=== PATIENT | female | born 1950 | race Caucasian/White ===

== ENCOUNTER 2022-06-12 17:36 | Emergency (ER) | payer MEDICARE, BC, SELFPAY ==
[2022-06-12 17:56] VITALS: BP 134/83; PULSE 84; RESP 16; TEMP 36.3; O2SAT 98; BMI 21.3
--- NOTE | 2022-06-12 20:09 | CRLHL7_ITS ---
For Patients: As a result of the Century Cures Act, medical imaging exams and procedure reports are released immediately into your electronic medical record. You may view this report before your referring provider. If you have questions, please contact your health care provider. Indication: Fall Technique: Noncontrast CT of the head Please note that all CT scans at this facility use dose modulation, iterative reconstruction, and/or weight-based dosing when appropriate to reduce radiation dose to as low as reasonably achievable. Comparison: None Findings: Soft tissue swelling over the left orbit. Partially visualized opacification of the left maxillary sinus. Fractures better evaluated on same-day facial bone CT. The basal cisterns, sylvian fissures, ventricles and extra-axial spaces are within normal limits for age. No evidence of mass, mass effect, midline shift, acute hemorrhage or infarct. Impression: No acute intracranial abnormality. Please note that all CT scans at this facility use dose modulation, iterative reconstruction, and/or weight-based dosing when appropriate to reduce radiation dose to as low as reasonably achievable. Dictated by Dg Ayala MD @ 06/12/2022 8:46:26 PM (Electronically Signed)
--- NOTE | 2022-06-12 20:09 | CRLHL7_ITS ---
For Patients: As a result of the Century Cures Act, medical imaging exams and procedure reports are released immediately into your electronic medical record. You may view this report before your referring provider. If you have questions, please contact your health care provider. Indication: Fall Technique: Noncontrast CT of the facial bones Please note that all CT scans at this facility use dose modulation, iterative reconstruction, and/or weight-based dosing when appropriate to reduce radiation dose to as low as reasonably achievable. Comparison: None Findings: Motion somewhat limits evaluation. Apparent discontinuity of the mandible (series 5, image 65) is favored secondary to motion artifact. The patient is almost entirely edentulous. There is surgical hardware within the mandible. The hard palate and pterygoid plates appear intact. The nasal bones appear intact. There is a fracture involving the inferior left orbital floor (series 5, image 62-49). There is a comminuted fracture involving the left lateral orbital rim (series 5, image 43). There is a fracture involving the lateral left maxillary sinus wall (series 5, image 49) which extends posteriorly (series 3, image 100). Probable non displaced left zygomatic arch fracture (series 3, image 96-108). Severe soft tissue swelling overlying the left cheek and orbit (series 4, image 84) with the subcutaneous emphysema. The left orbit appears intact. There is no retro-orbital hematoma. Impression: Multiple fractures involving the left orbital floor, left lateral orbital wall, left maxillary sinus and left zygomatic arch Please note that all CT scans at this facility use dose modulation, iterative reconstruction, and/or weight-based dosing when appropriate to reduce radiation dose to as low as reasonably achievable. Dictated by Dg Ayala MD @ 06/12/2022 8:57:26 PM (Electronically Signed)
--- NOTE | 2022-06-12 20:10 | CRLHL7_ITS ---
For Patients: As a result of the Century Cures Act, medical imaging exams and procedure reports are released immediately into your electronic medical record. You may view this report before your referring provider. If you have questions, please contact your health care provider. Indication: Fall Technique: Noncontrast CT of the cervical spine Please note that all CT scans at this facility use dose modulation, iterative reconstruction, and/or weight-based dosing when appropriate to reduce radiation dose to as low as reasonably achievable. Comparison: None Findings: Mild anterolisthesis of C4 on C5 and C5 on C6. This is most likely degenerative in etiology given same level facet arthropathy. Vertebral body heights are preserved. No fracture. There is severe degenerative change at C6-C7. No acute soft tissue abnormality. Impression: No acute fracture or malalignment. Please note that all CT scans at this facility use dose modulation, iterative reconstruction, and/or weight-based dosing when appropriate to reduce radiation dose to as low as reasonably achievable. Dictated by Dg Ayala MD @ 06/12/2022 8:42:15 PM (Electronically Signed)
--- NOTE | 2022-06-12 20:23 | ED.GENADULT ---
HPI - General Adult General Chief complaint: Fall/Minor Trauma Stated complaint: Fall, injured L side face on concrete Time Seen by Provider: 06/12/22 20:12 Source: patient Mode of arrival: ambulatory Limitations: no limitations History of Present Illness HPI narrative: 71-year-old female coming in today after falling at. She leaned over to get her dog tied, lost her balance and fell onto her left side hitting her face on the concrete step in the front of her house. This occurred approximately 3 hours before she was seen. She states that she has a headache on the left side of her head. I swollen shut. She states that her head and neck feels sore. She also does hit her arm and scraped her skin-this hurts her but the arm itself is feels fine. The she has good range of motion in both arms. She has no back pain that is new. She states that she has been having issues with her balance as of late and has been working on that. She does live with her at home. She is not on any blood thinners. Related Data Home Medications Medication Instructions Recorded Confirmed alendronate 70 mg tablet 70 mg PO DAILY 06/12/22 06/12/22 bupropion HCl 200 mg tablet,12 hr 200 mg PO Q12H 06/12/22 06/12/22 sustained-release chlorhexidine gluconate 0.12 % 15 ml PO .every other day 06/12/22 06/12/22 mouthwash escitalopram oxalate 20 mg tablet 20 mg PO DAILY 06/12/22 06/12/22 gabapentin 300 mg capsule 300 mg PO Q12H 06/12/22 06/12/22 hydrocodone 10 mg-acetaminophen 1 tab PO Q8H 06/12/22 06/12/22 325 mg tablet lamotrigine 25 mg tablet 25 mg PO DAILY 06/12/22 06/12/22 levothyroxine 88 mcg tablet 88 mcg PO DAILY 06/12/22 06/12/22 omeprazole 40 mg capsule,delayed 40 mg PO DAILY 06/12/22 06/12/22 release pravastatin 40 mg tablet 40 mg PO HS 06/12/22 06/12/22 quetiapine 100 mg tablet 100 mg PO DAILY 06/12/22 06/12/22 quetiapine 50 mg tablet 50 mg PO DAILY 06/12/22 06/12/22 trazodone 100 mg tablet 100 mg PO DAILY 06/12/22 06/12/22 Allergies Allergy/AdvReac Type Severity Reaction Status Date / Time ampicillin Allergy Mild Rash Verified 06/12/22 18:03 Review of Systems Status of ROS: Reports: 10 or more systems reviewed and unremarkable except as noted in History and below Exam Narrative: Exam Narrative: Well-nourished elderly patient in no acute distress. Alert and oriented x3. Answers questions appropriately. Mood and affect are appropriate. Thoughts are goal oriented and rational. No tangential or magical thinking noted. Patient speaks in full sentences without needing to catch her breath. Speech is not slurred or pressured. GCS is 15. She is breathing and speaking without difficulty. HEENT: Normocephalic. Patient has a large left-sided hematoma around the eye and the eye is swollen shut. I am able to open her eye and she does have some conjunctival swelling but her pupils are equally round reactive to light and her extraocular muscles are intact. She does have a laceration above the left eyebrow that is less than 1 cm in length. Moist mucous membranes, I do not see trauma to the inside of the mouth. Posterior pharynx is normal. Neck is soft without any lymphadenopathy or thyromegaly. He has some discomfort to palpation of the bilateral neck muscles, no acute tenderness over the cervical spine. She has good range of motion with flexion, extension, side way bending and rotation at the neck however does cause her bilateral discomfort. Cardiovascular: Heart is regular rate and rhythm S1 and S2 are present. Lungs: Clear to auscultation bilaterally. Patient takes deep breaths without any discomfort. Skin: Well perfused without any obvious rashes. She does have scattered bruising over the upper extremities. On the left posterior forearm she has an area where the top layer of skin has been avulsed. This area is about 2 cm in length. She has no tenderness to palpation of the shoulders, elbows, or wrists bilaterally. Hand state appellate clerk is normal and symmetric. She has a tremor present which is not new according her. Const: Vital Signs, click to edit/add: Vital Signs - 24 hr 06/12/22 17:56 Temperature 97.4 F L Pulse Rate [Right Pulse Oximeter] 84 Respiratory Rate 16 Blood Pressure [Ri ght Upper Arm] 134/83 Pulse Oximetry 98 Oxygen Delivery Me thod Room Air Course Course Hospital Course: Patient proceeded to head, facial and cervical spine CTs. Head and cervical spine CT unremarkable. Facial CT showing multiple fractures. Did consult Dr. Dasilva, ER [facility], who recommended patient be evaluated by their facial trauma team. Prior to transfer patient's arm wound was cleansed and dressed per nursing. Laceration on the forehead was cleaned in the usual sterile manner anesthetized with lidocaine and 2 sutures were placed with 5 0 Ethilon. Patient will transfer via private vehicle, her daughter is taking her. Vital Signs Vital signs: Initial Vital Signs Temperature 97.4 F L 06/12/22 17:56 Temperature Source Temporal Artery Scan 06/12/22 17:56 Pulse Rate 84 06/12/22 17:56 Respiratory Rate 16 06/12/22 17:56 Blood Pressure 134/83 06/12/22 17:56 Blood Pressure Mean 100 06/12/22 17:56 Blood Pressure Position Sitting 06/12/22 17:56 Pulse Oximetry 98 06/12/22 17:56 Oxygen Delivery Method 06/12/22 17:56 Vital Signs Temperature 97.4 F L 06/12/22 17:56 Pulse Rate 84 06/12/22 17:56 Respiratory Rate 16 06/12/22 17:56 Blood Pressure 134/83 06/12/22 17:56 Pulse Oximetry 98 06/12/22 17:56 Oxygen Delivery Method 06/12/22 17:56 Temperature 97.4 F L 06/12/22 17:56 Pulse Rate 84 06/12/22 17:56 Respiratory Rate 16 06/12/22 17:56 Blood Pressure 134/83 06/12/22 17:56 Pulse Oximetry 98 06/12/22 17:56 Oxygen Delivery Method 06/12/22 17:56 Medical Decision Making [facility] Narrative Medical decision making narrative: 71-year-old female status post fall with multiple facial fractures. Laceration sutured in the ED today. Patient will be transferred via private vehicle to [facility] for further evaluation. Imaging Data Cervical spine CT: Attestation: I have reviewed the pertinent imaging results. Radiologist's impression: Noncontrast CT of the cervical spine Please note that all CT scans at this facility use dose modulation, iterative reconstruction, and/or weight-based dosing when appropriate to reduce radiation dose to as low as reasonably achievable. Comparison: None Findings: Mild anterolisthesis of C4 on C5 and C5 on C6. This is most likely degenerative in etiology given same level facet arthropathy. Vertebral body heights are preserved. No fracture. There is severe degenerative change at C6-C7. No acute soft tissue abnormality. Impression: No acute fracture or malalignment. CT scan - head: Attestation: I have reviewed the pertinent imaging results. Radiologist's impression: Noncontrast CT of the head Please note that all CT scans at this facility use dose modulation, iterative reconstruction, and/or weight-based dosing when appropriate to reduce radiation dose to as low as reasonably achievable. Comparison: None Findings: Soft tissue swelling over the left orbit. Partially visualized opacification of the left maxillary sinus. Fractures better evaluated on same-day facial bone CT. The basal cisterns, sylvian fissures, ventricles and extra-axial spaces are within normal limits for age. No evidence of mass, mass effect, midline shift, acute hemorrhage or infarct. Impression: No acute intracranial abnormality. Discharge Plan Discharge Clinical Impression: Facial fracture due to fall Patient Disposition: Xfer Other Discharge Location: [facility] Condition: Stable Additional Instructions: Proceeded to ER at [facility]. Prescriptions: No Action bupropion HCl 200 mg tablet sustained-release 12 hr 200 mg PO Q12H alendronate 70 mg tablet 70 mg PO DAILY Label Comments: has not been taking getting teeth implants for a while chlorhexidine gluconate 0.12 % mouthwash 15 ml PO .every other day Label Comments: RINSE AND SPIT 15-30 ML (ONE TO TWO TABLESPOONS) TWICE PER DAY STARTING 72 HOURS AFTER SURGERY. escitalopram oxalate 20 mg tablet 20 mg PO DAILY gabapentin 300 mg capsule 300 mg PO Q12H hydrocodone-acetaminophen 10-325 mg tablet 1 tab PO Q8H levothyroxine 88 mcg tablet 88 mcg PO DAILY omeprazole 40 mg capsule,delayed release(DR/EC) 40 mg PO DAILY pravastatin 40 mg tablet 40 mg PO HS quetiapine 100 mg tablet 100 mg PO DAILY lamotrigine 25 mg tablet 25 mg PO DAILY quetiapine 50 mg tablet 50 mg PO DAILY trazodone 100 mg tablet 100 mg PO DAILY Stand Alone Forms: [employer] Info Instructions
--- OUTSIDE RECORDS SUMMARY | 2022-06-12 20:26 | XMS_ITS | Clinical Summary ---
:1950 Author Organization [employer] [facility] [place] [address] Care Team Providers Name Role Phone Karla Rivera MD Primary Care Provider [phone] Allergies Active Allergy Reactions Severity Noted Date Comments Ampicillin Rash 07/29/2011 Medications Medication Sig Dispensed Refills Start End Status Date Date multivitamin (MVI) Take 1 tablet by 0 Active tablet mouth once 012 daily. cholecalciferol Take 1 capsule 90 capsule 3 Active (VITAMIN D) 2,000 unit by mouth once 014 capsuleIndications: daily. Vitamin D deficiency calcium Take 1 tablet by 0 2 Act geronimo carbonate-vitamin D3, mouth 2 times 019 500 mg-400 units, daily before (OSCAL 500 + D) tablet meals. sennosides (SENNA) 8.6 Take 1 tablet by 0 Active mg tablet mouth 2 times 019 daily if needed for Constipation. nicotine 14 mg/24 hr Apply 1 Patch on 14 Patch 3 Active (NICODERM; HABITROL) 14 dry, clean, 021 mg/24 hr hairless skin patchIndications: once daily. Tobacco abuse nicotine 7 mg/24 hr Apply 1 Patch on 14 Patch 3 Active (NICODERM; HABITROL) 7 dry, clean, 021 mg/24 hr hairless skin patchIndications: once daily. Tobacco abuse alendronate (FOSAMAX) Take 1 Tablet 4 Tablet 0 Active 70 mg (70 mg) by mouth 022 tabletIndications: once a week in Senile osteoporosis the morning. Take on empty stomach with full glass of water. Do not lie down for 1 hr. levothyroxine TAKE ONE TABLET 90 Tablet 1 Active (SYNTHROID) 88 mcg BY MOUTH ONCE 022 tabletIndications: DAILY (BEST IF Graves' disease TAKEN ON AN EMPTY STOMACH) omeprazole (PRILOSEC) TAKE ONE CAPSULE 90 Capsule 2 Active 40 mg Delayed-Release BY MOUTH ONCE 022 capsuleIndications: DAILY Nausea pravastatin (PRAVACHOL) Take 1 Tablet 100 Tablet 1 Active 40 mg (40 mg) by mouth 022 tabletIndications: Pure at bedtime. TAKE hypercholesterolemia AT BEDTIME. buPROPion (WELLBUTRIN Take 1 Tablet 180 Tablet 0 Active SR) 200 mg (200 mg) by 022 Sustained-Release mouth two times tabletIndications: daily. Bipolar 2 disorder (HC), Tobacco abuse escitalopram oxalate Take 1 Tablet 90 Tablet 0 Active (LEXAPRO) 20 mg (20 mg) by mouth 022 tabletIndications: once daily. Bipolar 2 disorder (HC), Anxiety gabapentin (NEURONTIN) Take 1 Capsule 90 Capsule 1 Active 300 mg (300 mg) by 022 capsuleIndications: mouth 3 times Anxiety daily if needed (anxiety). traZODone (DESYREL) 100 1-2 tablets at 60 Tablet 2 Active mg tabletIndications: bedtime as Bipolar 2 disorder (HC) needed for insomnia QUEtiapine (SEROQUEL) Take 1 Tablet 30 Tablet 1 Active 100 mg (100 mg) by 022 tabletIndications: mouth at Bipolar 2 disorder (HC) bedtime. HYDROcodone-acetaminoph TAKE ONE TABLET 90 Tablet 0 Active en, 10-325 mg, (NORCO BY MOUTH THREE 022 10-325) 10-325 mg per TIMES A DAY tabletIndications: Pain NEEDED FOR PAIN medication agreement, - MAXIMUM Arthritis ACETAMINOPHEN DOSE 4000MG/24 HOURS. CAUTION: OPIOID - RISK OF OVERDOSE AND ADDICTION traZODone (DESYREL) 100 1-2 tablets at 60 Tablet 2 2 1 / Discontinued mg tabletIndications: bedtime as 2021 (Reorder Bipolar 2 disorder (HC) needed for (E-cancel not insomnia sent)) escitalopram oxalate Take 1 Tablet 90 Tablet 0 2 05/26 / Discontinued (LEXAPRO) 20 mg (20 mg) by mouth 2021 (Reorder tabletIndications: once daily. (E-cancel not Bipolar 2 disorder s ent)) (HC), Anxiety buPROPion (WELLBUTRIN Take 1 Tablet 180 Tablet 0 2 / Discontinued SR) 200 mg (200 mg) by 2021 (Reorde r Sustained-Release mouth in the (E-cancel not tabletIndications: morning and 1 sent)) Bipolar 2 disorder Tablet (200 mg) (HC), Tobacco abuse in the evening. QUEtiapine (SEROQUEL) Take 1 Tablet 30 Tablet 1 2 05/16 0/ Discontinued 50 mg (50 mg) by mouth 2021 tabletIndications: at bedtime. Bipolar 2 disorder (HC) gabapentin (NEURONTIN) Take 1 Capsule 90 Capsule 1 2 1 / Discontinued 300 mg (300 mg) by 2021 (Reorder capsuleIndications: mouth 3 times (E-cancel not Anxiety daily if needed sent )) (anxiety). HYDROcodone-acetaminoph TAKE ONE TABLET 90 Tablet 0 2 06/08/ Discontinued en, 10-325 mg, (NORCO BY MOUTH THREE 10-325) 10-325 mg per TIMES A DAY tabletIndications: Pain NEEDED FOR PAIN medication agreement, - - MAXIMUM Arthritis ACETAMINOPHEN DOSE 4000MG/24 HOURS. QUEtiapine (SEROQUEL) TAKE ONE TABLET 30 Tablet 1 2 / Discontinued 50 mg BY MOUTH AT 2021 (*Medica tion tabletIndications: BEDTIME a djustment) Bipolar 2 disorder (HC) Active Problems Problem Noted Date Encounter for screening for lung cancer 04/11/2020 Overview: Formatting of this note is dif ferent from the original. Mar 2020: Low-dose chest CT screening fo r lung cancer. IMPRESSION: 1. Negative for lung cancer screening purposes. ?? 2. Stable changes of probable UIP since 12/29/2017. ?? LungRADS CATEGORY: 1: Negativ e.?? RADIOLOGIST RECOMMENDATION: Continu e annual screening with low-dose CT chest in 12 months . Tremor 10/10/2019 Overview: Improved on propranolol, but this caused a lot of side effects, so she stopped it. Not treating tremor currently. Offered Neurology referral and patient declined. Moderate episode of recurrent major depressive disorde r 11/08/2018 Tachycardia 01/18/2013 Overview: Treated with propranolol, but this cause d a lot of side effects. Currently off medication. Hyperplastic colon polyp 01/11/2013 Overview: Colonoscopy 12/2012 polyp repeat in 10 ye ars Pure hypercholesterolemia 10/02/2011 Pain medication agreement 09/04/2011 Overview: Date Signed: 01/24/2014 Physician: Karla Rivera MD Medication: [place] 10/325 Quantity per month: #60 Pharmacy: [facility] Last Toxasure: 03/2015 Senile osteoporosis 07/29/2011 Overview: Started Fosamax 10/2021. Unspecified hypothyroidism 08/16/1998 Grave's disease Arthritis Resolved Problems Problem Noted Date Resolved Date Nausea 11/02/2017 10/10/2019 Overview: EGD 10/2017 Reactive gastropathy, recomme nd gastric emptying study, which showed slow gastric emptying. A special diet was recommended. Symptoms have improved with diet and after stopping propranolol Pre-diabetes 01/18/2013 10/10/2019 Pre-diabetes 09/04/2011 07/18/2013 BIPOLAR AFFECT DISORD, DEPRESSED, SEVERE 09/22/2001 11/11/2018 Heartburn 09/22/2001 07/29/2011 LACRIMAL INSUFFICIENCY-PER HISTORY 08/31/200007/29 PAIN IN JOINT, SHOULDER 08/04/2000 07/29/2011 Encounters Date Type Specialty Care Team Description 06/08/2022 Refill Karla Rivera Refill Requ ericka Dacosta MD (Hydrocodone-ac etaminophen (10-325 Mg)) 06/02/2022 Hospital Encounter Karla Rivera MD Krogman, Brandon, PT 06/02/2022 Travel 05/27/2022 Office Visit Rosa Elena Villanueva Follow Up (); Boris Dacosta MD Management 05/27/2022 Travel 05/26/2022 Hospital Encounter MiguelKarla de la rosa MD Henry, Lori J, COMPOSING ROOM MACHINIST 05/26/2022 Travel 05/23/2022 Refill Rosa Elena Villanueva Refill Rejasmin Dacosta MD (Quetiapine) 05/22/2022 Hospital Encounter Karla Rivera MD Krogman, Brandon, PT 05/22/2022 Travel 05/19/2022 Hospital Encounter Karla Rivera MD Henry, Lori J, COMPOSING ROOM MACHINIST 05/19/2022 Travel 05/15/2022 Hospital Encounter Karla Rivera MD Krogman, Brandon, PT 05/15/2022 Travel 05/12/2022 Hospital Encounter Karla Rivera MD Henry, Lori J, COMPOSING ROOM MACHINIST 05/12/2022 Travel 05/09/2022 Refill Karla Rivera MD (Hydrocodone-ac etaminophen (10-325 Mg)) 05/08/2022 Hospital Encounter Karla Rivera MD Krogman, Brandon, PT 05/08/2022 Travel 05/05/2022 Hospital Encounter Karla Rviera MD Vinar, Kaylin J, COMPOSING ROOM MACHINIST 05/05/2022 Travel 04/28/2022 Hospital Encounter Karla Rivera MD Krogman, Brandon, PT 04/28/2022 Travel 04/24/2022 Hospital Encounter Karla Rivera MD Krogman, Brandon, PT 04/24/2022 Travel 04/21/2022 Hospital Encounter Karla Rivera MD Henry, Lori J, COMPOSING ROOM MACHINIST 04/21/2022 Travel 04/17/2022 Hospital Encounter Karla Rivera MD Krogman, Brandon, PT 04/17/2022 Travel 04/14/2022 Hospital Encounter Karla Rivera MD Henry, Lori J, COMPOSING ROOM MACHINIST 04/14/2022 Travel 04/08/2022 Office Visit Karla Rivera MD 04/07/2022 Hospital Encounter Karla Rivera MD Henry, Lori J, COMPOSING ROOM MACHINIST 04/07/2022 Travel 04/05/2022 Refill Karla Rivera Refill Requ est MD Olesya (Pravastatin) 04/05/2022 Travel 04/03/2022 Hospital Encounter Karla Rivera MD Krogman, Brandon, PT 04/03/2022 Travel 03/31/2022 Hospital Encounter Karla Rivera MD Krogman, Brandon, PT 03/31/2022 Travel 03/30/2022 Telephone Rosa Elena Villanueva Medication Management MD Olesya (Gabapentin) 03/27/2022 Telephone Rosa Elena Villanueva Prior Auth tyrell Dacosta MD (QUEtiapine (SE ROQUEL) 50 mg tablet (APPR LILIANA 12/27/2021-03/16)) 03/27/2022 Telephone Rosa Elena Villanueva Prior Auth tyrell Dacosta MD (Seroquel) 03/26/2022 Telephone Karla Rivera Medication Ney Dacosta MD 03/25/2022 Hospital Encounter Karla Rivera Physi juan r deconditioning MD Simeon Dacosta Brandon, PT 03/25/2022 Office Visit Rosa Elena Villanueva Follow Up MD Olesya 03/25/2022 Travel 03/23/2022 Travel 03/19/2022 Transcribe Orders Ernestine Santiago PA 03/19/2022 Transcribe Orders Ernestine Santiago PA from Last 3 Months Immunizations Name Administration Dates Next Due COVID-19 vaccine (Moderna 100mcg/0.5mL) 09/16/2021, 08/19/19 22 PF, MDV Influenza, Inactivated AIIV4 (Age 65+ 06/16/2021, 06/20/2020 Years) Preserv Free Influenza, Inactivated IIV3 (Age 65+ 06/19/2019, 06/07/2018, 06/16/2017 Years) Preserv Free Pneumococcal Poly,23-Valent (Pneumovax) 08/04/2018 Pneumococcal conj 13-Valent (Prevnar 13) 12/10/2016 Td (Age >=7 Years) 01/04/1996 Tdap 08/07/2018, 07/26/2008 Zoster (Shingrix-RZV, recombinant) 10/30/2019, 07/20/2019 Zoster (Zostavax-ZVL, live) 01/26/2012 Family History Medical History Relation Name Comments Psychiatric illness Daughter 1 Other Daughter 2 Back pain Arthritis Father Other Father Hepatitis C from blood transfusion Hypertension Mother Other Mother Osteoporosis Thyroid Disease Mother Cancer-breast Paternal Aunt Relation Name Status Comments Daughter 1 Daughter 2 Father Mother (Age 92) Paternal Aunt Social History Tobacco Use Types Packs/Day Years Used Date Current Every Day Smoker Cigarettes 0.5 35 Sta rted: 08/16/1976 Smokeless Tobacco: Never Used Tobacco Cessation: Ready to Quit: Yes; C ounseling Given: Yes Comments: Currently smokes 1 cig daily Alcohol Use Standard Drinks/Week Comments No 0 (1 standard drink = 0.6 oz pure alcoho l) Sober since 2002 Alcohol Habits Answer Date Recorded How often do you have a drink containing alcohol? Not asked How many drinks containing alcohol do you have on a Not aske d typical day when you are drinking? How often do you have six or more drinks on one Not asked occasion? Comment: Sober since 200201/24/2014 Sex Assigned at Date Recorded Not on file COVID-19 Exposure Response Date Recorded In the last 10 days, have you been in contact No / Unsure 06/02/2022 10:14 AM CDT with someone who was confirmed or suspected to have Coronavirus/COVID-19? Obstetrics History Para Term AB IAB SAB Ectopic Multiple Living Live Births 4 3 1 3 Date Outcome GA Total Labor/2nd/3rd Weight Sex Delivery Anes PTL Karey A 1 A5 Name Clin Labor 1974 AB 10/04 Para F Doretha 02/13 Para M Leanne horvath 01/10 Para F Birgit na Last Filed Vital Signs Vital Sign Reading Time Taken Comments Blood Pressure 119/73 05/27/2022 10:28 AM CDT Pulse 91 05/27/2022 10:28 AM CDT Temperature 36.7 ??C (98 ??F) 12/27/2021 11:55 AM CDT Respiratory Rate 20 12/27/2021 11:55 AM CDT Oxygen Saturation 98% 01/14/2022 11:06 AM CDT Inhaled Oxygen Concentration - - Weight 61.6 kg (135 lb 14.4 oz) 05/27/2022 10:28 AM CDT Height 169 cm (5' 6.54) 04/08/2022 11:04 AM CDT Body Mass Index 21.58 04/08/2022 11:04 AM CDT Plan of Treatment Upcoming Encounters Date Type Specialty Care Team Description 06/16/2022 [place] [address] [place], [place] [address] (Wo rk) 07/29/2022 Office Visit Matthew Villanueva MD [address] [place] [address] (Wo rk) Health Maintenance Due Date Last Done Comments COVID-19 vaccine series (3 - 11/11/2021 09/16/2021, 022 Booster for Moderna series) Influenza for age 65+ 04/16/2022 06/16/2021, 06/20/2020, 06/19/2019, Additional history exists Low Dose CT (for lung CA) age 0905/13/2022 05/13/2021, 2019, 50-80 09/23/2017 Medicare Wellness for age 65+ 10/13/2022 10/13/2021, 2020, 10/10/2019, Additional history exists Colonoscopy through age 75 01/06/2023 01/06/2013 Mammogram for age 45-75 01/09/2023 01/09/2022, 10/15/2020, 06/27/2019, Additional history exists BMI (ht and wt on same day) for 04/08/2023 04/08/2022, 06/0 08/2021, age 18+ 10/21/2021, Additional history exists Depression screening for age 12+ 05/27/2023 05/27/2022, 07/2022, 03/27/2022, Additional history exists Lipids for age 45-75 10/13/2026 10/13/2021, 10/10/2020, 10/10/2019, Additional history exists Tetanus booster 08/07/2028 08/07/2018, 07/26/2008, 07/26/2008, Additional history exists Hepatitis C screening for age Completed 01/24/2014 18-79 Pneumococcal series for age 65+ Completed 08/04/2018, 11/15 Tdap Completed 08/07/2018, 07/26/2008 DEXA/DXA scan for age 65+ Completed 10/20/2019, 12/24/2016 , 01/08/2015, Additional history exists Zoster (shingles) series for age Completed 10/30/2019, 12/2018, 50+ 01/26/2012 Results Not on filefrom Last 3 Months Insurance Payer Benefit Plan / Subscriber ID Effective Dates Phone Addre ss Type Group MEDICARE PART B MEDICARE PART B [id number] 2016-[employer] ATTN: CLAIMS - HB USE ONLY HB ONLY t [address] [facility] [place] [address] [place] [place] [id number] 2021-[employer]en [address] [address] [place] [address] [place], [place] [id number] [employer] BL[employer] [place] [id number] 2016-[place] [address] [address] [address] [place], [place] [id number] Care Teams Card Maker Relationship Specialty Start Date End Date Karla Rivera MD PCP - General Family Practice 07/22/11 [address] [place] [address]
[2022-06-12] MEDS: HYDROCODONE-ACETAMIN 5-325 MG 1 TAB PO (20:45)
--- NOTE | 2022-06-12 21:02 | ED.NURSE ---
Wound on pt L forearm cleaned with normal saline-moistened gauze and wound cleanser spray. Small amounts of loose foreign debris removed from wound with q-tips. Bacitracin applied to wound. Wound dressed with telfa and gauze roll.
[2022-06-12 21:15] VITALS: BP 118/74; PULSE 74; RESP 18; TEMP 37; O2SAT 98
[2022-06-12 21:46] VITALS: BP 124/78; PULSE 79; RESP 18; TEMP 36.7; O2SAT 98
[2022-06-12 21:47] VITALS: BP 124/78; PULSE 79; RESP 18; TEMP 36.7
== END 2022-06-12 21:47 | disposition other institution (70) ==
PROVIDERS: Emergency Provider Family Medicine; PCP Family Medicine
DX: S01.81XA Laceration without foreign body of other part of head, initial encounter (principal); S02.92XA Unspecified fracture of facial bones, initial encounter for closed fracture; W01.0XXA Fall on same level from slipping, tripping and stumbling without subsequent striking against object, initial encounter
CPT/HCPCS: 12001; 70450; 70486; 72125; 99284; A9270

== ENCOUNTER 2022-06-17 14:37 | Emergency (ER) | payer MEDICARE, BC, SELFPAY ==
[2022-06-17 15:07] VITALS: BP 98/63; PULSE 86; RESP 18; TEMP 36.8; O2SAT 95; BMI 21.6
--- NOTE | 2022-06-17 15:46 | CRLHL7_ITS ---
For Patients: As a result of the Century Cures Act, medical imaging exams and procedure reports are released immediately into your electronic medical record. You may view this report before your referring provider. If you have questions, please contact your health care provider. INDICATION: Multiple falls. TECHNIQUE: CT cervical spine without contrast. COMPARISON: CT cervical spine dated 06/12/2022. FINDINGS: Vertebrae: Loss of normal cervical lordosis, unchanged. No acute displaced fracture or traumatic malalignment. Mild anterolisthesis of C4 on C5, and C5 on C6, unchanged. Bones are osteopenic. Discs and facet joints: Multilevel degenerative changes, worst at the level of C6-C7, unchanged. Bilateral facet arthropathy. Extraspinal findings: Prevertebral soft tissues are within normal limits. Visualized airway is patent. Right lung apex is grossly clear. IMPRESSION: No evidence of acute displaced fracture or traumatic malalignment. Extensive degenerative changes. Please note that all CT scans at this facility use dose modulation, iterative reconstruction, and/or weight-based dosing when appropriate to reduce radiation dose to as low as reasonably achievable. Dictated by Deandra Taylor MD @ 06/17/2022 5:28:32 PM (Electronically Signed)
--- NOTE | 2022-06-17 15:46 | CRLHL7_ITS ---
For Patients: As a result of the Cures Act, medical imaging exams and procedure reports are released immediately into your electronic medical record. You may view this report before your referring provider. If you have questions, please contact your health care provider. INDICATION: Multiple falls. TECHNIQUE: CT head without contrast. COMPARISON: CT head and CT facial bones dated 06/12/2022. FINDINGS: Cerebral parenchyma: No evidence of acute territorial infarct. No acute intraparenchymal hemorrhage. No significant mass effect/midline shift. Normal esposito-white matter differentiation. Extra-axial spaces: No extra-axial collection or hemorrhage. Ventricles: Unremarkable. Calvarium: No acute skull fracture. Multiple left facial bone fractures, partially visualized. Visualized paranasal sinuses/mastoid air cells: Hemorrhagic material within the left maxillary sinus. Posterior fossa: No cerebellar tonsillar herniation. Visualized orbits: No acute abnormality. IMPRESSION: 1. No acute intracranial hemorrhage. 2. Multiple left facial bone fractures, partially visualized, better assessed on prior CT facial bones. Please note that all CT scans at this facility use dose modulation, iterative reconstruction, and/or weight-based dosing when appropriate to reduce radiation dose to as low as reasonably achievable. Dictated by Deandra Taylor MD @ 06/17/2022 5:35:54 PM (Electronically Signed)
--- NOTE | 2022-06-17 17:20 | ED.FALL ---
HPI - Fall General Chief Complaint: Fall/Minor Trauma Stated Complaint: fall Time Seen by Provider: 06/17/22 14:41 History of Present Illness HPI Narrative: 71-year-old woman presenting to the emergency department accompanied by her son with complaint of falling out again. This I believe is now the 3rd fall in in this last week. 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 No loss of consciousness. She is a little sore at the base of her left neck as well sounds like this is a little bit more than since last fall. Not having any difficulty breathing. No abdominal pain. No extremity pain. No double vision. No new back pain. Reportedly does look a little bit better since the last fall and that her left eye in particular is more open. It was bleeding again in her left brow apparently a major point of impact again today. This is where she has received sutures prior. Does have [place] that she takes for her back and would like something for pain now possible. Facial CT impression from 4 days ago. Impression: Multiple fractures involving the left orbital floor, left lateral orbital wall, left maxillary sinus and left zygomatic arch Related Data Home Medications Medication Instructions Recorded Confirmed alendronate 70 mg tablet 70 mg PO DAILY 06/12/22 06/12/22 bupropion HCl 200 mg tablet,12 hr 200 mg PO Q12H 06/12/22 06/12/22 sustained-release chlorhexidine gluconate 0.12 % 15 ml PO .every other day 06/12/22 06/12/22 mouthwash escitalopram oxalate 20 mg tablet 20 mg PO DAILY 06/12/22 06/12/22 gabapentin 300 mg capsule 300 mg PO Q12H 06/12/22 06/12/22 hydrocodone 10 mg-acetaminophen 1 tab PO Q8H 06/12/22 06/12/22 325 mg tablet lamotrigine 25 mg tablet 25 mg PO DAILY 06/12/22 06/12/22 levothyroxine 88 mcg tablet 88 mcg PO DAILY 06/12/22 06/12/22 omeprazole 40 mg capsule,delayed 40 mg PO DAILY 06/12/22 06/12/22 release pravastatin 40 mg tablet 40 mg PO HS 06/12/22 06/12/22 quetiapine 100 mg tablet 100 mg PO DAILY 06/12/22 06/12/22 quetiapine 50 mg tablet 50 mg PO DAILY 06/12/22 06/12/22 trazodone 100 mg tablet 100 mg PO DAILY 06/12/22 06/12/22 Allergies Allergy/AdvReac Type Severity Reaction Status Date / Time ampicillin Allergy Mild Rash Verified 06/12/22 18:03 Review of Systems Status of ROS: Reports: 10 or more systems reviewed and unremarkable except as noted in History and below [facility] Medical History Arthritis Graves disease Hyperplastic colon polyp Moderate episode of recurrent major depressive disorder Pure hypercholesterolemia Senile osteoporosis Tachycardia Tremor Surgical History H/O breast augmentation History of appendectomy History of hysterectomy History of repair of hip fracture Hx of breast biopsy Social History Smoking Status: Never smoker Do you use any of these nicotine containing products: None Second hand tobacco smoke exposure: No How often do you have a drink containing alcohol: never How often do you have six or more drinks on one occasion: Never AUDIT-C Alcohol total score: 0 Non-prescribed substance use: denies use Exam Narrative: Exam Narrative: Pleasant. easily conversant. Edentulous. Breathing easily. Moving all extremities without difficulty. Head is sustained remarkable level of trauma. There is marked diffuse left-sided facial swelling and erythema bruising without calor or significant induration of the skin itself to suggest cellulitis. Extraocular movements are intact. There is total scleral coverage by subconjunctival hemorrhage which apparently is not new on the left. Cranial nerves 2-12 intact with brisk pupils. New canals are free of fluid. No Werner sign. There is bruising down into the anterior left neck as well. Fresh scab at the left outer brow where she is little tender. Neck is supple. A little sore at the left low pericervical musculature. No actual midline tenderness. Lungs are clear in back is nontender. Cardiovascular with regular rate and rhythm Abdomen is soft. Nontender. Little protuberant. Extremities are without edema. She has a light abrasion on the left patella. Const: Vital Signs, click to edit/add: Vital Signs - 24 hr 06/17/22 15:07 06/17/22 17:21 06/17/22 18:28 Temperature 98.3 F 98.3 F Pulse Rate [Pulse Oximeter] 86 77 77 Respiratory Rate 18 14 14 Blood Pressure [Ri ght Upper Arm] 98/63 101/72 101/72 Pulse Oximetry 95 97 Oxygen Delivery Me thod Room Air Room Air 06/17/22 18:29 Temperature 98.3 F Pulse Rate [Pulse Oximeter] 77 Respiratory Rate 14 Blood Pressure [Ri ght Upper Arm] 101/72 Pulse Oximetry Oxygen Delivery Me thod Documenting provider has reviewed patient's vital signs: yes Course Vital Signs Vital signs: Initial Vital Signs Temperature 98.3 F 06/17/22 15:07 Temperature Source Temporal Artery Scan 06/17/22 15:07 Pulse Rate 86 06/17/22 15:07 Pulse Rhythm 06/17/22 15:07 Respiratory Rate 18 06/17/22 15:07 Blood Pressure 98/63 06/17/22 15:07 Blood Pressure Mean 74 06/17/22 15:07 Blood Pressure Position Sitting 06/17/22 15:07 Pulse Oximetry 95 06/17/22 15:07 Oxygen Delivery Method 06/17/22 15:07 Vital Signs Temperature 98.3 F 06/17/22 15:07 Pulse Rate 86 06/17/22 15:07 Respiratory Rate 18 06/17/22 15:07 Blood Pressure 98/63 06/17/22 15:07 Pulse Oximetry 95 06/17/22 15:07 Oxygen Delivery Method 06/17/22 15:07 Temperature 98.3 F 06/17/22 18:29 Pulse Rate 77 06/17/22 18:29 Respiratory Rate 14 06/17/22 18:29 Blood Pressure 101/72 06/17/22 18:29 Pulse Oximetry 97 06/17/22 17:21 Oxygen Delivery Method 06/17/22 17:21 MDM - Fall MDM Narrative Medical decision making narrative: CT imaging of head and neck is without acute abnormalities when compared to have prior studies. No evidence of ocular entrapment on physical exam. Appears to have been a trip and fall type event. Improved with 2 tabs of [place] as dispensed. Medical Records Attestation: I reviewed the patient's medical records. Discharge Plan Discharge Clinical Impression: Closed head injury, Fall Patient Disposition: Home w/ Parent or Adult Condition: Stable Additional Instructions: It does sound like it would be a good idea to avoid any movement that would make you more likely to tip over. Thankfully there is no new bleeding in your head and no new injury in your neck. Rest. Hydrate. Ice packs. Prescriptions: No Action bupropion HCl 200 mg tablet sustained-release 12 hr 200 mg PO Q12H alendronate 70 mg tablet 70 mg PO DAILY Label Comments: has not been taking getting teeth implants for a while chlorhexidine gluconate 0.12 % mouthwash 15 ml PO .every other day Label Comments: RINSE AND SPIT 15-30 ML (ONE TO TWO TABLESPOONS) TWICE PER DAY STARTING 72 HOURS AFTER SURGERY. escitalopram oxalate 20 mg tablet 20 mg PO DAILY gabapentin 300 mg capsule 300 mg PO Q12H hydrocodone-acetaminophen 10-325 mg tablet 1 tab PO Q8H levothyroxine 88 mcg tablet 88 mcg PO DAILY omeprazole 40 mg capsule,delayed release(DR/EC) 40 mg PO DAILY pravastatin 40 mg tablet 40 mg PO HS quetiapine 100 mg tablet 100 mg PO DAILY lamotrigine 25 mg tablet 25 mg PO DAILY quetiapine 50 mg tablet 50 mg PO DAILY trazodone 100 mg tablet 100 mg PO DAILY Follow Up/Referrals: Karla Rivera MD [Primary Care Provider] - Stand Alone Forms: [employer] Info Instructions
[2022-06-17 17:21] VITALS: BP 101/72; PULSE 77; RESP 14; O2SAT 97
[2022-06-17] MEDS: HYDROCODONE-ACETAMIN 5-325 MG 1 TAB 2 TAB PO (17:26)
--- OUTSIDE RECORDS SUMMARY | 2022-06-17 18:27 | XMS_ITS | Clinical Summary ---
:1950 Author Organization [facility] Address [address] [place] [id number] Phone Care Team Providers Name Role Phone Unavailable Primary Care Provider Unavailable Source Comments [facility] is fully rolled out on [employer]. Last update 01/18/09.[facility] Allergies Active Allergy Reactions Severity Noted Date Comments Ampicillin Rash 07/29/2011 Medications Be aware that medications may not be up to date as of this document. Always verify current medications with patient. Medication Sig Dispensed Refills Start Date End Date Status erythromycin 0.5% Place a 1/2 3.5 g 0 06/13/2022 Active (ROMYCIN) 5 mg/gm inch ribbon ophthalmic of ointment ointment into BOTH eyes twice daily. acetaminophen 325 Take 1-2 30 tablet 0 06/13/2022 A ctive mg oral tablet tablets (325-650 mg) by mouth every 4 hours as needed for Mild Pain (Headache). ibuprofen Take 1 tablet 30 tablet 0 06/13/2022 Activ e (MOTRIN;ADVIL) 600 (600 mg) by mg oral tablet mouth 4 times daily as needed for Pain. cefUROXime Take 1 tablet 20 tablet 0 06/13/2022 Acti ve (CEFTIN) 500 mg (500 mg) by 2 oral mouth twice TABSIndications: daily for 10 Facial fracture days. ppx oxyCODONE Take 1 tablet 8 tablet 0 06/13/2022 Disco ntinued (ROXICODONE) 5 mg (5 mg) by 2 (D uplicate Order) oral mouth every 4 tabletIndications: hours as Acute Pain needed for Pain. Active Problems No known active problems Encounters Date Type Specialty Care Team Description 06/13/2022 Emergency EMERGENCY MEDICINE Moe Murillo initial E, MD encounter Quan Carter MD 06/13/2022 Documentation Only Unknown, Provider 06/13/2022 Ophth Exam OPHTHALMOLOGY Nancy Prado MD 06/12/2022 Documentation Only Unknown, Provider 06/12/2022 Travel from Last 3 Months Social History Tobacco Use Types Packs/Day Years Used Date Smoking Tobacco: Never Assessed Sex Assigned at Date Recorded Not on file COVID-19 Exposure Response Date Recorded In the last 10 days, have you been in contact No / Unsure 06/12/2022 11:54 PM CDT with someone who was confirmed or suspected to have Coronavirus/COVID-19? Last Filed Vital Signs Vital Sign Reading Time Taken Comments Blood Pressure 100/60 06/13/2022 12:35 PM CDT Pulse 88 06/13/2022 12:35 PM CDT Temperature 36.9 ??C (98.4 ??F) 06/12/2022 11:31 PM CDT Respiratory Rate 18 06/13/2022 12:35 PM CDT Oxygen Saturation 97% 06/13/2022 12:35 PM CDT Inhaled Oxygen Concentration - - Weight - - Height - - Body Mass Index - - Plan of Treatment Upcoming Encounters Date Type Specialty Care Team Description 06/22/2022 Office Visit DENTISTRY Op, [facility] Scheduled [address] [place] [address] 06/22/2022 Office Visit OPHTHALMOLOGY Tripp De La Cruz MD Scheduled [address] [place] [phone] (Wo rk) Health Maintenance Due Date Last Done Comments Breast Cancer Screening 1950 CT Colonography 1950 Colonoscopy 1950 Colorectal Cancer Screening 1950 Dental Oral Exam 1950 Dental Prophylaxis 1950 Dental X-Ray: [facility]ings 1950 FIT/Cologuard 1950 Hepatitis C Screening 1950 Sigmoidoscopy 1950 iFOB/FIT 1950 Lipid Screening 1952 Periodontal Maintenance 1965 PREVENTATIVE VISIT 1969 HEALTH MAINTENANCE PROTOCOL 1970 Osteoporosis Screening (Dexa 2016 Scan) COVID-19 Vaccine (3 - Booster 11/11/2021 09/16/2021, for Moderna series) 08/19/2021 INFLUENZA VACCINE 04/16/2022 Medicare Annual Wellness 10/13/2022 10/13/2021, 10/10/2020 TD/TDAP ADULTS 08/07/2028 08/07/2018, 07/26/2008, 01/04/1996 PNEUMOCOCCAL IMMUNIZATION > 65 Completed 08/04/2018 YRS HIB Aged Out No longer eligib le based on patient's age to complete this to pic Procedures Procedure Name Priority Date/Time Associated Diagnosis Comme nts EXTERNAL MED 06/14/2022 12:30 PM Results for this REC-IMAGING CDT procedure are i n the results section. EXTERNAL MED 06/14/2022 12:30 PM Results for this REC-IMAGING CDT procedure are i n the results section. CT OUTSIDE READ Routine 06/13/2022 12:34 AM Resul ts for this SPINE CERVICAL/NECK CDT procedur e are in the results section. CT OUTSIDE READ Routine 06/13/2022 12:33 AM Resul ts for this HEAD/FACIAL BONES CDT procedure are in the results section. from Last 3 Months Results EXTERNAL MED REC-IMAGING (06/14/2022 12:30 PM CDT)Only the most recent of2 resultswithin the time period is included. Anatomical Region Laterality Modality Other Narrative 06/14/2022 12:30 PM CDT This result has an attachment that is no t available. Ordered by an unspecified provider. Provider Unknown CT BODY CT OUTSIDE READ SPINE CERVICAL/NECK (06/13/2022 12:34 AM CDT) Anatomical Region Laterality Modality Cervical Spine Computed Tomography Specimen (Source) Anatomical Collection Method Collection Time Re ceived Time Location / / Volume Laterality 06/13/2022 1:41 AM CDT Impressions 06/13/2022 8:52 AM CDT Impression: ??No acute traumatic abnormality of cervical spine. Multilevel degenerative changes, such as anterolisthesis from C2 to C6, severe disc space narrowing and endplate sclerosis with kyphotic angulation at C6-7. I have personally reviewed the image(s) and initial interpretation, and I agree with the findings as documented by the resident/fellow. Reading Radiologist: Rob Stanford Resident: Patrice Cohen Narrative 06/13/2022 8:52 AM CDT Indication: ??Patient transferred from [facility] due to Trauma. ??No initial report accompanied the patient and/or Dr. ??MOE MURILLO requested an interpretation by me. Technique: ??CT scan of the cervical spi ne done on 06/12/2022 without IV contrast. ??3 mm axial, sagittal and coronal reconstructions reviewed in soft tissue and bone windows, per the local institution' s scanning protocols, which may differ f rom the [facility] trauma protocols. Findings: ??Stepwise mild anterolisthesi s of C2 over C3, C3 over C4, C4 over C5, and C5 over C6. Severe disc space narrowing with endplate sclerosis and endplate spurring at C6-C7. Multilevel facet arth ropathy. Multilevel uncinate hypertrophy , most significant at C6-C7. At C4-5 there is mild right neural foraminal stenosis. At C6-7 there is moderate right and mild left neural foraminal stenosis. There is no significant spinal canal stenosis at any level. The craniocervical junction is intact. Good position of the lateral masses of C1 over C2. Procedure Note Rob Stanford MD - 06/13/2022Formattin g of this note might be different from the original. Indication: Patient transferred from [facility] due to Trauma. No initial report accompanied the patient and/or Dr. MOE MURILLO requested an interpretation by me. Technique: CT scan of the cervical spine done on 06/12/2022 without IV contrast. 3 mm axial, sagittal and coronal reconstructions reviewed in soft tissue and bone windows, per the local institution's scanning protocols, which may differ from the [facility] trauma protocols. Findings: Stepwise mild anterolisthesis of C2 over C3, C3 over C4, C4 over C5, and C5 over C6. Severe disc space narrowing with endplate sclerosis and endplate spurring at C6-C7. Multilevel facet arthropathy. Multilevel uncinate hypertrophy, most si gnificant at C6-C7. At C4-5 there is mild right neural foraminal stenosis. At C6-7 there is moderate right and mild left neural foraminal stenosis. There is no significant spinal canal stenosis at any level. The cranioc ervical junction is intact. Good position of the lateral masses of C1 over C2. IMPRESSION Impression: No acute traumatic abnormali ty of cervical spine. Multilevel degenerative changes, such as anterolisthesis from C2 to C6, severe disc space narrowing and endplate sclerosis with kyphotic angulation at C6-7. I have personally reviewed the image(s) and initial interpretation, and I agree with the findings as documented by the resident/fellow. Reading Radiologist: Rob Stanford Resident: Patrice Cohen Moe Murillo MD CT NEURO CT OUTSIDE READ HEAD/FACIAL BONES (06/13/2022 12:33 AM CDT) Anatomical Region Laterality Modality Skull Computed Tomography Specimen (Source) Anatomical Collection Method Collection Time Re ceived Time Location / / Volume Laterality 06/13/2022 1:41 AM CDT Impressions 06/13/2022 8:55 AM CDT Impression: ?? 1. Left zygomatic-maxillary complex frac ture. Small left retrobulbar hematoma. No extraocular muscle entrapment. 2. Head CT shows age-related atrophy and white matter changes. No acute intracranial hemorrhage. I have personally reviewed the image(s) and initial interpretation, and I agree with the findings as documented by the resident/fellow. Reading Radiologist: Rob Stanford Resident: Patrice Cohen Narrative 06/13/2022 8:55 AM CDT Indication: ??Patient transferred from [facility] due to Trauma. ??No initial report accompanied the patient and/or Dr. ??MOE MURILLO requested an interpretation by me. Technique: ??CT scan of the head and fac ial bones done on 06/12/2022 without IV contrast. ??3 mm axial and coronal reconstructions reviewed in soft tissue and bone windows, per the local institution's s inderjit protocols, which may differ from the [facility] trauma protocols. Findings: ??Multiple left-sided facial f ractures. These include lateral and inferior left orbit, left zygoma, and posterior left maxilla. Fractures are mildly displaced. Small left lateral retrobulbar hematoma. No extraocular muscle entrapment. Left maxillary sinus fluid layering, pre sumably hemorrhage. Hyperostosis frontalis interna. Debris in the left external auditory canal, presumably cerumen. Scattered air foci along the left orbit, left cheek, and in the left maxillary sinus. Hematoma overlying the left orbit. No acute intracranial abnormality. No midline shift. No abnormality of the globe or orbital musculature. Head CT shows no acute intracranial hemo rrhage. No hydrocephalus, mass effect or midline shift. Mild cerebral atrophy consistent patient's age. Nonspecific decreased attenuation throughout cerebral white matter. No evidence of acute infarction. Procedure Note Rob Stanford MD - 06/13/2022Formattin g of this note might be different from the original. Indication: Patient transferred from [facility] due to Trauma. No initial report accompanied the patient and/or Dr. MOE MURILLO requested an interpretation by me. Technique: CT scan of the head and facia l bones done on 06/12/2022 without IV contrast. 3 mm axial and coronal reconstructions reviewed in soft tissue and bone windows, per the local institution's scanning protocols, which may differ from the [facility] trauma protocols. Findings: Multiple left-sided facial fra ctures. These include lateral and inferior left orbit, left zygoma, and posterior left maxilla. Fractures are mildly displaced. Small left lateral retrobulbar hematoma. No extraocular muscle entrapment. Left maxillary sinus fluid layering, pre sumably hemorrhage. Hyperostosis frontalis interna. Debris in the left external auditory canal, presumably cerumen. Scattered air foci along the left orbit, left cheek, and in the left maxillary sinus. Hematoma overlying the left orbit. No acute intracranial abnormality. No midline shift. No abnormality of the globe or orbital musculature. Head CT shows no acute intracranial hemo rrhage. No hydrocephalus, mass effect or midline shift. Mild cerebral atrophy consistent patient's age. Nonspecific decreased attenuation throughout cerebral white matter. No evidence of acute infarction. IMPRESSION Impression: 1. Left zygomatic-maxillary complex frac ture. Small left retrobulbar hematoma. No extraocular muscle entrapment. 2. Head CT shows age-related atrophy and white matter changes. No acute intracranial hemorrhage. I have personally reviewed the image(s) and initial interpretation, and I agree with the findings as documented by the resident/fellow. Reading Radiologist: Rob Stanford Resident: Patrice Cohen Moe Murillo MD CT NEURO from Last 3 Months Insurance Payer Benefit Plan Subscriber ID Effective Phone Address Typ e / Group Dates [employer]UE [employer] [place] [id number] 2021-Pres PO [address] Medicare BLUE SHIELD BLUE (COST 1 ent [id number] Managed Care PLAN) [place] [address] MEDICARE MEDICARE COST [id number] 2016-Pres [phone] CLAIMS Medicare Fee PLAN ent [id number] Leif mck[id number] [place] [id number]
--- OUTSIDE RECORDS SUMMARY | 2022-06-17 18:27 | XMS_ITS | Encounter Summary ---
:1950 Author Organization [facility] Address [address] [place] [address] Phone Care Team Providers Name Role Phone Unavailable Primary Care Provider Unavailable Reason for Visit Reason Comments Facial Injury Encounter Details Date Type Department Care Team Description 06/13/2022 Emergency [facility] Emergency PreMoe waller MD [address] [facility] [address] [place], [place] [id number] Fall, initial encounter Department Quan Carter MD [address] [facility] [address] [place] [address] [address] [facility] [address] [place], [place] [address] Social History Tobacco Use Types Packs/Day Years Used Date Smoking Tobacco: Never Assessed Sex Assigned at Date Recorded Not on file COVID-19 Exposure Response Date Recorded In the last 10 days, have you been in contact No / Unsure 06/12/2022 11:54 PM CDT with someone who was confirmed or suspected to have Coronavirus/COVID-19? documented as of this encounter Last Filed Vital Signs Vital Sign Reading Time Taken Comments Blood Pressure 100/60 06/13/2022 12:35 PM CDT Pulse 88 06/13/2022 12:35 PM CDT Temperature 36.9 ??C (98.4 ??F) 06/12/2022 11:31 PM CDT Respiratory Rate 18 06/13/2022 12:35 PM CDT Oxygen Saturation 97% 06/13/2022 12:35 PM CDT Inhaled Oxygen Concentration - - Weight - - Height - - Body Mass Index - - documented in this encounter Discharge Instructions Discharge InstructionsCathy Tucker MD - 06/13/2022 1:29 PM CDT As we discussed: Your evaluation suggests that you broke some of the bones in your face You are being discharged with prescription for erythromycin ophthalmic ointment. Please take as prescribed. Use ice packs for 20 min every 1-2 hours for the next 24 hours to help with swelling. I am also prescribing tylenol and motrin that you can alternate taking every 3 hours for pain. I am also giving a few tablets of oxycodone (opioid pain medication) that you should only use for severe pain, such as if you can't sleep due to pain. It is very important that you follow the sinus precautions instructions. Please see attached brochure for details, but basically includes not blowing your nose, using straws or suction, bending over, straining or sneezing. You will follow up with the Facial Surgeons (OMFS) on 06/22/22. A referral to our Eye Clinic has beenordered for you. They should be calling you to schedule an appointment. Please call your primary care physician (PCP) to make an appointment for follow- up visit in 2-3 days. If you do not have a regular doctor or cannot get in to see your doctor, you can make an appointment with the Internal Medicine Acute Care Clinic ([phone]). Return to the emergency department with any new, worsening or concerning symptoms You have been prescribed medication(s) that might make you sleepy or tired. While taking the medication(s) you should not drive, drink alcohol, go swimming, operate heavy machinery, or participate in any other activities where your sleepiness might cause harm to you or anyone else. It was a pleasure caring for you today! AttachmentsThe following attachments cannot be sent through Care Everywhere. Sinus Precautions - HH (Ecuadorean)documented in this encounter Medications at Time of Discharge Medication Sig Dispensed Refills Start Date End Date erythromycin 0.5% Place a 1/2 inch 3.5 g 0 06/13/2022 (ROMYCIN) 5 mg/gm ribbon of ointment ophthalmic ointment into BOTH eyes twice daily. acetaminophen 325 mg oral Take 1-2 tablets 30 tablet 0 05/17 tablet (325-650 mg) by mouth every 4 hours as needed for Mild Pain (Headache). ibuprofen (MOTRIN;ADVIL) Take 1 tablet (600 30 tablet 0 600 mg oral tablet mg) by mouth 4 times daily as needed for Pain. cefUROXime (CEFTIN) 500 Take 1 tablet (500 20 tablet 0 05/1706/23/2022 mg oral TABSIndications: mg) by mouth twice Facial fracture ppx daily for 10 days. documented as of this encounter Consult Notes Nancy Prado MD - 06/13/2022 12:52 PM CDT Ophthalmology CONSULT - PGY 4 Chrissy Box : 1950 Sex: female PATIENT SUMMARY: 71 y.o. female with a history of arthritis who presents after a mechanical fall, without loss of consciousness, onto concrete steps. I was asked to see this patient by the ED team regarding orbital fracture. ASSESSMENT AND RECOMMENDATIONS: # Left zygomatic-maxillary complex fracture -Visual acuity 20/20-20/25 in both eyes, pupils and IOP normal, EOM full -Globe intact (hemorrhagic chemosis not 360 - sparing superior quadrant, cornea clear, anterior chamber formed, pupil round, dilated exam normal, globe appears round on CT scan) -Erythromycin ophthalmic ointment QID x 5 days, left eye -No nose blowing -Ice packs 20 min q1-2 hours x 24 hours -Follow up in eye clinic in 7-10 days, to call sooner if problems. We will call to arrange this appointment. -Follow up with OMFS on 06/22/22, as recommended # Left lateral brow laceration -S/p repair at OSH, c/d/I -Recommend antibiotic ointment QID for 5 days # History of LASIK OU -Flap attached -Monitored CHIEF COMPLAINT: Orbital fracture HISTORY OF PRESENT ILLNESS: 71 y.o. female with a history of arthritis who presents after a mechanical fall, without loss of consciousness, onto concrete steps. Since the injury, the patient denies significant vision changes, noting that her vision is symmetric and near baseline in both eyes. She notes mild left periorbital acheand swelling. She denies eye pain, double vision, flashes, and floaters. ROS: ROS discussed, negative unless stated above PAST MEDICAL HISTORY: 1. Arthritis 2. Osteoporosis -No DM2 or HTN PAST OCULAR HISTORY: Hx LASIK OU FAMILY HISTORY: AMD: Yes (mother) Glaucoma: No SOCIAL HISTORY: Tobacco: Yes EXAM Mental Status: Alert and Oriented x 3, mood: Normal, affect: Normal Basic Eye Exam: Right Eye Left Eye Additional Comments Visual Acuity (via near card) 20/20 -1 20/25 +3 Pupil Exam Normal, no APD Normal, no APD Intraocular Pressure (via Tonopen) 15 17 Motility, alignment Full, ortho in primary gaze Full, ortho in primary gaze Confrontational Taylor Full Full Base Eye Exam Visual Acuity (Near Card) Right Left Dist cc 20/20 -1 20/25 +3 Correction: Glasses Tonometry (12:58 PM) Right Left Pressure 15 17 Pupils Pupils Right PERRL, No APD Left PERRL, No APD Visual Taylor Left Right Full Full Extraocular Movement Right Left Full, Ortho Full, Ortho Dilation Both eyes: 2.5% Phenylephrine, 1.0% Mydriacyl @ 12:58 PM Slit Lamp and Fundus Exam External Exam Right Left External Normal Left periorbital edema and ecchymosis, left lateral brow laceration s/p repair Slit Lamp Exam Right Left Lids/Lashes Normal Left periorbital edema and ecchymosis Conjunctiva/Sclera White and quiet Hemorrhagic chemosis sparing 11:00-1:00 Cornea Clear, s/p LASIK Clear, s/p LASIK Anterior Chamber Deep and quiet Deep and quiet Iris Round and reactive Round and reactive Lens 2+ NS 2+ NS Anterior Vitreous Normal Normal Fundus Exam Right Left Disc Normal, PPA Normal, PPA Macula Normal Normal Vessels Normal Normal Periphery Normal Normal REVIEW OF LABORATORY, PATHOLOGY, AND RADIOLOGY DATA: Lab results: N/A Personal Review of Imaging results: CT head/facial bones (06/13/22) 1. Left zygomatic-maxillary complex fracture. Small left retrobulbar hematoma. No extraocular muscle entrapment. 2. Head CT shows age-related atrophy and white matter changes. No acute intracranial hemorrhage. Seen and discussed with Dr. De La Cruz. Nancy Prado MD Resident Physician, PGY-4 Department of Ophthalmology Associated attestation - Dean De La Cruz MD - 06/13/2022 2:17 PM CDT FACULTY NOTE I saw and evaluated the patient with the resident. I discussed with the resident and agree with the resident???s findings and plan documented in the resident???s note from above. Any revisions by me are documented. Dean De La Cruz MD, 06/13/2022 2:16 PM Waqar De La Cruz MD Department of Ophthalmology Staff Physician, [facility] Dave Workman DDS - 06/13/2022 6:20 AM CDT ORAL & MAXILLOFACIAL SURGERY CONSULTATION Chrissy Box : 1950 Sex: female OMFS consulted by Emergency Department regarding facial fractures. ASSESSMENT: 71 y.o. female TFOH s/p fall on concrete steps sustaining fractures to the left orbital wall and left maxillary wall. She denies LOC following the incident. PMH is significant for arthritis, falls, depression, smoking, and osteoporosis. Small laceration above the left eye was sutured at previous hospital. RECOMMENDATIONS: No acute surgical intervention indicated Strict sinus precautions Antibiotics Per Primary team Pain Meds Per Primary team Follow-up with OMFS in 1 week (Wednesday,06/22/22) The patient's case has been discussed with G4, Dr. Nelson CHIEF COMPLAINT: I am having pain with the left side of my face HISTORY OF PRESENT ILLNESS: 71 y.o. female who presents with left orbital wall fracture, left maxillary wall fracture, subconjunctival hemorrhage of left eye, and bruising of the left side of the face. She reports trip & fallwhile she was trying to picking crew supervisor her dog on the concrete steps outside her home. Patient denies LOC of consciousness following the incident. Patient reports that this is not the first time that she has had a fall while trying to picking crew supervisor her dog under similar circumstances. Patient is edentulous and reports that she is currently in the process of having implant supported mandibular overdenture fabricated. PAST MEDICAL HISTORY: No past medical history on file. PAST SURGICAL HISTORY: No past surgical history on file. HEAD OF DESIGN MEDICATIONS: (Not in a hospital admission) ALLERGIES: Allergies Allergen Reactions Ampicillin Rash SOCIAL HISTORY: Occupational History Not on file Tobacco Use Smoking status: Not on file Smokeless tobacco: Not on file Substance and Sexual Activity Alcohol use: Not on file Drug use: Not on file Sexual activity: Not on file Social History Narrative Not on file REVIEW OF SYSTEMS: General: no weight change or fever Skin: bruising on left face, small laceration above the left eye Head: No headaches or dizziness and Head injury Eyes: no vision loss or pain and subconjunctival hemorrhage of left eye Ears: no hearing loss or ringing Nose and sinuses: no discharge or pain Mouth and throat: patient is edentulous Neck: Thyroid disease Respiratory: no shortness of breath or cough Cardiac: no chest pain or palpitations Gastrointestinal: no abdominal pain or change in bowel habits Musculoskeletal: joint stiffness, joint pains , arthritis, and weakness Peripheral vascular: no leg cramps or varicose veins Neurological: generalized weakness and gait disturbance Psychiatric: depression Endocrine: thyroid disease Hematologic: no anemia or enlarge lymph nodes OBJECTIVE/PHYSICAL EXAMINATION: Vitals: Blood pressure 108/70, pulse 83, temperature 36.9 ??C (98.4 ??F), temperature source Oral, resp. rate 16, SpO2 96 %., , Pain Rating: Number: 8, Constitutional: alert, cooperative, and in no distress, smiling, and thin HEENT: There are signs of external trauma. Abrasions to the left side of the face, generalized bruising of left face, and small laceration above the left eye which was sutured prior to patient [facility]. Ears: External ears are normal, tympanic membrane not examined. Eyes: Extraocular muscles intact. Extraocular eye movements are within normal limits. Small laceration above left eye has been sutured. No lacerations on eyelids. No entropion/ectropion. Pupils equal,round, reactive to light accomodation. No hyphema. Right conjunctiva not hemorrhagic, left subconjunc tival hemorrhage. Nose: External alae are normal, no epistaxis, septum is midline, no septal hematoma. Mouth: Fair oral hygiene. Edentulous maxillary and mandibular arches. Four recently placed dental implants are present in the mandibular arch. No intraoral lacerations. No signs of acute infections. Maxilla nonmobile on exam. Bilateral compression and flexion of Mandible does not elicit painful response or movement. Dental prostheses are not currently seated. No blood in saliva. FOM is soft, non-tender, non-distended. Tongue is freely movable. Uvula is midline, TMJ demonstrates range of motion thatis WNL. Neck: Neck is not in a c-collar without midline tenderness, trachea is midline. Neurologic: A&Ox3. CN II-XII grossly intact. Labs Reviewed: No labs drawn at [facility] Imaging Reviewed: Type of Imaging: CT Facial Bones w/o Contrast Impression per the radiologist: 1. Left zygomatic-maxillary complex fracture. Small left retrobulbar hematoma. No extraocular muscle entrapment. 2. Head CT shows age-related atrophy and white matter changes. No acute intracranial hemorrhage. Dave Workman DDS Oral & Maxillofacial Surgery Dave Workman DDS, 06/13/2022 6:47 AM documented in this encounter ED Notes Chelle Lazar RN - 06/13/2022 1:49 PM CDT Pt d/c home/self-care via private vehicle ride home with son and daughter. Dressed appropriately forweather. Ambulatory without assistance. Discharge instructions including prescription(s), self-care & f/u reviewed with patient. Questions answered, pt verbalizes understanding. Quan Carter MD - 06/13/2022 1:46 PM CDT Brief ED staff signout note: Chrissy Box is a 71 y.o. patient taken in signout from Dr. Rodriguez. In brief: Pleasant woman with a mechanical fall to the left side of her face when her dog tugged on her leash. Struck the concrete without loss of consciousness. Not on thinners. Found to have a left zygomatic fracture as well as a likely orbital fracture with a retrobulbar hematoma. Awaiting facial trauma input for plan going forward. Workup pending: Facial trauma consult I was alerted to no changes in this patient's clinical status during their time in the Emergency Department. She remained stable with vision was 20/30 and 20/50 without any diplopia full through activerange of motion on my assessment. On review of her CT identified the retrobulbar hematoma which was called formally by staff because of that plan to observe her further. Out of an abundance of caution,I requested that ophthalmology evaluate her for further input as we anticipate her disposition is likely home. They were in agreement that she is safe to do so. I do not see any contraindications and she has stood the test of time with us over the better part of 16 hours in emergency cares. Close return precautions. Quan Carter MD, 06/13/2022 1:46 PM Chelle Lazar RN - 06/13/2022 12:27 PM CDT Pt's family would like an update from the doctor. Doctor notified. Cathy Tucker MD - 06/13/2022 7:32 AM CDT Transfer of Care Note Patient: Chrissy Box : 1950 Age: 71 y.o. female Sign out received from Rosamaria Dickerson MD. Please see original ED provider note for further details. PERTINENT HPI, PMH, & TRANSFER OF CARE PLAN In brief, 71 y.o. female presents with mechanical fall onto cement stair, hit left face Not on anticoagulation Transfer from [place] No prodrome, purely mechanical ED Course: CT head and cervical spine with L orbital wall fracture and L maxillary wall fracture, small retrobulbar hematoma EOMI, PERRL, VA 20/30 in right and 20/50 in left No corneal abrasions, +subconj hemorrhage Facial trauma consulted, will follow-up in clinic on Fri, sinus precautions and abx Oxycodone for pain, pain well-controlled Transfer of Care Plan/Work-Up Pending: Ocular pressures Likely to admit for obs Abx per OMFS recs Results of Workup: Abnormal Labs Reviewed - No data to display CT OUTSIDE READ SPINE CERVICAL/NECK See Chart Review for Final Result Impression: No acute traumatic abnormality of cervical spine. Multilevel degenerative changes, such as anterolisthesis from C2 to C6, severe disc space narrowing and endplate sclerosis with kyphotic angulation at C6-7. I have personally reviewed the image(s) and initial interpretation, and I agree with the findings asdocumented by the resident/fellow. Reading Radiologist: Rob Stanfrod Resident: Patrice Cohen CT OUTSIDE READ HEAD/FACIAL BONES See Chart Review for Final Result Impression: 1. Left zygomatic-maxillary complex fracture. Small left retrobulbar hematoma. No extraocular muscleentrapment. 2. Head CT shows age-related atrophy and white matter changes. No acute intracranial hemorrhage. I have personally reviewed the image(s) and initial interpretation, and I agree with the findings asdocumented by the resident/fellow. Reading Radiologist: Rob Stanford Resident: Patrice Cohen FINAL ED COURSE, DISPOSITION, AND PLAN Upon assuming care, patient was assessed at bedside and found to be hemodynamically stable, resting comfortably in no acute distress, complaining of continued left-sided facial pain. Left eye chemosis and subconjunctival hemorrhage noted on exam. Patient given tylenol, motrin, and oxycodone for symptoms. ED Course as of 06/15/22 1217 Sat Jun 13, 2022 0915 Obtained IOP of both eyes, OD 16 and OS 17. [address] to see [address] CT OUTSIDE READ HEAD 1. Left zygomatic-maxillary complex fracture (lateral and inferior left orbit, left zygoma, and posterior left maxilla, mildly displaced). Small left retrobulbar hematoma. No extraocular muscle entrapment. Patient started on antibiotic treatment with ceftriaxone given patient allergies. Consulted ophthalmology, who recommended erythromycin ophthalmic ointment QID x 5 days and sinus precautions. Will helparrange follow-up in clinic in 7-10 days. Patient remained hemodynamically stable throughout their stay in the ED. Patient discharged with cefuroxime PO as well as erythromycin ointment, and tylenol/motrin for pain control. Strict sinus precautions discussed at length. Discussed the plan with the patient and her 2 adult children, including com plications and follow up. The patient expressed understanding and agreement to the plan. The patientwas discharged home in stable condition after all questions were answered. Final Clinical Impression 1. Fall, initial encounter 2. Closed fracture of orbital wall, initial encounter () Disposition and Plan Discharge to home with adult children Rx for cefuroxime, erythromycin, ibuprofen and tylenol Strict sinus precautions discussed with patient Follow up with PCP Follow up with OMFS and Ophthomology on 06/22 Strict return to ED precautions discussed with patient, who verbalized understanding Cathy Tucker MD, 06/15/2022 12:17 PM Emergency Medicine Resident PGY-2 Dictation Disclaimer: Some notes are completed with voice-recognition dictation software. As a result, there may be errors in the script that have gone undetected. Errors are generally corrected in real time. Please contact me via [employer] staff message if you note any errors requiring clarification. Rosamaria Dickerson MD - 06/13/2022 12:16 AM CDT ED Provider Note Patient: Chrissy Box : 1950 Age: 71 y.o. female CHIEF COMPLAINT Facial Injury SUBJECTIVE HISTORY OF PRESENT ILLNESS Chrissy Box is a 71 y.o. female with history of MDD, tremor, Grave's disease, and osteoporosis who presents after a fall. She was letting her 2 dogs out this evening when she lost her footingon her cement stairs and fell, hitting the left side of her face on the cement. She did not lose consciousness. She did not have any lightheadedness or prodrome prior to her fall. She does not take blood thinners. She recently finished physical therapy for core strengthening and has been working on her balance. She has been otherwise feeling well. She reports headache and facial pain and mild blurriness in her left eye without diplopia. She has pain in her left jaw. She does not report fever/chills,nausea, vomiting, chest pain, shortness of breath, cough, or abdominal pain. She initially presented to [facility] where they repaired a laceration above her left eyebrow. Past Medical History Past medical history reviewed with patient and noncontributory except as noted in HPI Past Surgical History Past surgical history reviewed with patient and noncontributory except as noted in HPI Family/Social Hx: Patient's FH/SH was reviewed with patient and noncontributory except as noted in HPI Medications No current facility-administered medications for this encounter. No current outpatient medications on file. Allergies Allergies Allergen Reactions Ampicillin Rash ROS 10 point ROS performed and negative except as noted in HPI OBJECTIVE Physical Exam: BP 107/69 (Cuff Location: Right Arm, Patient Position: Lying Down) Pulse 80 Temp 36.9 ??C (98.4 ??F) (Oral) Resp 16 SpO2 96% General: NAD. HENT: Normocephalic, atraumatic. Hearing grossly normal. Moist oral mucosa. Eyes: C left subconjunctival hemorrhage. EOMI. PERRLA. Fluorescein staining negative for corneal abrasion and left eye. Neck: Supple. Trachea midline. Full ROM. Cardio: RRR. Appears well-perfused. Pulm: No increased WOB or accessory muscle use noted. Speaking in complete sentences. CTAB. GI: No tenderness, soft, non-distended. No rebound or guarding. MSK: Freely moving all extremities. No contractures, deformities or cyanosis. Neuro: Mental Status: A/Ox4. Affect appropriate, no dysarthria or dysphasia CN Exam: vision/hearing/smell grossly intact, PERRLA, EOM intact. No nystagmus. Sensation intact to LT x3, (+) eyebrow raise, smile, and eye squeeze. Tongue and uvula midline. (+) rise to soft palate. (+) shoulder shrug. Coordination: Intact to FTN/HTS Motor: Strength 5+ bilat to LE and UE. Normal tone and bulk Sensory: Intact to LT x4 extremities Skin: Warm. No diaphoresis. Ecchymoses surrounding left eye. Sutured laceration above left eyebrow Psych: Normal behavior. Good insight. Mood and affect are congruent. Consultations OMFS ASSESSMENT AND PLAN MEDICAL DECISION MAKING Chrissy Box is a 71 y.o. female who presents after a fall hitting the left side of her face on the cement. Fall was purely mechanical with no prodrome with concern for syncope. She exhibits significant ecchymoses surrounding her left eye however extraocular motions are intact.Pain is treated with oxycodone. Imaging studies including CT head, facial bones, and C-spine are pushed from [facility]. CT head shows no intracranial pathology. C-spine demonstrates chronic abnormalities with no acute injuries. CT facial bones demonstrates multiple left-sided facial fractures including lateral and inferior left orbit, left zygoma, and posterior left maxilla. Fractures are mildly displaced. Small left lateral retrobulbar hematoma. No extraocular muscle entrapment as extraocular motions are intact. Visual acuity demonstrates 20/30 vision in the right eye and 20/50 vision inthe left. She is not experiencing diplopia. Facial trauma is consulted and recommends follow-up in the clinic on Wednesday, sinus precautions, and antibiotics.. The patient remained in the emergency department through the end of my shift. Their care was signed out [id number] with the oncoming provider, Dr. Jeane Tucker. ED Course as of 06/13/22 0846 Sat Jun 13, 2022 0536 L orbital wall fx. L maxillary wall fx with hemorrhage in maxillary sinus Final Clinical Impression Fall Facial trauma Left retrobulbar hematoma Disposition and Plan Final disposition and plan to be determined by oncoming provider after completion of additional workup and/or treatment. Please see their note for further details. Rosamaria Dickerson MD, 06/13/2022 8:46 AM Emergency Medicine / Internal Medicine PGY2 Cecilio Merino RN - 06/13/2022 12:09 AM CDT Bed: B11 Expected date: Expected time: Means of arrival: Comments: [facility] from triage Saba Turner RN - 06/13/2022 12:00 AM CDT Patient presents with daughter and reports falling onto concrete stair and striking left side of face 8 hours ago. Denies LOC. Noted contusion/swelling to area. Initially evaluated at [facility]. documented in this encounter Miscellaneous Notes ED Faculty Note - Moe Rodriguez MD - 06/13/2022 2:02 AM CDT ED Note and Faculty Attestation Date and time of arrival: 06/12/2022 11:30 PM NOTE Chrissy Box is a 71 y.o. female with the following vital signs: BP 130/79 (Cuff Location: Right Arm, Patient Position: Lying Down) Pulse 83 Temp 36.9 ??C (98.4 ??F) (Oral) Resp 16 SpO2 96% . Chief complaint was left sided facial trauma after mechanical fall and hitting her head on concrete. Trnasferred from [facility]. Swollen left eye. Not on blood thinners. Pending reads on CT facial bones d/t concern for fracture. Patient was signed out to oncoming faculty. Will requireeither admission to the hospital or discharge pending results of imaging/lab work/etc. FACULTY ATTESTATION I Moe Rodriguez MD, performed a history and physical examination of the patient and discussed management with the resident. I reviewed the resident's note and agree with the documented findings and plan of care as documented in the resident's note. CRITICAL CARE No. RN and ANCILLARY NOTES I have reviewed nursing and ancillary notes, and agree with protocol as initiated. PROCEDURES Not applicable MEDICAL DECISION MAKING The previous images reviewed and interpreted, medical record discussed, and medical record reviewed and interpreted Scribed for Moe Rodriguez MD, by Kalyn Silva Scribe, 06/13/2022 2:02 AM IMichael Matthew E., MD have reviewed the initial documentation provided by the chuyita and affirmthat it is an accurate restatement of my dictated record of services. Signed: Moe Rodriguez MD, 06/13/2022 02:02 documented in this encounter Plan of Treatment Upcoming Encounters Date Type Specialty Care Team Description 06/22/2022 Office Visit DENTISTRY Op, [facility] Scheduled [address] [place] [id number] 06/22/2022 Office Visit OPHTHALMOLOGY Tripp De La Cruz MD Scheduled [address] [place] [address] (Wo rk) documented as of this encounter Procedures Procedure Name Priority Date/Time Associated Diagnosis Comme nts CT OUTSIDE READ Routine 06/13/2022 12:34 AM Resul ts for this SPINE CERVICAL/NECK CDT procedur e are in the results section. CT OUTSIDE READ Routine 06/13/2022 12:33 AM Resul ts for this HEAD/FACIAL BONES CDT procedure are in the results section. documented in this encounter Results CT OUTSIDE READ SPINE CERVICAL/NECK (06/13/2022 12:34 [...] 8:52 AM CDT Indication: ??Patient transferred from [facility] due to Trauma. ??No initial report accompanied the patient and/or Dr. ??MOE RODRIGUEZ requested an interpretation by me. Technique: ??CT scan of the cervical spi ne done on 06/12/2022 without IV contrast. ??3 mm axial, sagittal and coronal reconstructions reviewed in soft tissue and bone windows, per the local institution' s scanning protocols, which may differ f rom the [facility] trauma protocols. Findings: ??Stepwise mild anterolisthesi s [...] from the original. Indication: Patient transferred from [facility] due to Trauma. No initial report accompanied the patient and/or Dr. MOE RODRIGUEZ requested an interpretation by me. Technique: CT scan of the cervical spine done on 06/12/2022 without IV contrast. 3 mm axial, sagittal and coronal reconstructions reviewed in soft tissue and bone windows, per the local institution's scanning protocols, which may differ from the [facility] trauma protocols. Findings: Stepwise mild anterolisthesis of [...] Radiologist: Rob Stanford Resident: Patrice Cohen Moe Rodriguez MD CT NEURO CT OUTSIDE READ HEAD/FACIAL [...] Reading Radiologist: Rob Stanford Resident: Patrice Cohen 06/13/2022 8:55 AM CDT Indication: ??Patient transferred from [facility] due to Trauma. ??No initial report accompanied the patient and/or Dr. ??MOE RODRIGUEZ requested an interpretation by me. Technique: ??CT scan of the head and fac ial bones done on 06/12/2022 without IV contrast. ??3 mm axial and coronal reconstructions reviewed in soft tissue and bone windows, per the local institution's s inderjit protocols, which may differ from the [facility] trauma protocols. Findings: ??Multiple left-sided facial f [...] from the original. Indication: Patient transferred from [facility] due to Trauma. No initial report accompanied the patient and/or . MOE RODRIGUEZ requested an interpretation by me. Technique: CT scan of the head and facia l bones done on 06/12/2022 without IV contrast. 3 mm axial and coronal reconstructions reviewed in soft tissue and bone windows, per the local institution's scanning protocols, which may differ from the [facility] trauma protocols. Findings: Multiple left-sided facial fra [...] Radiologist: Rob Stanford Resident: Patrice Cohen Moe Rodriguez MD CT NEURO documented in this encounter Visit Diagnoses Diagnosis Fall, initial encounter - Primary Closed fracture of orbital wall, initial encounter () documented in this encounter Administered Medications Inactive Administered Medications - up to 3 most recent administrations Medication Order MAR Action Action Date Dose Rate Site acetaminophen tablet 650 mg Given 06/13/2022 1:33 PM CDT 650 mg 650 mg, Oral, ONE TIME, 1 dose, On 06/13/22 at 1240 cefTRIAXone (ROCEPHIN) 2 g in NaCl New Bag 06/13/2022 10:26 AM CDT 2 g 200 mL/hr 0.9% 100 mL IVPB 2 g, Indication (Select One): Prophylaxis - Surgical, Intravenous, ONE TIME, 1 dose, On 06/13/22 at 0955 ibuprofen (MOTRIN;ADVIL) tablet 600 mg Given 06/13/2022 1:33 PM CDT 600 mg 600 mg, Oral, ONE TIME, 1 dose, On 06/13/22 at 1240 oxyCODONE (ROXICODONE) tablet 10 mg Given 06/13/2022 12:42 AM CDT 10 mg 10 mg, Oral, ONE TIME, 1 dose, On 06/13/22 at 0035 oxyCODONE (ROXICODONE) tablet 10 mg Given 06/13/2022 2:01 AM CDT 10 mg 10 mg, Oral, ONE TIME, 1 dose, On 06/13/22 at 0200 oxyCODONE (ROXICODONE) tablet 10 mg Given 06/13/2022 6:22 AM CDT 10 mg 10 mg, Oral, ONE TIME, 1 dose, On 06/13/22 at 0620 oxyCODONE (ROXICODONE) tablet 5 mg Given 06/13/2022 10:43 AM CDT 5 mg 5 mg, Oral, ONE TIME, 1 dose, On 06/13/22 at 1040 documented in this encounter Active and Recently Administered Medications Times are shown in CDT. Scheduled Medication Order 06/11/2022 06/12/2022 06/13/2022 acetaminophen tablet 650 mg (COMPLETED) 1333 (Given - Provider: Chelle Lazar RN) 650 mg, Oral, ONE TIME, 1 dose, On 06/13/22 at 1240 cefTRIAXone (ROCEPHIN) 2 g in NaCl 0.9% 100 mL IVPB (COMPLETED) 1026 (New Bag - Provider: Chelle Lazar RN)1033 (Infusion completed - Provider: Chelle Lazar RN)1333 (Infusion completed - Provider: Chelle Mead RN) 2 g, Indication (Select One): Prophylaxi s - Surgical, Intravenous, ONE TIME, 1 dose, On 06/13/22 at 0955 ibuprofen (MOTRIN;ADVIL) tablet 600 mg (COMPLETED) 1333 (Given - Provider: Chelle Lazar RN) 600 mg, Oral, ONE TIME, 1 dose, On 06/13/22 at 1240 oxyCODONE (ROXICODONE) tablet 10 mg (COMPLETED) 0042 (Given - Provider: Irwin Bishop RN) 10 mg, Oral, ONE TIME, 1 dose, On 06/13/22 at 0035 oxyCODONE (ROXICODONE) tablet 10 mg (COMPLETED) 0201 (Given - Provider: Irwin Bishop RN) 10 mg, Oral, ONE TIME, 1 dose, On 06/13/22 at 0200 oxyCODONE (ROXICODONE) tablet 10 mg (COMPLETED) 0622 (Given - Provider: Irwin Bishop RN) 10 mg, Oral, ONE TIME, 1 dose, On 06/13/22 at 0620 oxyCODONE (ROXICODONE) tablet 5 mg (COMPLETED) 1043 (Given - Provider: Chelle Lazar RN) 5 mg, Oral, ONE TIME, 1 dose, On 06/13/22 at 1040 documented in this encounter
--- OUTSIDE RECORDS SUMMARY | 2022-06-17 18:27 | XMS_ITS | Clinical Summary ---
:1950 Author Organization [facility] [place] [address] Care Team Providers Name Role Phone Karla Rivera MD Primary Care Provider [phone] Allergies Active Allergy Reactions Severity Noted [...] Tablet 2 Active mg tabletIndications: bedtime as 022 Bipolar 2 disorder (HC) needed for insomnia QUEtiapine (SEROQUEL) Take 1 Tablet 30 Tablet 1 Active 100 mg (100 mg) by 022 tabletIndications: mouth at Bipolar 2 disorder (HC) bedtime. cefuroxime axetil 0 Ac tive (CEFTIN) 500 mg tablet 022 erythromycin ophthalmic 0 Active ointment 0.5% 022 HYDROcodone-acetaminoph Take 1 Tablet by 120 Tablet 0 Active en, 10-325 mg, (NORCO mouth every 6 022 10-325) 10-325 mg per hours if needed tabletIndications: Pain for Pain. Dose medication agreement, is based on Arthritis hydroxycodone amount, 1 tablet = 10mg. Max acetaminophen 4000mg in 24 hours. traZODone (DESYREL) 100 1-2 tablets at 60 Tablet 2 2 1 / Discontinued mg tabletIndications: bedtime as 022 2021 (Reorder Bipolar 2 disorder (HC) needed for (E-cancel not insomnia sent)) escitalopram oxalate Take 1 Tablet 90 Tablet 0 05/26 Discontinued (LEXAPRO) 20 mg (20 mg) by mouth 2021 (Reorder tabletIndications: once daily. (E-cancel not Bipolar 2 disorder s ent)) (HC), Anxiety buPROPion (WELLBUTRIN Take 1 Tablet 180 Tablet 0 Discontinued SR) 200 mg (200 mg) by 2021 (Reorde r Sustained-Release mouth in the (E-cancel not tabletIndications: morning and 1 sent)) Bipolar 2 disorder Tablet (200 mg) (HC), Tobacco abuse in the evening. QUEtiapine (SEROQUEL) Take 1 Tablet 30 Tablet 1 05/16 Discontinued 50 mg (50 mg) by mouth 2021 tabletIndications: at bedtime. Bipolar 2 disorder (HC) gabapentin (NEURONTIN) Take 1 Capsule 90 Capsule 1 1 Discontinued 300 mg (300 mg) by 2021 (Reorder capsuleIndications: mouth 3 times (E-cancel not Anxiety daily if needed sent )) (anxiety). HYDROcodone-acetaminoph TAKE ONE TABLET 90 Tablet 0 Discontinued en, 10-325 mg, (NORCO BY MOUTH THREE 10-325) 10-325 mg per TIMES A DAY tabletIndications: Pain NEEDED FOR PAIN medication agreement, - - MAXIMUM Arthritis ACETAMINOPHEN DOSE 4000MG/24 HOURS. QUEtiapine (SEROQUEL) TAKE ONE TABLET 30 Tablet 1 Discontinued 50 mg BY MOUTH AT 2021 (*Medica tion tabletIndications: BEDTIME a djustment) Bipolar 2 disorder (HC) HYDROcodone-acetaminoph TAKE ONE TABLET 90 Tablet 0 2 Discontinued en, 10-325 mg, (NORCO BY MOUTH THREE (Reorder 10-325) 10-325 mg per TIMES A DAY (E-cancel not tabletIndications: Pain NEEDED FOR PAIN sent)) medication agreement, - MAXIMUM Arthritis ACETAMINOPHEN DOSE 4000MG/24 HOURS. CAUTION: OPIOID - RISK OF OVERDOSE AND ADDICTION Active Problems Problem Noted Date Encounter for [...] Signed: 01/24/2014 Physician: Karla Rivera MD Medication: Morrill 10/325 Quantity per month: #60 Pharmacy: [facility] Last Toxasure: 03/2015 Senile osteoporosis [...] Team Description 06/16/2022 Office Visit Karla Rivera Medication Management MD Olesya 06/16/2022 Travel 06/15/2022 Orders Only Haben, Ernestine <No scans emilia ched> ANNA Henry 06/12/2022 Orders Only Scanner <No scans attac hed> 06/08/2022 Refill Karla Rivera Requ ericka Dacosta MD (Hydrocodone-ac etaminophen (10-325 Mg)) 06/02/2022 Hospital Encounter Karla Rivera MD Krogman, Brandon, PT 06/02/2022 Travel 05/27/2022 Office Visit Rosa Elena Villanueva Follow Up (); Boris Dacosta MD Management 05/27/2022 Travel 05/26/2022 Hospital Encounter Karla Rivera MD Henry, Lori J, [employer] 05/26/2022 Travel 05/23/2022 Refill Rosa Elena Villanueva Refill Req lorena Dacosta MD (Quetiapine) 05/22/2022 Hospital Encounter Karla Rivera MD Krogman, Brandon, PT 05/22/2022 Travel 05/19/2022 Hospital Encounter Karla Rivera MD Henry, Lori J, [employer] 05/19/2022 Travel 05/15/2022 Hospital Encounter Karla Rivera MD Krogman, Brandon, PT 05/15/2022 Travel 05/12/2022 Hospital Encounter Karla Rivera MD Henry, Lori J, [employer] 05/12/2022 Travel 05/09/2022 Refill Karla Rivera Requ ericka Dacosta MD (Hydrocodone-ac etaminophen (10-325 Mg)) 05/08/2022 Hospital Encounter Karla Rivera MD Krogman, Brandon, PT 05/08/2022 Travel 05/05/2022 Hospital Encounter Karla Rivera MD Vinar, Kaylin J, [employer] 05/05/2022 Travel 04/28/2022 Hospital Encounter Karla Rivera MD Krogman, Brandon, PT 04/28/2022 Travel 04/24/2022 Hospital Encounter Karla Rivera MD Krogman, Brandon, PT 04/24/2022 Travel 04/21/2022 Hospital Encounter Karla Rivera MD Henry, Lori J, [employer] 04/21/2022 Travel 04/17/2022 Hospital Encounter Karla Rivera MD Krogman, Brandon, PT 04/17/2022 Travel 04/14/2022 Hospital Encounter Karla Rivera MD Henry, Lori J, [employer] 04/14/2022 Travel 04/08/2022 Office Visit Karla Rivera MD 04/07/2022 Hospital Encounter Karla Rivera MD Henry, Lori J, [employer] 04/07/2022 Travel 04/05/2022 Refill Karla Rivera Refill Requ ericka Dacosta MD (Pravastatin) 04/05/2022 Travel 04/03/2022 Hospital Encounter Karla Rivera MD Krogman, Brandon, PT 04/03/2022 Travel 03/31/2022 Hospital Encounter Karla Rivera MD Krogman, Brandon, PT 03/31/2022 Travel 03/30/2022 Telephone Rosa Elena Villanueva Medication Ney Dacosta MD (Gabapentin) 03/27/2022 Telephone Rosa Elena Villanueva Prior [...] Tobacco Cessation: Ready to Quit: Yes; C marie Given: Yes Comments: Currently smokes 1 cig [...] 10 days, have you been in contact with No / Unsu re 06/16/2022 11:09 AM CDT someone who was confirmed or suspected to have Coronavirus/COVID-19? Obstetrics History Para Term AB IAB SAB Ectopic Multiple Living Live Births 4 3 1 3 Date Outcome GA Total Labor/2nd/3rd Weight Sex Delivery Anes PTL Karey A 1 A5 Name Clin Labor 1975 AB 10/04 Para F Doretha 02/13 Para M Leanne horvath 01/10 Para F [place] n na Last Filed Vital Signs Vital Sign Reading Time Taken Comments Blood Pressure 90/50 06/16/2022 11:17 AM CDT Pulse 83 06/16/2022 11:17 AM CDT Temperature 36.7 ??C (98 ??F) 12/27/2021 11:55 AM CDT Respiratory Rate 20 12/27/2021 11:55 AM CDT Oxygen Saturation 98% 06/16/2022 11:17 AM CDT Inhaled Oxygen Concentration - - Weight 63.7 kg (140 lb 8 oz) 06/16/2022 11:17 AM CDT Height 169 cm (5' 6.54) 06/16/2022 11:17 AM CDT Body Mass Index 22.31 06/16/2022 11:17 AM CDT Plan of Treatment Upcoming Encounters Date Type Specialty Care Team Description 07/29/2022 Office Visit Matthew Villanueva MD [address] [place], [place] [address] (Wo rk) 09/23/2022 [place] [address] [place], [place] [address] (Wo rk) Health Maintenance Due Date Last [...] 01/09/2023 01/09/2022, 10/15/2020, 06/27/2019, Additional history exists Depression screening for age 12+ 05/27/2023 05/27/2022, 07/2022, 03/27/2022, Additional history exists BMI (ht and wt on same day) for 06/16/2023 06/16/2022, 03/17, age 18+ 01/14/2022, Additional history exists Lipids for age 45-75 [...] for age Completed 10/30/2019, 12/2018, 50+ 01/26/2012 Procedures Procedure Name Priority Date/Time Associated Diagnosis Comme nts SCAN-CT INTERPRETATION 06/12/2022 12:00 AM CDT from Last 3 Months Results SCAN-CT INTERPRETATION (06/12/2022 12:00 AM CDT) Narrative This result has an attachment that is no t available. Scanner OTHER from Last 3 Months Insurance Payer Benefit Plan / Subscriber ID Effective Dates Phone Addre ss Type Group MEDICARE PART B MEDICARE PART B [id number] 2016-Presen ATTN: CLAIMS - HB USE ONLY HB ONLY t [address] [facility] [address] [place] BL[place]OSS [id number] 2021-Presen [address] [address] [place] [place], [place] [id number] BLUE [place]OSS BLUE CROSS [id number] 2016-Luis [address] [address] [employer], [place] [id number] Care Teams Assistant Director Of Financial Aid Relationship Specialty Start Date End Date Karla Rivera MD PCP - General Family Practice 07/22/11 [address] [place], [place] [id number]
--- OUTSIDE RECORDS SUMMARY | 2022-06-17 18:27 | XMS_ITS | Encounter Summary ---
:1950 Author Organization [facility] Address [address] [place] [address] Phone Care Team Providers Name Role Phone Unavailable Primary Care Provider Unavailable Encounter Details Date Type Department Care Team Description 06/13/2022 Documentation Only Unspecified Departme nt Unknown, Provider [place] Social History Tobacco Use Types Packs/Day Years Used Date Smoking Tobacco: Never Assessed Sex Assigned at Date Recorded Not on file COVID-19 Exposure Response Date Recorded In the last 10 days, have you been in contact No / Unsure 06/12/2022 11:54 PM CDT with someone who was confirmed or suspected to have Coronavirus/COVID-19? documented as of this encounter Plan of Treatment Upcoming Encounters Date Type Specialty Care Team Description 06/22/2022 Office Visit DENTISTRY Op, [facility] Scheduled [address] [place] [address] 06/22/2022 Office Visit OPHTHALMOLOGY Tripp De La Cruz MD Scheduled [address] [place] [address] (Wo rk) documented as of this encounter Procedures Procedure Name Priority Date/Time Associated Diagnosis Comme nts EXTERNAL MED 06/14/2022 12:30 PM Results for this REC-IMAGING CDT procedure are i n the results section. documented in this encounter Results EXTERNAL MED REC-IMAGING (06/14/2022 12:30 PM CDT) Anatomical Region Laterality Modality Other Narrative 06/14/2022 12:30 PM CDT This result has an attachment that is no t available. Ordered by an unspecified provider. Provider Unknown CT BODY documented in this encounter Visit Diagnoses Not on filedocumented in this encounter
--- OUTSIDE RECORDS SUMMARY | 2022-06-17 18:27 | XMS_ITS | Encounter Summary ---
:1950 Author Organization [facility] Address [address] [place] [address] Phone Care Team Providers Name Role Phone Unavailable Primary Care Provider Unavailable Encounter Details Date Type Department Care Team Description 06/12/2022 Travel Social History Tobacco Use Types Packs/Day Years [...] Visit DENTISTRY Op, [facility] Scheduled [address] [place] [address] 06/22/2022 Office Visit OPHTHALMOLOGY Tripp De La Cruz MD Scheduled [address] [place] [address] (Wo rk) documented as of this encounter Visit Diagnoses Not on filedocumented in this encounter
--- OUTSIDE RECORDS SUMMARY | 2022-06-17 18:27 | XMS_ITS | Encounter Summary ---
:1950 Author Organization [facility] Address [address] [place] [address] Phone Care Team Providers Name Role Phone Unavailable Primary Care Provider Unavailable Encounter Details Date Type Department Care Team Description 06/12/2022 Documentation Only Unspecified Departme nt Unknown, Provider [...] Visit DENTISTRY Op, [facility] Scheduled [address] [place] [address] 06/22/2022 Office Visit OPHTHALMOLOGY Tripp De La Cruz MD Scheduled [address] [place] [address] (Wo rk) documented as of this [...]
--- OUTSIDE RECORDS SUMMARY | 2022-06-17 18:27 | XMS_ITS | Encounter Summary ---
:1950 Author Organization [facility] Address [address] [place] [address] Phone Care Team Providers Name Role Phone Unavailable Primary Care Provider Unavailable Encounter Details Date Type Department Care Team Description 06/13/2022 [facility] Nancy gould MD Clinic [address] [place] [id number] [address] [place], [place] [address] [phone] Social History Tobacco Use Types Packs/Day Years [...] Visit DENTISTRY Op, [facility] Scheduled [address] [place] [address] 06/22/2022 Office Visit OPHTHALMOLOGY Tripp De La Cruz MD Scheduled [address] [place] [address] (Wo rk) documented as of this encounter Visit Diagnoses Not on filedocumented in this encounter
[2022-06-17 18:28] VITALS: BP 101/72; PULSE 77; RESP 14; TEMP 36.8
[2022-06-17 18:29] VITALS: BP 101/72; PULSE 77; RESP 14; TEMP 36.8
== END 2022-06-17 18:31 | disposition home or self-care (01) ==
LOC: ED 18:25
PROVIDERS: Emergency Provider Family Medicine; PCP Family Medicine
DX: S02.32XA Fracture of orbital floor, left side, initial encounter for closed fracture (principal); R29.6 Repeated falls; E78.00 Pure hypercholesterolemia, unspecified; Z88.0 Allergy status to penicillin; Z79.899 Other long term (current) drug therapy; W10.8XXA Fall (on) (from) other stairs and steps, initial encounter; S02.842A Fracture of lateral orbital wall, left side, initial encounter for closed fracture; S02.40DA Maxillary fracture, left side, initial encounter for closed fracture; S02.40FA Zygomatic fracture, left side, initial encounter for closed fracture
CPT/HCPCS: 70450; 72125; 99284; A9270

== ENCOUNTER 2022-06-23 18:21 | Inpatient (IN) | payer MEDICARE, BC, SELFPAY ==
[2022-06-23] VITALS (24 sets, daily range): BP systolic 81–107; BP diastolic 51–82; PULSE 73–88; RESP 18; TEMP 36.4; O2SAT 89–98; BMI 22.0
--- NOTE | 2022-06-23 19:24 | ED.GENADULT ---
HPI - General Adult General Chief complaint: Extremity Pain/Injury, Upper Stated complaint: Falls Time Seen by Provider: 06/23/22 19:14 History of Present Illness HPI narrative: Pt is a 71 year old woman who has been seen in the ED multiple times following falls presents again today with a fall. Pt is not certain how she fell but fortunately this time but has no injuries except tenderness of the left should which she can freely move. Pt did not hit her head and did not lose consciousness. Pt had no palpitations. Pt has had multiple CTs of the head and neck in the past 10 days as well as full laboratory evaluation. Pt now feels fine. Pt realizes that she is needing a fci or assisted living for safety. She currently lives with her . No Chest Pain, SOB, Headache or signifiant discomfort. Pt may have layed on the floor for up to an hour. Related Data Home Medications Medication Instructions Recorded Confirmed alendronate 70 mg tablet 70 mg PO DAILY 06/12/22 06/12/22 bupropion HCl 200 mg tablet,12 hr 200 mg PO Q12H 06/12/22 06/12/22 sustained-release chlorhexidine gluconate 0.12 % 15 ml PO .every other day 06/12/22 06/12/22 mouthwash escitalopram oxalate 20 mg tablet 20 mg PO DAILY 06/12/22 06/12/22 gabapentin 300 mg capsule 300 mg PO Q12H 06/12/22 06/12/22 hydrocodone 10 mg-acetaminophen 1 tab PO Q8H 06/12/22 06/12/22 325 mg tablet lamotrigine 25 mg tablet 25 mg PO DAILY 06/12/22 06/12/22 levothyroxine 88 mcg tablet 88 mcg PO DAILY 06/12/22 06/12/22 omeprazole 40 mg capsule,delayed 40 mg PO DAILY 06/12/22 06/12/22 release pravastatin 40 mg tablet 40 mg PO HS 06/12/22 06/12/22 quetiapine 100 mg tablet 100 mg PO DAILY 06/12/22 06/12/22 quetiapine 50 mg tablet 50 mg PO DAILY 06/12/22 06/12/22 trazodone 100 mg tablet 100 mg PO DAILY 06/12/22 06/12/22 Allergies Allergy/AdvReac Type Severity Reaction Status Date / Time ampicillin Allergy Mild Rash Verified 06/12/22 18:03 Review of Systems Status of ROS: Reports: 10 or more systems reviewed and unremarkable except as noted in History and below [facility] Medical History Arthritis Graves disease Hyperplastic colon polyp Moderate episode of recurrent major depressive disorder Pure hypercholesterolemia Senile osteoporosis Tachycardia Tremor Surgical History H/O breast augmentation History of appendectomy History of hysterectomy History of repair of hip fracture Hx of breast biopsy Social History Smoking Status: Current every day smoker What tobacco products do you use: cigarettes Smoking packs per day: 0.5 Smoking cigarettes per day: 10.0 Do you use any of these nicotine containing products: None Second hand tobacco smoke exposure: No How often do you have a drink containing alcohol: never How often do you have six or more drinks on one occasion: Never AUDIT-C Alcohol total score: 0 Non-prescribed substance use: denies use Exam Narrative: Exam Narrative: EXAM GENERAL: Patient appears comfortable and well. Patient is frail with various scrapes and bruises of various ages. EYES: No scleral icterus. LYMPH: No supraclavicular or cervical lymphadenopathy. SKIN: Visible skin seen during exam normal or with benign process only. EXT: No dependent lower extremity pedal edema. HEART: Regular rate and rhythm with no murmurs, rubs, or gallops. LUNGS: Clear to auscultation bilaterally with no crackles or wheezes. ABD: Soft, non tender, non distended. PSYCH: Good eye contact, speech is not pressured. Const: Vital Signs, click to edit/add: Vital Signs - 24 hr 06/23/22 18:43 06/23/22 21:03 Temperature 97.5 F L Pulse Rate [Right Pulse Oximeter] 82 Pulse Rate [orthos tatic lying Right Pulse Oximeter] 76 Pulse Rate [orthos tatic sitting Righ t Pulse Oximeter] 83 Pulse Rate [orthos tatic standing Rig ht Pulse Oximeter] 79 Respiratory Rate 18 Blood Pressure [Ri ght Upper Arm] 81/52 L Blood Pressure [or thostatic lying Le ft Arm] 102/69 Blood Pressure [or thostatic sitting Left Arm] 104/59 L Blood Pressure [or thostatic standing Left Arm] 100/57 L Pulse Oximetry 95 Oxygen Delivery Me thod Room Air Course Course Hospital Course: Pt given 1 liter fluid bolus. CBC, BMP, Troponin EKG ordered Reevaluation(s) Reevaluation #1: EKG shows no acute changes upon my review. Pt's labs upon my review show a Hgb of 8.6, Na of 129, Cr of 1.6 and a Troponin of 0.46. Case reviewed with Cardiology. Time: 21:53 Reevaluation #2: Duplex of the bilateral lower extremity due to pain and swelling of the legs as well as recurrent trauma negative for DVT. Time: 22:21 Vital Signs Vital signs: Initial Vital Signs Temperature 97.5 F L 06/23/22 18:43 Temperature Source Temporal Artery Scan 06/23/22 18:43 Pulse Rate 82 06/23/22 18:43 Respiratory Rate 18 06/23/22 18:43 Blood Pressure 81/52 L 06/23/22 18:43 Blood Pressure Mean 61 06/23/22 18:43 Blood Pressure Position Sitting 06/23/22 18:43 Pulse Oximetry 95 06/23/22 18:43 Oxygen Delivery Method 06/23/22 18:43 Vital Signs Temperature 97.5 F L 06/23/22 18:43 Pulse Rate 82 06/23/22 18:43 Respiratory Rate 18 06/23/22 18:43 Blood Pressure 81/52 L 06/23/22 18:43 Pulse Oximetry 95 06/23/22 18:43 Oxygen Delivery Method 06/23/22 18:43 Temperature 97.5 F L 06/23/22 18:43 Pulse Rate 76 06/23/22 21:03 Respiratory Rate 18 06/23/22 18:43 Blood Pressure 102/69 06/23/22 21:03 Pulse Oximetry 95 06/23/22 18:43 Oxygen Delivery Method 06/23/22 18:43 Medical Decision Making MDM Narrative Medical decision making narrative: Pt is a complex 71 year old woman who has now fallen 3 times in the last 2 weeks. Tonight she is not sure why she fell but did not hit her head. Her only initial complaint was left should pain which she can move without pain. No fracture on chest x ray. Pt was found to have anemia, hyponatremia and elevated Cr of 1.6 and Elevated troponin of 0.46. EKG normal sinus rhythm. Pt discussed with Cardiology who reviewed previous CT scan showing extensive coronary calcifications. Pt given ASA 324. Cardio recommends admit, trending Troponin and other labs and echocardiogram. No heparin or other medication at this time. Pt hypotensive upon arrival. 1 liter ns given. Orthostatics now normal. Admit. Differential Diagnosis Differential Diagnosis: Syncope, LA, Seizure, Viral Illness, General Debilitation, CVA Lab Data Labs: Lab Results 06/23/22 06/23/22 06/23/22 Range/Units 19:35 19:35 19:44 WBC (4.50-11.00) K/uL RBC (4.00-5.20) m/uL Hgb (12.0-16.0) gm/dL Hct (33.0-51.0) % MCV (80-100) fL MCH (26-34) pg MCHC (32-36) gm/dL RDW Coeff of Mindy (11.5-15.5) % Plt Count (140-440) K/uL Neut % (Auto) (42.0-72.0) % Lymph % (Auto) (20-44) % [place] % (Auto) (0.0-11.0) % Eos % (Auto) (0.0-7.0) % Baso % (Auto) (0.0-3.0) % Neut # (Auto) (1.7-7.0) K/uL Lymph # (Auto) (0.90-2.90) K/uL [place] # (Auto) (0.00-0.90) K/UL Eos # (Auto) (0.00-0.50) K/uL Baso # (Auto) (0.00-0.30) K/uL Abs Immat Gran (auto) (0.00-0.30) K/uL Imm/Tot Granulo (auto) % D-Dimer Quant (PE/DVT) 1.36 H (0.00-0.50) ug/ml Sodium (135-149) mmol/L Potassium (3.6-5.1) mmol/L Chloride (96-114) mmol/L Carbon Dioxide (20-32) mmol/L BUN (7-30) mg/dL Creatinine (0.5-1.5) mg/dL Estimated Creat Clear Estimated GFR ml/min Glucose (60-115) mg/dL Calcium (8.4-10.6) mg/dL Total Creatine Kinase 7537 H (41-117) U/L Troponin I Cancelled SARS-CoV-2 (PCR) (Negative) 06/23/22 06/23/22 06/23/22 Range/Units 19:44 19:44 20:19 WBC 16.16 H (4.50-11.00) K/uL RBC 2.90 L (4.00-5.20) m/uL Hgb 8.6 L (12.0-16.0) gm/dL Hct 26.5 L (33.0-51.0) % MCV 91 (80-100) fL MCH 30 (26-34) pg MCHC 33 (32-36) gm/dL RDW Coeff of Mindy 13.0 (11.5-15.5) % Plt Count 370 (140-440) K/uL Neut % (Auto) 87.2 H (42.0-72.0) % Lymph % (Auto) 8.2 L (20-44) % [place] % (Auto) 4.2 (0.0-11.0) % Eos % (Auto) 0.1 (0.0-7.0) % Baso % (Auto) 0.1 (0.0-3.0) % Neut # (Auto) 14.10 H (1.7-7.0) K/uL Lymph # (Auto) 1.30 (0.90-2.90) K/uL Midland # (Auto) 0.70 (0.00-0.90) K/UL Eos # (Auto) 0.00 (0.00-0.50) K/uL Baso # (Auto) 0.00 (0.00-0.30) K/uL Abs Immat Gran (auto) 0.00 (0.00-0.30) K/uL Imm/Tot Granulo (auto) 0.2 % D-Dimer Quant (PE/DVT) (0.00-0.50) ug/ml Sodium 129 L (135-149) mmol/L Potassium 4.0 (3.6-5.1) mmol/L Chloride 97 (96-114) mmol/L Carbon Dioxide 24 (20-32) mmol/L BUN 24 (7-30) mg/dL Creatinine 1.6 H (0.5-1.5) mg/dL Estimated Creat Clear 30.63 Estimated GFR 34 ml/min Glucose 118 H (60-115) mg/dL Calcium 8.3 L (8.4-10.6) mg/dL Total Creatine Kinase (41-117) U/L Troponin I 0.46 H* SARS-CoV-2 (PCR) Negative SARS-CoV-2 (Negative) Discharge Plan Discharge Clinical Impression: Non-ST elevated myocardial infarction (non-STEMI), Falls, Anemia, Chronic hyponatremia Patient Disposition: Admitted As Inpatient Condition: Stable Activity Level: Other Discharge Diet: Other Prescriptions: No Action bupropion HCl 200 mg tablet sustained-release 12 hr 200 mg PO Q12H alendronate 70 mg tablet 70 mg PO DAILY Label Comments: has not been taking getting teeth implants for a while chlorhexidine gluconate 0.12 % mouthwash 15 ml PO .every other day Label Comments: RINSE AND SPIT 15-30 ML (ONE TO TWO TABLESPOONS) TWICE PER DAY STARTING 72 HOURS AFTER SURGERY. escitalopram oxalate 20 mg tablet 20 mg PO DAILY gabapentin 300 mg capsule 300 mg PO Q12H hydrocodone-acetaminophen 10-325 mg tablet 1 tab PO Q8H levothyroxine 88 mcg tablet 88 mcg PO DAILY omeprazole 40 mg capsule,delayed release(DR/EC) 40 mg PO DAILY pravastatin 40 mg tablet 40 mg PO HS quetiapine 100 mg tablet 100 mg PO DAILY lamotrigine 25 mg tablet 25 mg PO DAILY quetiapine 50 mg tablet 50 mg PO DAILY trazodone 100 mg tablet 100 mg PO DAILY Follow Up/Referrals: Karla Rivera MD [Primary Care Provider] -
[2022-06-23] MEDS: 0.9 % SODIUM CHLORIDE 1000 ml 1,000 ML IV (19:43)
[2022-06-23 20:21] LABS: Chloride* 97 mmol/L (96-114); Sodium* 129 mmol/L (135-149)
[2022-06-23 20:24] LABS: Basophils Percent Auto 0.1 % (0.0-3.0); Creatinine* 1.6 mg/dL (0.5-1.5); Eosinophils Percent Auto 0.1 % (0.0-7.0); Est. Creatinine Clearance* 30.63; Estimated Glomerular Filt Rate 34 ml/min; Hematocrit 26.5 % (33.0-51.0); Hemoglobin* 8.6 gm/dL (12.0-16.0); Immature Granulocytes Pct Auto 0.2 %; Lymphocytes Percent Auto 8.2 % (20-44); Mean Corpuscular HGB Conc 33 gm/dL (32-36); Mean Corpuscular Hemoglobin 30 pg (26-34); Mean Corpuscular Volume 91 fL (80-100); Monocytes Percent Auto 4.2 % (0.0-11.0); Neutrophils Percent Auto 87.2 % (42.0-72.0); Platelet Count* 370 K/uL (140-440); White Blood Count* 16.16 K/uL (4.50-11.00)
[2022-06-23 20:25] LABS: Blood Urea Nitrogen* 24 mg/dL (7-30); Calcium* 8.3 mg/dL (8.4-10.6); Carbon Dioxide* 24 mmol/L (20-32); Glucose* 118 mg/dL (60-115)
[2022-06-23 20:26] LABS: Slide Review Reflex No
--- NOTE | 2022-06-23 20:48 | ED.NURSE ---
Pt stating she needs to use bathroom. Business Support Specialist offering to walk pt to bathroom. Pt then refuses, stating she cannot use this bathroom and will use bathroom at home. Pt states she would like to leave. MD at bedside. D/c instructions printed and given to pt and pt's as they are walking out door. Pt and pt's refuse [employer] school computer science teacher to go over d/c planning and verbalize understanding of all instructions. Pt leaves ER with all belongings.
[2022-06-23 20:57] LABS: Troponin I* 0.46 ng/mL (0.01-0.04)
--- NOTE | 2022-06-23 21:00 | ED.NURSE ---
MD Almonte updated on trop i 0.46
[2022-06-23 21:09] LABS: SARS PCR* Negative SARS-CoV-2 (Negative)
--- NOTE | 2022-06-23 21:15 | CRLHL7_ITS ---
For Patients: As a result of the Century Cures Act, medical imaging exams and procedure reports are released immediately into your electronic medical record. You may view this report before your referring provider. If you have questions, please contact your health care provider. INDICATION: Leg pain and swelling. TECHNIQUE: Ultrasound venous duplex bilateral lower extremity. Compression venous exam was performed using esposito-scale, color Doppler, and spectral Doppler analysis. COMPARISON: None. FINDINGS: Deep veins: Sonographic imaging demonstrates the bilateral common femoral, deep femoral, superficial femoral, popliteal, and posterior tibial veins to be fully compressible with normal color Doppler blood flow. Superficial veins: Greater saphenous veins are fully compressible. No popliteal cyst. IMPRESSION: No DVT in the bilateral lower extremities Dictated by Efrain Christiansen MD @ 06/23/2022 10:39:40 PM (Electronically Signed)
--- NOTE | 2022-06-23 21:17 | CRLHL7_ITS ---
For Patients: As a result of the Century Cures Act, medical imaging exams and procedure reports are released immediately into your electronic medical record. You may view this report before your referring provider. If you have questions, please contact your health care provider. INDICATION: Chest pain. TECHNIQUE: Chest 1 view. COMPARISON: 11/28/2018. FINDINGS: Cardiovascular and mediastinum: Heart size and vasculature are normal in caliber and appearance. Atherosclerotic calcifications of the aortic knob. Lungs and pleural spaces: Right basilar opacities. No sign of pleural effusion. No pneumothorax. Bones and soft tissues: Remote right rib fracture deformities. Calcified breast implants. IMPRESSION: Right basilar opacities, atelectasis versus pneumonia. Dictated by Og Hook MD @ 06/23/2022 10:02:30 PM (Electronically Signed)
--- OUTSIDE RECORDS SUMMARY | 2022-06-23 21:17 | XMS_ITS | Encounter Summary ---
:1950 Author Organization [facility] Address [address] [place] [id number] Phone Care Team Providers Name Role Phone Unavailable Primary Care Provider Unavailable Reason for Visit Reason Comments Follow-up Encounter Details Date Type Department Care Team Description 06/22/2022 Office Visit [facility] Alf Murray DDS [facility] [address] [place] [id number] Oral Surgery Clinic Op, [facility] [address] [place], [place] [id number] [place] [address] Social History Tobacco Use Types Packs/Day Years Used Date Smoking Tobacco: Every Day Cigarettes Smokeless Tobacco: Never Tobacco Cessation: Ready to Quit: Not As ked; Counseling Given: Not Answered Alcohol Use Standard Drinks/Week Comments Not Currently 0 (1 standard drink = 0.6 oz pure alcoho l) Sex Assigned at Date Recorded Not on file COVID-19 Exposure Response Date Recorded In the last 10 days, have you been in contact with No / Unsu re 06/22/2022 2:35 PM BRAID CUTTER someone who was confirmed or suspected to have Coronavirus/COVID-19? documented as of this encounter Last Filed Vital Signs Vital Sign Reading Time Taken Comments Blood Pressure 125/71 06/22/2022 10:40 AM BRAID CUTTER Pulse 84 06/22/2022 10:40 AM BRAID CUTTER Temperature - - Respiratory Rate - - Oxygen Saturation - - Inhaled Oxygen Concentration - - Weight 61.7 kg (136 lb) 06/22/2022 10:40 AM BRAID CUTTER Height 167.6 cm (5' 6) 06/22/2022 10:40 AM BRAID CUTTER Body Mass Index 21.95 06/22/2022 10:40 AM BRAID CUTTER documented in this encounter Plan of Treatment Not on filedocumented as of this encounter Visit Diagnoses Not on filedocumented in this encounter
--- OUTSIDE RECORDS SUMMARY | 2022-06-23 21:17 | XMS_ITS | Encounter Summary ---
:1950 Author Organization [facility] Address [address] [place] [id number] Phone Care Team Providers Name Role Phone [...] as of this encounter Plan of Treatment Not on filedocumented as of this encounter Procedures Procedure Name [...]
--- OUTSIDE RECORDS SUMMARY | 2022-06-23 21:17 | XMS_ITS | Encounter Summary ---
:1950 Author Organization [facility] Address [address] [place] [phone] Phone Care Team Providers Name Role Phone Unavailable Primary Care Provider Unavailable Encounter Details Date Type Department Care Team Description 06/18/2022 Telephone [facility] Dean Canales MD [facility] [address] [place] [address] [place], [place] [facility] [phone] Social History Tobacco Use Types Packs/Day Years Used Date Smoking Tobacco: Never Assessed Sex Assigned at Date Recorded Not on file COVID-19 Exposure Response Date Recorded In the last 10 days, have you been in contact No / Unsure 06/12/2022 11:54 PM CDT with someone who was confirmed or suspected to have Coronavirus/COVID-19? documented as of this encounter Miscellaneous Notes Telephone Encounter - Ericka Iraheta RN - 06/18/2022 10:04 AM CDT Calling pt to confirm appt. Pt was already aware of appt and she is agreeable to the appt. Notes trang will bring her and knows where the office is. Ericka Iraheta RN, 06/18/2022 10:07 AM documented in this encounter Plan of Treatment Not on filedocumented as of this encounter Visit Diagnoses Not on filedocumented in this encounter
--- OUTSIDE RECORDS SUMMARY | 2022-06-23 21:17 | XMS_ITS | Clinical Summary ---
:1950 Author Organization [facility] Address [address] [place] [phone] Phone Care Team Providers Name Role Phone Unavailable Primary Care Provider Unavailable Source Comments [employer] is fully rolled out on [employer]. Last update 01/18/09.[facility] Allergies Active Allergy Reactions Severity Noted Date Comments Ampicillin Rash 07/29/2011 Medications Be aware that medications may not be up to date as of this document. Always verify current medications with patient. Medication Sig Dispensed Refills Start Date End Date Status erythromycin 0.5% Place a 1/2 inch 3.5 g 0 06/13/2022 Active (ROMYCIN) 5 mg/gm ribbon of ointment ophthalmic ointment into BOTH eyes twice daily. Additional Information Patient not taking. Reported on 06/22/2022 acetaminophen 325 mg Take 1-2 tablets 30 tablet 0 06/13/2022 Active oral tablet (325-650 mg) by mouth every 4 hours as needed for Mild Pain (Headache). ibuprofen (MOTRIN;ADVIL) Take 1 tablet (600 30 tablet 0 2021 Active 600 mg oral tablet mg) by mouth 4 times daily as needed for Pain. cefUROXime (CEFTIN) 500 Take 1 tablet (500 20 tablet 0 022 06/23/2022 Active mg oral TABSIndications: mg) by mouth twice Facial fracture ppx daily for 10 days. Additional Information Patient not taking. Reported on 06/22/2022 buPROPion (WELLBUTRIN Take by mouth 0 Active SR) 200 mg oral tablet twice daily. 12 HR pravastatin Take 10 mg by 0 Acti ve (PRAVACHOL) 40 mg oral mouth daily. TABS GABApentin (NEURONTIN) Take 1 capsule 0 Active 300 mg oral capsule (300 mg) by mouth 3 times daily. omeprazole (PRILOSEC) Take by mouth 0 Active [address] daily. levothyroxine Take 1 tablet 0 Ac tive (SYNTHROID) 88 mcg (88 mcg) by oral TABS mouth daily. traZODone (DESYREL) Take 1 tablet 0 Active 100 mg oral tablet (100 mg) by mouth at bedtime. escitalopram (LEXAPRO) Take 1 tablet 0 Active 20 mg oral tablet (20 mg) by mouth daily. QUEtiapine (SEROQUEL) Take 1 tablet 0 Active 100 mg oral TABS (100 mg) by mouth at bedtime. calcium Take by mouth. 0 Activ e carb-cholecalciferol 600-200 mg-unit oral tablet oxyCODONE (ROXICODONE) Take 1 tablet (5 8 tablet 0 06/13/20 06/13/20 Discontinued 5 mg oral mg) by mouth (Duplic ate Order) tabletIndications: every 4 hours as Acute Pain needed for Pain. Active Problems Problem Noted Date Closed fracture of orbit with routine healing 06/22/20 Last Assessment & Plan: Formatting of th is note might be different from the original. Occurred on 06/12/22. On exam today, imp roved ecchymoses, edema, and chemosis. Advised patient to start ATs to help with dryness from injury and LASIK history. Patient is fine to return in 1 year Hx of LASIK 06/22/2022 Last Assessment & Plan: Formatting of th is note might be different from the original. History of laser with clear/well healed LASIK scar flaps Dry eye syndrome of both eyes 06/22/2022 Encounters Date Type Specialty Care Team Description 06/22/2022 Office Visit OPHTHALMOLOGY Dean De La Cruz Closed fr acture of orbit with routine healing, subsequent encounter (Primary Dx); MD Juancho Hx of LASIK; Dry eye syndrom e of both eyes 06/22/2022 Office Visit DENTISTRY Alf Murray DDS Op, [facility] 06/22/2022 Travel 06/18/2022 Telephone OPHTHALMOLOGY Dean De La Cruz MD 06/13/2022 Emergency EMERGENCY MEDICINE Moe Murillo, initial MD Juancho encounter Quan Carter MD 06/13/2022 Documentation Only [...] No / Unsu re 06/22/2022 2:35 PM RENTAL REPRESENTATIVE someone who was confirmed or suspected to have Coronavirus/COVID-19? Last Filed Vital Signs Vital Sign Reading Time Taken Comments Blood Pressure 125/71 06/22/2022 10:40 AM RENTAL REPRESENTATIVE Pulse 84 06/22/2022 10:40 AM RENTAL REPRESENTATIVE Temperature 36.9 ??C (98.4 ??F) 06/12/2022 11:31 PM CDT Respiratory Rate 18 06/13/2022 12:35 PM CDT Oxygen Saturation 97% 06/13/2022 12:35 PM CDT Inhaled Oxygen Concentration - - Weight 61.7 kg (136 lb) 06/22/2022 10:40 AM RENTAL REPRESENTATIVE Height 167.6 cm (5' 6) 06/22/2022 10:40 AM RENTAL REPRESENTATIVE Body Mass Index 21.95 06/22/2022 10:40 AM RENTAL REPRESENTATIVE Plan of Treatment Health Maintenance Due Date Last Done Comments [...] 8:52 AM CDT Indication: ??Patient transferred from [facility] due to Trauma. ??No initial report accompanied the patient and/or Dr. ??MOE MURILLO requested an interpretation by me. Technique: ??CT scan of the cervical spi ne done on 06/12/2022 without IV contrast. ??3 mm axial, sagittal and coronal reconstructions reviewed in soft tissue and bone windows, per the local institution' s scanning protocols, which may differ f rom the [facility] trauma protocols. Findings: ??Stepwise mild anterolisthesi s [...] from the original. Indication: Patient transferred from [facility] due to Trauma. No initial report accompanied the patient and/or Dr. MOE MURILLO requested an interpretation by me. Technique: CT scan of the cervical spine done on 06/12/2022 without IV contrast. 3 mm axial, sagittal and coronal reconstructions reviewed in soft tissue and bone windows, per the local institution's scanning protocols, which may differ from the [facility] trauma protocols. Findings: Stepwise mild [...] 8:55 AM CDT Indication: ??Patient transferred from [facility] due to Trauma. ??No initial report accompanied the patient and/or Dr. ??MOE MURILLO requested an interpretation by me. Technique: ??CT scan of the head and fac ial bones done on 06/12/2022 without IV contrast. ??3 mm axial and coronal reconstructions reviewed in soft tissue and bone windows, per the local institution's s inderjit protocols, which may differ from the [facility] trauma protocols. Findings: ??Multiple left-sided facial f [...] from the original. Indication: Patient transferred from [facility] due to Trauma. No initial report accompanied the patient and/or Dr. MOE MURILLO requested an interpretation by me. Technique: CT scan of the head and facia l bones done on 06/12/2022 without IV contrast. 3 mm axial and coronal reconstructions reviewed in soft tissue and bone windows, per the local institution's scanning protocols, which may differ from the [facility] trauma protocols. Findings: Multiple left-sided [...] e / Group Dates BLUE CROSS BCBS AUGUSTINE 2021-Pres PO BOX Medicare BLUE [facility] BLUE (COST 1 ent [id number] Managed Care PLAN) [place] [address] MEDICARE MEDICARE COST [id number] 2016-Pres [phone] CLAIMS Medicare Fee PLAN ent [address] Le[address] [place] [phone]
--- OUTSIDE RECORDS SUMMARY | 2022-06-23 21:17 | XMS_ITS | Encounter Summary ---
:1950 Author Organization [facility] Address [address] [place] [address] Phone Care Team Providers Name Role Phone Unavailable Primary Care Provider Unavailable Reason for Visit Reason Comments Follow-up Orbital fracture f/u Encounter Details Date Type Department Care Team Description 06/22/2022 Office Visit Clinic & Specialty Dean De La Cruz ed fracture of orbit with routine healing, subsequent encounter (Primary Dx); [facility] MD Juancho Hx of LASIK; [address] Dry eye syndrome of both eyes [place], [place] [address] [place], [place] [phone] Social History Tobacco Use Types Packs/Day Years Used Date Smoking Tobacco: Every Day Cigarettes Smokeless Tobacco: Never Alcohol Use Standard Drinks/Week Comments Not Currently 0 (1 standard drink = 0.6 oz pure alcoho l) Sex Assigned at Date Recorded Not on file COVID-19 Exposure Response Date Recorded In the last 10 days, have you been in contact with No / Unsu re 06/22/2022 2:35 PM 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 documented as of this encounter Progress Notes Melissa Mason COMT - 06/22/2022 3:15 PM CST Progress Note Chrissy Box : 1950 Sex: female HPI Patient presents for 10 day f/u orbital fracture today. Pt has no concerns, states her vision is great and denies any diplopia or pain with EOM movements. She stopped using juni 3 days ago because it was blurring her vision too much. Review of Systems Constitutional: Negative for fever. HENT: Negative for congestion. Eyes: Positive for redness. Negative for blurred vision, discharge, double vision, pain and photophobia. Respiratory: Negative for cough. All other systems reviewed and are negative. Physical Exam Neurological: Mental Status: She is alert. ORK OPERATIONS PROJECT MANAGER Dean De La Cruz MD - 06/22/2022 3:15 PM CST [facility] Chrissy Box : 1950 Sex: female Medical Decision Making: Closed left fracture of orbit with routine healing Occurred on 06/12/22. On exam today, improved ecchymoses, edema, and chemosis. EOM full. No diplopia. No enophthalmos. Advised patient to start ATs to help with dryness from injury and LASIK history. Patient is fine to return in 1 year Hx of LASIK OU History of laser with clear/well healed LASIK scar flaps Return in about 1 year (around 06/22/2023). History of Present Illness: Chrissy Box is here today for follow up of left orbital fracture on 06/12/22. She saw a surgeon today who reports she does not need surgery. Previously was taking ointment but she stopped using it because it was annoying. Scribe Disclaimer: Mamie Painter acted as scribe for Dean De La Cruz MD in documenting theservice or procedure. Signed: Mamie Hassan. Provider disclaimer (if working with scribe): Dean Painter MD have reviewed the initial documentation provided by the scribe and affirm that it is an accurate restatement of my dictated record of services. Signed: Dean De La Cruz MD, 06/23/2022 1:48 PM Waqar De La Cruz MD Department of Ophthalmology Staff Physician, [facility] ORK OPERATIONS PROJECT MANAGER documented in this encounter Miscellaneous Notes Assessment & Plan Note - Mamie Hassan Scribe - 06/22/2022 4:10 PM NETWORK OPERATIONS PROJECT MANAGER Associated Problem(s): Hx of LASIK History of laser with clear/well healed LASIK scar flaps ORK OPERATIONS PROJECT MANAGER Assessment & Plan Note - Mamie Hassan Scribe - 06/22/2022 3:41 PM NETWORK OPERATIONS PROJECT MANAGER Associated Problem(s): Closed fracture of orbit with routine healing Occurred on 06/12/22. On exam today, improved ecchymoses, edema, and chemosis. Advised patient to start ATs to help with dryness from injury and LASIK history. 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
--- OUTSIDE RECORDS SUMMARY | 2022-06-23 21:17 | XMS_ITS | Encounter Summary ---
:[address] [facility] Address [address] [facility] [place] [address] Phone Care Team Providers Name Role Phone Unavailable Primary Care Provider Unavailable Reason for Visit Reason Comments Facial Injury Encounter Details Date Type Department Care Team Description 06/13/2022 Emergency [facility] Emergency PreMoe waller MD [address] [address] [place], [place] [id number] Fall, initial encounter Department Quan Carter MD [address] [facility] [address] [place] [address] [address] [facility] [address] [place], [place] [address] Social History Tobacco Use Types [...] with the Internal Medicine Acute Care Clinic ([phone]). Return to the emergency department with any [...] through Care Everywhere. Sinus Precautions - HH ([place])documented in this encounter Medications at Time of [...] Cruz MD Department of Ophthalmology Staff Physician, [facility] Dave Workman DDS - 06/13/2022 6:20 AM [...] trip & fallwhile she was trying to dupligraph operator her dog on the concrete steps outside her home. Patient denies LOC of consciousness following the incident. Patient reports that this is not the first time that she has had a fall while trying to dupligraph operator her dog under similar circumstances. Patient is edentulous and reports that she is currently in the process of having implant supported mandibular overdenture fabricated. PAST MEDICAL HISTORY: No past medical history on file. PAST SURGICAL HISTORY: No past surgical history on file. 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 Ears: External ears are normal, tympanic membrane [...] intact. Labs Reviewed: No labs drawn at [facility] Imaging Reviewed: Type of Imaging: CT Facial [...] left face Not on anticoagulation Transfer from [place] No prodrome, purely mechanical ED Course: CT [...] Reading Radiologist: Rob Stanford Resident: Patrice Cohen CT OUTSIDE READ HEAD/FACIAL [...] in real time. Please contact me via Classting staff message if you note any errors [...] or abdominal pain. She initially presented to [facility] where they repaired a laceration above her [...] facial bones, and C-spine are pushed from [facility]. CT head shows no intracranial pathology. C-spine [...] my shift. Their care was signed out [id number] with the oncoming provider, Dr. Jeane Tucker. [...] date: Expected time: Means of arrival: Comments: [employer] from triage Saba Turner RN - 06/13/2022 12:00 AM CDT Patient presents with daughter and reports falling onto concrete stair and striking left side of face 8 hours ago. Denies LOC. Noted contusion/swelling to area. Initially evaluated at [facility]. documented in this encounter Miscellaneous Notes ED Faculty Note - oMe Rodriguez MD - 06/13/2022 2:02 AM CDT [...] hitting her head on concrete. Trnasferred from [facility]. Swollen left eye. Not on blood thinners. [...] initial documentation provided by the scribe and affirmthat it is an accurate restatement [...] 8:52 AM CDT Indication: ??Patient transferred from [facility] due to Trauma. ??No initial report accompanied [...] from the original. Indication: Patient transferred from [facility] due to Trauma. No initial report accompanied the patient and/or Dr. MOE RODRIGUEZ requested an interpretation by me. Technique: CT scan of the cervical spine done on 06/12/2022 without IV contrast. 3 mm axial, sagittal and coronal reconstructions reviewed in soft tissue and bone windows, per the local institution's scanning protocols, which may differ from the [facility] trauma protocols. Findings: Stepwise mild anterolisthesis [...] 8:55 AM CDT Indication: ??Patient transferred from [facility] due to Trauma. ??No initial report accompanied [...] from the original. Indication: Patient transferred from [facility] due to Trauma. No initial report accompanied the patient and/or Dr. MOE RODRIGUEZ requested an interpretation by me. Technique: CT scan of the head and facia l bones done on 06/12/2022 without IV contrast. 3 mm axial and coronal reconstructions reviewed in soft tissue and bone windows, per the local institution's scanning protocols, which may differ from the [facility] trauma protocols. Findings: Multiple left-sided facial [...]
--- OUTSIDE RECORDS SUMMARY | 2022-06-23 21:17 | XMS_ITS | Encounter Summary ---
:1950 Author Organization [facility] Address [address] [place] [address] Phone Care Team Providers Name Role Phone Unavailable Primary Care Provider Unavailable Encounter Details Date Type Department Care Team Description 06/13/2022 Ophth Exam [facility] Eye Ka Nancy gould MD Clinic [id number] [place] [address] [phone] Social History Tobacco Use Types Packs/Day Years [...]
--- OUTSIDE RECORDS SUMMARY | 2022-06-23 21:17 | XMS_ITS | Clinical Summary ---
:1950 Author Organization [facility] [place] [address] Care Team Providers Name Role Phone Karla Rivera MD Primary Care Provider [phone] Allergies Active Allergy Reactions Severity Noted [...] Signed: 01/24/2014 Physician: Karla Rivera MD Medication: [place] 10/325 Quantity per month: #60 Pharmacy: [facility] Last Toxasure: 03/2015 Senile osteoporosis 07/29/2011 Overview: [...] Encounters Date Type Specialty Care Team Description 06/17/2022 Orders Only Scanner <No scans attac hed> 06/16/2022 Office Visit Karla Rivera Medication Ney Dacosta MD 06/16/2022 Travel 06/15/2022 Orders Only Habkatalina Ernestine <No scans emilia ched> ANNA Henry 06/12/2022 Orders Only Scanner <No scans attac hed> 06/08/2022 Refill Karla Rivera MD (Hydrocodone-ac etaminophen (10-325 Mg)) 06/02/2022 Hospital Encounter Karla Rivera MD Krogman, Brandon, PT 06/02/2022 Travel 05/27/2022 Office Visit Rosa Elena Villanueva Follow Up (); Boris Dacosta MD Management 05/27/2022 Travel 05/26/2022 Hospital Encounter Karla Rivera MD Henry, Lori J, CRAB BACKER 05/26/2022 Travel 05/23/2022 Refill Rosa Elena Villanueva Refill Req lorena Dacosta MD (Quetiapine) 05/22/2022 Hospital Encounter Karla Rivera MD Krogman, Brandon, PT 05/22/2022 Travel 05/19/2022 Hospital Encounter Karla Rivera MD Henry, Lori J, CRAB BACKER 05/19/2022 Travel 05/15/2022 Hospital Encounter Karla Rivera MD Krogman, Brandon, PT 05/15/2022 Travel 05/12/2022 Hospital Encounter Karla Rivera MD Henry, Lori J, CRAB BACKER 05/12/2022 Travel 05/09/2022 Refill Karla Rivera MD (Hydrocodone-ac etaminophen (10-325 Mg)) 05/08/2022 Hospital Encounter Karla Rivera MD Krogman, Brandon, PT 05/08/2022 Travel 05/05/2022 Hospital Encounter Karla Rivera MD Vinar, Kaylin J, CRAB BACKER 05/05/2022 Travel 04/28/2022 Hospital Encounter Karla Rivera MD Krogman, Brandon, PT 04/28/2022 Travel 04/24/2022 Hospital Encounter Karla Rivera MD Krogman, Brandon, PT 04/24/2022 Travel 04/21/2022 Hospital Encounter Karla Rivera MD Henry, Lori J, CRAB BACKER 04/21/2022 Travel 04/17/2022 Hospital Encounter Karla Rivera MD Krogman, Brandon, PT 04/17/2022 Travel 04/14/2022 Hospital Encounter Karla Rivera MD Henry, Lori J, CRAB BACKER 04/14/2022 Travel 04/08/2022 Office Visit Karla Rivera MD 04/07/2022 Hospital Encounter Karla Rivera MD Henry, Lori J, CRAB BACKER 04/07/2022 Travel 04/05/2022 Refill Karla Rivera Refill [...] (SE ROQUEL) 50 mg tablet (APPR LILIANA 12/27/2021-/09/2022)) 03/27/2022 Telephone RosaE lena Villanueva Prior Auth tyrell Dacosta MD (Seroquel) 03/26/2022 Telephone Karla Rivera Medication Ney Dacosta MD 03/25/2022 Hospital Encounter Karla Rivera juan r deconditioning MD Simeon Dacosta Brandon, PT 03/25/2022 Office Visit Rosa Elena Villanueva Follow Up MD Olesya 03/25/2022 Travel 03/23/2022 Travel from Last 3 Months Immunizations Name Administration Dates Next Due COVID-19 vaccine (Moderna 100mcg/0.5mL) 09/16/2021, 08/19/19 22 MD RIMAV Influenza, Inactivated AIIV4 (Age 65+ 06/16/2021, 06/20/2020 [...] M Leanne horvath 01/10 Para F Birgit n na Last Filed Vital Signs Vital [...] 07/29/2022 Office Visit Matthew Villanueva MD [address] [place], [place] [address] (Wo rk) 09/23/2022 [place] [address] [place], [place] [address] (Wo rk) Health Maintenance [...] 01/26/2012 Procedures Procedure Name Priority Date/Time Associated Comments Diagnosis SCAN-CT INTERPRETATION 06/17/2022 12:00 AM CDT COMPLIANCE DRUG Routine 06/16/2022 11:38 Pain medication Resul ts for this ANALYSIS AM CDT agreement procedure are in [facility] the results section. SCAN-CT INTERPRETATION 06/12/2022 12:00 AM CDT from Last 3 Months Results SCAN-CT INTERPRETATION (06/17/2022 12:00 AM CDT)Only the most recent of2 results within the time period is included. Narrative This result has an attachment that is no t available. Scanner OTHER (ABNORMAL) COMPLIANCE DRUG ANALYSIS (06/16/2022 11:38 AM CDT) [facility] Method Time Signature 6-MONOACETYL NEG NEG ng/mL 06/22/2022 [place] MORPHINE 12:04 [facility] AMPHETAMINE URINE NEG <=500 06/22/2022 [place] ng/mL 12:04 PM [facility] BARBITURATE URINE NEG <=200 06/22/2022 [place] ng/mL 12:04 PM [facility] BENZODIAZEPINE URINE NEG <=100 06/22/2022 [place] ng/mL 12:04 PM [facility] BUPRENORPHRINE URINE NEG <=5 ng/mL 06/22/2022 [place] 12:04 PM [facility] COCAINE METAB URINE NEG <=300 06/22/2022 [place] ng/mL 12:04 PM [facility] ETHYLGLUCURONIDE NEG <=250 06/22/2022 [place] URINE ng/mL 12:04 PM [facility] FENTANYL URINE NEG <=4 ng/mL 06/22/2022 [place] 12:04 [facility] METHADONE URINE NEG <=300 06/22/2022 [place] ng/mL 12:04 PM [facility] OPIATES URINE POS (A) <=300 06/22/2022 [place] ng/mL 12:04 PM [facility] OXYCODONE URINE POS (A) <=100 06/22/2022 [place] ng/mL 12:04 PM [facility] PROPOXYPHENE URINE NEG <=300 06/22/2022 [place] ng/mL 12:04 PM [facility] THC 50 URINE NEG <=50 06/22/2022 [place] ng/mL 12:04 PM [facility] TRAMADOL NEG <=200 06/22/2022 [place] ng/mL 12:04 PM [facility] PH URINE 5.7 5.0 - 7.0 06/22/2022 [place] 12:04 PM [facility] CREAT UR 120 >=20 06/22/2022 [place] mg/dL 12:04 PM [facility] MASS SPECTROMETRY See Below 06/22/2022 [place] URINE 12:04 PM [facility] Comment: Acetaminophen, Citalopram, Sita lopram metabolite, Gabapentin, Hydrocodone, Norhydrocodone, Noroxycodone, and Trazod one present. 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 Take on empty stomach with full glass of water. Do not lie down for 1 hr. buPROPion (WELLBUTRIN SR) 200 mg Sustain ed-Release tablet, Take 1 Tablet (200 mg) by mouth two times daily. calcium carbonate-vitamin D3, 500 mg-400 units, (OSCAL 500 + D) tablet, Take 1 tablet by mouth 2 times daily before meals. cefuroxime axetil (CEFTIN) 500 mg tablet , cholecalciferol (VITAMIN D) 2,000 unit c apsule, Take 1 capsule by mouth once daily. erythromycin ophthalmic ointment 0.5%, escitalopram oxalate (LEXAPRO) 20 mg tab let, Take 1 Tablet (20 mg) by mouth once daily. gabapentin (NEURONTIN) 300 mg capsule, T sendy 1 Capsule (300 mg) by mouth 3 times daily if needed (anxiety). HYDROcodone-acetaminophen, 10-325 mg, (N ORCO 10-325) 10-325 mg per tablet, TAKE ONE TABLET BY MOUTH THREE TIMES A DAY NEEDED FOR PAIN - MAXIMUM ACETAMINOPHEN DOSE 4000MG/24 HOURS. CAUTION: OPIOID - RISK OF OVERDOSE AND ADDICTION levothyroxine (SYNTHROID) 88 mcg tablet, TAKE ONE TABLET BY MOUTH ONCE DAILY (BEST IF TAKEN ON AN EMPTY STOMACH) multivitamin (MVI) tablet, Take 1 tablet by mouth once daily. nicotine 14 mg/24 hr (NICODERM; HABITROL ) 14 mg/24 hr patch, Apply 1 Patch on dry, clean, hairless skin once daily. nicotine 7 mg/24 hr (NICODERM; HABITROL) 7 mg/24 hr patch, Apply 1 Patch on dry, clean, hairless skin once daily. omeprazole (PRILOSEC) 40 mg Delayed-Rele ase capsule, TAKE ONE CAPSULE BY MOUTH ONCE DAILY pravastatin (PRAVACHOL) 40 mg tablet, Ta ke 1 Tablet (40 mg) by mouth at bedtime. TAKE AT BEDTIME. QUEtiapine (SEROQUEL) 100 mg tablet, Fernando e 1 Tablet (100 mg) by mouth at bedtime. sennosides (SENNA) 8.6 mg tablet, Take 1 tablet by mouth 2 times daily if needed for Constipation. traZODone (DESYREL) 100 mg tablet, 1-2 t ablets at bedtime as needed for insomnia No current facility-administered medicat ions for this visit. As of 06/16/2022 Release to patient->Immediate Karla Rivera MD URINE Performing Organization Address City/State/ZIP Code Phon e Number [facility] [address] [place] [address] [place] MA[place] CODE 812 from Last 3 Months Insurance Payer Benefit Plan / Subscriber ID Effective Dates Phone Addre ss Type Group MEDICARE PART B MEDICARE PART B [id number] 2016-[employer] ATTN: CLAIMS - HB USE ONLY HB ONLY t [address] [facility] [id number] [place] [id number] 2021-[employer] [address] [address] [place] [address] [place], [place] [id number] [place] [id number] 2016-[employer] [address] [address] [address] [place], [place] [id number] Care Teams Turn Operator Relationship Specialty Start Date End Date Karla Rivera MD PCP - General Family Practice 07/22/11 [id number] [place], [place] [id number]
--- OUTSIDE RECORDS SUMMARY | 2022-06-23 21:17 | XMS_ITS | Encounter Summary ---
:1950 Author Organization [facility] Address [address] [place] [address] Phone Care Team Providers Name Role Phone [...]
--- OUTSIDE RECORDS SUMMARY | 2022-06-23 21:17 | XMS_ITS | Encounter Summary ---
:1950 Author Organization [facility] Address [address] [place] [address] Phone Care Team Providers Name Role Phone [...]
--- OUTSIDE RECORDS SUMMARY | 2022-06-23 21:17 | XMS_ITS | Encounter Summary ---
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 documented as of this encounter Plan of Treatment Not on filedocumented as of this encounter Visit Diagnoses Not on filedocumented in this encounter
[2022-06-23] MEDS: ASPIRIN 81 MG TAB.CHEW 324 MG PO (21:30)
[2022-06-23 21:36] LABS: D Dimer Quantitative* 1.36 ug/ml (0.00-0.50)
[2022-06-23 22:09] LABS: Creatine Kinase* 7537 U/L (41-117)
[2022-06-24] VITALS (11 sets, daily range): BP systolic 100–130; BP diastolic 57–77; PULSE 73–85; RESP 14–18; TEMP 36.7–37.4; O2SAT 93–96
--- NOTE | 2022-06-24 01:20 | ED.NURSE ---
report to medical lab director, pt transferred via wheelchair.
--- NOTE | 2022-06-24 01:42 | PM.IMCN1 ---
Date of Consult Consult date: 06/24/22 Primary Care Provider: Karla Rivera MD Consult Narrative Narrative: Chrissy Box is a 71 year old female [facility] Medical History Arthritis Graves disease Hyperplastic colon polyp Moderate episode of recurrent major depressive disorder Pure hypercholesterolemia Senile osteoporosis Tachycardia Tremor Surgical History H/O breast augmentation History of appendectomy History of hysterectomy History of repair of hip fracture Hx of breast biopsy Social History Smoking Status: Current every day smoker What tobacco products do you use: cigarettes Smoking packs per day: 0.5 Smoking cigarettes per day: 10.0 Do you use any of these nicotine containing products: None Second hand tobacco smoke exposure: No How often do you have a drink containing alcohol: never How often do you have six or more drinks on one occasion: Never AUDIT-C Alcohol total score: 0 Non-prescribed substance use: denies use Meds Home Medications and Allergies Home Medications Medication Instructions Recorded Confirmed Type alendronate 70 mg tablet 70 mg PO DAILY 06/12/22 06/12/22 History bupropion HCl 200 mg tablet,12 hr 200 mg PO Q12H 06/12/22 06/12/22 History sustained-release chlorhexidine gluconate 0.12 % 15 ml PO .every other day 06/12/22 06/12/22 History mouthwash escitalopram oxalate 20 mg tablet 20 mg PO DAILY 06/12/22 06/12/22 History gabapentin 300 mg capsule 300 mg PO Q12H 06/12/22 06/12/22 History hydrocodone 10 mg-acetaminophen 1 tab PO Q8H 06/12/22 06/12/22 History 325 mg tablet lamotrigine 25 mg tablet 25 mg PO DAILY 06/12/22 06/12/22 History levothyroxine 88 mcg tablet 88 mcg PO DAILY 06/12/22 06/12/22 History omeprazole 40 mg capsule,delayed 40 mg PO DAILY 06/12/22 06/12/22 History release pravastatin 40 mg tablet 40 mg PO HS 06/12/22 06/12/22 History quetiapine 100 mg tablet 100 mg PO DAILY 06/12/22 06/12/22 History quetiapine 50 mg tablet 50 mg PO DAILY 06/12/22 06/12/22 History trazodone 100 mg tablet 100 mg PO DAILY 06/12/22 06/12/22 History Allergies Allergy/AdvReac Type Severity Reaction Status Date / Time ampicillin Allergy Mild Rash Verified 06/12/22 18:03 Exam Const: Vital Signs, click to edit/add: Vital Signs - 24 hr 06/23/22 18:43 06/23/22 21:03 06/23/22 20:25 Temperature 97.5 F L Pulse Rate 75 Pulse Rate [Right Pulse Oximeter] 82 Pulse Rate [orthos tatic lying Right Pulse Oximeter] 76 Pulse Rate [orthos tatic sitting Righ t Pulse Oximeter] 83 Pulse Rate [orthos tatic standing Rig ht Pulse Oximeter] 79 Respiratory Rate 18 Blood Pressure Blood Pressure [Ri ght Upper Arm] 81/52 L Blood Pressure [or thostatic lying Le ft Arm] 102/69 Blood Pressure [or thostatic sitting Left Arm] 104/59 L Blood Pressure [or thostatic standing Left Arm] 100/57 L Pulse Oximetry 95 93 Oxygen Delivery Me thod Room Air 06/23/22 20:27 06/23/22 20:30 06/23/22 20:32 Temperature Pulse Rate 75 75 75 Pulse Rate [Right Pulse Oximeter] Pulse Rate [orthos tatic lying Right Pulse Oximeter] Pulse Rate [orthos tatic sitting Righ t Pulse Oximeter] Pulse Rate [orthos tatic standing Rig ht Pulse Oximeter] Respiratory Rate Blood Pressure 92/53 L 99/62 Blood Pressure [Ri ght Upper Arm] Blood Pressure [or thostatic lying Le ft Arm] Blood Pressure [or thostatic sitting Left Arm] Blood Pressure [or thostatic standing Left Arm] Pulse Oximetry 94 92 92 Oxygen Delivery Me thod 06/23/22 21:00 06/23/22 21:01 06/23/22 21:05 Temperature Pulse Rate 75 76 77 Pulse Rate [Right Pulse Oximeter] Pulse Rate [orthos tatic lying Right Pulse Oximeter] Pulse Rate [orthos tatic sitting Righ t Pulse Oximeter] Pulse Rate [orthos tatic standing Rig ht Pulse Oximeter] Respiratory Rate Blood Pressure 106/63 102/69 Blood Pressure [Ri ght Upper Arm] Blood Pressure [or thostatic lying Le ft Arm] Blood Pressure [or thostatic sitting Left Arm] Blood Pressure [or thostatic standing Left Arm] Pulse Oximetry 94 94 89 Oxygen Delivery Me thod 06/23/22 21:06 06/23/22 21:08 06/23/22 21:29 Temperature Pulse Rate 83 79 88 Pulse Rate [Right Pulse Oximeter] Pulse Rate [orthos tatic lying Right Pulse Oximeter] Pulse Rate [orthos tatic sitting Righ t Pulse Oximeter] Pulse Rate [orthos tatic standing Rig ht Pulse Oximeter] Respiratory Rate Blood Pressure 104/59 L 100/57 L 103/51 L Blood Pressure [Ri ght Upper Arm] Blood Pressure [or thostatic lying Le ft Arm] Blood Pressure [or thostatic sitting Left Arm] Blood Pressure [or thostatic standing Left Arm] Pulse Oximetry 93 93 93 Oxygen Delivery Me thod 06/23/22 21:30 06/23/22 21:32 06/23/22 22:00 Temperature Pulse Rate 80 78 79 Pulse Rate [Right Pulse Oximeter] Pulse Rate [orthos tatic lying Right Pulse Oximeter] Pulse Rate [orthos tatic sitting Righ t Pulse Oximeter] Pulse Rate [orthos tatic standing Rig ht Pulse Oximeter] Respiratory Rate Blood Pressure 107/60 Blood Pressure [Ri ght Upper Arm] Blood Pressure [or thostatic lying Le ft Arm] Blood Pressure [or thostatic sitting Left Arm] Blood Pressure [or thostatic standing Left Arm] Pulse Oximetry 96 96 95 Oxygen Delivery Me thod 06/23/22 22:02 06/23/22 22:30 06/23/22 22:32 Temperature Pulse Rate 77 75 76 Pulse Rate [Right Pulse Oximeter] Pulse Rate [orthos tatic lying Right Pulse Oximeter] Pulse Rate [orthos tatic sitting Righ t Pulse Oximeter] Pulse Rate [orthos tatic standing Rig ht Pulse Oximeter] Respiratory Rate Blood Pressure 97/67 97/59 L Blood Pressure [Ri ght Upper Arm] Blood Pressure [or thostatic lying Le ft Arm] Blood Pressure [or thostatic sitting Left Arm] Blood Pressure [or thostatic standing Left Arm] Pulse Oximetry 97 97 94 Oxygen Delivery Me thod 06/23/22 22:33 06/23/22 22:45 06/23/22 23:00 Temperature Pulse Rate 73 77 78 Pulse Rate [Right Pulse Oximeter] Pulse Rate [orthos tatic lying Right Pulse Oximeter] Pulse Rate [orthos tatic sitting Righ t Pulse Oximeter] Pulse Rate [orthos tatic standing Rig ht Pulse Oximeter] Respiratory Rate Blood Pressure Blood Pressure [Ri ght Upper Arm] Blood Pressure [or thostatic lying Le ft Arm] Blood Pressure [or thostatic sitting Left Arm] Blood Pressure [or thostatic standing Left Arm] Pulse Oximetry 96 94 94 Oxygen Delivery Me thod 06/23/22 23:01 06/23/22 23:15 06/23/22 21:00 Temperature Pulse Rate 76 74 Pulse Rate [Right Pulse Oximeter] Pulse Rate [orthos tatic lying Right Pulse Oximeter] Pulse Rate [orthos tatic sitting Righ t Pulse Oximeter] Pulse Rate [orthos tatic standing Rig ht Pulse Oximeter] Respiratory Rate Blood Pressure 103/62 Blood Pressure [Ri ght Upper Arm] Blood Pressure [or thostatic lying Le ft Arm] Blood Pressure [or thostatic sitting Left Arm] Blood Pressure [or thostatic standing Left Arm] Pulse Oximetry 94 95 98 Oxygen Delivery Me thod 06/23/22 23:32 06/24/22 00:01 06/24/22 00:32 Temperature Pulse Rate 78 73 Pulse Rate [Right Pulse Oximeter] Pulse Rate [orthos tatic lying Right Pulse Oximeter] Pulse Rate [orthos tatic sitting Righ t Pulse Oximeter] Pulse Rate [orthos tatic standing Rig ht Pulse Oximeter] Respiratory Rate Blood Pressure 97/82 107/61 104/64 Blood Pressure [Ri ght Upper Arm] Blood Pressure [or thostatic lying Le ft Arm] Blood Pressure [or thostatic sitting Left Arm] Blood Pressure [or thostatic standing Left Arm] Pulse Oximetry 98 93 Oxygen Delivery Me thod 06/24/22 01:02 Temperature Pulse Rate Pulse Rate [Right Pulse Oximeter] Pulse Rate [orthos tatic lying Right Pulse Oximeter] Pulse Rate [orthos tatic sitting Righ t Pulse Oximeter] Pulse Rate [orthos tatic standing Rig ht Pulse Oximeter] Respiratory Rate Blood Pressure 109/59 L Blood Pressure [Ri ght Upper Arm] Blood Pressure [or thostatic lying Le ft Arm] Blood Pressure [or thostatic sitting Left Arm] Blood Pressure [or thostatic standing Left Arm] Pulse Oximetry Oxygen Delivery Ak thod Labs Labs: Short CBC 06/23/22 Range/Units 19:44 WBC 16.16 H (4.50-11.00) K/uL Hgb 8.6 L (12.0-16.0) gm/dL Hct 26.5 L (33.0-51.0) % Plt Count 370 (140-440) K/uL BMP 06/23/22 19:44 Sodium 129 L Potassium 4.0 Chloride 97 Carbon Dioxide 24 BUN 24 Creatinine 1.6 H Glucose 118 H Calcium 8.3 L Cardiac Enzymes 06/23/22 06/23/22 06/23/22 Range/Units 19:35 19:44 19:44 Total Creatine Kinase 7537 H (41-117) U/L Troponin I Cancelled 0.46 H* Assessment and Plan Assessment and plan (1) Rhabdomyolysis: Status: Acute Plan [facility] CONSULTATION NOTE: Reason for consult: Rhabdomyolysis HPI: Patient is a pleasant 71-year-old female admitted for weakness and recurrent falls. She had another fall this morning when she fell out of bed. She think she could have laid on the ground for at least an hour but is not exactly sure. She came into the ER with weakness and fatigue. She was noted to be somewhat hypotensive on arrival. She also had an elevated troponin 0.46, but of note her CK was in the 7500s. ED provider did speak with cardiology who recommended serial troponins, telemetry, and echocardiogram in the morning. Patient denies any associated symptoms besides weakness and fatigue. She denies any headache and has not really been lightheaded. She denies any chest pain. She has not felt particularly short of breath. She denies any cough. She has not had recent nausea, vomiting, abdominal pain, or diarrhea. She has not had any change in consistency of stool. She has not had any melena or blood in her stool. She denies any dysuria. She has not had any recent fevers or chills. Patient just has continued to feel weak and fatigued. Patient is 1/2 pack a day smoker. She does not drink alcohol or use recreational drugs. We did discuss CODE STATUS and she wishes to be full code. Exam (performed via interactive video with assistance of bedside nurse): General: Alert, cooperative, no acute distress HEENT: Pupils reported ERRL, oral mucosa pink and moist without erythema Lungs: Clear to auscultation bilaterally without crackle or wheeze CV: Regular rate and rhythm without loud murmur rub or gallop Abd: Bowel sounds present, denies tenderness and does not exhibit signs of pain with palpation done by bedside nurse Ext: No pitting edema noted Skin: No rashes, bruises or lesions appreciated on gross visualization of exposed skin Neuro: Alert, oriented x 3. CN III -VII, XI, XII grossly intact, moves all extremities without any significant focal deficit appreciated by nurse Assessment and Plan: 1. Rhabdomyolysis 2. Anemia 3. Weakness and deconditioning 4. Elevated troponin Patient is a pleasant 71-year-old female admitted for rhabdomyolysis. She does have an elevated troponin, but my of suspicion is this is secondary to muscle breakdown as opposed to cardiac injury. Given that her CK is 7500 and a troponin of 0.46 is not that surprising. Regardless we will get serial troponins overnight. Cardiology did recommend an echocardiogram, but I will defer this decision to the rounding provider as again I do not think this is cardiac in nature. Daily aspirin will be continued until we can rule out ischemic injury with troponins overnight. Given that she does have rhabdomyolysis as well as some hyponatremia we will continue hydrating her overnight with normal saline. She will PRNs available for pain and nausea. PT and OT should assess her in the morning. Her chronic outpatient medications will need to be continued when verified in the a.m. Enoxaparin has been placed for DVT prophylaxis. Patient is full code. Thank you for including [facility] Hospitalist in the patients care. This service is available for further assistance as requested by your care team by calling [phone].
[2022-06-24] MEDS: 0.9 % SODIUM CHLORIDE 1000 ml 1,000 ML 125 ML IV ×3 (02:56→19:43)
--- NOTE | 2022-06-24 06:03 | PC.NURSE ---
130-700 Arrived on unit via transport. Pt seen by teledoc MD. Afterwards, pt report being very tired and wanted to go to sleep. Refused confidentiality form, personal belongings form, and ISAEL stockings until AM. IV fluids infusing. Pt had 1 incontinent episode in the middle of the night and finished over toilet for additional 800cc amount. Prema cares performed. Pt went back to bed and seen sleeping on hourly rounding. Minimal complaints of pain.
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
[2022-06-24] MEDS: TRAMADOL HCL 50 MG TABLET PO (08:16)
[2022-06-24] MEDS: ACETAMINOPHEN 325 MG TABLET PO ×2 (08:16→17:00)
[2022-06-24] MEDS: ASPIRIN 81 MG TABLET EC PO (09:22)
[2022-06-24 10:00] LABS: Basophils Percent Auto 0.2 % (0.0-3.0); Hematocrit 26.6 % (33.0-51.0); Hemoglobin* 8.6 gm/dL (12.0-16.0); Immature Granulocytes Pct Auto 0.4 %; Lymphocytes Percent Auto 11.9 % (20-44); Mean Corpuscular HGB Conc 32 gm/dL (32-36); Mean Corpuscular Hemoglobin 30 pg (26-34); Mean Corpuscular Volume 92 fL (80-100); Monocytes Percent Auto 5.1 % (0.0-11.0); Neutrophils Percent Auto 81.4 % (42.0-72.0); Platelet Count* 380 K/uL (140-440); RDW Coefficient of Variation % 13.2 % (11.5-15.5); White Blood Count* 12.89 K/uL (4.50-11.00)
[2022-06-24 10:09] LABS: Slide Review Reflex No
[2022-06-24 10:19] LABS: Appearance Urine Clear (Clear); Bilirubin Urine Negative (Negative); Blood Urine 1+ (Negative); Color Urine Yellow (Yellow); Glucose Urine Negative (Negative); Ketones Urine Negative (Negative); Leukocyte Esterase Urine Negative (Negative); Nitrite Urine Negative (Negative); Protein Urine Negative (Negative); Specific Gravity Urine 1.015 (1.000-1.030); Urobilinogen Urine 0.2 (0.2-1.0)
[2022-06-24 10:29] LABS: RBC Urine 0-2 (0-2); Squamous Epithelial Cell Urine Few (None-Few); WBC Urine 0-2 (0-5)
[2022-06-24 10:31] LABS: Albumin* 3.3 g/dL (3.3-5.0); Chloride* 107 mmol/L (96-114)
[2022-06-24 10:32] LABS: Potassium* 4.3 mmol/L (3.6-5.1); Sodium* 138 mmol/L (135-149)
[2022-06-24 10:34] LABS: Aspartate Amino Transferase* 114 U/L (12-35); Bilirubin Direct* 0.2 mg/dL (0.0-0.5); Bilirubin Total* 0.4 mg/dL (0.1-1.5); Carbon Dioxide* 25 mmol/L (20-32); Estimated Glomerular Filt Rate 61 ml/min; Total Protein* 6.1 g/dL (6.0-8.3)
[2022-06-24 10:35] LABS: Alanine Aminotransferase* 45 U/L (4-35); Alkaline Phosphatase* 63 U/L (40-150); Blood Urea Nitrogen* 18 mg/dL (7-30); Calcium* 8.3 mg/dL (8.4-10.6); Glucose* 82 mg/dL (60-115); Magnesium* 2.4 mg/dL (1.5-2.6)
[2022-06-24 10:45] LABS: C Reactive Protein* 6.8 mg/dL (0.5-1.0)
[2022-06-24 10:49] LABS: Procalcitonin* 6.55 ng/mL (<0.50)
[2022-06-24 11:12] LABS: Creatine Kinase* 4845 U/L (41-117)
[2022-06-24] MEDS: HYDROCODONE-ACETAMIN 5-325 MG 1 TAB PO (12:04)
[2022-06-24] MEDS: GABAPENTIN 100 MG CAPSULE PO ×2 (13:55→20:44)
--- NOTE | 2022-06-24 14:16 | CRLHL7_ITS ---
For Patients: As a result of the 21st Century Cures Act, medical imaging exams and procedure reports are released immediately into your electronic medical record. You may view this report before your referring provider. If you have questions, please contact your health care provider. INDICATION: Elevated D-dimer. Abnormal chest x-ray. COMPARISON: No prior CTs. Reviewed the chest x-ray June 23, 2022 TECHNIQUE: : CT examination of the chest was performed with the uneventful intravenous administration of 95 cc of Isovue 370 while thin axial sections were obtained from above the apices of the lungs to the lung bases. Please note that all CT scans at this facility use dose modulation, iterative reconstruction, and/or weight-based dosing when appropriate to reduce radiation dose to as low as reasonably achievable. FINDINGS: : HEART and MEDIASTINUM: The heart size is normal. There is no mediastinal or hilar adenopathy or mass. There is no pericardial effusion.Atherosclerotic vascular calcifications PULMONARY ARTERIAL CIRCULATION: There is no visible intraluminal filling defect to suggest pulmonary embolus. LUNGS: Patchy multifocal ground-glass opacity is on the right most confluent at the right base likely pneumonia. Opacities on the left are primarily subpleural and probably atelectatic or fibrotic. PLEURAL SPACES: Small right pleural effusion. VISUALIZED UPPER ABDOMEN: Benign-appearing left renal and hepatic lesions OSSEOUS STRUCTURES: Nonacute appearing wedging of vertebral bodies near the thoracolumbar junction. Bilateral breast implants with densely calcified pericapsular adhesions. Evidence of contained implant rupture bilaterally ( ???the linguine sign?) TUBES and LINES: None. IMPRESSION: 1. There is no finding of acute pulmonary embolus. 2. Moderate diffuse right-sided airspace opacities consistent with pneumonia. Small right effusion. 3. Other incidental nonacute appearing findings as discussed above. Please review the comment. Please note that all CT scans at this facility use dose modulation, iterative reconstruction, and/or weight-based dosing when appropriate to reduce radiation dose to as low as reasonably achievable. Dictated by Derrick Oshea MD @ 06/24/2022 6:49:17 PM (Electronically Signed)
--- NOTE | 2022-06-24 14:52 | PC.NURSE ---
End of Shift: Patient pleasant and cooperative. Patient vitally stable, lung clear, BS WNL, IV running NS at 125. Patient SBA with walker. Patient has rated pain at most 8/10, chronic pain throughout body. Patient was given tylenol once, 50 mg of tramadol, and 2 tabs of norco. Patient tolerating regular diet. Patient ambulating to toilet, has urinated about 4 times this shift, and had 1 BM. Patient has bruising to the face and has scabbed abrasion to left forearm.
--- NOTE | 2022-06-24 19:12 | PM.EN ---
Chart Event Note Time Seen by Provider: 19:00 Date Seen: 06/24/22 Chart Event Note: CT scan of chest with PE protocol obtained. Radiologist read out images as follows: FINDINGS: : HEART and MEDIASTINUM: The heart size is normal. There is no mediastinal or hilar adenopathy or mass. There is no pericardial effusion.Atherosclerotic vascular calcifications PULMONARY ARTERIAL CIRCULATION: There is no visible intraluminal filling defect to suggest pulmonary embolus. LUNGS: Patchy multifocal ground-glass opacity is on the right most confluent at the right base likely pneumonia. Opacities on the left are primarily subpleural and probably atelectatic or fibrotic. PLEURAL SPACES: Small right pleural effusion. VISUALIZED UPPER ABDOMEN: Benign-appearing left renal and hepatic lesions OSSEOUS STRUCTURES: Nonacute appearing wedging of vertebral bodies near the thoracolumbar junction. Bilateral breast implants with densely calcified pericapsular adhesions. Evidence of contained implant rupture bilaterally. TUBES and LINES: None. IMPRESSION: 1. There is no finding of acute pulmonary embolus. 2. Moderate diffuse right-sided airspace opacities consistent with pneumonia. Small right effusion. 3. Other incidental nonacute appearing findings as discussed above. Please review the comment. Impression: 1. Community-acquired pneumonia Plan and recommendations: 1. Blood cultures already obtained. 2. Initiate ceftriaxone 2 g IV daily. Will need at least a 7 day course of this medicine or equivalent medicine. May consider oral 3rd generation cephalosporin. 3. Additionally, I will give her a single dose of azithromycin 500 mg IV tonight. Beginning tomorrow we will start azithromycin 500 mg p.o. once daily for 4 more days. 4. Continue with other supportive measures.
--- NOTE | 2022-06-24 19:23 | PC.NURSE ---
Pt. alert and oriented, pleasant and cooperative. VSS, lungs clear, IV in left forearm w/NS at 125. Pt. SBA w/walker. Patient has rated pain at most 7/10, chronic pain throughout body. Patient was given tylenol once, and Aqua K pad. Pt. tolerating aqua k pad. Pt. has bruising to the face from falls.
[2022-06-24] MEDS: cefTRIAXone 2 GM in 0.9 % SODIUM CHLORIDE Mini-bag 100 ML IVPB (19:43)
[2022-06-24] MEDS: AZITHROMYCIN 500 MG in 0.9 % SODIUM CHLORIDE 250 ml 250 ML 255 MG IVPB (20:43)
[2022-06-24] MEDS: buPROPion HCL 100 MG TAB.SR.12H 200 MG PO (20:43)
[2022-06-24] MEDS: QUETIAPINE 25 MG TABLET PO (20:44)
[2022-06-24] MEDS: TRAZODONE HCL 50 MG TABLET 100 MG PO (20:44)
[2022-06-24] MEDS: ESCITALOPRAM 10 MG TABLET 20 MG PO (20:44)
[2022-06-24] MEDS: PRAVASTATIN SODIUM 20 MG TABLET 40 MG PO (20:44)
[2022-06-24] MEDS: HYDROCODONE-ACETAMIN 5-325 MG 1 TAB 2 TAB PO (20:44)
[2022-06-24] MEDS: ENOXAPARIN 40 MG/0.4 ML INJ SUBCUT (20:45)
[2022-06-25] VITALS (9 sets, daily range): BP systolic 115–135; BP diastolic 67–80; PULSE 71–84; RESP 14–18; TEMP 36.7–36.9; O2SAT 93–98
[2022-06-25] MEDS: ACETAMINOPHEN 325 MG TABLET PO (00:23)
[2022-06-25] MEDS: 0.9 % SODIUM CHLORIDE 1000 ml 1,000 ML 125 ML IV ×3 (06:23→22:39)
[2022-06-25] MEDS: OMEPRAZOLE 20 MG CAPSULE DR 40 MG PO (06:37)
[2022-06-25] MEDS: LEVOTHYROXINE 88 MCG TABLET PO (06:37)
[2022-06-25 06:54] LABS: Hematocrit 27.4 % (33.0-51.0); Hemoglobin* 8.8 gm/dL (12.0-16.0); Mean Corpuscular HGB Conc 32 gm/dL (32-36); Mean Corpuscular Hemoglobin 30 pg (26-34); Mean Corpuscular Volume 93 fL (80-100); Platelet Count* 372 K/uL (140-440); Red Blood Count 2.96 m/uL (4.00-5.20)
[2022-06-25 06:56] LABS: HCO3 VBG 27 mmol/L (21-28); PCO2 VBG 43 mmHG (40-50); PO2 VBG 30.6 mmHG (25-47); pH VBG 7.396 (7.32-7.43)
[2022-06-25 07:03] LABS: Slide Review Reflex No
[2022-06-25 07:22] LABS: Albumin* 3.1 g/dL (3.3-5.0); Chloride* 108 mmol/L (96-114); Sodium* 139 mmol/L (135-149)
[2022-06-25 07:23] LABS: Potassium* 4.9 mmol/L (3.6-5.1)
[2022-06-25 07:25] LABS: Alkaline Phosphatase* 63 U/L (40-150); Aspartate Amino Transferase* 78 U/L (12-35); Bilirubin Total* 0.2 mg/dL (0.1-1.5); Carbon Dioxide* 25 mmol/L (20-32); Creatinine* 0.8 mg/dL (0.5-1.5); Estimated Glomerular Filt Rate 79 ml/min
[2022-06-25 07:26] LABS: Alanine Aminotransferase* 45 U/L (4-35); Blood Urea Nitrogen* 14 mg/dL (7-30); Calcium* 8.3 mg/dL (8.4-10.6); Glucose* 78 mg/dL (60-115)
[2022-06-25 07:28] LABS: C Reactive Protein* 7.3 mg/dL (0.5-1.0)
[2022-06-25 07:33] LABS: NT Pro B Type NatriureticPept* 2070 PG/mL (0-125)
[2022-06-25 07:41] LABS: Procalcitonin* 3.76 ng/mL (<0.50)
[2022-06-25 07:42] LABS: Troponin I* 0.09 ng/mL (0.01-0.04)
[2022-06-25] MEDS: buPROPion HCL 100 MG TAB.SR.12H 200 MG PO ×2 (09:37→20:05)
[2022-06-25] MEDS: ASPIRIN 81 MG TABLET EC PO (09:37)
[2022-06-25] MEDS: MULTIVITAMIN/MINERALS 1 TABLET 1 TAB PO (09:37)
[2022-06-25] MEDS: HYDROCODONE-ACETAMIN 5-325 MG 1 TAB 2 TAB PO ×3 (09:37→20:06)
[2022-06-25] MEDS: GABAPENTIN 100 MG CAPSULE PO ×3 (09:37→20:06)
--- NOTE | 2022-06-25 10:06 | PC.NURSE ---
23-11: SBA with gb and walker. c/o generalized pain; PRN Tylenol given. Pt slept well throughout the night. VSS. Pt ordered late breakfast. Echo completed this AM.
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
[2022-06-25 13:04] LABS: Creatine Kinase* 2338 U/L (41-117)
--- NOTE | 2022-06-25 14:34 | PC.NURSE ---
End of shift note [id number]: Patient up with assist of 1 and walker. Ambulated in halls with PT/OT. Fluids going at 125/hr for rhabdo. Voiding without difficulty. Had a large soft BM today. Tolerating a regular diet. Echo completed today. Has scabs and bruising on face from fall at home. Chronic pain- [facility] Trending trops. Receiving antibiotics for pneumonia. Sating 96% on RA. Other vitals within normal limits. Tele shows NSR. Plans to return back home once medically ready. PIV patent and intact.
[2022-06-25] MEDS: AZITHROMYCIN 250 MG TABLET 500 MG PO (17:36)
--- NOTE | 2022-06-25 18:24 | PC.NURSE ---
End of Shift: Patient pleasant and cooperative. Patient vitally stable, lungs clear, BS WNL, IV running NS at 125. Patient SBA with walker. Patient rates pain 6/10, no pain meds given. Patient tolerating regular diet and urinating. Bruising to face and scabbed abrasion to left forearm.
[2022-06-25] MEDS: cefTRIAXone 2 GM in 0.9 % SODIUM CHLORIDE Mini-bag 100 ML IVPB (19:23)
[2022-06-25] MEDS: PRAVASTATIN SODIUM 20 MG TABLET 40 MG PO (20:05)
[2022-06-25] MEDS: TRAZODONE HCL 50 MG TABLET 100 MG PO (20:06)
[2022-06-25] MEDS: ESCITALOPRAM 10 MG TABLET 20 MG PO (20:06)
[2022-06-25] MEDS: QUETIAPINE 25 MG TABLET PO (20:06)
[2022-06-25] MEDS: ENOXAPARIN 40 MG/0.4 ML INJ SUBCUT (20:07)
[2022-06-26] VITALS (11 sets, daily range): BP systolic 119–141; BP diastolic 66–97; PULSE 79–93; RESP 16–18; TEMP 36.8–37.4; O2SAT 90–96
[2022-06-26] MEDS: LEVOTHYROXINE 88 MCG TABLET PO (06:19)
[2022-06-26] MEDS: OMEPRAZOLE 20 MG CAPSULE DR 40 MG PO (06:19)
[2022-06-26] MEDS: 0.9 % SODIUM CHLORIDE 1000 ml 1,000 ML 125 ML IV (06:20)
--- NOTE | 2022-06-26 06:46 | PC.NURSE ---
SBA with walker. VSS. Tele = NSR.?
[2022-06-26 07:03] LABS: Hematocrit 26.7 % (33.0-51.0); Hemoglobin* 8.7 gm/dL (12.0-16.0); Mean Corpuscular HGB Conc 33 gm/dL (32-36); Mean Corpuscular Hemoglobin 30 pg (26-34); Mean Corpuscular Volume 91 fL (80-100); Platelet Count* 353 K/uL (140-440); Red Blood Count 2.92 m/uL (4.00-5.20); White Blood Count* 8.09 K/uL (4.50-11.00)
[2022-06-26 07:08] LABS: Slide Review Reflex No
[2022-06-26 07:23] LABS: Albumin* 3.3 g/dL (3.3-5.0); Chloride* 108 mmol/L (96-114)
[2022-06-26 07:24] LABS: Potassium* 4.1 mmol/L (3.6-5.1); Sodium* 137 mmol/L (135-149)
[2022-06-26 07:26] LABS: Alanine Aminotransferase* 41 U/L (4-35); Alkaline Phosphatase* 66 U/L (40-150); Aspartate Amino Transferase* 56 U/L (12-35); Bilirubin Total* 0.3 mg/dL (0.1-1.5); Blood Urea Nitrogen* 9 mg/dL (7-30); Carbon Dioxide* 24 mmol/L (20-32); Creatine Kinase* 1138 U/L (41-117); Creatinine* 0.8 mg/dL (0.5-1.5); Estimated Glomerular Filt Rate 79 ml/min; Glucose* 81 mg/dL (60-115); Total Protein* 6.3 g/dL (6.0-8.3)
[2022-06-26 07:27] LABS: Calcium* 8.7 mg/dL (8.4-10.6); Magnesium* 1.7 mg/dL (1.5-2.6)
[2022-06-26 07:29] LABS: C Reactive Protein* 5.9 mg/dL (0.5-1.0)
[2022-06-26 07:35] LABS: NT Pro B Type NatriureticPept* 2420 PG/mL (0-125)
[2022-06-26 07:41] LABS: Troponin I* 0.06 ng/mL (0.01-0.04)
[2022-06-26] MEDS: buPROPion HCL 100 MG TAB.SR.12H 200 MG PO ×2 (08:36→20:57)
[2022-06-26] MEDS: GABAPENTIN 100 MG CAPSULE PO ×3 (08:36→20:57)
[2022-06-26] MEDS: ASPIRIN 81 MG TABLET EC PO (08:37)
[2022-06-26] MEDS: HYDROCODONE-ACETAMIN 5-325 MG 1 TAB 2 TAB PO ×3 (08:37→20:57)
[2022-06-26] MEDS: MULTIVITAMIN/MINERALS 1 TABLET 1 TAB PO (08:37)
[2022-06-26] MEDS: ACETAMINOPHEN 325 MG TABLET PO (08:37)
--- NOTE | 2022-06-26 10:18 | PC.NURSE ---
Critical Value-- Notified by lab of critical troponin of 0.06. Improved from previous. Dr. Dale notified.
[2022-06-26] MEDS: levoFLOXacin 500 MG TABLET PO (12:06)
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
[2022-06-26] MEDS: 0.9 % SODIUM CHLORIDE 1000 ml 1,000 ML 75 ML IV (18:41)
--- NOTE | 2022-06-26 19:28 | PC.NURSE ---
Nursing Care Hours [id number] Pt this shift calm and cooperative with cares. Pleasant and polite. Ambulating in room to bathroom multiple times with walker and SB assist. No c/o pain this shift. Eating and drinking independently, family at bedside during dinner. Wounds on face and forearm open to air, scabbed and continue to heal.
[2022-06-26] MEDS: ENOXAPARIN 40 MG/0.4 ML INJ SUBCUT (20:56)
[2022-06-26] MEDS: PRAVASTATIN SODIUM 20 MG TABLET 40 MG PO (20:57)
[2022-06-26] MEDS: ESCITALOPRAM 10 MG TABLET 20 MG PO (20:57)
[2022-06-26] MEDS: QUETIAPINE 25 MG TABLET PO (20:58)
[2022-06-26] MEDS: TRAZODONE HCL 50 MG TABLET 100 MG PO (20:58)
[2022-06-27] VITALS (7 sets, daily range): BP systolic 104–138; BP diastolic 76–84; PULSE 73–100; RESP 16–20; TEMP 36.8–37.1; O2SAT 93–96
--- NOTE | 2022-06-27 05:55 | PC.NURSE ---
[id number]: Patient pleasant and cooperative. A&O x3. Chronic pain controlled with scheduled medications. A1,walker,GB. Tolerates well. Scattered bruises on arms. Bruised L. side of face w/some scabbing. 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 O2 >90% on RA.
[2022-06-27 05:59] LABS: Hematocrit 27.9 % (33.0-51.0); Hemoglobin* 9.1 gm/dL (12.0-16.0); Mean Corpuscular HGB Conc 33 gm/dL (32-36); Mean Corpuscular Hemoglobin 30 pg (26-34); Mean Corpuscular Volume 91 fL (80-100); Platelet Count* 424 K/uL (140-440); Red Blood Count 3.08 m/uL (4.00-5.20); White Blood Count* 6.68 K/uL (4.50-11.00)
[2022-06-27 06:07] LABS: Slide Review Reflex No
[2022-06-27] MEDS: OMEPRAZOLE 20 MG CAPSULE DR 40 MG PO (06:35)
[2022-06-27] MEDS: LEVOTHYROXINE 88 MCG TABLET PO (06:35)
[2022-06-27 06:44] LABS: Chloride* 110 mmol/L (96-114); Sodium* 140 mmol/L (135-149)
[2022-06-27 06:47] LABS: Creatinine* 0.9 mg/dL (0.5-1.5); Estimated Glomerular Filt Rate 69 ml/min
[2022-06-27 06:48] LABS: Blood Urea Nitrogen* 10 mg/dL (7-30); Calcium* 8.8 mg/dL (8.4-10.6); Carbon Dioxide* 24 mmol/L (20-32); Creatine Kinase* 597 U/L (41-117)
[2022-06-27 07:04] LABS: Procalcitonin* 1.21 ng/mL (<0.50)
[2022-06-27 07:05] LABS: Glucose* 83 mg/dL (60-115)
[2022-06-27] MEDS: 0.9 % SODIUM CHLORIDE 1000 ml 1,000 ML 75 ML IV ×2 (07:59→19:59)
[2022-06-27] MEDS: MULTIVITAMIN/MINERALS 1 TABLET 1 TAB PO (09:25)
[2022-06-27] MEDS: buPROPion HCL 100 MG TAB.SR.12H 200 MG PO ×2 (09:25→19:59)
[2022-06-27] MEDS: GABAPENTIN 100 MG CAPSULE PO ×3 (09:25→20:00)
[2022-06-27] MEDS: HYDROCODONE-ACETAMIN 5-325 MG 1 TAB 2 TAB PO ×3 (09:25→20:01)
[2022-06-27] MEDS: ASPIRIN 81 MG TABLET EC PO (09:26)
[2022-06-27] MEDS: levoFLOXacin 500 MG TABLET PO (11:57)
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
--- NOTE | 2022-06-27 15:43 | PC.NURSE ---
End of shift-- Very pleasant and cooperative, alert and oriented patient. VSS and pt is afebrile. SPO2 maintained >90% on RA. She c/o pain in her head, back and neck which she rated from 4-6 out of 10 today which appears well managed with sceduled [place] and Gabapentin. LS CTA. Telemetry shows NSR. BS+ x4, pt denied nausea and tolerated a regular diet without difficulty. She was up to the BR and chair with SBA and walker and tolerated it well. Pt voided approximately 1800ml of pale, yellow urine today. Report to Sierra Best RN.
[2022-06-27] MEDS: PRAVASTATIN SODIUM 20 MG TABLET 40 MG PO (19:59)
[2022-06-27] MEDS: TRAZODONE HCL 50 MG TABLET 100 MG PO (20:00)
[2022-06-27] MEDS: ESCITALOPRAM 10 MG TABLET 20 MG PO (20:00)
[2022-06-27] MEDS: QUETIAPINE 25 MG TABLET PO (20:01)
[2022-06-27] MEDS: ENOXAPARIN 40 MG/0.4 ML INJ SUBCUT (20:02)
--- NOTE | 2022-06-27 22:29 | PC.NURSE ---
Shift [id number]- Patient rates chronic pain at 6/10. Scattered bruises to face and upper extremities. She is up with walker and SBA and steady. She is pleasant and cooperative, though seems forgetful at times.
[2022-06-28 00:15] VITALS: BP 115/60; PULSE 79; RESP 18; TEMP 37.1; O2SAT 96
[2022-06-28 00:40] VITALS: PULSE 76
[2022-06-28 04:00] VITALS: BP 128/67; PULSE 80; RESP 18; TEMP 36.6; O2SAT 94
--- NOTE | 2022-06-28 05:46 | PC.NURSE ---
Shift note: The pt has been c/o of mild generalized pain to neck, back, spine ; she stated the pain was not bothersome when she was sleeping. The pt has been urinating a lot about 1800 ml over night so far. Denied chest pain, short of breath and other distress throughout the night. 1-assist with a gait belt and walker. The pt has been in RA with Spo2 in the 90s. Appeared without any distress throughout the night.
[2022-06-28] MEDS: LEVOTHYROXINE 88 MCG TABLET PO (06:27)
[2022-06-28] MEDS: OMEPRAZOLE 20 MG CAPSULE DR 40 MG PO (06:27)
[2022-06-28 07:00] VITALS: PULSE 86; RESP 16; O2SAT 96
[2022-06-28 07:19] VITALS: PULSE 94
[2022-06-28 08:00] VITALS: BP 121/67; PULSE 86; RESP 16; TEMP 36.7; O2SAT 96
[2022-06-28] MEDS: buPROPion HCL 100 MG TAB.SR.12H 200 MG PO (08:10)
[2022-06-28] MEDS: MULTIVITAMIN/MINERALS 1 TABLET 1 TAB PO (08:11)
[2022-06-28] MEDS: SENNOSIDES 1 TAB TABLET PO (08:11)
[2022-06-28] MEDS: HYDROCODONE-ACETAMIN 5-325 MG 1 TAB 2 TAB PO (08:11)
[2022-06-28] MEDS: ASPIRIN 81 MG TABLET EC PO (08:11)
[2022-06-28] MEDS: GABAPENTIN 100 MG CAPSULE PO (08:12)
[2022-06-28 08:21] LABS: Chloride* 110 mmol/L (96-114); Sodium* 140 mmol/L (135-149)
[2022-06-28 08:22] LABS: Potassium* 3.9 mmol/L (3.6-5.1)
[2022-06-28 08:24] LABS: Creatinine* 0.9 mg/dL (0.5-1.5); Estimated Glomerular Filt Rate 69 ml/min
[2022-06-28 08:25] LABS: Blood Urea Nitrogen* 10 mg/dL (7-30); Calcium* 8.8 mg/dL (8.4-10.6); Carbon Dioxide* 23 mmol/L (20-32); Creatine Kinase* 323 U/L (41-117); Glucose* 88 mg/dL (60-115)
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
[2022-06-28] MEDS: levoFLOXacin 500 MG TABLET PO (10:49)
--- NOTE | 2022-06-28 12:19 | PC.NURSE ---
Discharge-- Very pleasant and cooperative, alert and oriented patient discharged to home via wheelchair with sister. VSS and pt is afebrile. SPO2 maintained >90% on RA. LS CTA. Pt tolerated a regular diet, BS+ x4 and pt stated a normal BM just prior to discharge. She was up to BR and chair with SBA and walker and tolerated it very well. Discharge education was provided including diagnosis info, symptoms to report, medications and follow up plan. SL was removed with tip intact.
== END 2022-06-28 12:23 | disposition home or self-care (01) | DRG 280 ==
LOC: ED 22:31 → MEDSURG 06-24 01:21
PROVIDERS: Family Medicine; Hospitalist; Admitting Provider Internal Medicine; Emergency Provider Internal Medicine; PCP Family Medicine; Visit Provider Internal Medicine
DX: I21.4 Non-ST elevation (NSTEMI) myocardial infarction (principal); J18.9 Pneumonia, unspecified organism; M62.82 Rhabdomyolysis; E87.1 Hypo-osmolality and hyponatremia; F31.81 Bipolar II disorder; F11.20 Opioid dependence, uncomplicated; N17.9 Acute kidney failure, unspecified; W19.XXXA Unspecified fall, initial encounter; I95.9 Hypotension, unspecified; D64.9 Anemia, unspecified; G31.2 Degeneration of nervous system due to alcohol; F10.20 Alcohol dependence, uncomplicated; F41.9 Anxiety disorder, unspecified; G89.4 Chronic pain syndrome; Z91.81 History of falling; F17.210 Nicotine dependence, cigarettes, uncomplicated; N18.2 Chronic kidney disease, stage 2 (mild); T40.2X5A Adverse effect of other opioids, initial encounter; E03.9 Hypothyroidism, unspecified; M81.0 Age-related osteoporosis without current pathological fracture; E05.00 Thyrotoxicosis with diffuse goiter without thyrotoxic crisis or storm; E78.5 Hyperlipidemia, unspecified; E78.00 Pure hypercholesterolemia, unspecified
CPT/HCPCS: 36415; 71045; 71260; 80048; 80053; 80076; 81001; 82550; 82803; 83735; 83880; 84145; 84484; 85025; 85027; 85379; 86140; 87040; 87086; 87635; 93005; 93306; 93970; 94761; 97112; 97116; 97161; 97165; 97530; 97535; 99284; 99285; G0378; A9153; A9270; J0456; J0696; J1650; J7030; J7050; Q9967

== ENCOUNTER 2023-11-19 13:11 | Inpatient (IN) | payer MEDICARE, BC, SELFPAY ==
[2023-11-19 13:16] VITALS: BP 138/85; PULSE 99; TEMP 36.9; O2SAT 96; BMI 22.0
--- NOTE | 2023-11-19 14:24 | ED_ITS ---
HPI - Weakness General Chief complaint: Weakness Stated complaint: dizzy, trouble walking Time Seen by Provider: 11/19/23 14:22 History of Present Illness HPI Narrative: This 73-year-old female comes in with her and daughter because of progressive weakness over the past couple months or more. They state that she has not been able to get up and ambulate for more than a month. Her has been helping her to the bathroom but has had more difficulty doing this over the past couple weeks. There is no report of any new circumstances, injury event, medication, or other symptoms to explain easy matters. Patient's daughter states that she has been to a neurologist. The patient states that she has some chronic back pain but otherwise does not report any other symptoms besides weakness. Related Data Home Medications Medication Instructions Recorded Confirmed bupropion HCl 200 mg tablet,12 hr 200 mg PO BID 06/12/22 11/19/23 sustained-release hydrocodone 10 mg-acetaminophen 1 tab PO DAILY 06/12/22 11/19/23 325 mg tablet omeprazole 40 mg capsule,delayed 40 mg PO DAILY 06/12/22 11/19/23 release trazodone 100 mg tablet 50 mg PO HS 06/12/22 11/19/23 calcium carbonate 500 mg-vitamin 1 tab PO DAILY 06/24/22 06/24/22 D3 10 mcg (400 unit) tablet (Calcium 500 + D) cholecalciferol (vitamin D3) 50 50 mcg PO DAILY 06/24/22 11/19/23 mcg (2,000 unit) capsule multivitamin (Multiple Vitamins 1 tab PO DAILY 06/24/22 11/19/23 tablet) bupropion HCl 300 mg 24 hr tablet, 300 mg PO DAILY 11/19/23 11/19/23 extended release fluoxetine 40 mg capsule 40 mg PO DAILY 11/19/23 11/19/23 levothyroxine 75 mcg tablet 75 mcg PO DAILY 11/19/23 11/19/23 lurasidone 60 mg tablet 60 mg PO QPM 11/19/23 11/19/23 Previous Rx's Medication Instructions Recorded aspirin 81 mg tablet,delayed 81 mg PO DAILY #30 tabs 06/28/22 release Allergies Allergy/AdvReac Type Severity Reaction Status Date / Time ampicillin Allergy Mild Rash Verified 06/24/22 14:53 Review of Systems Status of ROS: Reports: 10 or more systems reviewed and unremarkable except as noted in History and below Narrative: Constitutional: No fevers, no weight gain or loss. Generalized weakness. Eyes: No discharge. No vision changes. HENT: No congestion, no sore throat, no ear pain. Cardiovascular: No chest pain, no palpitations. Respiratory: No shortness of breath, no wheezes, no cough. Gastrointestinal: No abdominal pain, no vomiting, no diarrhea. Genitourinary: No dysuria, no hematuria. Musculoskeletal: Chronic back pain. Skin: No rashes, no pruritis. Neurological: No dizziness, sensory change, speech change. Unable to ambulate due to weakness. Endo/Heme/Allergies: No bruising or bleeding. No polydipsia. Pysch: no suicidality, no anxiety, no insomnia. All other systems reviewed and are negative. [facility] Medical History (Updated 11/19/23 @ 17:06 by Chema Landon MD) CKD (chronic kidney disease), stage II ?N18.2 - Chronic kidney disease, stage 2 (mild) (ICD-10) RIYA (acute kidney injury) ?N17.9 - Acute kidney failure, unspecified (ICD-10) RLL pneumonia ?J18.9 - Pneumonia, unspecified organism (ICD-10) Normal echocardiogram Tobacco dependence ?F17.200 - Nicotine dependence, unspecified, uncomplicated (ICD-10) Chronic pain ?G89.29 - Other chronic pain (ICD-10) Chronic narcotic dependence ?F11.20 - Opioid dependence, uncomplicated (ICD-10) Osteoporosis ?M81.0 - Age-related osteoporosis without current pathological fracture (ICD- 10) Poor dentition ?K08.9 - Disorder of teeth and supporting structures, unspecified (ICD-10) Frequent falls ?R29.6 - Repeated falls (ICD-10) Bipolar 2 disorder ?F31.81 - Bipolar II disorder (ICD-10) Rhabdomyolysis ?M62.82 - Rhabdomyolysis (ICD-10) Chronic hyponatremia ?E87.1 - Hypo-osmolality and hyponatremia (ICD-10) Anemia ?D64.9 - Anemia, unspecified (ICD-10) Non-ST elevated myocardial infarction (non-STEMI) ?I21.4 - Non-ST elevation (NSTEMI) myocardial infarction (ICD-10) Closed head injury ?S09.90XA - Unspecified injury of head, initial encounter (ICD-10) Senile osteoporosis ?M81.0 - Age-related osteoporosis without current pathological fracture (ICD- 10) Arthritis ?M19.90 - Unspecified osteoarthritis, unspecified site (ICD-10) Graves disease ?E05.00 - Thyrotoxicosis with diffuse goiter without thyrotoxic crisis or st orm (ICD-10) Pure hypercholesterolemia ?E78.00 - Pure hypercholesterolemia, unspecified (ICD-10) Hyperplastic colon polyp ?K63.5 - Polyp of colon (ICD-10) Tachycardia ?R00.0 - Tachycardia, unspecified (ICD-10) Tremor ?R25.1 - Tremor, unspecified (ICD-10) Facial fracture due to fall ?S02.92XA - Unspecified fracture of facial bones, initial encounter for closed fracture (ICD-10) ?W19.XXXA - Unspecified fall, initial encounter (ICD-10) Surgical History History of appendectomy ?Z90.49 - Acquired absence of other specified parts of digestive tract (ICD- 10) Hx of breast biopsy ?Z98.890 - Other specified postprocedural states (ICD-10) History of hysterectomy ?Z90.710 - Acquired absence of both cervix and uterus (ICD-10) H/O breast augmentation ?Z98.82 - Breast implant status (ICD-10) History of repair of hip fracture ?Z98.890 - Other specified postprocedural states (ICD-10) Social History Smoking Status: Current every day smoker What tobacco products do you use: cigarettes Smoking packs per day: 0.5 Smoking cigarettes per day: 10.0 Do you use any of these nicotine containing products: None Second hand tobacco smoke exposure: No How often do you have a drink containing alcohol: never How often do you have six or more drinks on one occasion: Never AUDIT-C Alcohol total score: 0 Non-prescribed substance use: denies use Exam Narrative: Exam Narrative: Constitutional: Well-developed, well-nourished, no acute distress. HEENT: Normocephalic, atraumatic. Neck: Normal range of motion. Nontender. Supple. Heart: Regular. No murmurs. Normal rate. Intact distal pulses. Lungs: Clear to auscultation. No chest discomfort. No wheezes, rhonchi, or rales. Abdomen: Normal bowel sounds. Nontender. No rebound tenderness. Genitalia: Deferred. Back: No midline tenderness. Normal range of motion. Extremities: Normal range of motion. No injury. Skin: Intact. No rash. Warm. No erythema or pallor. Neurologic: No altered sensation. Alert and oriented. No facial asymmetry. Tongue is midline. [id number] is normal. No pronator drift. [employer] Operator strength is equal bilaterally. Able to raise each leg from the bed to my hand but it was very difficult for her to do this due to bilateral weakness. Psychiatric: No suicidality. No anxiety or depression. No insomnia. Nursing notes and vitals signs are reviewed. Const: Vital Signs, click to edit/add: Vital Signs - 24 hr 11/19/23 13:16 Temperature 98.4 F Pulse Rate [Pulse Oximeter] 99 Blood Pressure [Ri ght Upper Arm] 138/85 Pulse Oximetry 96 Oxygen Delivery Me thod Room Air Course Vital Signs Vital signs: Initial Vital Signs Temperature 98.4 F 11/19/23 13:16 Temperature Source Temporal Artery Scan 11/19/23 13:16 Pulse Rate 99 11/19/23 13:16 Blood Pressure 138/85 11/19/23 13:16 Blood Pressure Mean 102 11/19/23 13:16 Blood Pressure Position Sitting 11/19/23 13:16 Pulse Oximetry 96 11/19/23 13:16 Oxygen Delivery Method Room Air 11/19/23 13:16 Vital Signs Temperature 98.4 F 11/19/23 13:16 Pulse Rate 99 11/19/23 13:16 Blood Pressure 138/85 11/19/23 13:16 Pulse Oximetry 96 11/19/23 13:16 Oxygen Delivery Method Room Air 11/19/23 13:16 Temperature 98.4 F 11/19/23 13:16 Pulse Rate 99 11/19/23 13:16 Blood Pressure 138/85 11/19/23 13:16 Pulse Oximetry 96 11/19/23 13:16 Oxygen Delivery Method Room Air 11/19/23 13:16 MDM - Weakness MDM Narrative Medical decision making narrative: This patient comes in with her and daughter who have been caring for her over the past couple months during which time she has become progressively weaker and has failure to thrive. She is not strong enough to get up and ambulate. She has been to a neurologist and so far there is no real definite cause for these turn of events at her age of 73. Her neurologic exam today is normal except for she does have generalized weakness. She is able to raise each leg to my hand but had quite a bit of difficulty doing so and was able to lift each leg only about 6 in from the bed. Lab results are obtained and returned with normal findings except for sodium slightly low at 132 and her TSH a bit elevated at about 8. The patient is taking thyroid medication. conference services coordinator came in discussed matters with the patient and her family regarding transition into some kind of skilled level of care. I spoke with the hospitalist addictions therapist, Dr. Gresham, who agreed to her admission. It will be in observation status however it is likely that no arrangements will be made until Wednesday, 3 days from now. Lab Data Labs: Lab Results 11/19/23 Range/Units 14:31 WBC 6.02 (4.50-11.00) K/uL RBC 3.79 L (4.00-5.20) m/uL Hgb 11.5 L (12.0-16.0) gm/dL Hct 34.1 (33.0-51.0) % MCV 90 (80-100) fL MCH 30 (26-34) pg MCHC 34 (32-36) gm/dL RDW Coeff of Mindy 13.2 (11.5-15.5) % Plt Count 408 (140-440) K/uL Neut % (Auto) 66.4 (42.0-72.0) % Lymph % (Auto) 19.9 L (20-44) % [place] % (Auto) 10.5 (0.0-11.0) % Eos % (Auto) 1.2 (0.0-7.0) % Baso % (Auto) 0.5 (0.0-3.0) % Neut # (Auto) 4.00 (1.7-7.0) K/uL Lymph # (Auto) 1.20 (0.90-2.90) K/uL [place] # (Auto) 0.60 (0.00-0.90) K/UL Eos # (Auto) 0.07 (0.00-0.50) K/uL Baso # (Auto) 0.03 (0.00-0.30) K/uL Abs Immat Gran (auto) 0.09 (0.00-0.30) K/uL Imm/Tot Granulo (auto) 1.5 % Sodium 132 L (135-149) mmol/L Potassium 3.8 (3.6-5.1) mmol/L Chloride 100 (96-114) mmol/L Carbon Dioxide 23 (20-32) mmol/L Anion Gap 9 (7-15) mEq/L BUN 15 (7-30) mg/dL Creatinine 0.9 (0.5-1.5) mg/dL Estimated Creat Clear 47.60 Estimated GFR 68 ml/min Glucose 123 H (60-115) mg/dL Calcium 9.3 (8.4-10.6) mg/dL TSH 8.690 H (0.270-4.20) uIU/mL Discharge Plan Discharge Clinical Impression: Weakness, Adult failure to thrive Patient Disposition: Admitted As Observation Condition: Unchanged Prescriptions: No Action multivitamin [Multiple Vitamins] Tablet 1 tab PO DAILY calcium carbonate-vitamin D3 [Calcium 500 + D] 500 mg-10 mcg (400 unit) tablet 1 tab PO DAILY cholecalciferol (vitamin D3) 50 mcg (2,000 unit) capsule 50 mcg PO DAILY aspirin 81 mg Tablet,Delayed Release (Dr/Ec) 81 mg PO DAILY Qty: 30 0RF fluoxetine 40 mg capsule 40 mg PO DAILY levothyroxine 75 mcg tablet 75 mcg PO DAILY bupropion HCl 300 mg tablet extended release 24 hr 300 mg PO DAILY lurasidone 60 mg tablet 60 mg PO QPM bupropion HCl 200 mg tablet sustained-release 12 hr 200 mg PO BID hydrocodone-acetaminophen 10-325 mg tablet 1 tab PO DAILY Rx Instructions: DAILY PLUS BID PRN omeprazole 40 mg capsule,delayed release(DR/EC) 40 mg PO DAILY trazodone 100 mg tablet 50 mg PO HS Follow Up/Referrals: Karla Rivera MD [Primary Care Provider] -
[2023-11-19 14:49] LABS: Basophils Absolute Auto 0.03 K/uL (0.00-0.30); Basophils Percent Auto 0.5 % (0.0-3.0); Eosinophils Absolute Auto 0.07 K/uL (0.00-0.50); Eosinophils Percent Auto 1.2 % (0.0-7.0); Hematocrit 34.1 % (33.0-51.0); Hemoglobin* 11.5 gm/dL (12.0-16.0); Immature Granulocytes Abs Auto 0.09 K/uL (0.00-0.30); Immature Granulocytes Pct Auto 1.5 %; Lymphocytes Percent Auto 19.9 % (20-44); Mean Corpuscular HGB Conc 34 gm/dL (32-36); Mean Corpuscular Hemoglobin 30 pg (26-34); Mean Corpuscular Volume 90 fL (80-100); Monocytes Percent Auto 10.5 % (0.0-11.0); Neutrophils Percent Auto 66.4 % (42.0-72.0); Platelet Count* 408 K/uL (140-440); RDW Coefficient of Variation % 13.2 % (11.5-15.5); Red Blood Count 3.79 m/uL (4.00-5.20); White Blood Count* 6.02 K/uL (4.50-11.00)
--- OUTSIDE RECORDS SUMMARY | 2023-11-19 14:49 | XMS_ITS | Clinical Summary ---
Author Name Unknown Organization [facility] Address [place], [place] [address] Care Team Providers Care [place] Treasurer Name Role Phone Jake Dunbar MD Primary Care Provider Rosa Elena Villanueva MD Unavailable Allergies Active Allergy Reactions Criticality Noted Date Comments Ampicillin Rash 07/29/2011 Medications Medication Sig Dispensed Refills Start Date End Date Status multivitamin (MVI) tablet Take 1 tablet by mouth once daily. 0 012 Active cholecalciferol (VITAMIN D) 2,000 unit capsuleIndications:Leslie min D deficiency Take 1 capsule by mouth once daily. 90 capsule 3 014 Active calcium carbonate-vitamin D3, 500 mg-400 units, (OSCAL 500 + D) tablet Take 1 tablet by mouth 2 times daily before meals. 0 019 Active sennosides (SENNA) 8.6 mg tablet Take 1 tablet by mouth 2 times daily if needed for Constipation. 0 019 Active levothyroxine (SYNTHROID) 75 mcg tabletIndications:Grave s' disease TAKE ONE TABLET BY MOUTH ONCE DAILY 90 Tablet 2 023 Active buPROPion (Wellbutrin XL) 300 mg Extended-Release tabletIndications:Tobac co use disorder Take 1 Tablet (300 mg) by mouth every morning. 90 Tablet 1 023 Active FLUoxetine (PROZAC) 40 mg capsuleIndications:Bipo lar 2 disorder (HC) Take 1 Capsule (40 mg) by mouth every morning. 90 Capsule 1 023 Active traZODone (DESYREL) 100 mg tabletIndications:Bipol ar 2 disorder (HC) TAKE ONE TO TWO TABLETS BY MOUTH AT BEDTIME NEEDED FOR INSOMNIA 180 Tablet 1 023 Active omeprazole (PRILOSEC) 40 mg Delayed-Release capsuleIndications:Naus ea TAKE ONE CAPSULE BY MOUTH ONCE DAILY 90 Capsule 2 024 Active pravastatin (PRAVACHOL) 40 mg tabletIndications:Pure hypercholesterolemia TAKE ONE TABLET BY MOUTH AT BEDTIME 100 Tablet 2 024 Active OLANzapine (ZYPREXA) 5 mg tabletIndications:Bipol ar 2 disorder (HC) Take half tablet daily for 1 week, then a quarter tablet for 1 week, then stop medication 7 Tablet Active lurasidone 60 mg tabIndications:Bipolar 2 disorder (HC) Take 1 Tablet (60 mg) by mouth with dinner. Start once completed with 20 mg tablets. 30 Tablet 1 Active HYDROcodone-acetaminoph en (10-325 mg/tablet)Indications:A rthritis,Pain medication agreement Take 1 Tablet by mouth every 6 hours if needed for Pain. Maximum acetaminophen dose 4000mg/24 hours. 70 Tablet 024 Active aspirin (ECOTRIN) 81 mg enteric coated tabletIndications:Pure hypercholesterolemia TAKE ONE TABLET BY MOUTH EVERY DAY WITH A MEAL 90 Tablet 3 024 Active aspirin (ECOTRIN) 81 mg enteric coated tabletIndications:Pure hypercholesterolemia Take 1 Tablet (81 mg) by mouth once daily with a meal. 100 Tablet 3 022 2023 Discontinued HYDROcodone-acetaminoph en (10-325 mg/tablet)Indications:A rthritis,Pain medication agreement Take 1 Tablet by mouth every 6 hours if needed for Pain. Maximum acetaminophen dose 4000mg/24 hours. 70 Tablet 024 2023 Discontinued lurasidone (LATUDA) 20 mg tabletIndications:Bipol ar 2 disorder (HC) Take 1 Tablet (20 mg) by mouth with dinner for 7 days, THEN 2 Tablets (40 mg) with dinner for 7 days. Then increase to 60 mg daily with dinner.. 21 Tablet 024 2023 Active Problems Problem Noted Date Diagnosed Date Bipolar 2 disorder 08/31/2023 Severe back pain 08/31/2023 Chronic narcotic dependence 09/21/2022 Encounter for screening for lung cancer 04/11/20 Overview: Mar 2020: Low-dose chest CT screening for lung cancer. IMPRESSION: 1. Negative for lung cancer screening purposes. ?? 2. Stable changes of probable UIP since 12/29/2017. ?? LungRADS CATEGORY: 1: Negative.?? RADIOLOGIST RECOMMENDATION: Continue annual screening with low-dose CT chest in 12 months . Tremor 10/10/2019 Overview: Improved on propranolol, but this caused a lot of side effects, so she stopped it. Not treating tremor currently. Offered Neurology referral and patient declined. Moderate episode of recurrent major depressive d isorder 11/08/2018 Tachycardia 01/18/2013 Overview: Treated with propranolol, but this caused a lot of side effects. Currently off medication. Hyperplastic colon polyp 01/11/2013 Overview: Colonoscopy 12/2012 polyp repeat in 10 years Pure hypercholesterolemia 10/02/2011 Overview: October 15, 2023: holding pravastatin for 2 months to see if any difference in muscle pain. Of note, CK was normal 100 while on pravastatin. Pain medication agreement 09/04/2011 Overview: Date Signed: 01/24/2014 Physician: Karla Rivera MD Medication: [place] 10/325 Quantity per month: #60 Pharmacy: [facility] Last Toxasure: 03/2015 Senile osteoporosis 07/29/2011 Overview: Started Fosamax 10/2021. Unspecified hypothyroidism 08/16/1998 Grave's disease Arthritis Resolved Problems Problem Noted Date Diagnosed Date Resolved Date Closed fracture of orbital w all, initial encounter 09/21/2022 07/27/2023 Nausea 11/02/2017 10/10/2019 Overview: EGD 10/2017 Reactive gastropathy, recommend gastric emptying study, which showed slow gastric emptying. A special diet was recommended. Symptoms have improved with diet and after stopping propranolol Pre-diabetes 01/18/2013 10/10/2019 Pre-diabetes 09/04/2011 07/18/2013 BIPOLAR AFFECT DISORD, DEPRESSED, SEVERE 09/22/2001 11/11/2018 Heartburn 09/22/2001 07/29/2011 LACRIMAL INSUFFICIENCY-PER HISTORY 08/31/2000 07/29/2011 PAIN IN JOINT, SHOULDER 08/04/200007/16 Encounters Date Type Department Care Team Description 11/18/2023 Telephone [facility] [address] [place] [address] Agusto Hernandez MD Questions 11/01/2023 Medical Messaging [facility] [address] [place] [address] Agusto Hernandez MD PT 10/30/2023 Refill [facility] [address] [address] Karla Rivera MD Refill Request (Aspirin) 10/28/2023 11:00 AM CDT Procedure Only [facility] [address] [place] [address] Brissa Arboleda L Ac Acupuncture 10/28/2023 Travel 10/26/2023 Refill [facility] [address] [place] [phone] Jake Dunbar MD Refill Request (Hydrocodone-acetam inophen) 10/18/2023 8:45 AM SERVICE STATION CONSOLE OPERATOR Office Visit [facility] [address] [place] [address] Rosa Elena Villanueva MD Follow Up; Medication Management 10/18/2023 Refill [facility] [address] [place] [address] Rosa Elena Villanueva MD Refill Request (lurasidone (LATUDA) 20 mg tablet and lurasidone (LATUDA) 20 mg tablet) 10/18/2023 Travel 10/15/2023 12:45 PM SERVICE STATION CONSOLE OPERATOR Orders Only [facility] [address] [facility] [place] [address] Lab, [place] [facility] 10/15/2023 10:45 AM SERVICE STATION CONSOLE OPERATOR Office Visit [facility] [address] [facility] [place] [address] Agusto Hernandez MD Medicare ANNUAL (subsequent) Visit (Age 73) 10/15/2023 Travel 10/08/2023 Refill [facility] [address] [place] [id number] Jake Dunbar MD Refill Request (Hydrocodone-acetam inophen) 09/29/2023 10:15 AM SERVICE STATION CONSOLE OPERATOR Office Visit [facility] [address] [place] [address] Rosa Elena Villanueva MD Follow Up; Medication Management 09/29/2023 Travel 09/28/2023 Refill [facility] [address] [place] [phone] Jake Dunbar MD Refill Request (Pravastatin) 09/21/2023 Refill [facility] [address] [address] Jake Dunbar MD Refill Request (Hydrocodone-acetam inophen) 09/20/2023 Telephone [facility] [address] [address] Jake Dunbar MD Medication Management (HYDROcodone-acetam inophen (10-325 mg/tablet)) 09/17/2023 Telephone [facility] [address] [place] [phone] Jake Dunbar MD Medication Management (HYDROcodone-acetam inophen (10-325 mg/tablet)) 09/05/2023 Refill [facility] [address] [place] [address] Rosa Elena Villanueva MD Refill Request (Olanzapine) 09/02/2023 Patient Outreach [facility] Care Management - Care Management Navigation/[facility] [address] [place] [address] Papito Lambert [facility] (Care Guide Community Resource Navigation/) 08/31/2023 10:30 AM SERVICE STATION CONSOLE OPERATOR Office Visit [facility] [address] [place] [phone] Jake Dunbar MD Follow Up 08/31/2023 Travel 08/26/2023 Refill [facility] [address] [place] [phone] Jake Dunbar MD Refill Request 08/24/2023 Refill [facility] [address] [place] [phone] Jake Dunbar MD Refill Request (Omeprazole) from Last 3 Months Immunizations Name Administration Dates Next Due COVID-19 vaccine (Moderna 100mcg/0.5mL) LIZ ABARCA 09/16/2021,08/19/2021 Influenza, Inactivated AIIV4 (Age 65+ Years) Preserv Free 05/19/2023,09/23/2022,06/16/2021,2019 Influenza, Inactivated IIV3 (Age 65+ Years) Preserv Free 06/19/2019,06/07/2018,06/16/2017 Pneumococcal Poly,23-Valent (Pneumovax) 08/04/2018 Pneumococcal conj 13-Valent (Prevnar 13) 12/10/2016 Td (Age >=7 Years) 01/04/1996 Tdap 08/07/2018,07/26/2008 Zoster (Shingrix-RZV, recombinant) 10/30/2019, Zoster (Zostavax-ZVL, live) 01/26/2012 Family History Medical History Relation Name Comments Psychiatric illness Daughter 1 Other Daughter 2 Back pain Arthritis Father Other Father Hepatitis C fro m blood transfusion Hypertension Mother Other Mother Osteoporosis Thyroid Disease Mother Cancer-breast Paternal Aunt Anesthesia Problem No Family History Blood Disease No Family History Clotting disorder No Family History Relation Name Status Comments Daughter 1 Daughter 2 Father Mother (Age 92) Paternal Aunt Social History Tobacco Use Types Packs/Day Years Used Date Smoking Tobacco: Every Day Cigarettes 0.3 47.3 Started: 08/16/1976 Smokeless Tobacco: Never Tobacco Cessation:Ready to Q uit: Not Asked; Counseling Given: Not Answered Comments:Currently smokes 4-5 cig daily Alcohol Use Standard Drinks/Week Comments No 0 (1 standard drink = 0.6 oz pur e alcohol) Sober since 2002 PHQ-2 Answer Date Recorded PHQ-2 TOTAL SCORE 4 10/18/2023 Social Connections Answer Date Recorded Frequency of Communication with Friends and Fami ly 4 08/31/2023 Financial Resource Strain Answer Date R ecorded Difficulty of Paying Living Expenses 3 08/31/2023 Difficulty of Paying Living Expenses Not on file 08/31/2023 Food Insecurity Answer Date Recorded Worried About Running Out of Food in the Last Ye ar 1 08/31/2023 Transportation Needs Answer Date Record ed Lack of Transportation (Medical) 1 08/31/2023 Housing Stability Answer Date Recorded Unable to Pay for Housing in the Last Year 1 08/31/2023 Sex and Gender Information Value Date Recorded Sex Assigned at Not on file Gender Identity Not on file Sexual Orientation Not on file Obstetrics History Para Term AB IAB SAB Ectopic Multiple Livin g Live Births 4 3 1 3 Date Outcome GA Total Labor Labor/2nd/3rd Weight Sex Delivery Anes PTL Karey A1 A5 Name Cl in 1975 AB 10/04 Para F Sera 02/13 Para M Christopherat horvath 01/10 Para F Brean na Last Filed Vital Signs Vital Sign Reading Time Taken Comments Blood Pressure 110/65 10/18/2023 8:58 AM SERVICE STATION CONSOLE OPERATOR Pulse 84 10/18/2023 8:58 AM SERVICE STATION CONSOLE OPERATOR Temperature 36.7 ??C (98 ??F) 12/27/2021 11:55 AM CDT Respiratory Rate 20 08/31/2023 10:44 AM SERVICE STATION CONSOLE OPERATOR Oxygen Saturation 96% 10/15/2023 10:55 AM SERVICE STATION CONSOLE OPERATOR Inhaled Oxygen Concentration - - Weight 62.2 kg (137 lb 3.2 oz) 10/18/2023 8:58 A M SERVICE STATION CONSOLE OPERATOR Height 166.4 cm (5' 5.5) 10/15/2023 10:55 AM CS T Body Mass Index 22.48 10/15/2023 10:55 AM SERVICE STATION CONSOLE OPERATOR Plan of Treatment Upcoming Encounters Date Type Department Care Team (Late st Contact Info) Description 12/08/2023 9:45 AM CDT Office Visit [facility] [address] [place] [address] Rosa Elena Villanueva MD [address] [place] [address] 12/13/2023 11:10 AM CDT Office Visit [facility] [address] [place] [address] Agusto Hernandez MD [address] [place] [address] Health Maintenance Due Date Last Done Comments Low Dose CT (for lung CA) ag e 50-80 05/13/2022 05/13/2021, 04/10/2020, 09/23/2017 COVID-19 vaccine series ( season) 2023 09/16/2021, 08/19/2021 Mammogram for age 45-75 01/13/2024 01/13/20 23, 01/09/2022, 10/15/2020, Additional history exists Influenza for age 65+ 04/16/2024 05/19/2023 , 09/23/2022, 06/16/2021, Additional history exists BMI (ht and wt on same day) for age 18+ 10/14/2024 10/15/2023, 07/14/2023, 01/13/2023, Additional history exists Medicare Wellness for age 65+ 10/15/2024, 09/23/2022, 10/13/2021, Additional history exists Depression screening for age 12+ 10/17/2024 10/18/2023, 10/18/2023, 10/15/2023, Additional history exists Tetanus booster 08/07/2028 08/07/2018, 07/16, 07/26/2008, Additional history exists Lipids for age 45-75 10/14/2028 10/15/2023, 09/23/2022, 10/13/2021, Additional history exists Colonoscopy through age 75 01/18/2033 01/18/2023, Hepatitis C screening for ag e 18-79 Completed 01/24/2014 Pneumococcal series for age 65+ Completed 8, 12/10/2016 Tdap Completed 08/07/2018, 07/26/2008 Zoster (shingles) series for age 50+ Completed 10/30/2019, 07/20/2019, 01/26/2012 DEXA/DXA scan for age 65+ Completed 2022, 10/20/2019, 12/24/2016, Additional history exists Procedures Procedure Name Priority Date/Time Associated Diagnosis Comments IRON PLUS IRON BINDING CAP Routine 10/15/2023 12:34 PM SERVICE STATION CONSOLE OPERATOR Anemia of unknown etiology FERRITIN Routine 10/15/2023 12:34 PM SERVICE STATION CONSOLE OPERATOR Anemia of unknown etiology CK TOTAL Routine 10/15/2023 12:34 PM SERVICE STATION CONSOLE OPERATOR Chronic bilateral low back pain with bilateral sciatica LIPID PANEL W REFLEX MEASURED LDL Routine 10/15/2023 12:34 PM SERVICE STATION CONSOLE OPERATOR Pure hypercholesterolemia COLONOSCOPY SCREENING Routine 01/18/2023 7:59 AM CDT Screen for colon cancer XR DXA BONE DENSITY 2 SITES AXIAL Routine 01/12/2023 11:13 AM CDT Senile osteoporosis XR MAMMO BILAT SCREEN IMPLANT Routine 01/12/2023 10:53 AM CDT Visit for screening mammogram CT CHEST SCREENING LOW DOSE WO CONTRAST Routine 05/13/2021 10:35 AM CDT Personal history of nicotine dependence Encounter for screening for lung cancer ANTI HCV Routine 01/24/2014 9:57 AM CDT Need for hepatitis C screening test from Last 3 Months or Most Recently Relevant to Health Maintenance Results * (ABNORMAL) LIPID PANEL W REFLEX MEASURED LDL (10/15/2023 12:34 PM SERVICE STATION CONSOLE OPERATOR) CHOLESTEROL,TOTAL 212(H) 100 - 199 mg/dL 10/15/2023 10:16 PM [facility] Comment: Cholesterol, Total Reference Ranges Desirable <200 mg/dL Borderline 200-239 mg/dL High >=240 mg/dL TRIGLYCERIDES 136 <150 mg/dL 10/15/2023 10:16 PM [facility] HDL CHOLESTEROL 45 >40 mg/dL 10:16 PM [facility] NON-HDL CHOLESTEROL 167(H) <145 mg/dl 10/15/2023 10:16 PM [facility] CHOL/HDL RATIO 4.71(H) <4.50 10/15/2023 10:16 PM [facility] LDL CHOLESTEROL 140(H) <=130 mg/dL 10/15/2023 10:16 PM [facility] VLDL CHOLESTEROL 27 <=30 mg/dL 10/15/2023 10:16 PM [facility] PROVIDER ORDERED STATUS FASTING 10/15/2023 10:16 PM [facility] Blood BLOOD SPECIMEN / Unknown Venipuncture / Unknown 10/15/2023 12:34 PM SERVICE STATION CONSOLE OPERATOR 10/15/2023 12:34 PM [facility] Agusto Hernandez MD CHEMISTRY [facility] [address] [place] [address], * IRON PLUS IRON BINDING CAP (10/15/2023 12:34 PM SERVICE STATION CONSOLE OPERATOR) IRON 54 37 - 145 ug/dL 10/15/2023 10:27 PM SERVICE STATION CONSOLE OPERATOR [facility] UIBC (UNSATURATED) 273 112 - 347 ug/dL 10/15/2023 10:27 PM SERVICE STATION CONSOLE OPERATOR [facility] IRON BINDING CAPACITY 327 250 - 400 ug/dL 10/15/2023 10:27 PM [facility] IRON,% SATURATION 17 14 - 50 % 10/15/2023 10:27 PM SERVICE STATION CONSOLE OPERATOR [facility] Blood BLOOD SPECIMEN / Unknown Venipuncture / Unknown 10/15/2023 12:34 PM SERVICE STATION CONSOLE OPERATOR 10/15/2023 12:40 PM SERVICE STATION CONSOLE OPERATOR Jake Dunbar MD CHEMISTRY Performing Organization Address [facility] Co de Phone Number [facility] [address] [place] [address], * FERRITIN (10/15/2023 12:34 PM SERVICE STATION CONSOLE OPERATOR) FERRITIN 149.0 15.0 - 150.0 ng/mL 10/15/2023 10:27 PM SERVICE STATION CONSOLE OPERATOR [facility] Blood BLOOD SPECIMEN / Unknown Venipuncture / Unknown 10/15/2023 12:34 PM SERVICE STATION CONSOLE OPERATOR 10/15/2023 12:40 PM SERVICE STATION CONSOLE OPERATOR Jake Dunbar MD CHEMISTRY Performing Organization Address [facility] de Phone Number [facility] [address] [place] [address], * CK TOTAL (10/15/2023 12:34 PM SERVICE STATION CONSOLE OPERATOR) CK,TOTAL 109 26 - 192 IU/L 10/15/2023 10:16 PM SERVICE STATION CONSOLE OPERATOR [facility] Blood BLOOD SPECIMEN / Unknown Venipuncture / Unknown 10/15/2023 12:34 PM SERVICE STATION CONSOLE OPERATOR 10/15/2023 12:34 PM SERVICE STATION CONSOLE OPERATOR gAusto Hernandez MD CHEMISTRY Performing Organization Address [facility] Co de Phone Number [facility] [address] [place] [address], * (ABNORMAL) XR DXA BONE DENSITY 2 SITES AXIAL (01/12/2023 11:13 AM CDT) Anatomical Region Laterality Modality Spine, HIPS, HIPL, HIPR Other Impressions 01/15/2023 4:50 PM CDT Osteoporosis. RECOMMENDATIONS: The National Osteoporosis Foundation recommends pharmacologic treatment for patients with T-scores of -2.5 or less, patients with prior history of fragility fractures, or patients with 10-year probability of greater than 3% at hips or greater than 20% of suffering major osteoporotic fractures. Recommend continued optimization of calcium and vitamin D intake through dietary means and/or supplementation and regular exercise. Continue current Alendronate (Fosamax) medication treatment. ??Consider a drug holiday or alternative medication if on Fosamax for greater than 5 years. Jacinta Bland PA-C [facility] 01/15/2023 Narrative 01/15/2023 4:50 PM CDT For Patients: Results are automatically released to your [facility] ([employer]) account once available, in compliance with federal regulations. This means that you may see your results before your provider has had a chance to review them. Please allow 2-3 business days for your provider to comment on the results. XR DXA Bone Mineral Density (BMD) EXAM LOCATION: [address] [address] PATIENT NAME: Chrissy Box DATE OF : 1950 EXAM DATE: 01/12/2023 REQUESTING PROVIDER: Karla Rivera MD GENDER AT : female HEIGHT: 5' 6.54 (09/23/2022) WEIGHT: ??130 lb 4.8 oz (01/04/2023) MENOPAUSAL STATUS: Postmenopausal RACE/ETHNICITY: White RISK FACTORS: Family History of Hip Fracture (parental), History of Fragility Fracture (at a major site), Smoking (current) and White Race CURRENT MEDICATION FOR BONE LOSS: Alendronate (Fosamax) INDICATION: Follow-up of existing osteoporosis and Post-Menopause COMPARISON DATE(S): 2016 DXA scans are compared to prior studies for a patient only when the two (or more) studies were performed on the same scanner. It is not possible to compare data generated on one scanner to data from another because there are not standards in DXA equipment. This applies even if the two scanners are made by the same fuel cell repairer. PROCEDURE: Dual-energy x-ray absorptiometry performed with routine technique. Reporting is completed in the form of a T-score. The T-score represents the standard deviation from peak bone mass based on young healthy adult. A Z-score is used for diagnosis in premenopausal women, and for men under the age of 50. FINDINGS: RESULT LUMBAR SPINE L1 - L4 BMD: 0.866 g/cm2 T-Score: - 2.7 Z-Score: - 0.8 Change from prior in 2017: ??Increase 0.2%. RESULTS FEMUR Left femoral neck BMD: 0.666 g/cm2 T-Score: - 2.7 Z-Score: - 0.8 Change from prior in 2017: ??Decrease 11.4%. Left hip BMD: 0.688 g/cm2 T-Score: - 2.5 Z-Score: - 0.9 Change from prior in 2017: ??Decrease 9.5%. WHO criteria: Normal: T-score at or above -1 SD Osteopenia: T-score between -1.1 and -2.4 SD Osteoporosis: T-score at or below -2.5 SD Karla Rivera MD DEXA * XR MAMMO BILAT SCREEN IMPLANT (01/12/2023 10:53 AM CDT) Anatomical Region Laterality Modality BREASTS, Breast Left, Breast Right Bilateral Mammography Impressions 01/12/2023 2:10 PM CDT ??There is no radiographic evidence for malignancy. ??Recommend annual mammograms. MAMMOGRAM ASSESSMENT: ??ACR 2 Benign PATIENTS: You will also receive a letter with your examination results in an easy to read format. ??If you have questions about your results, please contact your referring provider. Narrative 01/12/2023 2:10 PM CDT For Patients: As a result of the Cures Act, medical imaging exams and procedure reports are released immediately into your electronic medical record. You may view this report before your referring provider. If you have questions, please contact your health care provider. XR MAMMO BILAT SCREEN IMPLANT [[id number]] CLINICAL HISTORY: ??This is an asymptomatic 72 y.o. patient. INDICATION FOR EXAM: Mammogram Screening. TECHNIQUE: CC & MLO views were obtained. Implant displacement views were obtained. This study was evaluated with the assistance of Computer-Aided Detection. COMPARISON FILMS: Yes 01/09/22 [facility] 10/15/20 [facility] FINDINGS: ??The breasts are heterogeneously dense, which may obscure small masses. ??No suspicious masses or microcalcifications. ??There are breast implant(s) present.. Karla Rivera MD MAMMO * CT CHEST SCREENING LOW DOSE WO CONTRAST (05/13/2021 10:35 AM CDT) Anatomical Region Laterality Modality Other 05/13/2021 10:2 7 AM CDT Narrative 05/13/2021 2:19 PM CDT EXAM DATE: ? 05/13/2021 EXAM: LOW DOSE LUNG CANCER SCREENING CT CHEST LOCATION: [facility] DATE/TIME: 05/13/2021 10:30 AM INDICATION: Lung cancer screening. History of smoking. High risk patient with greater than 30 pack year smoking history. COMPARISON: 04/10/2020. TECHNIQUE: Low-dose lung cancer screening non-contrast CT chest. Dose reduction techniques were used. FINDINGS: NODULES: Stable 3 mm right upper lobe nodule (series 4, image 62). Stable stable 3 mm middle lobe subpleural nodule (image 172). LUNGS AND PLEURA: No significant change in small amount of peripheral scarring / fibrosis, nonspecific in etiology. No honeycombing. Mild bronchiectasis. MEDIASTINUM: No adenopathy. Nonaneurysmal aorta. CORONARY ARTERY CALCIFICATION: Moderate-severe. LIMITED UPPER ABDOMEN: Nothing acute. MUSCULOSKELETAL: Breast prosthetics. Bony demineralization. No significant change of mild compression deformities at L1 and L2. IMPRESSION: 1. ??Negative for lung cancer screening purposes. LungRADS CATEGORY: 2: Benign. (<1% risk of malignancy) -Perifissural nodule(s): <10 mm -Solid nodule(s): <6 mm on baseline screening; or new nodule <4 mm -Subsolid nodule(s): <6 mm on baseline screening -Ground glass nodule(s): <30 mm; or greater than or equal to 30 mm and unchanged or slowly growing -Category 3 or 4 nodules that are unchanged for greater than or equal to 3 months RADIOLOGIST RECOMMENDATION: Continue annual screening with low-dose CT chest in 12 months. ?? Ernestine CASTILLO CT * ANTI HCV (01/24/2014 9:57 AM CDT) HEPATITIS C ANTIBODY Non-Reacti ve Non-Reacti ve 01/24/2014 5:23 PM CDT [facility] Blood specimen (specimen) BLOOD SPECIMEN / Unknown Venipuncture / Unknown 01/24/2014 9:57 AM CDT 01/24/2014 9:57 AM CDT Narrative [facility] - 01/24/2014 5:23 PM CDT Antibodies to HCV not detected; does not exclude the possibility of exposure to HCV. Karla Rivera MD SEND OUTS [facility] [address] [place] [address], from Last 3 Months or Most Recently Relevant to Health Maintenance Advance Directives Documents on File Type Date Recorded Patient Soil Conservation Technician Expl anation POLST 09/23/2022 Care Teams County Treasurer Relationship Specialty Start Date End Date Jake Dunbar MD [address] [place] [address] PCP - General Internal Medicine 07/27/23 Rosa Elena Villanueva MD [address] [place] [id number] Psychiatry Psychiatry 10/14/23
[2023-11-19 14:50] LABS: Slide Review Reflex No
[2023-11-19 14:57] LABS: Chloride* 100 mmol/L (96-114); Potassium* 3.8 mmol/L (3.6-5.1); Sodium* 132 mmol/L (135-149)
[2023-11-19 15:00] LABS: Anion Gap 9 mEq/L (7-15); Blood Urea Nitrogen* 15 mg/dL (7-30); Carbon Dioxide* 23 mmol/L (20-32); Creatinine* 0.9 mg/dL (0.5-1.5); Estimated Glomerular Filt Rate 68 ml/min; Glucose* 123 mg/dL (60-115)
[2023-11-19 15:01] LABS: Calcium* 9.3 mg/dL (8.4-10.6)
--- NOTE | 2023-11-19 16:06 | PC.SOCIAL ---
Talent Engineer Consult: pack worker supervisor met with pt, her and their daughter, Sera, today in the Emergency Department. Pt's said he is no longer able to take care of his at home and would like to see her go to a SNF for short-term rehab in order to get stronger, so that she can eventually return home. pack worker supervisor explained the process of insurance payment for a SNF TCU stay through Medicare(Inpatient vs. Observation status). Pt and her family stated that they do not have money to private pay for a snf if that should be the case. pack worker supervisor explained the option of applying for MA and pt's daughter said that she could look into helping her parents with that. Pt and her said they live social security paycheck to [facility], they don't own a home and do have a vehicle. pack worker supervisor recommended they apply for MA. Pt's daughter stated that they were told to come to the ED by pt's primary doctor for snf placement and that they really needed the pt to be admitted to the hospital inpatient. pack worker supervisor explained that that was the doctor's decision. Pt and her family were thankful for the information and shared they are interested in [facility] for eventual placement and would look at [facility] in [place] as a second option. pack worker supervisor updated the doctor on duty after this worker met with the family. Doctor shared that pt would most likely be admitted to the Med/Surg floor for Observation. Social work to follow-up as needed.
--- NOTE | 2023-11-19 17:57 | PM.IMHP1 ---
Hospitalist- H&P: HPI History of Present Illness Date Seen: 11/19/23 Chief complaint: dizzy, trouble walking Narrative: Chrissy Box is a 73 year old woman who presents to the emergency department today accompanied by her , Lukas, and her daughter, Sera, with concern of progressive weakness and loss of balance. This problem has been present for at least 6 years, since November 2017, if not longer. The weakness and loss of balance have progressed substantially over the course of the past couple of months. They indicate she has not been able to transfer independently or ambulate independently for over a month now. has been trying to help her with this over time but has had increasing difficulties doing so for the past couple of weeks. 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 She tells me she is no longer consuming alcohol and has not consumed alcohol now for a few years. More recently in a neurology consultation with Dr. Schultz, [facility], 10/20/2023, for loss of balance and frequent falls, was found to have borderline vitamin B12 deficiency, and was urged to start vitamin B12 500 mcg orally daily, but to date patient still has not done so. Patient also treated by her neurologist for postural tremor and memory deficit. Historically has tried low-dose propranolol but this was stopped due to hypotension. Scored 28/30 on MMSE on 10/20/2023. On assessment in the emergency department at [facility] today there was no acute problem found to explain her progressive declining condition. Patient, , daughter, and emergency department physician deemed that it is unsafe for patient to be discharged back to her home presently given her current status and significant physical limitations. Decision was made to admit the patient to the hospital for observation, increased dose of her levothyroxine, work with physical and occupational therapy, and make decisions about possible senior living home placement in the next few days. Patient indicates no uncertain terms that she prefers to be admitted to the senior living, she does not think she can continue to live at home as she has been trying with the help from her . Review of Systems Status of ROS: Reports: 10 or more systems reviewed and unremarkable except as noted in History and below Narrative: Chronic difficulties with transferring and ambulating. Multiple falls in the home without injury. does not thinking can continue to help her as he has been trying over the last several years. Patient states she simply does not have the strength to care for herself as she used to in the past, that she needs help. In this vein she also acknowledges concern for her 's well for stating that he cannot continue to help as he has been trying because of his health limitations. Spends most of the day sitting or lying. Needs assist with incontinent cares as well as washing herself. Needing increasing assistance with dressing and undressing as well. No recent major trauma, injury, bleeding, fevers, rigors, diaphoresis, or illnesses. Denies chest heaviness, pressure, tightness, or pain. Denies dyspnea at rest. Acknowledges chronic baseline cough. Continues to smokes 4 cigarettes daily. Acknowledges dyspnea with exertion. Denies paroxysmal nocturnal dyspnea orthopnea. No syncope or near syncope. No nausea or vomiting. No fevers, rigors, diaphoresis. No upper or lower respiratory tract symptoms. Denies dysuria, urgency, frequency, hematuria. Denies diarrhea or constipation. Acknowledges she does not take her medications routinely and sometimes misses her medications. Denies focal motor neurologic deficits. 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 - Alcohol dependence, uncomplicated (ICD-10) ?G31.2 - Degeneration of nervous system due to alcohol (ICD-10) CKD (chronic kidney disease), stage II ?N18.2 - Chronic kidney disease, stage 2 (mild) (ICD-10) RIYA (acute kidney injury) ?N17.9 - Acute kidney failure, unspecified (ICD-10) RLL pneumonia ?J18.9 - Pneumonia, unspecified organism (ICD-10) Normal echocardiogram Tobacco dependence ?F17.200 - Nicotine dependence, unspecified, uncomplicated (ICD-10) Chronic pain ?G89.29 - Other chronic pain (ICD-10) Chronic narcotic dependence ?F11.20 - Opioid dependence, uncomplicated (ICD-10) Osteoporosis ?M81.0 - Age-related osteoporosis without current pathological fracture (ICD-10) Poor dentition ?K08.9 - Disorder of teeth and supporting structures, unspecified (ICD-10) Frequent falls ?R29.6 - Repeated falls (ICD-10) Bipolar 2 disorder ?F31.81 - Bipolar II disorder (ICD-10) Rhabdomyolysis ?M62.82 - Rhabdomyolysis (ICD-10) Chronic hyponatremia ?E87.1 - Hypo-osmolality and hyponatremia (ICD-10) Anemia ?D64.9 - Anemia, unspecified (ICD-10) Non-ST elevated myocardial infarction (non-STEMI) ?I21.4 - Non-ST elevation (NSTEMI) myocardial infarction (ICD-10) Closed head injury ?S09.90XA - Unspecified injury of head, initial encounter (ICD-10) Senile osteoporosis ?M81.0 - Age-related osteoporosis without current pathological fracture (ICD-10) Arthritis ?M19.90 - Unspecified osteoarthritis, unspecified site (ICD-10) Graves disease ?E05.00 - Thyrotoxicosis with diffuse goiter without thyrotoxic crisis or storm (ICD-10) Pure hypercholesterolemia ?E78.00 - Pure hypercholesterolemia, unspecified (ICD-10) Hyperplastic colon polyp ?K63.5 - Polyp of colon (ICD-10) Tachycardia ?R00.0 - Tachycardia, unspecified (ICD-10) Tremor ?R25.1 - Tremor, unspecified (ICD-10) Facial fracture due to fall ?S02.92XA - Unspecified fracture of facial bones, initial encounter for closed fracture (ICD-10) ?W19.XXXA - Unspecified fall, initial encounter (ICD-10) Surgical History History of appendectomy ?Z90.49 - Acquired absence of other specified parts of digestive tract (ICD-10) Hx of breast biopsy ?Z98.890 - Other specified postprocedural states (ICD-10) History of hysterectomy ?Z90.710 - Acquired absence of both cervix and uterus (ICD-10) H/O breast augmentation ?Z98.82 - Breast implant status (ICD-10) History of repair of hip fracture ?Z98.890 - Other specified postprocedural states (ICD-10) Social History Smoking Status: Current every day smoker What tobacco products do you use: cigarettes Smoking packs per day: 0.5 Smoking cigarettes per day: 10.0 Do you use any of these nicotine containing products: None Second hand tobacco smoke exposure: No How often do you have a drink containing alcohol: never How often do you have six or more drinks on one occasion: Never AUDIT-C Alcohol total score: 0 Non-prescribed substance use: denies use Meds Home Medications and Allergies Home Medications Medication Instructions Recorded Confirmed Type hydrocodone 10 mg-acetaminophen 1 tab PO DAILY 06/12/22 11/19/23 History 325 mg tablet omeprazole 40 mg capsule,delayed 40 mg PO DAILY 06/12/22 11/19/23 History release trazodone 100 mg tablet 50 mg PO HS 06/12/22 11/19/23 History calcium carbonate 500 mg-vitamin 1 tab PO DAILY 06/24/22 11/19/23 History D3 10 mcg (400 unit) tablet (Calcium 500 + D) cholecalciferol (vitamin D3) 50 5,000 mcg PO DAILY 06/24/22 11/19/23 History mcg (2,000 unit) capsule multivitamin (Multiple Vitamins 1 tab PO DAILY 06/24/22 11/19/23 History tablet) bupropion HCl 300 mg 24 hr tablet, 300 mg PO DAILY 11/19/23 11/19/23 History extended release fluoxetine 40 mg capsule 40 mg PO DAILY 11/19/23 11/19/23 History levothyroxine 75 mcg tablet 75 mcg PO DAILY 11/19/23 11/19/23 History lurasidone 60 mg tablet 60 mg PO QPM 11/19/23 11/19/23 History Home Medication Comments: Patient acknowledges that she does not always take her medications as prescribed, may miss various doses of various medications. Allergies Allergy/AdvReac Type Severity Reaction Status Date / Time ampicillin Allergy Mild Rash Verified 06/24/22 14:53 Exam Narrative: Exam Narrative: I 1st examined patient in the emergency department and later in her hospital room. Appears comfortable and in no acute distress. Vision and hearing are grossly normal. Alert and oriented to self, place, time, situation. Friendly, articulate, cooperative. Tympanic membranes normal. Midline nasal septum. Multiple missing dentition. Oropharynx otherwise benign. No icterus or conjunctival injection. Extraocular muscles intact. Pupils equally round react to light and accommodation. Conjugate gaze. Neck is supple. Midline trachea. No head and neck lymphadenopathy. Lungs are clear to auscultation without wheezing, rhonchi, or rales. No CVA tenderness. Heart tones with regular rhythm, normal S1-S2. No murmur, gallop, or rub. PMI not laterally displaced. Abdomen is thin with active bowel sounds, soft, nontender. No rebound or guarding. Thin upper and lower extremities with diffuse muscle atrophy. Also has cutaneous atrophy in upper lower extremities as well. Dry skin. Generalize weakness in upper lower extremities. Baseline postural tremor. Transfers from supine to sitting with assist of 1 and transfers from sitting to standing with assist of 1. Able to pivot transfer with assist of 1. Able to move on to the weight scale and then back off with assist of 1. Next plantar responses are upward bilaterally. Next slow, tremulous, but steady [id number] testing. Const: Vital Signs, click to edit/add: Vital Signs - 24 hr 11/19/23 13:16 Temperature 98.4 F Pulse Rate [Pulse Oximeter] 99 Blood Pressure [Ri ght Upper Arm] 138/85 Pulse Oximetry 96 Oxygen Delivery Me thod Room Air Documenting provider has reviewed patient's vital signs: yes Hospitalist - H&P: Result Labs Labs: Short CBC 11/19/23 Range/Units 14:31 WBC 6.02 (4.50-11.00) K/uL Hgb 11.5 L (12.0-16.0) gm/dL Hct 34.1 (33.0-51.0) % Plt Count 408 (140-440) K/uL BMP 11/19/23 14:31 Sodium 132 L Potassium 3.8 Chloride 100 Carbon Dioxide 23 BUN 15 Creatinine 0.9 Glucose 123 H Calcium 9.3 Assessment and Plan Assessment and plan (1) Generalized weakness: Problem comment: - gradual, progressive - suspect multifactorial from long-term disuse muscle atrophy from cerebellar degeneration and vitamin B12 deficiency, non-adherence to recommendation for vitamin B12 replacement, active hypothyroidism from insufficient levothyroxine supplementation due to non-adherence to recommendations. Status: Acute (2) Adult failure to thrive: Status: Acute (3) Alcoholic cerebellar degeneration syndrome: Problem comment: - Diagnosed November 2017 - sober for a few years now Status: Acute (4) Vitamin B12 deficiency: Problem comment: - Diagnosed by her neurologist, Dr. Schultz, [facility], but patient not taking recommended vitamin B12 500 mcg orally once daily as of 11/19/2023. Status: Acute (5) Postural tremor: Status: Acute (6) Cognitive impairment: Problem comment: - 28/30 on MMSE on 10/20/2023 Status: Acute (7) Chronic hyponatremia: Status: Acute (8) Hypothyroidism (acquired): Problem comment: - acknowledges missing doses of her medication routinely - TSH 8.69 on 11/19/2023 - despite patient acknowledging missing her doses periodically, I will increase levothyroxine dose from 75 mcg daily to 88 mcg once daily Status: Acute (9) Patient's noncompliance with other medical treatment and regimen due to unspecified reason: Status: Acute Plan 1. Reviewed impression with patient, , and daughter. 2. Answered their questions to their satisfaction. 3. Patient currently not safe to return home given her condition and resources available to help her the home. Patient prefers long-term senior living care facility admission at this time. 4. Physical therapy and occupational therapy consultation. 5. Clinical Outcomes Manager consultation. 6. Patient requests DNR DNI resuscitation status. and daughter support the patient's decision. They do show me a POLST from a year ago when patient expressed desire for resuscitation in the event of cardiopulmonary demise. Patient indicates she has changed her mind since that time. 7. Patient designates her daughter, Sera, and her , Lukas, as her valladares of deputy commonwealth's attorney for health should that be required. Sera's cell phone number is [phone]. Lukas's cell phone number is [phone]. 8. Consider dietary consultation.
--- NOTE | 2023-11-19 18:08 | P.IMHP_ITS ---
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 - Alcohol dependence, uncomplicated (ICD-10) ?G31.2 - Degeneration of nervous system due to alcohol (ICD-10) CKD (chronic kidney disease), stage II ?N18.2 - Chronic kidney disease, stage 2 (mild) (ICD-10) RIYA (acute kidney injury) ?N17.9 - Acute kidney failure, unspecified (ICD-10) RLL pneumonia ?J18.9 - Pneumonia, unspecified organism (ICD-10) Normal echocardiogram Tobacco dependence ?F17.200 - Nicotine dependence, unspecified, uncomplicated (ICD-10) Chronic pain ?G89.29 - Other chronic pain (ICD-10) Chronic narcotic dependence ?F11.20 - Opioid dependence, uncomplicated (ICD-10) Osteoporosis ?M81.0 - Age-related osteoporosis without current pathological fracture (ICD- 10) Poor dentition ?K08.9 - Disorder of teeth and supporting structures, unspecified (ICD-10) Frequent falls ?R29.6 - Repeated falls (ICD-10) Bipolar 2 disorder ?F31.81 - Bipolar II disorder (ICD-10) Rhabdomyolysis ?M62.82 - Rhabdomyolysis (ICD-10) Chronic hyponatremia ?E87.1 - Hypo-osmolality and hyponatremia (ICD-10) Anemia ?D64.9 - Anemia, unspecified (ICD-10) Non-ST elevated myocardial infarction (non-STEMI) ?I21.4 - Non-ST elevation (NSTEMI) myocardial infarction (ICD-10) Closed head injury ?S09.90XA - Unspecified injury of head, initial encounter (ICD-10) Senile osteoporosis ?M81.0 - Age-related osteoporosis without current pathological fracture (ICD- 10) Arthritis ?M19.90 - Unspecified osteoarthritis, unspecified site (ICD-10) Graves disease ?E05.00 - Thyrotoxicosis with diffuse goiter without thyrotoxic crisis or storm (ICD-10) Pure hypercholesterolemia ?E78.00 - Pure hypercholesterolemia, unspecified (ICD-10) Hyperplastic colon polyp ?K63.5 - Polyp of colon (ICD-10) Tachycardia ?R00.0 - Tachycardia, unspecified (ICD-10) Tremor ?R25.1 - Tremor, unspecified (ICD-10) Facial fracture due to fall ?S02.92XA - Unspecified fracture of facial bones, initial encounter for closed fracture (ICD-10) ?W19.XXXA - Unspecified fall, initial encounter (ICD-10) Surgical History History of appendectomy ?Z90.49 - Acquired absence of other specified parts of digestive tract (ICD- 10) Hx of breast biopsy ?Z98.890 - Other specified postprocedural states (ICD-10) History of hysterectomy ?Z90.710 - Acquired absence of both cervix and uterus (ICD-10) H/O breast augmentation ?Z98.82 - Breast implant status (ICD-10) History of repair of hip fracture ?Z98.890 - Other specified postprocedural states (ICD-10) Social History What is your current living situation?: I presently have a place to live Problems where you live: no known problems Problems where you live details: n/a In the past 12 months, utilities in danger of being shut off: no In past 12 months, lack of transportation kept you from medical appts, meetings, work, or getting things needed for daily living: no In the past 12 mos, have been you worried that your food would run out before you had money to buy more?: never true In the past 12 mos, the food you bought just didn't last and you didn't have money to buy more?: never true Smoking Status: Current every day smoker What tobacco products do you use: cigarettes Smoking packs per day: 0.5 Smoking cigarettes per day: 10.0 Do you use any of these nicotine containing products: None Second hand tobacco smoke exposure: No How often do you have a drink containing alcohol: never How often do you have six or more drinks on one occasion: Never AUDIT-C Alcohol total score: 0 Non-prescribed substance use: denies use Caffeine: Yes (2 cups of coffee/day) How often does anyone, including family, friends and others, physically hurt you : never How often does anyone, including family, friends and others, insult or talk down to you: never How often does anyone, including family, friends and others, threaten you with harm: never How often does anyone, including family, friends and others, scream or curse at you: never Meds Home Medications and Allergies Home Medications ?Medication ?Instructions ?Recorded ?Confirmed ?Type omeprazole 40 mg capsule,delayed 40 mg PO DAILY 06/12/22 11/19/23 History release trazodone 100 mg tablet 50 mg PO HS 06/12/22 11/19/23 History calcium carbonate 500 mg-vitamin 1 tab PO DAILY 06/24/22 11/19/23 History D3 10 mcg (400 unit) tablet (Calcium 500 + D) cholecalciferol (vitamin D3) 50 5,000 mcg PO DAILY 06/24/22 11/19/23 History mcg (2,000 unit) capsule multivitamin (Multiple Vitamins 1 tab PO DAILY 06/24/22 11/19/23 History tablet) bupropion HCl 300 mg 24 hr tablet, 300 mg PO DAILY 11/19/23 11/19/23 History extended release fluoxetine 40 mg capsule 40 mg PO DAILY 11/19/23 11/19/23 History lurasidone 60 mg tablet 60 mg PO QPM 11/19/23 11/19/23 History Allergies Allergy/AdvReac Type Severity Reaction Status Date / Time ampicillin Allergy Mild Rash Verified 06/24/22 14:53 Exam Const: Vital Signs, click to edit/add: Vital Signs - 24 hr 11/19/23 13:16 Temperature 98.4 F Pulse Rate [Pulse Oximeter] 99 Blood Pressure [Ri ght Upper Arm] 138/85 Pulse Oximetry 96 Oxygen Delivery Me thod Room Air Hospitalist - H&P: Result Labs Labs: Short CBC 11/19/23 Range/Units 14:31 WBC 6.02 (4.50-11.00) K/uL Hgb 11.5 L (12.0-16.0) gm/dL Hct 34.1 (33.0-51.0) % Plt Count 408 (140-440) K/uL BMP 11/19/23 14:31 Sodium 132 L Potassium 3.8 Chloride 100 Carbon Dioxide 23 BUN 15 Creatinine 0.9 Glucose 123 H Calcium 9.3
[2023-11-19 19:14] VITALS: BP 123/79; PULSE 85; RESP 16; TEMP 36.3; O2SAT 96
[2023-11-19] MEDS: FLUOXETINE HCL 20 MG CAPSULE 40 MG PO (19:20)
[2023-11-19] MEDS: TRAZODONE HCL 50 MG TABLET PO (19:20)
[2023-11-19] MEDS: SODIUM CHLORIDE 0.9 % (FLUSH) 10 ML SYRINGE 5 ML IVF (19:21)
[2023-11-19] MEDS: LURASIDONE 60 MG PO (19:21)
[2023-11-19 19:33] VITALS: BP 147/101; PULSE 80; RESP 16; TEMP 36.9; O2SAT 96; BMI 21.0
[2023-11-19 23:23] VITALS: BP 131/88; PULSE 93; RESP 16; TEMP 36.6; O2SAT 94
[2023-11-19 23:28] VITALS: PULSE 93; RESP 16
[2023-11-19 23:30] VITALS: RESP 16; O2SAT 94
[2023-11-20] VITALS (7 sets, daily range): BP systolic 111–127; BP diastolic 75–92; PULSE 74–88; RESP 16; TEMP 36.5–36.8; O2SAT 94–97
--- NOTE | 2023-11-20 05:06 | PC.NURSE ---
Pt rested well this night. Afebrile. Pt Pivots to bedside commode only. Incontinent of urine overnight. VS unremarkable.
[2023-11-20] MEDS: LEVOTHYROXINE 88 MCG TABLET PO (06:21)
[2023-11-20 07:00] LABS: Hemoglobin* 12.3 gm/dL (12.0-16.0)
--- NOTE | 2023-11-20 07:03 | PM.IMPN1 ---
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 + vitamin B12 deficiency, non-adherence to recommendation for vitamin B12 replacement, active hypothyroidism from insufficient levothyroxine supplementation due to non-adherence to recommendations - therapies ordered, social work referral placed; will require higher level of care living upon discharge Status: Acute (2) Adult failure to thrive: Status: Acute (3) Patient's noncompliance with other medical treatment and regimen due to unspecified reason: Status: Acute (4) Hypothyroidism (acquired): Problem details: - acknowledges missing doses of her medication routinely - TSH 8.69 on 11/19/2023 - despite patient acknowledging missing her doses periodically, I will increase levothyroxine dose from 75 mcg daily to 88 mcg once daily Status: Acute (5) Vitamin B12 deficiency: Problem details: - Diagnosed by her neurologist, Dr. 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 Villanueva at [facility] in [place] Status: Acute Plan - continue home medications - jose lopez, SCDs, ambulation for ppx - therapies following - await placement possibilities (no safe discharge plan today) Subjective Date Seen: 11/20/23 Interval history: Chrissy was admitted to the hospital last night for weakness, failure to thrive, and need for higher level of care living. ER workup revealed elevated TSH (8.6), Na of 133, no evidence of infectious process. UA and culture pending. This morning, Chrissy has no concerns for hospitalist team. Exam Narrative: Exam Narrative: GEN: Alert and sitting comfortably in bedside chair, eating breakfast HEENT: EOMIs bilaterally, no scleral icterus CV: Heart rate in the 90s during my exam, S1/S2, distant heart sounds R: LCTA bilaterally without concerning wheezing Ab: soft, nontender, nondistended Back: normal contours, no concerning skin lesions Skin: No concerning skin lesions or rashes on exposed skin Neuro: No focal deficits Psych: Mildly flat affect, no agitation Const: Vital Signs, click to edit/add: Vital Signs - 24 hr 11/19/23 13:16 11/19/23 19:14 11/19/23 19:33 Temperature 98.4 F 97.4 F L 98.4 F Pulse Rate [Pulse Oximeter] 99 Pulse Rate [Right Radial] 85 80 Respiratory Rate 16 16 Blood Pressure [Le ft Arm] 123/79 147/101 H Blood Pressure [Ri ght Upper Arm] 138/85 Pulse Oximetry 96 96 96 Oxygen Delivery Me thod Room Air Room Air Room Air 11/19/23 19:33 11/19/23 23:23 11/19/23 23:28 Temperature 97.9 F Pulse Rate [Pulse Oximeter] Pulse Rate [Right Radial] 93 93 Respiratory Rate 16 16 16 Blood Pressure [Le ft Arm] 131/88 Blood Pressure [Ri ght Upper Arm] Pulse Oximetry 96 94 Oxygen Delivery Me thod Room Air Room Air 11/19/23 23:30 11/20/23 02:51 Temperature 98.3 F Pulse Rate [Pulse Oximeter] Pulse Rate [Right Radial] 74 Respiratory Rate 16 16 Blood Pressure [Le ft Arm] 124/86 Blood Pressure [Ri ght Upper Arm] Pulse Oximetry 94 94 Oxygen Delivery Me thod Room Air Room Air Labs Labs: Laboratory Results - last 24 hr 11/19/23 14:31 WBC 6.02 RBC 3.79 L Hgb 11.5 L Hct 34.1 MCV 90 MCH 30 MCHC 34 RDW Coeff of Mindy 13.2 Plt Count 408 Neut % (Auto) 66.4 Lymph % (Auto) 19.9 L [place] % (Auto) 10.5 Eos % (Auto) 1.2 Baso % (Auto) 0.5 Neut # (Auto) 4.00 Lymph # (Auto) 1.20 [place] # (Auto) 0.60 Eos # (Auto) 0.07 Baso # (Auto) 0.03 Abs Immat Gran (auto) 0.09 Imm/Tot Granulo (auto) 1.5 Sodium 132 L Potassium 3.8 Chloride 100 Carbon Dioxide 23 Anion Gap 9 BUN 15 Creatinine 0.9 Estimated Creat Clear 47.60 Estimated GFR 68 Glucose 123 H Calcium 9.3 TSH 8.690 H
[2023-11-20 07:13] LABS: Sodium* 133 mmol/L (135-149)
[2023-11-20] MEDS: ASPIRIN 81 MG TABLET EC PO (07:39)
[2023-11-20] MEDS: MULTIVITAMIN/MINERALS 1 TABLET 1 TAB PO (07:39)
[2023-11-20] MEDS: HYDROCODONE-ACETAMIN 5-325 MG 1 TAB PO ×2 (07:39→18:58)
[2023-11-20 16:00] LABS: Appearance Urine Turbid (Clear); Bilirubin Urine Negative (Negative); Blood Urine 2+ (Negative); Color Urine Yellow (Yellow); Glucose Urine Negative (Negative); Ketones Urine Trace (Negative); Leukocyte Esterase Urine 3+ (Negative); Nitrite Urine Positive (Negative); Protein Urine 1+ (Negative); Specific Gravity Urine 1.025 (1.000-1.030); Urobilinogen Urine 0.2 (0.2-1.0)
[2023-11-20 16:11] LABS: Bacteria Urine Many; WBC Urine >100 (0-5)
[2023-11-20] MEDS: SENNOSIDES/DOCUSATE TABLET 1 TAB PO (18:58)
[2023-11-20] MEDS: TRAZODONE HCL 50 MG TABLET PO (18:59)
[2023-11-20] MEDS: LURASIDONE 60 MG PO (18:59)
[2023-11-20] MEDS: OMEPRAZOLE 20 MG CAPSULE DR 40 MG PO (20:19)
[2023-11-20] MEDS: buPROPion XL 150 MG TABLET 300 MG PO (20:20)
[2023-11-20] MEDS: SODIUM CHLORIDE 0.9 % (FLUSH) 10 ML SYRINGE 5 ML IVF (20:22)
[2023-11-20] MEDS: FLUOXETINE HCL 20 MG CAPSULE 40 MG PO (20:22)
[2023-11-21] VITALS (8 sets, daily range): BP systolic 102–125; BP diastolic 76–81; PULSE 82–93; RESP 16–18; TEMP 36.4–36.6; O2SAT 94–96
--- NOTE | 2023-11-21 04:34 | PC.NURSE ---
Pt rested well this night. Cooperative with cares. A1 to bedside commode and chair. Pt incontinent of urine. VS unremarkable. Chronic pain controlled. Pt able to ambulate with assistance but has difficulty turning her body in different directions. Pleasantly confused.
[2023-11-21] MEDS: LEVOTHYROXINE 88 MCG TABLET PO (06:08)
--- NOTE | 2023-11-21 08:16 | P.IMPN_ITS ---
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 + vitamin B12 deficiency, non-adherence to recommendation for vitamin B12 replacement, active hypothyroidism from insufficient levothyroxine supplementation due to non-adherence to recommendations - therapies ordered, social work referral placed; will require higher level of care living upon discharge Status: Acute (2) Adult failure to thrive: Status: Acute (3) Patient's noncompliance with other medical treatment and regimen due to unspecified reason: Status: Acute (4) Hypothyroidism (acquired): Problem details: - acknowledges missing doses of her medication routinely - TSH 8.69 on 11/19/2023 - despite patient acknowledging missing her doses periodically, I will increase levothyroxine dose from 75 mcg daily to 88 mcg once daily Status: Acute (5) Vitamin B12 deficiency: Problem details: - Diagnosed by her neurologist, Dr. 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 Villanueva at [facility] in [place] Status: Acute Plan - continue home medications - appreciate input from therapies, anticipate discharge to SNF when bed available Subjective Date Seen: 11/21/23 Interval history: Chrissy was admitted to the hospital on 11/18 for weakness, failure to thrive, and need for higher level of care living. Family had been pursuing outpatient placement; however, patient was declining rapidly at home and family did not feel that she was safe. ER workup revealed elevated TSH (8.6), Na of 133, no evidence of infectious process. Medication compliance has been poor over the past month. UA +, culture pending. Keflex initiated 11/20. Working with therapies, plan for SNF admission. This morning, Chrissy has no concerns for hospitalist team. Exam Narrative: Exam Narrative: GEN: Sitting comfortably in bedside chair, nontoxic HEENT: EOMIs bilaterally, no scleral icterus CV: RRR, No concerning murmurs R: LCTA bilaterally without concerning wheezing, no tachypnea Ext: no concerning edema Skin: No concerning skin lesions or rashes on exposed skin Neuro: Intermittent tremor of bilateral upper extremities, no focal deficits, gait not observed Psych: Flat affect, mild cognitive impairment is evident, no agitation Const: Vital Signs, click to edit/add: Vital Signs - 24 hr 11/20/23 11:00 11/20/23 15:00 11/20/23 15:00 Temperature 98.3 F Pulse Rate [Right Radial] 78 78 Respiratory Rate 16 16 16 Blood Pressure [Le ft Arm] 121/80 Pulse Oximetry 95 95 Oxygen Delivery Me thod Room Air Room Air 11/20/23 19:04 11/20/23 21:53 11/20/23 22:34 Temperature 97.7 F 97.7 F Pulse Rate [Right Radial] 88 78 78 Respiratory Rate 16 16 16 Blood Pressure [Le ft Arm] 122/92 H 127/92 H Pulse Oximetry 97 97 Oxygen Delivery Me thod Room Air Room Air 11/20/23 22:34 11/21/23 02:20 Temperature 97.5 F L Pulse Rate [Right Radial] 85 Respiratory Rate 16 16 Blood Pressure [Le ft Arm] 111/77 Pulse Oximetry 97 96 Oxygen Delivery Me thod Room Air Room Air Labs Labs: Laboratory Results - last 24 hr 11/19/23 17:42 Urine Color Yellow Urine Appearance Turbid A Urine pH 6.0 Ur Specific [place] 1.025 Urine Protein 1+ A Urine Glucose (UA) Negative Urine Ketones Trace A Urine Blood 2+ A Urine Nitrite Positive A Urine Bilirubin Negative Urine Urobilinogen 0.2 Ur Leukocyte Esterase 3+ A Urine RBC 10-25 A Urine WBC >100 A Ur Squamous Epith Cells None Urine Bacteria Many A
[2023-11-21] MEDS: HYDROCODONE-ACETAMIN 5-325 MG 1 TAB PO (09:42)
[2023-11-21] MEDS: MULTIVITAMIN/MINERALS 1 TABLET 1 TAB PO (09:42)
[2023-11-21] MEDS: ASPIRIN 81 MG TABLET EC PO (09:42)
[2023-11-21] MEDS: cephALEXin 500 MG CAPSULE PO ×3 (10:44→20:46)
[2023-11-21] MEDS: TRAZODONE HCL 50 MG TABLET PO (18:04)
[2023-11-21] MEDS: LURASIDONE 60 MG PO (18:04)
--- NOTE | 2023-11-21 18:26 | PC.NURSE ---
shift note: 1/walker transfer to surfaces. pt stated this a.m she had lower back pain but was unable to rate pain level. pt received scheduled pain med. mepilex to cocyx intact. No IV. Pt had moderate BM
[2023-11-21] MEDS: OMEPRAZOLE 20 MG CAPSULE DR 40 MG PO (20:46)
[2023-11-21] MEDS: FLUOXETINE HCL 20 MG CAPSULE 40 MG PO (20:46)
[2023-11-21] MEDS: buPROPion XL 150 MG TABLET 300 MG PO (20:48)
[2023-11-22 05:21] VITALS: RESP 16
[2023-11-22] MEDS: LEVOTHYROXINE 88 MCG TABLET PO (06:07)
--- NOTE | 2023-11-22 06:25 | PC.NURSE ---
19-07: pleasant and cooperative. 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 Incont, 3x wet brief. No BM.
[2023-11-22 07:00] VITALS: BP 111/78; PULSE 94; RESP 20; TEMP 37.1; O2SAT 95
[2023-11-22] MEDS: DOCUSATE SODIUM 100 MG CAPSULE PO (08:28)
[2023-11-22] MEDS: ASPIRIN 81 MG TABLET EC PO (08:28)
[2023-11-22] MEDS: MULTIVITAMIN/MINERALS 1 TABLET 1 TAB PO (08:28)
[2023-11-22] MEDS: HYDROCODONE-ACETAMIN 5-325 MG 1 TAB PO ×2 (08:29→17:31)
[2023-11-22] MEDS: CIPROFLOXACIN 250 MG TABLET PO ×2 (10:03→20:48)
--- NOTE | 2023-11-22 14:50 | PC.NURSE ---
End of Shift Note: Patient has been up in the chair most of today. She is transferring from the chair to bed with assist of 1. Is using the BSC as she is not ambulating very far. Did have complaint of pain which she received pain medication per MAR. Will continue to monitor until next shift arrives. She is A & O and has used her call light appropriately.
[2023-11-22 15:00] VITALS: RESP 18; O2SAT 95
--- NOTE | 2023-11-22 15:05 | PC.SOCIAL ---
Discharge planning- Per therapy, recommendation is SNF for rehab stay. Phone call to pt's daughter to discuss discharge plans. Pt was admitted under observation upon admission. Pt was changed to inpatient today (11/22/23). Medicare requires a 3 night stay inpatient to cover the cost of the SNF. Discussed this with pt's daughter. Pt's daughter informs that pt does not have the financial means to pay privately. 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 Pt's daughter has not started the application, but is willing to complete the application. Pt's daughter will come to the [facility] tomorrow and this worker will provide the application. Informed pt's daughter that she will need 3 months of bank statements to provide the county along with the application. Pt's daughter informs that family was trying to complete placement to SNF from home prior to this hospitalization. Family preference is [facility] and second choice is [facility]. Pt reportedly smokes 1/2 pack of cigarettes a day. Informed pt's daughter that [facility] is a smoke free campus and [facility]. Family understands and still would like [facility] to be the first choice. Contacted the following SNF's for placement. 1. [facility]- Secure e-mailed referral to Debbie Mayo in admissions. Debbie requested information on pt's admission status (Observation vs. inpatient). Provided update. [facility] will assess. 2. [facility]- Secure e-mailed referral to Jasmine in admissions for review. Social work will continue to follow up as needed.
--- NOTE | 2023-11-22 15:15 | P.IMPN_ITS ---
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 + vitamin B12 deficiency, non-adherence to recommendation for vitamin B12 replacement, active hypothyroidism from insufficient levothyroxine supplementation due to non-adherence to recommendations - therapies ordered, social work referral placed; will require higher level of care living upon discharge Status: Acute (2) Adult failure to thrive: Status: Acute (3) Patient's noncompliance with other medical treatment and regimen due to unspecified reason: Status: Acute (4) Hypothyroidism (acquired): Problem details: - acknowledges missing doses of her medication routinely - TSH 8.69 on 11/19/2023 - despite patient acknowledging missing her doses periodically, I will increase levothyroxine dose from 75 mcg daily to 88 mcg once daily Status: Acute (5) Vitamin B12 deficiency: Problem details: - Diagnosed by her neurologist, Dr. 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 Villanueva at [facility] in [place] Status: Acute (8) UTI (urinary tract infection): Problem details: - Citrobacter, Keflex initiated 11/20, transitioned to Cipro on 11/21 given sens itivities Status: Acute Plan - per above - await SNF placement Subjective Date Seen: 11/22/23 Interval history: Chrissy was admitted to the hospital on 11/18 for weakness in the setting of multiple medical comorbidities, concern for medication compliance, need for higher level of care. She was not in a safe environment at home given comorbidities and fall risk. Upon arrival to the hospital, TSH noted to be 8.6 and sodium of 133. UA positive, culture growing Citrobacter. She is working with our therapy teams and we are awaiting SNF placement. Chrissy endorses feeling well this morning, she has no concerns for hospitalist team. Exam Narrative: Exam Narrative: GEN: Alert in sitting comfortably in bedside chair, working on a word find HEENT: EOMIs bilaterally, no scleral icterus CV: RRR, No concerning murmurs R: LCTA bilaterally without concerning wheezing, air movement adequate Ext: wwp, no concerning edema Neuro: Mild tremor bilateral upper extremities, chronic and unchanged Psych: No agitation, pleasant Const: Vital Signs, click to edit/add: Vital Signs - 24 hr 11/21/23 21:00 11/21/23 23:00 11/21/23 23:00 Temperature 97.8 F Pulse Rate [Right Radial] 82 Respiratory Rate 16 16 16 Blood Pressure [Le ft Arm] 102/76 Pulse Oximetry 95 95 [facility] 11/21/23 23:30 11/22/23 05:21 11/22/23 07:00 Temperature Pulse Rate [Right Radial] Respiratory Rate 16 16 Blood Pressure [Le ft Arm] Pulse Oximetry 95 Oxygen Delivery [facility] Room Air 11/22/23 07:00 11/22/23 07:00 Temperature 98.7 F Pulse Rate [Right Radial] 94 94 Respiratory Rate 20 20 Blood Pressure [Le ft Arm] 111/78 Pulse Oximetry 95 [facility]
[2023-11-22] MEDS: LURASIDONE 60 MG PO (17:27)
[2023-11-22] MEDS: TRAZODONE HCL 50 MG TABLET PO (17:27)
--- NOTE | 2023-11-22 18:59 | PC.NURSE ---
Addendum entered by Sierra Saleh RN 11/22/23 19:07: Pt has chronic back pain in which she takes PRN [place] multiple times a day at home. Pt requested her HS PRN dose early @ 1730. Original Note: End of shift [id number]: Pt is A&O x4, afebrile and VSS this shift. 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 Pt is Ax2 up to recliner or BSC d/t weakness. TR q2H while in bed and as pt requests. Mepilex on coccyx is C/D/I. No IV access. Bed alarm in place d/t intermittent confusion but pt has been call light appropriate this shift. Currently on Cipro for UTI. SW to assist with discharge planning for SNF placement.
[2023-11-22 20:42] VITALS: BP 106/71; PULSE 82; RESP 16; TEMP 36.7; O2SAT 95
[2023-11-22] MEDS: FLUOXETINE HCL 20 MG CAPSULE 40 MG PO (20:46)
[2023-11-22] MEDS: OMEPRAZOLE 20 MG CAPSULE DR 40 MG PO (20:47)
[2023-11-22] MEDS: buPROPion XL 150 MG TABLET 300 MG PO (20:49)
[2023-11-22 22:46] VITALS: O2SAT 95
[2023-11-22 22:51] VITALS: RESP 18
[2023-11-23] VITALS (8 sets, daily range): BP systolic 101–114; BP diastolic 71–81; PULSE 70–90; RESP 16–18; TEMP 36.2–36.6; O2SAT 93–97
[2023-11-23] MEDS: LEVOTHYROXINE 88 MCG TABLET PO (05:45)
[2023-11-23] MEDS: ASPIRIN 81 MG TABLET EC PO (08:24)
[2023-11-23] MEDS: CIPROFLOXACIN 250 MG TABLET PO ×2 (08:24→21:01)
[2023-11-23] MEDS: MULTIVITAMIN/MINERALS 1 TABLET 1 TAB PO (08:24)
[2023-11-23] MEDS: HYDROCODONE-ACETAMIN 5-325 MG 1 TAB PO ×2 (08:25→21:02)
--- NOTE | 2023-11-23 12:44 | PM.IMPN1 ---
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 + vitamin B12 deficiency, non-adherence to recommendation for vitamin B12 replacement, active hypothyroidism from insufficient levothyroxine supplementation due to non-adherence to recommendations - therapies ordered, social work referral placed; will require higher level of care living upon discharge Status: Acute (2) Adult failure to thrive: Status: Acute (3) Patient's noncompliance with other medical treatment and regimen due to unspecified reason: Status: Acute (4) Hypothyroidism (acquired): Problem details: - acknowledges missing doses of her medication routinely - TSH 8.69 on 11/19/2023 - despite patient acknowledging missing her doses periodically, I will increase levothyroxine dose from 75 mcg daily to 88 mcg once daily Status: Acute (5) Vitamin B12 deficiency: Problem details: - Diagnosed by her neurologist, Dr. 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 Villanueva at [facility] in [place] Status: Acute (8) UTI (urinary tract infection): Problem details: - Citrobacter, Keflex initiated 11/20, transitioned to Cipro on 11/21 given sensitivities Status: Acute Subjective Date Seen: 11/23/23 Interval history: Daily Progress Note - Hospital Medicine Day #: 5 CC: FTT, cerebellar degeneration, electrolyte disturbance, poor compliance with medications OVERNIGHT UPDATES FROM STAFF & MED, LAB, IMAGING UPDATES -stable night. no new concerns. improved since admission. awaiting rehab stay. No new labs since November 19 Urine culture reviewed Objective: confused at a baseline. MOCA 14 at admission. Vitals: see above Lungs: Clear. Cardiac: S1S2. Disposition/Potential discharge - MA application incomplete; awaiting SNF placement Exam Const: Vital Signs, click to edit/add: Vital Signs - 24 hr 11/22/23 15:00 11/22/23 15:00 11/22/23 20:42 Temperature 98.0 F Pulse Rate [Right Radial] 82 Respiratory Rate 18 18 16 Blood Pressure [Le ft Arm] 106/71 Blood Pressure [Ri ght Arm] Pulse Oximetry 95 95 Oxygen Delivery Me thod Room Air Room Air 11/22/23 22:46 11/22/23 22:51 11/23/23 04:22 Temperature Pulse Rate [Right Radial] Respiratory Rate 18 18 Blood Pressure [Le ft Arm] Blood Pressure [Ri ght Arm] Pulse Oximetry 95 Oxygen Delivery Me thod Room Air 11/23/23 07:00 11/23/23 08:15 11/23/23 12:09 Temperature 97.2 F L Pulse Rate [Right Radial] 70 90 Respiratory Rate 16 16 18 Blood Pressure [Le ft Arm] 111/77 Blood Pressure [Ri ght Arm] 114/81 Pulse Oximetry 96 96 97 Oxygen Delivery Me thod Room Air Room Air Room Air
--- NOTE | 2023-11-23 16:07 | PC.NURSE ---
End of Shift: The patient is alert and orientated. Tremor present at rest and with movement. VSS on RA. Reported moderate back pain throughout the shift, [place] given this AM.. I also offered her Tylenol but she refused. Up Ax1 w/ GB and RW.. slow and deliberate/shuffling due to balance issues. Incontinent on bladder this shift 2x. Call light within reach. Laura from [facility] called to screen the patient for possible admission. Pending. Dai SHARMA BSN
--- NOTE | 2023-11-23 16:09 | PC.SOCIAL ---
Discharge planning- Phone call to pt's daughter, Anna, to discuss Medical Assistance application. Pt's daughter will return to the hospital later today. Printed a copy of the application and left in pt's room with pt and pt's . Pt's daughter will work on the application Face to Face Live and get 3 months of bank statements. Received an e-mail from Debbie Mayo in admissions and [facility] can accept pt for admission to a shared room for . Pt is unable to go to [facility] sooner because she does not have funding to private pay and does not have her medical assistance application completed. [facility] is strongly recommending that pt gets a medical assistance application completed. Phone call to pt's daughter to provide update. Reiterated to pt's daughter the importance of having the medical assistance application completed prior to pt admitting to [facility]. Pt's daughter will plan to transport pt on to [facility] at 11:00 am. Met with pt and provided an update on admission to [facility]. Pt would like to accept bed. Provided update to charge nurse. Social work will continue to follow up as needed.
[2023-11-23] MEDS: LURASIDONE 60 MG PO (18:14)
[2023-11-23] MEDS: TRAZODONE HCL 50 MG TABLET PO (18:14)
[2023-11-23] MEDS: FLUOXETINE HCL 20 MG CAPSULE 40 MG PO (21:01)
[2023-11-23] MEDS: SENNOSIDES/DOCUSATE TABLET 1 TAB PO (21:01)
[2023-11-23] MEDS: OMEPRAZOLE 20 MG CAPSULE DR 40 MG PO (21:02)
[2023-11-23] MEDS: buPROPion XL 150 MG TABLET 300 MG PO (21:03)
[2023-11-24] VITALS (9 sets, daily range): BP systolic 93–125; BP diastolic 65–80; PULSE 78–97; RESP 16–18; TEMP 36.4; O2SAT 91–97
[2023-11-24] MEDS: ACETAMINOPHEN 325 MG TABLET 650 MG PO (02:38)
[2023-11-24] MEDS: LEVOTHYROXINE 88 MCG TABLET PO (06:36)
--- NOTE | 2023-11-24 08:44 | PC.NURSE ---
Pt alert and oriented x3. Afebrile. Pt reports 8/10 pain in back, managed with PRN medication. Pt denies SOB, chest pain, and N/V. Pt is up with A1/SBA with 2 wheeled walker.. Pt slept throughout most of night night uneventful.
[2023-11-24] MEDS: CIPROFLOXACIN 250 MG TABLET PO ×2 (08:54→21:18)
[2023-11-24] MEDS: MULTIVITAMIN/MINERALS 1 TABLET 1 TAB PO (08:55)
[2023-11-24] MEDS: ASPIRIN 81 MG TABLET EC PO (08:55)
[2023-11-24] MEDS: HYDROCODONE-ACETAMIN 5-325 MG 1 TAB PO ×2 (08:55→18:09)
--- NOTE | 2023-11-24 10:52 | PC.SOCIAL ---
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 Faxed copy of application and 1 month of bank statements to [facility] at [phone]. Pt's is aware that [facility] will request 3 months of bank statements and will work on getting 2 more months and will provide them to [facility]. Provided pt's with address, phone number, and fax for [facility]. Original Note: Discharge planning- Completed preadmission screening for pt to admit to [facility] tomorrow. Confirmation #[id number]. Provided a copy of PAS to [facility]. Discharge plan is to admit to [facility] tomorrow with family transporting at 11:00 am. Phone call to pt's daughter to follow up on the Medical Assistance application. Daughter reports that she has the application, however, she has been up sick all night. Pt's daughter will work on the application today. Requested an update before the end of the day. Social work will continue to follow up as needed.
--- NOTE | 2023-11-24 16:40 | P.IMPN_ITS ---
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 + vitamin B12 deficiency, non-adherence to recommendation for vitamin B12 replacement, active hypothyroidism from insufficient levothyroxine supplementation due to non-adherence to recommendations - therapies ordered, social work referral placed; will require higher level of care living upon discharge Status: Acute (2) Adult failure to thrive: Status: Acute (3) Patient's noncompliance with other medical treatment and regimen due to unspecified reason: Status: Acute (4) Hypothyroidism (acquired): Problem details: - acknowledges missing doses of her medication routinely - TSH 8.69 on 11/19/2023 - despite patient acknowledging missing her doses periodically, I will increase levothyroxine dose from 75 mcg daily to 88 mcg once daily Status: Acute (5) Vitamin B12 deficiency: Problem details: - Diagnosed by her neurologist, Dr. 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 Villanueva at [facility] in [place] Status: Acute (8) UTI (urinary tract infection): Problem details: - Citrobacter, Keflex initiated 11/20, transitioned to Cipro on 11/21 given sens itivities Status: Acute Subjective Date Seen: 11/24/23 Interval history: Daily Progress Note - Hospital Medicine Day #: 6 CC: FTT, cerebellar degeneration, electrolyte disturbance, poor compliance with medications OVERNIGHT UPDATES FROM STAFF & MED, LAB, IMAGING UPDATES -stable night. no new concerns. improved since admission. awaiting rehab stay. No new labs since November 19 Urine culture reviewed Objective: confused at a baseline. MOCA 14 at admission. Vitals: see above Lungs: Clear. Cardiac: S1S2. Disposition/Potential discharge - MA application incomplete; awaiting SNF placement Exam Const: Vital Signs, click to edit/add: Vital Signs - 24 hr 11/23/23 21:00 11/23/23 23:00 11/23/23 23:00 Temperature 98 F Pulse Rate [Right Radial] 84 Respiratory Rate 18 18 18 Blood Pressure [Le ft Arm] 101/71 Blood Pressure [Ri ght Arm] Pulse Oximetry 94 96 Oxygen Delivery Me thod Room Air Room Air 11/23/23 23:30 11/24/23 02:36 11/24/23 06:00 Temperature Pulse Rate [Right Radial] 82 Respiratory Rate 18 18 16 Blood Pressure [Le ft Arm] Blood Pressure [Ri ght Arm] 93/65 Pulse Oximetry 96 Oxygen Delivery Me thod Room Air 11/24/23 07:00 11/24/23 07:00 11/24/23 08:49 Temperature 97.6 F Pulse Rate [Right Radial] 97 91 Respiratory Rate 18 16 18 Blood Pressure [Le ft Arm] 103/70 Blood Pressure [Ri ght Arm] Pulse Oximetry 91 96 Oxygen Delivery Me thod Room Air Room Air 11/24/23 12:32 11/24/23 15:00 Temperature Pulse Rate [Right Radial] 97 Respiratory Rate 16 18 Blood Pressure [Le ft Arm] Blood Pressure [Ri ght Arm] 125/80 Pulse Oximetry 96 97 Oxygen Delivery Me thod Room Air Room Air
[2023-11-24] MEDS: LURASIDONE 60 MG PO (18:05)
[2023-11-24] MEDS: TRAZODONE HCL 50 MG TABLET PO (18:05)
--- NOTE | 2023-11-24 18:20 | PC.NURSE ---
End of shift-- Very pleasant and cooperative patient. Alert and oriented to person and place only. Baseline tremulous hands. She c/o chronic back pain which she rated from 6-8 out of 10 that appears fairly well managed with [place] BID. Pt was given an ice pack this morning as well and stated improvement. LS CTA. BS+ x4, pt denied nausea and tolerated a regular diet without difficulty. She did decline to order lunch today, but is currently working on a large dinner independently. She was up to the chair and BR with assist of 1 and walker and tolerated it well. She was incontinent of urine x2 today. was at bedside this evening and appears loving and supportive.
[2023-11-24] MEDS: FLUOXETINE HCL 20 MG CAPSULE 40 MG PO (21:18)
[2023-11-24] MEDS: OMEPRAZOLE 20 MG CAPSULE DR 40 MG PO (21:18)
[2023-11-24] MEDS: buPROPion XL 150 MG TABLET 300 MG PO (21:19)
[2023-11-25 06:00] VITALS: RESP 16
[2023-11-25] MEDS: LEVOTHYROXINE 88 MCG TABLET PO (06:44)
--- NOTE | 2023-11-25 06:49 | PC.NURSE ---
Shift note: Pt has in bed throughout the shift. Turn and reposition Q2H. No pain reported. Takes pill whole with water. Restful night night sleep followed.
[2023-11-25 07:00] VITALS: RESP 18; O2SAT 96
[2023-11-25 07:40] VITALS: BP 105/67; PULSE 83; RESP 18; TEMP 37.1; O2SAT 96
[2023-11-25] MEDS: ASPIRIN 81 MG TABLET EC PO (08:46)
[2023-11-25] MEDS: CIPROFLOXACIN 250 MG TABLET PO (08:46)
[2023-11-25] MEDS: MULTIVITAMIN/MINERALS 1 TABLET 1 TAB PO (08:46)
[2023-11-25] MEDS: HYDROCODONE-ACETAMIN 5-325 MG 1 TAB PO (08:47)
[2023-11-25 11:09] VITALS: BP 105/67; PULSE 83; RESP 18; TEMP 37.1
--- NOTE | 2023-11-25 11:17 | PC.NURSE ---
shift note: nurse to nurse given to Stephanie @ [facility] via phone. Reviewed dc instructions and copies for SNF given to pt's s/o. No IV at dc. Belongings reviewed and sent with pt at dc
--- NOTE | 2023-11-25 16:39 | P.DS_ITS ---
DS: Providers Provider Date Seen: 11/25/23 Date of admission: 11/22/23 10:51 Primary care physician: Karla Rivera MD Admitting Clinician: Víctor Gresham MD Consults: 11/19/23 14:22 Consult to Accountant Tax [CONS] Urgent Comment: Reason for Consult:: Social Service Consult 11/19/23 17:29 Consult to Physical Therapy [CONS] Routine Comment: Reason(s) for PT Consult:: Evaluate and Treat Any Restrictions?:: No Restrictions Consult to Accountant Tax [CONS] Routine Comment: Reason for Consult:: Discharge Planning Needs 11/19/23 17:34 Consult to Occupational Therapy [CONS] Routine Comment: Reason(s) for OT Consult:: Evaluate and Treat Any Restrictions?:: No Restrictions Attending Physician on discharge: Víctor Gresham MD Date of Discharge: 11/25/23 DS: Diagnosis Discharge Diagnosis (1) Alcoholic cerebellar degeneration syndrome: Status: Acute Problem details: - Diagnosed November 2017 - sober for a few years now - this neuro degenerative process is continuing to evolve and progress. She is a fall risk and needs 08/03 support. (2) Generalized weakness: Status: Acute Problem details: - gradual, progressive - suspect multifactorial from long-term disuse muscle atrophy from cerebellar degeneration + vitamin B12 deficiency, non-adherence to recommendation for vitamin B12 replacement, active hypothyroidism from insufficient levothyroxine supplementation due to non-adherence to recommendations - therapies ordered, social work referral placed; will require higher level of care living upon discharge (3) Adult failure to thrive: Status: Acute Problem details: As above (4) UTI (urinary tract infection): Status: Acute Problem details: - Citrobacter, Keflex initiated 11/20, transitioned to Cipro on 11/21 given sensitivities (5) CKD (chronic kidney disease), stage II: Status: Acute Problem details: baseline Cr is about 0.9 (6) Bipolar 2 disorder: Status: Acute Problem details: - follows with Dr. Villanueva at [facility] in [place] (7) Patient's noncompliance with other medical treatment and regimen due to unspecified reason: Status: Acute (8) Hypothyroidism (acquired): Status: Acute Problem details: - acknowledges missing doses of her medication routinely - TSH 8.69 on 11/19/2023 - despite patient acknowledging missing her doses periodically, I will increase levothyroxine dose from 75 mcg daily to 88 mcg once daily (9) Chronic hyponatremia: Status: Acute Problem details: 133 on discharge (10) Cognitive impairment: Status: Acute Problem details: - 28/30 on MMSE on 10/20/2023 DS: Summary Hospital Course Hospital Course: FINAL DIAGNOSIS/FOLLOW UP ISSUES: Progressive alcoholic cerebellar degeneration syndrome: We are recommending 24/ care. Poor adherence to outpatient medication regimen, B12 and thyroid mostly affected. Bipolar II meds, etc. UTI - treatment complete with cipro at discharge BRIEF HOSPITAL COURSE: Patient was admitted for 7 days. Synopsis of acute inpatient issues are outlined above. Chronic medical conditions with notable findings outlined above. Essentially we straightened out meds, treated a UTI, started acute rehab and arranged for continued SNF level care at discharge. DISCHARGE MEDICATIONS: See Reconciled list - SIGNIFICANT CHANGES: Synthroid at an increased dose, 88mcg, at least until her TSH normalizes (TSH >8) cipro x 6 doses Specific instructions to the patient and follow-up are outlined below. REVIEW OF SYSTEMS No new chest pain or dyspnea Pain controlled No voiding difficulties Tolerating diet challenge PHYSICAL EXAM: CONSTITUTIONAL: happy, cooperative. VITAL SIGNS: see record. HEENT: Normocephalic, atraumatic. PERRL, EOMI, conjunctivae pink, no scleral icterus. Ears and nose externally normal. Pharynx normal. NECK: No JVD. No carotid bruit, no thyromegaly, no adenopathy. CHEST: Clear to auscultation bilaterally. HEART: S1 and S2 normal. Edema ABDOMEN: Soft, nontender. Normal bowel sounds. MUSCULOSKELETAL: No gross joint deformity or swelling. NEURO: Cranial nerves intact. Grossly intact. No asymmetric findings. SKIN: No rashes, petechiae, concerning changes PSYCHIATRIC: Mood euthymic. DISPOSITION: SNF Time spent on discharge 37 minutes. Status at Discharge Functional status at discharge: uses cane/walker Overall status at discharge: patient is progressing back to baseline Time Spent with Patient Time attestation: Total time spent providing and/or coordinating discharge services: Exam Const: Vital Signs, click to edit/add: Vital Signs - 24 hr 11/24/23 21:00 11/24/23 23:00 11/24/23 23:30 Temperature 97.6 F Pulse Rate Pulse Rate [Right Radial] 78 Respiratory Rate 17 16 16 Blood Pressure Blood Pressure [Le ft Arm] 99/70 Blood Pressure [Ri ght Arm] Pulse Oximetry 93 93 Oxygen Delivery Me thod Room Air Room Air 11/25/23 06:00 11/25/23 07:00 11/25/23 07:40 Temperature 98.8 F Pulse Rate Pulse Rate [Right Radial] 83 Respiratory Rate 16 18 18 Blood Pressure Blood Pressure [Le ft Arm] Blood Pressure [Ri ght Arm] 105/67 Pulse Oximetry 96 96 Oxygen Delivery Me thod Room Air Room Air 11/25/23 11:09 Temperature 98.8 F Pulse Rate 83 Pulse Rate [Right Radial] Respiratory Rate 18 Blood Pressure 105/67 Blood Pressure [Le ft Arm] Blood Pressure [Ri ght Arm] Pulse Oximetry Oxygen Delivery Me thod Discharge Plan Discharge Disposition: er [facility] Date of Admission: 11/22/23 10:51 Attending Provider on Discharge: Renetta Dale Primary Care Provider: Karla Rivera Condition: Unchanged Discharge Medications: New acetaminophen 325 mg Tablet 650 mg PO Q6H PRNQty: 90 0RF hydrocodone-acetaminophen 5-325 mg Tablet 1 tab PO HS PRNQty: 30 0RF ciprofloxacin HCl 250 mg Tablet 250 mg PO BID Qty: 6 0RF levothyroxine [Synthroid] 88 mcg Tablet 88 mcg PO DAILY@0700 Qty: 30 0RF Continued multivitamin [Multiple Vitamins] Tablet 1 tab PO DAILY calcium carbonate-vitamin D3 [Calcium 500 + D] 500 mg-10 mcg (400 unit) tablet 1 tab PO DAILY cholecalciferol (vitamin D3) 50 mcg (2,000 unit) capsule 5,000 mcg PO DAILY aspirin 81 mg Tablet,Delayed Release (Dr/Ec) 81 mg PO DAILY Qty: 30 0RF fluoxetine 40 mg capsule 40 mg PO DAILY bupropion HCl 300 mg tablet extended release 24 hr 300 mg PO DAILY lurasidone 60 mg tablet 60 mg PO QPM omeprazole 40 mg capsule,delayed release(DR/EC) 40 mg PO DAILY trazodone 100 mg tablet 50 mg PO HS Discontinued levothyroxine 75 mcg tablet 75 mcg PO DAILY hydrocodone-acetaminophen 10-325 mg tablet 1 tab PO DAILY Rx Instructions: DAILY PLUS BID PRN Discharge Orders: Discharge Order (Routine); Ordered 11/25/23 Ordered By: Renetta L Dale Additional Instructions: 1. Finish antibiotic for UTI, 3 more days 2. Check TSH in 2-3 weeks and adjust dose of synthroid as needed. Activity Level: No Restrictions Discharge Diet: Regular Follow Up Appointments: Karla Rivera MD [Primary Care Provider] - [facility] Inst[facility] Admit to: SNF Discharge Potential: Poor Length of Stay: 30-90 days Can use facility standing orders?: Yes Code Status: DNR/DNI Rehab Potential: Fair Therapy: Physical Therapy and Occupational Therapy Oxygen: No Urinary Catheter: No Orders are good >30 days: Yes
--- NOTE | 2023-11-25 19:05 | PC.NURSE ---
Patient's home medication Lurasidone was in med bin, patient contacted. Will come curing pickling packer tomorrow 11/25, given to ER desk for patient pickup.
== END 2023-11-25 10:45 | DRG 57 ==
LOC: ED 17:06 → MEDSURG 17:08
PROVIDERS: Admitting Provider Internal Medicine; Emergency Provider Emergency Medicine Emergency Medical Services; PCP Family Medicine; Visit Provider Internal Medicine
DX: G31.2 Degeneration of nervous system due to alcohol (principal); N39.0 Urinary tract infection, site not specified; E87.1 Hypo-osmolality and hyponatremia; F31.81 Bipolar II disorder; Z16.19 Resistance to other specified beta lactam antibiotics; B96.89 Other specified bacterial agents as the cause of diseases classified elsewhere; M62.50 Muscle wasting and atrophy, not elsewhere classified, unspecified site; F10.21 Alcohol dependence, in remission; E53.8 Deficiency of other specified B group vitamins; Z91.148 Patient's other noncompliance with medication regimen for other reason; R53.1 Weakness; E03.9 Hypothyroidism, unspecified; R62.7 Adult failure to thrive; Z68.21 Body mass index [BMI] 21.0-21.9, adult; N18.2 Chronic kidney disease, stage 2 (mild); F17.210 Nicotine dependence, cigarettes, uncomplicated; G25.2 Other specified forms of tremor
CPT/HCPCS: 36415; 80048; 81001; 84295; 84443; 85018; 85025; 87086; 87186; 97110; 97112; 97116; 97161; 97165; 97530; 97535; 99284; 99285; A9153; A9270; G0378

== ENCOUNTER 2024-10-08 09:35 | Outpatient (CLI) | payer MEDICARE, OTHER, BC, SELFPAY | END 2024-10-08 09:36 | disposition home or self-care (01) | LOC: AMB 10-09 15:47 | PROVIDERS: PCP Family Medicine; Visit Provider Student in an Organized Health Care Education/Training Program | DX: R11.2 Nausea with vomiting, unspecified (principal); R41.0 Disorientation, unspecified | CPT/HCPCS: A0425; A0427 ==

== ENCOUNTER 2024-10-08 10:02 | Inpatient (IN) | payer MEDICARE, BC, SELFPAY ==
[2024-10-08] VITALS (24 sets, daily range): BP systolic 100–128; BP diastolic 71–82; PULSE 89–126; RESP 15–27; TEMP 36.3–37.3; O2SAT 89–96; BMI 22.3; BMI 20.5
--- OUTSIDE RECORDS SUMMARY | 2024-10-08 10:04 | XMS_ITS | Clinical Summary ---
Author Organization [employer] [facility] [employer] [facility] Address [address] [place] [id number] Care Team Providers Care Supervising Appraiser Name Role Phone Rosa Elena Villanueva MD Unavailable Agusto Hernandez MD Primary Care Provider [phone] Allergies Active Allergy Reactions Criticality Noted Date Comments Ampicillin Rash 07/29/2011 Medications multivitamin (MVI) tablet Take 1 tablet by [...] if needed for Constipation. 0 019 Active omeprazole (PRILOSEC) 40 mg Delayed-Release capsuleIndications:Naus ea TAKE ONE CAPSULE BY MOUTH ONCE DAILY 90 Capsule 2 024 Active pravastatin (PRAVACHOL) 40 mg tabletIndications:Pure hypercholesterolemia TAKE ONE TABLET BY MOUTH AT BEDTIME 100 Tablet 2 024 Active aspirin (ECOTRIN) 81 mg enteric coated tabletIndications:Pure hypercholesterolemia TAKE ONE TABLET BY MOUTH EVERY DAY WITH A MEAL 90 Tablet 3 024 Active nicotine (Nicorette) 2 mg gum Chew 2 mg every hour while awake as needed for Nicotine Craving. Active levothyroxine (SYNTHROID) 88 mcg tabletIndications:Grave s' disease Take 1 Tablet (88 mcg) by mouth once daily. Active primidone (Mysoline) 50 mg tablet Take 50 mg by mouth two times daily. for tremor Active cyanocobalamin, vitamin B-12, (VITAMIN B12 ORAL) Take 1,000 mcg by mouth once daily. for vitamin B12 deficiancy Active buPROPion (WELLBUTRIN XL) 300 mg Extended-Release tabletIndications:Tobac co use disorder Take 1 Tablet (300 mg) by mouth once daily in the morning. 30 Tablet 5 Active cariprazine (Vraylar) 3 mg capsuleIndications:Bipo lar 2 disorder (HC) Take 1 Capsule (3 mg) by mouth once daily. 30 Capsule Active FLUoxetine (PROZAC) 40 mg capsuleIndications:Bipo lar 2 disorder (HC) Take 1 Capsule (40 mg) by mouth once daily in the morning. 30 Capsule Active acetaminophen (TYLENOL) 500 mg capsule Take 1,000 mg by mouth every 6 hours if needed. ATake 2 tablets by mouth twice daily as needed. Max acetaminophen dose: 4000mg in 24 hrs. Active acetaminophen (TYLENOL) 500 mg capsule Take 1,000 mg by mouth once daily. Max acetaminophen dose: 4000mg in 24 hrs. Active sennosides (Senna) 8.6 mg tablet Take 17.2 mg by mouth two times daily. Active polyethylene glycol pediatric (MIRALAX) 17g pack Mix 17 g in liquid then take by mouth once daily. Active diclofenac topical (VOLTAREN) 1 % gelIndications:Chronic bilateral low back pain with bilateral sciatica 2g topically to low back 2 times a day for pain relief. Stop if skin irritation. 100 g 5 024 Active gabapentin (NEURONTIN) 100 mg capsuleIndications:Anxi ety Take 1 Capsule (100 mg) by mouth three times daily. 270 Capsule 1 Active traZODone (DESYREL) 50 mg tabletIndications:Bipol ar 2 disorder (HC) Take 1 Tablet (50 mg) by mouth at bedtime. 90 Tablet 024 Active Active Problems Problem Noted Date Diagnosed Date Bipolar 2 disorder 08/31/2023 Severe back pain 08/31/2023 Chronic narcotic dependence 09/21/2022 Encounter for screening for lung cancer 04/11/20 Overview (04/11/2020): Mar 2020: Low-dose chest CT screening for lung cancer. IMPRESSION: 1. Negative for lung cancer screening purposes. 2. Stable changes of probable UIP since 12/29/2017. LungRADS CATEGORY: 1: Negative. RADIOLOGIST RECOMMENDATION: Continue annual screening with low-dose CT chest in 12 months . Tremor 10/10/2019 Overview (03/21/2024): Improved on propranolol, but this caused a lot of side effects, so she stopped it. Not treating tremor currently. Offered Neurology referral and patient declined. Summer 2023: tremor improved with neurologist starting Mysoline. Moderate episode of recurrent major depressive d isorder 11/08/2018 Tachycardia 01/18/2013 Overview (10/10/2019): Treated with propranolol, but this caused a lot of side effects. Currently off medication. Hyperplastic colon polyp 01/11/2013 Overview (01/11/2013): Colonoscopy 12/2012 polyp repeat in 10 years Pure hypercholesterolemia 10/02/2011 Overview (10/17/2023): October 15, 2023: holding pravastatin for 2 months to see if any difference in muscle pain. Of note, CK was normal 100 while on pravastatin. Pain medication agreement 09/04/2011 Overview (07/08/2015): Date Signed: 01/24/2014 Physician: Karla Rivera MD Medication: Bostic 10/325 Quantity per month: #60 Pharmacy: [facility] Last Toxasure: 03/2015 Senile osteoporosis 07/29/2011 Overview (10/13/2021): Started Fosamax 10/2021. Unspecified hypothyroidism 08/16/1998 Grave's disease Arthritis Resolved Problems Problem Noted Date Diagnosed Date Resolved Date Closed fracture of orbital w all, initial encounter 09/21/2022 07/27/2023 Nausea 11/02/2017 10/10/2019 Overview (10/10/2019): EGD 10/2017 Reactive gastropathy, recommend gastric emptying study, which showed slow gastric emptying. A special diet was recommended. Symptoms have improved with diet and after stopping propranolol Pre-diabetes 01/18/2013 10/10/2019 Pre-diabetes 09/04/2011 07/18/2013 BIPOLAR AFFECT DISORD, DEPRESSED, SEVERE 09/22/2001 11/11/2018 Heartburn 09/22/2001 07/29/2011 LACRIMAL INSUFFICIENCY-PER HISTORY 08/31/2000 07/29/2011 PAIN IN JOINT, SHOULDER 08/04/200007/16 Encounters Date Type Department Care Team Description 07/17/[address] [facility] [address] [place] [address] Rosa Elena Villanueva MD Refill Request (Trazodone) from Last 3 Months Immunizations Name Administration Dates Next Due COVID-19 vaccine (Moderna 100mcg/0.5mL) PF MDV 09/16/2021,08/19/2021 Influenza, High-dose Inactivated 06/09/2024 Influenza, Inactivated AIIV4 (Age 65+ Years) Preserv Free 05/19/2023,09/23/2022,06/16/2021,06/20 Influenza, Inactivated IIV3 (Age 65+ Years) Preserv Free 06/19/2019,06/07/2018,06/16/2017 Pneumococcal Poly,23-Valent (Pneumovax) 08/04/2018 Pneumococcal conj 13-Valent (Prevnar 13) 12/10/2016 RSV, Bivalent Vaccine Recons tituted (Abrysvo 120MCG/0.5mL) 06/09/2024 Td (Age >=7 Years) 01/04/1996 Tdap 08/07/2018,07/26/2008 [...] Date Smoking Tobacco: Every Day Cigarettes 0.3 48.1 Started: 08/16/1976 Smokeless Tobacco: Never Tobacco Cessation:Ready to Q uit: No; Counseling Given: Yes Comments:Currently smokes 4-5 cig daily Alcohol Use Standard Drinks/Week Comments No 0 (1 standard drink = 0.6 oz pur e alcohol) Sober since 2002 PHQ-2 Answer Date Recorded PHQ-2 TOTAL SCORE 3 05/10/2024 Social Connections Answer Date Recorded Do you often feel lonely or isolated from those around you? 4 08/31/2023 Financial Resource Strain Answer Date R ecorded Difficulty of Paying Living Expenses 3 08/31/2023 Difficulty of Paying Living Expenses Not on file 08/31/2023 Food Insecurity Answer Date Recorded Do you worry your food will run out before you are able to buy more? 1 08/31/2023 Transportation Needs Answer Date Record ed Does lack of transportation keep you from medica l appointments? 1 08/31/2023 Does lack of transportation keep you from work, meetings or getting things that you need? 1 08/31/2023 Housing Stability Answer Date Recorded What is your housing situation today? 1 08/31/2023 Utilities Answer Date Recorded Do you have trouble paying f or utilities (for example, heat, electricity, water, phone)? 1 08/31/2023 Comments No Sex and Gender Information Value Date Recorded Sex Assigned at Not on file Legal Sex Female 5:26 AM [employer] Gender Identity Not on file Sexual Orientation Not on file Occupation Industry Job Start Date Job End Date Retired Not on file Not on file Not on file Obstetrics History Para Term AB IAB SAB Ectopic Multiple Livin g Live Births 4 3 1 3 Date Outcome GA Total Labor Labor//3rd Weight Sex Type Anes PTL Karey A1 A5 Name Clin 1975 AB 10/04 Para F C-Sec tion Sera 02/13 Para M C-Sec tion Rk 01/10 Para F C-Sec tion Naila Last Filed Vital Signs Vital Sign Reading Time Taken Comments Blood Pressure 112/71 06/15/2024 11:17 AM CDT Pulse 86 06/15/2024 11:17 AM CDT Temperature 36.7 C (98 F) 12/27/2021 11:55 AM CDT Respiratory Rate 20 08/31/2023 10:44 AM [employer] Oxygen Saturation 98% 06/15/2024 11:17 AM CDT Inhaled Oxygen Concentration - - Weight 61.2 kg (135 lb) 06/15/2024 11:17 AM CDT Height 166.4 cm (5' 5.5) 10/15/2023 10:55 AM CS T Body Mass Index 22.12 10/15/2023 10:55 AM [employer] Plan of Treatment Upcoming Encounters Date Type Department Care Team (Late st Contact Info) Description 11/01/2024 9:[address] [facility] [address] [place] [address] Rosa Elena Villanueva MD [address] [place] [address] Health Maintenance Due Date Last Done Comments Low Dose CT (for lung CA) ag e 50-80 05/13/2022 05/13/2021, 04/10/2020, 09/23/2017 Mammogram for age 45-75 01/13/2024 01/13/20 23, 01/09/2022, 10/15/2020, Additional history exists BMI (ht and wt on same day) for age 18+ 10/14/2024 10/15/2023, 07/14/2023, 01/13/2023, Additional history exists Medicare Wellness for age 65+ 10/15/2024, 09/23/2022, 10/13/2021, Additional history exists Depression screening for age 12+ 05/10/2025 05/10/2024, 05/10/2024, 01/27/2024, Additional history exists Tetanus booster 08/07/2028 08/07/2018, 07/16, 07/26/2008, Additional history exists Lipids for age 45-75 10/14/2028 10/15/2023, 09/23/2022, 10/13/2021, Additional history exists Colonoscopy through age 75 01/18/2033 01/18/2023, Hepatitis C screening for ag e 18-79 Completed 01/24/2014 Pneumococcal series for age 50+ Completed 8, 12/10/2016 Tdap Completed 08/07/2018, 07/26/2008 Zoster (shingles) series for age 50+ Completed 10/30/2019, 07/20/2019, 01/26/2012 DEXA/DXA scan for age 65+ Completed 2022, 10/20/2019, 12/24/2016, Additional history exists COVID-19 vaccine series Completed 06/09/20 24, 09/16/2021, 08/19/2021 Influenza for age 65+ Completed 06/09/2024 , 05/19/2023, 09/23/2022, Additional history exists RSV vaccine for adults or Completed 06/09/2024 Procedures Procedure Name Priority Date/Time Associated Diagnosis Comments LIPID PANEL W REFLEX MEASURED LDL Routine 10/15/2023 12:34 PM [employer] Pure hypercholesterolemia COLONOSCOPY SCREENING Routine 01/18/2023 7:59 [...] W REFLEX MEASURED LDL (10/15/2023 12:34 PM [employer]) CHOLESTEROL,TOTAL 212(H) 100 - 199 mg/dL 10/15/2023 10:16 PM [facility] Comment: Cholesterol, Total Reference Ranges Desirable <200 mg/dL Borderline 200-239 mg/dL High >=240 mg/dL TRIGLYCERIDES 136 <150 mg/dL 10/15/2023 10:16 PM [facility] HDL CHOLESTEROL 45 >40 mg/dL 10:16 PM [facility] NON-HDL CHOLESTEROL 167(H) <145 mg/dl 10/15/2023 10:16 PM [facility] CHOL/HDL RATIO 4.71(H) <4.50 10/15/2023 10:16 PM [facility] LDL CHOLESTEROL 140(H) <=130 mg/dL 10/15/2023 10:16 PM [facility] VLDL CHOLESTEROL 27 <=30 mg/dL 10/15/2023 10:16 PM [facility] PROVIDER ORDERED STATUS FASTING 10/15/2023 10:16 PM [facility] Blood BLOOD SPECIMEN / Unknown Venipuncture / Unknown 10/15/2023 12:34 PM [employer] 10/15/2023 12:34 PM [facility] us Agusto Hernandez MD CHEMISTRY Final Res ult [facility] [address] [place] [address], * (ABNORMAL) XR DXA BONE DENSITY 2 [...] exercise. Continue current Alendronate (Fosamax) medication treatment. Consider a drug holiday or alternative medication if on Fosamax for greater than 5 years. Jacinta Bland PA-C [facility] 01/15/2023 Narrative 01/15/2023 4:50 PM CDT For Patients: Results are automatically released to your [facility] (el[facility] account once available, in compliance with federal regulations. This means that you may see your results before your provider has had a chance to review them. Please allow 2-3 business days for your provider to comment on the results. XR DXA Bone Mineral Density (BMD) EXAM LOCATION: [facility] [address] [facility] [address] PATIENT NAME: Chrissy Box DATE OF : 1950 EXAM DATE: 01/12/2023 REQUESTING PROVIDER: Karla Rivera MD GENDER AT : female HEIGHT: 5' 6.54 (09/23/2022) WEIGHT: 130 lb 4.8 oz (01/04/2023) MENOPAUSAL STATUS: Postmenopausal [...] two scanners are made by the same lifeguard. PROCEDURE: Dual-energy x-ray absorptiometry performed with routine [...] - 0.8 Change from prior in 2017: Increase 0.2%. RESULTS FEMUR Left femoral neck BMD: 0.666 g/cm2 T-Score: - 2.7 Z-Score: - 0.8 Change from prior in 2017: Decrease 11.4%. Left hip BMD: 0.688 g/cm2 T-Score: - 2.5 Z-Score: - 0.9 Change from prior in 2017: Decrease 9.5%. WHO criteria: Normal: T-score at or above -1 SD Osteopenia: T-score between -1.1 and -2.4 SD Osteoporosis: T-score at or below -2.5 SD Karla Rivera MD DEXA Final R esult * XR MAMMO BILAT SCREEN IMPLANT (01/12/2023 10:53 AM CDT) Anatomical Region Laterality Modality BREASTS, Breast Left, Breast Right Bilateral Mammography Impressions 01/12/2023 2:10 PM CDT There is no radiographic evidence for malignancy. Recommend annual mammograms. MAMMOGRAM ASSESSMENT: ACR 2 Benign PATIENTS: You will also receive a letter with your examination results in an easy to read format. If you have questions about your results, please contact your referring provider. Narrative 01/12/2023 2:10 PM CDT For Patients: As a result of the Century Cures Act, medical imaging exams and procedure reports are released immediately into your electronic medical record. You may view this report before your referring provider. If you have questions, please contact your health care provider. XR MAMMO BILAT SCREEN IMPLANT [[id number]] CLINICAL HISTORY: This is an asymptomatic 72 y.o. patient. INDICATION FOR EXAM: Mammogram Screening. TECHNIQUE: CC & MLO views were obtained. Implant displacement views were obtained. This study was evaluated with the assistance of Computer-Aided Detection. COMPARISON FILMS: Yes 01/09/22 [facility] 10/15/20 [facility] FINDINGS: The breasts are heterogeneously dense, which may obscure small masses. No suspicious masses or microcalcifications. There are breast implant(s) present.. Karla Rivera MD MAMMO Final R esult * CT CHEST SCREENING LOW DOSE WO CONTRAST (05/13/2021 10:35 AM CDT) Anatomical Region Laterality Modality Other 05/13/2021 10:2 7 AM CDT Narrative 05/13/2021 2:19 PM CDT EXAM DATE: 05/13/2021 EXAM: LOW DOSE LUNG CANCER SCREENING CT CHEST LOCATION: [facility] DATE/TIME: 05/13/2021 10:30 AM INDICATION: Lung [...] deformities at L1 and L2. IMPRESSION: 1. Negative for lung cancer screening purposes. LungRADS CATEGORY: [...] with low-dose CT chest in 12 months. us Ernest[address]azia [address]STILLO CT Final Res ult * ANTI HCV (01/24/2014 9:57 AM CDT) HEPATITIS C ANTIBODY Non-Reacti ve Non-Reacti ve 01/24/2014 5:23 PM CDT [facility] Blood specimen (specimen) BLOOD SPECIMEN / Unknown Venipuncture / Unknown 01/24/2014 9:57 AM CDT 01/24/2014 9:57 AM CDT Narrative [facility] - 01/24/2014 5:23 PM CDT Antibodies to HCV not detected; does not exclude the possibility of exposure to HCV. Karla Rivera MD SEND OUTS Final R esult [facility] [address] [place] [address], [place] from Last 3 Months or Most Recently Relevant to Health Maintenance Insurance MEDICARE PART B HB ONLY [employer] BLUE HB ONLY MEDICARE PART B HB ONLY [employer] BLUE MR PB ONLY Advance Directives Documents on File Type Date Recorded Patient [employer] anation POLST 09/23/2022 Care Teams Supervising Appraiser Relationship Specialty Start Date End Date Agusto Hernandez MD [address] [facility] [address] PCP - General Family Practice 01/26/24 Rosa Elena Villanueva MD [address] [facility] [place] [address] Psychiatry Psychiatry 10/14/23
--- NOTE | 2024-10-08 10:25 | CRLHL7_ITS ---
For Patients: As a result of the Century Cures Act, medical imaging exams and procedure reports are released immediately into your electronic medical record. You may view this report before your referring provider. If you have questions, please contact your health care provider. INDICATION: Nausea vomiting TECHNIQUE: CT abdomen and pelvis 95 mL Isovue contrast. COMPARISON: None. FINDINGS: Lower chest: Small effusions bilaterally. There is basilar nodular centrilobular opacities in basilar atelectasis/consolidation. Findings probably infectious/inflammatory. Liver: Small cysts in the liver. Gallbladder and bile ducts: No stones or inflammation. No biliary dilatation. Pancreas: Unremarkable. No mass or inflammation. Spleen: Normal in size. No masses. Adrenal glands: Normal in size. No nodules. Kidneys: Left renal cyst additional too small to characterize low-attenuation lesions in both kidneys. GI tract: The rectum is significantly distended with stool the proximal sigmoid colon is not distended however there may be some wall thickening which may represent mild colitis Vasculature: Abdominal aorta is normal in caliber. Lymph nodes: No lymphadenopathy. Peritoneum/Abdominal Wall: Unremarkable. No sign of mass or infiltration. No free air or significant free fluid. Pelvis: Unremarkable. No pelvic masses. Bones: Right hip arthroplasty causing streak artifact. No suspicious bony lesions. IMPRESSION: 1. Rectum is markedly distended with stool this could be related to fecal impaction. The sigmoid colon is not distended however there may be some wall thickening which may represent very mild colitis. 2. Basilar trace effusions and bibasilar nodular opacities with atelectasis/consolidation. Finding likely reflecting infectious inflammatory process. Please note that all CT scans at this facility use dose modulation, iterative reconstruction, and/or weight-based dosing when appropriate to reduce radiation dose to as low as reasonably achievable. Dictated by Thuy Jin MD @ 10/08/2024 11:40:58 AM (Electronically Signed)
--- NOTE | 2024-10-08 10:26 | CRLHL7_ITS ---
For Patients: As a result of the Cures Act, medical imaging exams and procedure reports are released immediately into your electronic medical record. You may view this report before your referring provider. If you have questions, please contact your health care provider. INDICATION: Hypoxia tachycardia TECHNIQUE: CT chest with 95 mL Isovue 370 contrast. COMPARISON: None. FINDINGS: Lungs and pleura: Bilateral diffuse centrilobular nodular opacities basilar atelectasis findings likely infectious/inflammatory findings could represent bronchopneumonia possible trace effusions. Heart and vasculature: Heart size is normal. Thoracic aorta and pulmonary artery are normal in caliber. No pulmonary emboli. Lymph nodes/mediastinum: No mediastinal, hilar, or axillary adenopathy. Chest wall: No masses. Bilateral breast implants. Bones: Unremarkable for age. IMPRESSION: 1. No pulmonary emboli. 2. Bilateral diffuse centrilobular nodular opacities likely infectious/inflammatory could represent bronchopneumonia. Please note that all CT scans at this facility use dose modulation, iterative reconstruction, and/or weight-based dosing when appropriate to reduce radiation dose to as low as reasonably achievable. Dictated by Thuy Jin MD @ 10/08/2024 11:47:45 AM (Electronically Signed)
[2024-10-08 10:37] LABS: Creatinine, Point-of-Care* 0.8 mg/dl (0.6-1.3)
[2024-10-08 10:37] LABS: Hematocrit 38.6 % (33.0-51.0); Hemoglobin* 12.8 gm/dL (12.0-16.0); Immature Granulocytes Abs Auto 0.02 K/uL (0.00-0.30); Immature Granulocytes Pct Auto 0.3 %; Mean Corpuscular HGB Conc 33 gm/dL (32-36); Mean Corpuscular Hemoglobin 32 pg (26-34); Mean Corpuscular Volume 95 fL (80-100); Monocytes Percent Auto 6.8 % (0.0-11.0); Neutrophils Percent Auto 87.9 % (42.0-72.0); Platelet Count* 379 K/uL (140-440); RDW Coefficient of Variation % 12.3 % (11.5-15.5); Red Blood Count 4.05 m/uL (4.00-5.20); White Blood Count* 6.05 K/uL (4.50-11.00)
--- OUTSIDE RECORDS SUMMARY | 2024-10-08 10:38 | XMS_ITS | Clinical Summary ---
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/29/2011 Overview [...] Type Department Care Team Description 07/17/2024 Refill [facility] [address] [place] [address] Rosa Elena Villanueva MD Refill Request (Trazodone) [...] on file Legal Sex Female 5:26 AM [employer] Gender Identity Not on file Sexual Orientation [...] CDT Respiratory Rate 20 08/31/2023 10:44 AM [employer] 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 Oxygen Saturation 98% 06/15/2024 11:17 AM CDT Inhaled Oxygen Concentration - - Weight 61.2 kg (135 lb) 06/15/2024 11:17 AM CDT Height 166.4 cm (5' 5.5) 10/15/2023 10:55 AM CS T Body Mass Index 22.12 10/15/2023 10:55 AM [employer] PROFESSOR Plan of Treatment Upcoming Encounters Date Type Department Care Team (Late st Contact Info) Description 11/01/2024 9:45 AM CDT Telemedicine [facility] [address] [place] [place] [address] Rosa Elena Villanueva MD [address] [place] [address] Health Maintenance Due Date Last Done Comments [...] REFLEX MEASURED LDL Routine 10/15/2023 12:34 PM [employer] Pure hypercholesterolemia COLONOSCOPY SCREENING Routine 01/18/2023 7:59 [...] W REFLEX MEASURED LDL (10/15/2023 12:34 PM [employer]RB[employer] PROFESSOR) CHOLESTEROL,TOTAL 212(H) 100 - 199 mg/dL 10/15/2023 10:16 PM [facility] Comment: Cholesterol, Total Reference Ranges Desirable <200 mg/dL Borderline 200-239 mg/dL High >=240 mg/dL TRIGLYCERIDES 136 <150 mg/dL 10/15/2023 10:16 PM [facility] HDL CHOLESTEROL 45 >40 mg/dL 10:16 PM [facility] NON-HDL CHOLESTEROL 167(H) <145 mg/dl 10/15/2023 10:16 PM [facility] CHOL/HDL RATIO 4.71(H) <4.50 10/15/2023 10:16 PM [facility] LDL CHOLESTEROL 140(H) <=130 mg/dL 10/15/2023 10:16 PM [facility] VLDL CHOLESTEROL 27 <=30 mg/dL 10/15/2023 10:16 PM [facility] PROVIDER ORDERED STATUS FASTING 10/15/2023 10:16 PM [facility] Blood BLOOD SPECIMEN / Unknown Venipuncture / Unknown 10/15/2023 12:34 PM [employer] 10/15/2023 12:34 PM [facility] Agusto Hernandez MD CHEMISTRY Final Res [facility] [address] [place] [address], * (ABNORMAL) XR DXA BONE DENSITY 2 [...] greater than 5 years. Jacinta Bland PA-C [facility] 01/15/2023 Narrative 01/15/2023 4:50 PM CDT For Patients: Results are automatically released to your [facility] account once available, in compliance with federal regulations. This means that you may see your results before your provider has had a chance to review them. Please allow 2-3 business days for your provider to comment on the results. XR DXA Bone Mineral Density (BMD) EXAM LOCATION: [facility] [address] [facility] [address] PATIENT NAME: Chrissy Box DATE OF : [...] two scanners are made by the same conference producer. PROCEDURE: Dual-energy x-ray absorptiometry performed with routine [...] care provider. XR MAMMO BILAT SCREEN IMPLANT [[id number]] CLINICAL HISTORY: This is an asymptomatic 72 [...] DOSE LUNG CANCER SCREENING CT CHEST LOCATION: [facility] DATE/TIME: 05/13/2021 10:30 AM INDICATION: Lung [...] ve Non-Reacti ve 01/24/2014 5:23 PM CDT [facility] Blood specimen (specimen) BLOOD SPECIMEN / Unknown Venipuncture / Unknown 01/24/2014 9:57 AM CDT 01/24/2014 9:57 AM CDT Narrative [facility] - 01/24/2014 5:23 PM CDT Antibodies to HCV not detected; does not exclude the possibility of exposure to HCV. Karla Rivera MD SEND OUTS Final R esult [facility] 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
--- OUTSIDE RECORDS SUMMARY | 2024-10-08 10:38 | XMS_ITS | Clinical Summary ---
Author Organization [facility] Address [address] , [address] [place] [address] Phone Care Team Providers Care Political Worker Name Role Phone Mayra Love Unavailable Unavailable Conditions or Problems Problem Name Problem Code Onset Date Status Entry Date Provider Comment Standard Description Annotate Orthostatic hypotension [id number] (SNOMED CT) Active Mason Schultz MD Orthostatic hypotension Neuropathic pain 772408889 (SNOMED CT) Active Mason Schultz MD Neuropathic pain Low back pain, chronic 430925885 (SNOMED CT) Active Kylee Murray DNP,[employer] SERVICE REPRESENTATIVE,CN P Chronic low back pain Neuropathy 809520630 (SNOMED CT) Active Mason Schultz MD Neuropathy Gait ataxia 75883442 (SNOMED CT) Active Mason Schultz MD Ataxic gait B12 deficiency-ya rderline 795348170 (SNOMED CT) Active Mason Schultz MD Cobalamin deficiency Myalgia 39915561 (SNOMED CT) Active Mason Schultz MD Muscle pain Abnormal thyroid function study -low TSH normal free T4 833863742 (SNOMED CT) Active Mason Schultz MD Thyroid function tests abnormal Anxiety associated with depression 234061056 (SNOMED CT) Active Mason Schultz MD Mixed anxiety and depressive disorder Hx of alcohol abuse 500413089 (SNOMED CT) Active Mason Schultz MD History of alcohol abuse Frequent falls 043537323 (SNOMED CT) Active Mason Schultz MD Recurrent falls Memory deficit 606703556 (SNOMED CT) Active Mason Schultz MD Memory impairment Loss of balance 563332606 (SNOMED CT) Active Mason Schlutz MD Unable to balance Postural tremor 29370727 (SNOMED CT) Active Mason Schultz MD Static tremor Medications Medication Instructions Start Date Stop Date Generic Name NDC Provider UPSPRING POST OP PANTY to be worn through the day time. compression panty,small-mediu m [id number] Mason Schultz MD GABAPENTIN 100 MG CAPS 100 to 200 mg every 8 hr as needed for nerve pain in feet/leg gabapentin 08047717672 Mason Schultz MD MYSOLINE 50 MG TABS 50 mg 2x per day by mouth. May increase by 50 mg every 2 wks until 150 mg or until tremor is controlled 05/15 primidone 03955403436 Mason Schultz MD HYDROCODONE-ACET AMINOPHEN 10-325 MG TABS Take 1 tablet by mouth every six hours as needed 05/15 hydrocodone-aceta minophen 41673663874 Mason Schultz MD ATIVAN 1 MG TABS 1 tablet by mouth as directed : 1 mg 2 hour before MRI. May repeat as needed with 1 mg up to maximum of 3 mg before MRI. No driving or operate heavy machinery for 24 hour after taking this med 05/15 lorazepam [id number] Mason Schultz MD MYSOLINE 50 MG TABS Increase to 100 mg in am while keeping 50 mg at pm. May increase to 100 mg 2x per day if tremor not better primidone 95314111642 Mason Schultz MD ATIVAN 1 MG TABS 1 tablet by mouth as directed : 1 mg 2 hour before MRI. May repeat as needed with 1 mg up to maximum of 3 mg before MRI. No driving or operate heavy machinery for 24 hour after taking this med 05/15 lorazepam [id number] Kylee Murray DNP,MANUFA[employer]ERS SERVICE REPRESENTATIVE,CHARHOUSE WORKER MYSOLINE 50 MG TABS 50 mg 2x per day by mouth. May increase by 50 mg every 2 wks until 150 mg or until tremor is controlled 05/15 primidone 47161185557 Mason Schultz MD She will restarting olanzapine and fluoxetine today or tomorrow 12/19 She will restarting olanzapine and fluoxetine today or tomorrow Mason Schultz MD ALENDRONATE SODIUM 70 MG TABS Take 1 tablet by mouth once a week 12/19 alendronate 84786738191 Mason Schultz MD DONEPEZIL HCL 10 MG TABS 5 mg/night by mouth for 4 weeks, then 10 mg/night. May decrease to 5 mg/night if have bad nausea or significant side effects until next visit's discussion. 12/19 donepezil 80976802179 Mason Schultz MD ESCITALOPRAM OXALATE 20 MG TABS Take 1 tablet by mouth once a day 12/19 escitalopram oxalate 99874788776 Mason Schultz MD ARIPIPRAZOLE 5 MG TABS Take 1 tablet by mouth once a day 12/19 aripiprazole 75759157225 Mason Schultz MD PRAVASTATIN SODIUM 40 MG TABS Take 1 tablet by mouth every night 12/19 pravastatin 66387237092 aMson Schultz MD GABAPENTIN 100 MG CAPS Take 1 capsule by mouth three times a day as needed 12/19 gabapentin 73734296219 Mason Schultz MD ACETAMINOPHEN 325 MG TABS acetaminophen 76127510994 Mason tran MD bisacodyl 10 mg/30 mL enema bisacodyl Mason Kruger MD FLUOXETINE HCL 40 MG CAPS fluoxetine 41602710340 Mason Schultz MD VRAYLAR 1.5 MG CAPS 1/day cariprazine 43208682935 Mason Schultz MD [id number] 1 MG CHEW mecobalamin (vitamin b12) 70194903760 Mason Schultz MD DONEPEZIL HCL 10 MG TABS 5 mg/night by mouth for 4 weeks, then 10 mg/night. May decrease to 5 mg/night if have bad nausea or significant side effects until next visit's discussion. 12/19 donepezil 26571581758 Mason Schultz MD ESCITALOPRAM OXALATE 20 MG TABS Take 1 tablet by mouth once a day 12/19 escitalopram oxalate 84246925996 Mason Schultz MD aspirin 81 mg tablet,delayed release (DR/EC) Take 1 tablet by mouth once a day aspirin 90621661918 Mason Schultz MD CALCIUM CARB-CHOLECALCIF LUIS MANUEL 500-10 MG-MCG TABS Take 1 tablet by mouth twice a day CALCIUM CARB-CHOLECALCIFE ROL Mason Schultz MD multivitamin Take 1 tablet by mouth once a day MVI Mason Schultz MD TRAZODONE HCL 100 MG TABS 1-2 tablet every night as needed trazodone 52573929526 Mason Schultz MD HYDROCODONE-ACET AMINOPHEN 10-325 MG TABS Take 1 tablet by mouth every six hours as needed 05/15 hydrocodone-aceta minophen 63629330421 Mason Schultz MD NICOTINE 14 MG/24HR PT24 Apply 1 patch to skin once a day nicotine 86323200235 Mason Schultz MD LEVOTHYROXINE SODIUM 75 MCG TABS Take 1 tablet by mouth once a day levothyroxine 63605612283 Mason Schultz MD PRAVASTATIN SODIUM 40 MG TABS Take 1 tablet by mouth every night 12/19 pravastatin 22916654710 Mason Schultz MD ARIPIPRAZOLE 5 MG TABS Take 1 tablet by mouth once a day 12/19 aripiprazole 80239724057 Mason Schultz MD BUPROPION HCL ER (SR) 200 MG [id number] Take 1 tablet by mouth twice a day bupropion hcl 26498468555 Mason Schultz MD SENNOSIDES 8.6 MG TABS Take 1 tablet by mouth twice a day as needed SENNOSIDES Mason Schultz MD GABAPENTIN 100 MG CAPS Take 1 capsule by mouth three times a day as needed 12/19 gabapentin 29127847399 Mason Schultz MD NICOTINE 7 MG/24HR PT24 Apply 1 patch to skin once a day nicotine 36248813244 Mason Schultz MD ALENDRONATE SODIUM 70 MG TABS Take 1 tablet by mouth once a week 12/19 alendronate 65894810990 Mason Schultz MD OMEPRAZOLE 40 MG CPDR Take 1 capsule by mouth once a day omeprazole 82908750838 Mason Schultz MD VITAMIN D3 50 MCG (1999 UT) CAPS Take 1 capsule by mouth once a day cholecalciferol (vitamin d3) 19868529311 Mason Schultz MD She will restarting olanzapine and fluoxetine today or tomorrow 12/19 She will restarting olanzapine and fluoxetine today or tomorrow Mason Schultz MD ATIVAN 1 MG TABS 1 tablet by mouth as directed : 1 mg 2 hour before MRI. May repeat as needed with 1 mg up to maximum of 3 mg before MRI. No driving or operate heavy machinery for 24 hour after taking this med 03/13 lorazepam 60641718595 Mason Schultz MD TRAZODONE HCL 100 MG TABS 1-2 tablets at bedtime as needed for insomnia 01/06 trazodone 62660568512 QIEUSER QIEUSER SENNOSIDES 8.6 MG TABS Take 1 tablet by mouth 2 times daily if needed for Constipation. 01/06 SENNOSIDES QIEUSER QIEUSER PRAVASTATIN SODIUM 40 MG TABS Take 1 Tablet (40 mg) by mouth at bedtime. 01/06 pravastatin 10313382359 QIEUSER QIEUSER OMEPRAZOLE 40 MG CPDR TAKE ONE CAPSULE BY MOUTH ONCE DAILY 01/06 omeprazole 60534487883 QIEUSER QIEUSER NICOTINE 7 MG/24HR PT24 Apply 1 Patch on dry, clean, hairless skin once daily. 01/06 nicotine 57030594807 QIEUSER QIEUSER NICOTINE 14 MG/24HR PT24 Apply 1 Patch on dry, clean, hairless skin once daily. 01/06 nicotine 49944235577 QIEUSER QIEUSER multivitamin Take 1 tablet by mouth once daily. 01/06 MVI QIEUSER QIEUSER LEVOTHYROXINE SODIUM 75 MCG TABS Take 1 Tablet (75 mcg) by mouth once daily. 01/06 levothyroxine 47215103974 QIEUSER QIEUSER HYDROCODONE-ACET AMINOPHEN 10-325 MG TABS Take 1 Tablet by mouth every 6 hours if needed for Pain. Maximum acetaminophen dose 4000mg/24 hours. 01/06 hydrocodone-aceta minophen 47596103477 QIEUSER QIEUSER GABAPENTIN 100 MG CAPS Take 1 Capsule (100 mg) by mouth 3 times daily if needed (anxiety). 01/06 gabapentin 11639896177 QIEUSER QIEUSER ESCITALOPRAM OXALATE 20 MG TABS Take 1 Tablet (20 mg) by mouth once daily. 01/06 escitalopram oxalate 02179035382 QIEUSER QIEUSER VITAMIN D3 50 MCG (2000 UT) CAPS Take 1 capsule by mouth once daily. 01/06 cholecalciferol (vitamin d3) 59259973185 QIEUSER QIEUSER CALCIUM CARB-CHOLECALCIF LUIS MANUEL 500-10 MG-MCG TABS Take 1 tablet by mouth 2 times daily before meals. 01/06 CALCIUM CARB-CHOLECALCIFE ROL QIEUSER QIEUSER BUPROPION HCL ER (SR) 200 MG [id number] Take 1 Tablet (200 mg) by mouth two times daily. 01/06 bupropion hcl 83181801774 QIEUSER QIEUSER aspirin 81 mg tablet,delayed release (DR/EC) Take 1 Tablet (81 mg) by mouth once daily with a meal. 01/06 aspirin 36536791857 QIEUSER QIEUSER ARIPIPRAZOLE 5 MG TABS TAKE ONE TABLET BY MOUTH ONCE DAILY 01/06 aripiprazole 05493174324 QIEUSER QIEUSER ALENDRONATE SODIUM 70 MG TABS Take 1 Tablet (70 mg) by mouth once a week in the morning. Take on empty stomach with full glass of water. Do not lie down for 1 hr. 01/06 alendronate 29018901729 QIEUSER QIEUSER Medications Administered No information available. Allergies, Adverse Reactions, Alerts Allergy Name Reaction Description Start Date Severity Statu s Provider AMPICILLIN Rash Mild Active Chely Duran right Results Date Name Value Unit Range Flag Description Lab Report: 06/22/22-09/25/22 PH, URINE 5.7 PH, URINE TRAMADOL UR NEG Tramadol drug screen, urine FENTANYL NEG ng/mL Despropionyl fentanyl [Mass/volume] in Serum or Plasma OXYCODONE POS Oxycodone u rine screening CA 9.2 mg/dL Calcium [Mass /volume] in Serum or Plasma PROPOX SCRN NEG propoxyph rosenda screen, urine CHOL/HDL 3.9 cholesterol/ HDL ratio, serum GLUCOSE SER 87 mg/dL Glucose [ Mass/volume] in Serum or Plasma PLATELT(EST) Increased platel et count, estimate TRIGLYC TOT 111 mg/dL Triglycer kate [Mass/volume] in Serum or Plasma - mg/dL THC URINE NEG ng/mL Cannabinoid s [Presence] in Urine by Screen method OPIATES UR POS Opiates [P resence] in Urine BUN/CREAT 9 Urea nitrogen/Creatinine [Mass Ratio] in Serum or Plasma CREATININE U 120 mL/min Creatini ne [Mass/volume] in Urine ANION GAP 12 Anion gap 4 in Serum or Plasma SODIUM 135 mmol/L Sodium [Moles /volume] in Serum or Plasma POTASSIUM 4.3 mmol/L Potassium [Moles/volume] in Serum or Plasma LDL 112 mg/dL Cholesterol i n LDL [Mass/volume] in Serum or Plasma - mg/dL HDL 46 mg/dL Cholesterol i n HDL [Mass/volume] in Serum or Plasma - mg/dL CREATININE 1.16 mg/dL Creatinine [Mass/volume] in Serum or Plasma CHOLESTEROL 178 mg/dL Cholester ol [Mass/volume] in Serum or Plasma - mg/dL CHLORIDE 99 mmol/L Chloride [Moles/volume] in Serum or Plasma BUN 10 mg/dL Urea nitrogen [Mass/volume] in Serum or Plasma Replaced Document: (P) HEPAT IC FUNCTION PANEL, CBC (INCLUDES DIFF/PLT), FOLATE, ... VIT B1 PLSM * ug/L Vitamin B 1 (thiamine), plasma AMMONIA P * umol/L Ammonia [Ma ss/volume] in Plasma VITEBETAGAMA * mg/L Vitamin E beta altaf tocopherol VITAMIN E * mg/L alpha tocop herol, serum TSH * u[iU]/ mL Thyrotropin [Units/volume] in Serum or Plasma FRT4 * FREE T4 FOLATE * ng/mL Folate [Mass/ volume] in Serum or Plasma BASOPHIL % 0.6 % N Basophils/ 100 leukocytes in Blood by Manual count EOSINOPHIL % 0.8 % N Eosinoph ils/100 leukocytes in Blood by Manual count MONOCYTE % 9.4 % N Monocytes/ 100 leukocytes in Blood by Automated count LYMPHS % 33.2 % N Lymphocytes/ 100 leukocytes in Blood by Automated count PMN % 56 % N Neutrophils/1 00 leukocytes in Blood by Automated count BASOPH COUNT 38 CELLS/UL 10*3/m m3 0-200 N Basophils [#/volume] in Blood by Manual count EOS COUNT 51 CELLS/UL 10*3/m m3 15-500 N eosinophil count, blood MONOSCT AUTO 602 CELLS/UL 10*3/u L 200-950 N Monocytes [#/volume] in Blood by Automated count LYMPH COUNT 2125 CELLS/UL 10*3/m m3 850-390 0 N lymphocyte count, blood NEUTRO COUNT 3584 CELLS/UL 10*3/m m3 1500-78 00 N neutrophil count, blood MPV 9.2 fL 7.5-12. 5 N Platelet mean volume [Entitic volume] in Blood by Milli PLATELETS 367 THOUSAND/UL 10*3/m m3 140-400 N Platelets [#/volume] in Blood by Automated count RDW 13.2 % 11.0-15 .0 N Erythrocyte distribution width [Ratio] by Automated count MCHC 33.0 G/DL 32.0-36 .0 N MCHC [Mass/volume] by Automated count MCH 30.5 pg 27.0-33 .0 N MCH [Entitic mass] by Automated count MCV 92.4 fL 80.0-10 0.0 N MCV [Entitic volume] by Automated count HCT 33.9 % 35.0-45 .0 L Hematocrit [Volume Fraction] of Blood by Automated count HGB 11.2 g/dL 11.7-15 .5 L Hemoglobin [Mass/volume] in Blood RBC 3.67 MILLION/UL 10*6/m m3 3.80-5. 10 L Erythrocytes [#/volume] in Blood by Automated count WBC 6.4 THOUSAND/UL 10*3/m m3 3.8-10. 8 N Leukocytes [#/volume] in Blood by Automated count SGPT (ALT) * U/L Alanine aminotransferase [Enzymatic activity/volume] in Serum or Plasma SGOT (AST) * U/L Aspartate aminotransferase [Enzymatic activity/volume] in Serum or Plasma ALK PHOS * U/L Alkaline hazel sphatase [Enzymatic activity/volume] in Blood BILI INDIREC * mg/dL bilirubi n, serum, indirect BILI DIRECT * mg/dL Bilirubin .direct [Mass/volume] in Serum or Plasma BILI TOTAL * mg/dL Bilirubin. total [Mass/volume] in Serum or Plasma A/G RATIO * Albumin/Flora bulin [Mass Ratio] in Serum or Plasma GLOBULIN TOT * g/dL Globulin [Mass/volume] in Serum ALBUMIN * g/dL Albumin [Mass /volume] in Serum or Plasma PROTEIN, TOT * g/dL Protein [Mass/volume] in Serum or Plasma Replaced Document: (P) CREAT INE KINASE, TOTAL, ALDOLASE ALDOLASE * U/L Aldolase [En zymatic activity/volume] in Serum or Plasma CPK 74 U/L 29-143 N Creatine berenice se [Enzymatic activity/volume] in Serum or Plasma Office Visit: Office Visit f ax [id number] Assessment of cognition performed and results reviewed. Total score [MMS E] [id number] Normal Total scor e [MoCA] MMSE SCORE 28 Total scor e [MMSE] Internal Other: Authorizatio n - OBS [email or web address] Yes Authoriza tion: Release of Information - Authorize [facility] - Payment and Healthcare Operations ROIAUTHOTHER Yes Authoriz ation: Release of Information - Authorize Others/Insurance - Payment and Healthcare Operations HIECONSENT Yes Consent To Release information to the Health Information Exchange (HIE) [email or web address] Yes Authorizat ion: Authorization for [facility] to leave messages, voicemail, send text messages, send emails AUTHRELHCARE Yes Authoriz ation: Release/Retrieval of Information to/from Healthcare Facilities, Pharmacy Benefit Payers and Providers AUTHPRIVPRAC Yes Authoriz ation: Notice of privacy practices AUTHBENEFIT Yes Authoriza tion: Assignment of Benefits and Payment Agreement Internal Other: Verbal Autho rization/Emergency Contact - OBS VERBAL_EMER Done Verbal au thorization and emergency contact Replaced Document: (P) HIV 1 /2 ANTIGEN/ANTIBODY,FOURTH GENERATION W/RFL, METHYL ... COPPER SER * ug/mL copper, bl ood B-12 1742 pg/mL 200-110 0 H Cobalamin (Vitamin B12) [Mass/volume] in Serum or Plasma CERULOPLASMI * mg/dL cerulopl asmin, serum METHYL MALON * nmol/L methylma lonic acid (MMA), serum HIV AB * HIV 2 gp125 A b [Presence] in Serum by Immunoblot Lab Report: [facility] MISCELLANEOUS ORDER [id number] * GE use only - for LinkLogic import when terms are not otherwise specified TEST NAME ENCEPHALOPATHY AUTOIMMUNE PARANEOPLASTIC EVAL N test, name Office Visit: Office Visit f ax MEDS REVIEW Done Documenta tion of current medications (procedure) Plan of Care Type Date Detail Referral Other Referral Pending order Follow up PROSPER Pending order Follow up PROSPER Pending order Neuropsychology Evaluation Pending order Neuropsychology Evaluation Pending order Follow up Pending order Follow up Pending order MRI-Lumbar W/O Pending order Follow up with N eurologist or PROSPER Pending order MRI-Cervical W/W O MS Protocol Pending order MRI-Thoracic W/W O MS Protocol Pending order Ceruloplasmin Pending order Copper Pending order HIV 1/2 Ab Scree [place]ina Pending order Vitamin B12 Pending order Methylmalonic Ac id Serum (MMA) Pending order Other Lab Pending order Other Lab Pending order HIV 1/2 Ab Scree [place] Pending order Physical Therapy Pending order Physical Therapy Pending order EMG bilateral lo w ext Pending order MRI-Brain W/WO Pending order Instructions for Staff Pending order Follow up with N eurologist or PROSPER Pending order Patient Instruct ions Pending order Physical Therapy Pending order Patient Instruct ions Pending order Follow up Pending order Aldolase Pending order CK (Creatine Kin ase) Total Pending order Neuropsychology Evaluation Pending order EEG (41min) Pending order MRI-Brain W/O Pending order MRI-Brain W/WO Pending order Ammonia Pending order CBC with Diff/Pl atelet Pending order Folate (Folic Ac id) Serum Pending order Hepatic Function Panel (7) Pending order T4 Free Direct Pending order TSH Pending order Vitamin B12 Pending order Vitamin E Pending order Other Lab Procedures Code Procedure Name Date Entry Date [id number] Documentation of current medicatio ns [id number] MRI-Lumbar W/O CPT-84779 MRI Lumbar W/O ORDERS Follow up with Neurologist or PROSPER CPT-64224 MRI Thoracic W/WO [id number] ProHance Gadolinium- based MR Contrast - 10 ml vial CPT-24527 MRI Cervical W/WO [id number] MRI-Thoracic W/WO MS Protocol [id number] MRI-Cervical W/WO MS Protocol ORDERS Methylmalonic Acid Serum (MMA) ORDERS Vitamin B12 ORDERS Copper ORDERS Ceruloplasmin CPT-67808 MRI Brain W/WO [id number] ProHance Gadolinium- based MR Contrast - 10 ml vial [id number] MRI-Brain W/WO ORDERS EMG bilateral low ext 12/19 ORDERS Other Referral CPT-80437 Nerve Conduction 7-8 studies CPT-19743 EMG with NCS (5+ muscles) - 1 limb 12/20 CPT-77318 EMG with NCS (4 or fewer muscles) - 1 dorsey b CPT-09548 Thoracic PS (T3-11) [id number] Documentation of current medicatio ns LOINC 78804-0 MMSE ORDERS Instructions for Staff 10/19 ORDERS Patient Instructions ORDERS Follow up with Neurologist or PROSPER ORDERS Physical Therapy [id number] Documentation of current medicatio ns ORDERS CK (Creatine Kinase) Total 2 ORDERS Patient Instructions ORDERS Follow up LOINC 32677-7 MMSE LOINC 93294-8 MMSE ORDERS Aldolase ORDERS Neuropsychology Evaluation 2 [id number] EEG (41min) CPT-29548 EEG EXTENDED 41-60mins (END) CPT-53131 MRI Brain W/O [id number] MRI-Brain W/O [id number] MRI-Brain W/WO ORDERS Ammonia ORDERS Other Lab ORDERS CBC with Diff/Platelet 01/06 ORDERS Folate (Folic Acid) Serum 20 06/01/24 ORDERS Hepatic Function Panel (7) 2 ORDERS T4 Free Direct ORDERS TSH ORDERS Vitamin B12 ORDERS Vitamin E [facility]-[id number] Documentation of current medicatio ns Vital Signs Date Name Value Unit Description Weight Measured 126 [lb_av] weight E& M Heart Rate 78 /min pulse rate Immunizations No information available. Advance Directives No information available.
[2024-10-08 10:39] LABS: Slide Review Reflex No
--- NOTE | 2024-10-08 10:41 | ED_ITS ---
HPI - Nausea/Vomiting/Diarrhea General Date Seen: 10/08/24 Chief complaint: Nausea/Vomiting Stated complaint: Nausea and Vomiting Time Seen by Provider: 10/08/24 10:03 Source: patient and EMS Mode of arrival: EMS Limitations: no limitations History of Present Illness HPI Narrative: Patient is a 74-year-old female presenting to the emergency department via EMS for nausea and vomiting. She has had further episodes of vomiting since this morning at 03:00. Vomit is now brownish in color. She has not had any associated abdominal pain she states. Not currently feeling nauseated. Her onl y complaint is of her chronic back pain she states. That does not seem any different. For EMS she was satting in the 80s is placed on oxygen. She does not wear oxygen at her care facility. In the emergency department she was satting 89% on room air. She also had a fever of 100.4 for EMS along with being tachycardic. Blood pressure was non concerning. She states she does have some very mild shortness of breath at this time. Last bowel movement was 2 days ago which she states is a normal time frame between bowel movements for her. She states she has not feel confused at all. Is able answer questions appropriately. Denies chest pain, headache, lightheadedness, weakness, numbness, diarrhea, dysuria, chills. Related Data Home Medications ?Medication ?Instructions ?Recorded ?Confirmed omeprazole 40 mg capsule,delayed 40 mg PO DAILY 06/12/22 11/19/23 release trazodone 100 mg tablet 50 mg PO HS 06/12/22 11/19/23 calcium 500 mg (as 1 tab PO DAILY 06/24/22 11/19/23 carbonate)-vitamin D3 10 mcg (400 unit) tablet (Calcium 500 + D) cholecalciferol (vitamin D3) 50 5,000 mcg PO DAILY 06/24/22 11/19/23 mcg (2,000 unit) capsule multivitamin (Multiple Vitamins 1 tab PO DAILY 06/24/22 11/19/23 tablet) bupropion HCl 300 mg 24 hr tablet, 300 mg PO DAILY 11/19/23 11/19/23 extended release fluoxetine 40 mg capsule 40 mg PO DAILY 11/19/23 11/19/23 lurasidone 60 mg tablet 60 mg PO QPM 11/19/23 11/19/23 Previous Rx's ?Medication ?Instructions ?Recorded aspirin 81 mg tablet,delayed 81 mg PO DAILY #30 tabs 06/28/22 release acetaminophen 325 mg tablet 650 mg (2 x 325 mg) PO Q6H PRN #90 11/25/23 tabs ciprofloxacin HCl 250 mg tablet 250 mg PO BID #6 tabs 11/25/23 hydrocodone 5 mg-acetaminophen 325 1 tab PO HS PRN #30 tabs 11/25/23 mg tablet levothyroxine 88 mcg tablet 88 mcg PO DAILY@0700 #30 tabs 11/25/23 (Synthroid) Allergies Allergy/AdvReac Type Severity Reaction Status Date / Time ampicillin Allergy Mild Rash Verified 10/08/24 11:15 Review of Systems Status of ROS: Reports: 10 or more systems reviewed and unremarkable except as noted in History and below [facility] Medical History Hypothyroidism (acquired) ?E03.9 - Hypothyroidism, unspecified (ICD-10) Cognitive impairment ?R41.89 - Other symptoms and signs involving cognitive functions and awareness (ICD-10) Postural tremor ?G25.2 - Other specified forms of tremor (ICD-10) Vitamin B12 deficiency ?E53.8 - Deficiency of other specified B group vitamins (ICD-10) 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 - Alcohol dependence, uncomplicated (ICD-10) ?G31.2 - Degeneration of nervous system due to alcohol (ICD-10) CKD (chronic kidney disease), stage II ?N18.2 - Chronic kidney disease, stage 2 (mild) (ICD-10) RIYA (acute kidney injury) ?N17.9 - Acute kidney failure, unspecified (ICD-10) RLL pneumonia ?J18.9 - Pneumonia, unspecified organism (ICD-10) Normal echocardiogram Tobacco dependence ?F17.200 - Nicotine dependence, unspecified, uncomplicated (ICD-10) Chronic pain ?G89.29 - Other chronic pain (ICD-10) Chronic narcotic dependence ?F11.20 - Opioid dependence, uncomplicated (ICD-10) Osteoporosis ?M81.0 - Age-related osteoporosis without current pathological fracture (ICD- 10) Poor dentition ?K08.9 - Disorder of teeth and supporting structures, unspecified (ICD-10) Frequent falls ?R29.6 - Repeated falls (ICD-10) Bipolar 2 disorder ?F31.81 - Bipolar II disorder (ICD-10) Rhabdomyolysis ?M62.82 - Rhabdomyolysis (ICD-10) Chronic hyponatremia ?E87.1 - Hypo-osmolality and hyponatremia (ICD-10) Anemia ?D64.9 - Anemia, unspecified (ICD-10) Non-ST elevated myocardial infarction (non-STEMI) ?I21.4 - Non-ST elevation (NSTEMI) myocardial infarction (ICD-10) Closed head injury ?S09.90XA - Unspecified injury of head, initial encounter (ICD-10) Senile osteoporosis ?M81.0 - Age-related osteoporosis without current pathological fracture (ICD- 10) Arthritis ?M19.90 - Unspecified osteoarthritis, unspecified site (ICD-10) Graves disease ?E05.00 - Thyrotoxicosis with diffuse goiter without thyrotoxic crisis or storm (ICD-10) Pure hypercholesterolemia ?E78.00 - Pure hypercholesterolemia, unspecified (ICD-10) Hyperplastic colon polyp ?K63.5 - Polyp of colon (ICD-10) Tachycardia ?R00.0 - Tachycardia, unspecified (ICD-10) Tremor ?R25.1 - Tremor, unspecified (ICD-10) Facial fracture due to fall ?S02.92XA - Unspecified fracture of facial bones, initial encounter for closed fracture (ICD-10) ?W19.XXXA - Unspecified fall, initial encounter (ICD-10) Surgical History History of appendectomy ?Z90.49 - Acquired absence of other specified parts of digestive tract (ICD- 10) Hx of breast biopsy ?Z98.890 - Other specified postprocedural states (ICD-10) History of hysterectomy ?Z90.710 - Acquired absence of both cervix and uterus (ICD-10) H/O breast augmentation ?Z98.82 - Breast implant status (ICD-10) History of repair of hip fracture ?Z98.890 - Other specified postprocedural states (ICD-10) Social History What is your current living situation?: I presently have a place to live Problems where you live: no known problems Problems where you live details: n/a In the past 12 months, utilities in danger of being shut off: no In past 12 months, lack of transportation kept you from medical appts, meetings, work, or getting things needed for daily living: no In the past 12 mos, have been you worried that your food would run out before you had money to buy more?: never true In the past 12 mos, the food you bought just didn't last and you didn't have money to buy more?: never true Smoking Status: Current every day smoker What tobacco products do you use: cigarettes Smoking packs per day: 0.5 Smoking cigarettes per day: 10.0 Do you use any of these nicotine containing products: None Second hand tobacco smoke exposure: No How often do you have a drink containing alcohol: never How often do you have six or more drinks on one occasion: Never AUDIT-C Alcohol total score: 0 Non-prescribed substance use: denies use Caffeine: Yes (2 cups of coffee/day) How often does anyone, including family, friends and others, physically hurt you : never How often does anyone, including family, friends and others, insult or talk down to you: never How often does anyone, including family, friends and others, threaten you with harm: never How often does anyone, including family, friends and others, scream or curse at you: never Exam Narrative: Exam Narrative: Const: Well-nourished, Well-developed, in no distress Eyes: PERRL, no conjunctival injection, and symmetrical lids HENT: Atraumatic external nose and ears. Moist mucous membranes. Neck: Symmetric, trachea midline, No thyromegaly. CVS: RRR, No murmurs or gallops. Peripheral pulses 2+ and equal in all extremities RESP: Unlabored respiratory effort. Clear to auscultation bilaterally. GI: Nontender/Nondistended, No rebound or guarding. MSK:Extremities w/o deformity, Normal Active ROM Skin: Warm, Dry. No rashes or lesions. Neuro: Normal Muscle tone, No focal neurological deficits. Psych: Awake, Alert, & Oriented x3. Appropriate mood and affect. Const: Vital Signs, click to edit/add: Vital Signs - 24 hr 10/08/24 10:07 10/08/24 10:08 10/08/24 10:13 Temperature 99.1 F Pulse Rate 122 H 122 H Pulse Rate [Pulse Oximeter] 126 H Respiratory Rate 17 Blood Pressure 128/78 Blood Pressure [Ri ght Upper Arm] 128/78 Pulse Oximetry 90 91 89 Oxygen Delivery Me thod Room Air Oxygen Flow Rate 10/08/24 10:15 10/08/24 10:17 10/08/24 10:30 Temperature Pulse Rate 126 H 124 H Pulse Rate [Pulse Oximeter] Respiratory Rate 16 18 Blood Pressure Blood Pressure [Ri ght Upper Arm] Pulse Oximetry 93 92 94 Oxygen Delivery Me thod Nasal Cannula Oxygen Flow Rate 2 10/08/24 10:45 10/08/24 11:00 10/08/24 11:02 Temperature Pulse Rate 124 H 119 H 115 H Pulse Rate [Pulse Oximeter] Respiratory Rate 20 20 17 Blood Pressure 120/80 Blood Pressure [Ri ght Upper Arm] Pulse Oximetry 92 92 92 Oxygen Delivery Me thod Nasal Cannula Nasal Cannula Nasal Cannula Oxygen Flow Rate 1 1 1 10/08/24 11:30 10/08/24 11:32 10/08/24 11:45 Temperature Pulse Rate 99 98 97 Pulse Rate [Pulse Oximeter] Respiratory Rate 21 16 27 H Blood Pressure 121/81 Blood Pressure [Ri ght Upper Arm] Pulse Oximetry 92 96 95 Oxygen Delivery Me thod Nasal Cannula Nasal Cannula Nasal Cannula Oxygen Flow Rate 1 1 1 10/08/24 12:00 10/08/24 12:01 10/08/24 12:15 Temperature Pulse Rate 98 95 96 Pulse Rate [Pulse Oximeter] Respiratory Rate 17 19 21 Blood Pressure 126/81 Blood Pressure [Ri ght Upper Arm] Pulse Oximetry 95 94 95 Oxygen Delivery Me thod Nasal Cannula Nasal Cannula Nasal Cannula Oxygen Flow Rate 1 1 1 10/08/24 12:30 10/08/24 12:32 Temperature Pulse Rate 93 92 Pulse Rate [Pulse Oximeter] Respiratory Rate 15 17 Blood Pressure 122/77 Blood Pressure [Ri ght Upper Arm] Pulse Oximetry 95 95 Oxygen Delivery Me thod Nasal Cannula Nasal Cannula Oxygen Flow Rate 1 1 Course Vital Signs Vital signs: Initial Vital Signs Pulse Rate 122 H 10/08/24 10:07 Pulse Oximetry 90 10/08/24 10:07 Vital Signs Pulse Rate 122 H 10/08/24 10:07 Pulse Oximetry 90 10/08/24 10:07 Temperature 99.1 F 10/08/24 10:13 Pulse Rate 92 10/08/24 12:32 Respiratory Rate 17 02/23/25 12:32 Blood Pressure 122/77 10/08/24 12:32 Pulse Oximetry 95 10/08/24 12:32 Oxygen Delivery Method Nasal Cannula 10/08/24 12:32 Oxygen Flow Rate 1 10/08/24 12:32 Medications Administered Medications: Discontinued Medications Generic Name Dose Route Start Last Admin Trade Name Rufina PRN Reason Stop Dose Admin Acetaminophen 650 mg 10/08/24 10:47 10/08/24 10:53 Acetaminophen 325 Mg Tablet PO 10/08/24 10:48 650 mg ONCE ONE Administration Azithromycin 500 mg 10/08/24 12:07 10/08/24 12:22 Azithromycin 250 Mg Tablet PO 10/08/24 12:08 500 mg ONCE ONE Administration Sodium Chloride 1,000 mls @ 1,000 mls/hr 10/08/24 11:00 10/08/24 10:55 0.9 % Sodium Chloride 1000 Ml IV 10/08/24 11:59 1,000 mls/hr .Q1H KELSEY Administration Ceftriaxone Sodium 1 gm/ 100 mls @ 200 mls/hr 10/08/24 12:07 10/08/24 12:24 Sodium Chloride IVPB 10/08/24 12:08 200 mls/hr ONCE ONE Administration MDM - Nausea/Vomiting/Diarrhea MDM Narrative Medical decision making narrative: Patient is a 74-year-old female presenting to emergency department for multiple issues. Her main complaint was the nausea but she is also hypoxic and tachycardic. Further nausea or differential includes intra-abdominal infection, gastritis, SBO. Will do a CT scan for better evaluation. The differential diagnosis of shortness of breath is broad and includes common etiologies such as COPD, asthma, pneumonia, viral syndrome, etc. More serious etiologies considered include PE, CHF, coronary artery disease, pneumothorax, aortic dissection, aortic aneurysm. EKG and troponin orders for for signs of ACS. Will do a CTA to look for signs of PE as she is tachycardic and hypoxic. She is wheelchair bound she does have increased risk of blood clots. Is also look for signs pneumonia or pneumothorax. She meets SIRS criteria with the temperature reading for via EMS. Order blood cultures and lactate. Also ordered CBC, CMP, troponin, lipase, COVID/flu/RSV, urinalysis. She is likely dehydrated from her vomiting and a L of fluids was given for this. CBC and CMP shows no concerning abnormalities. Her lactate is 2.0. Viral swabs are negative. Initial EKG was tachycardic but after fluids her heart rate is down to 97 and repeat EKG looks good. She is requiring oxygen at this time. CT of the abdomen pelvis shows possible fecal impaction. She states her last bowel movement was 2 days ago and had fall and habits have been normal since then. CTA was also done and this shows bi basilar opacities that could be atelectasis versus consolidation. She did have the episodes of vomiting and will the patient states he does not believe she aspirated there is also a possibility this is an aspiration pneumonitis. Will start her on antibiotics the including Rocephin and azithromycin. She was straight cathed for urinalysis and nothing came out. At this time she will be admitted to the hospitalist service. Lab Data Labs: Lab Results 10/08/24 10/08/24 10/08/24 Range/Units 10:15 10:25 10:30 WBC 6.05 (4.50-11.00) K/uL RBC 4.05 (4.00-5.20) m/uL Hgb 12.8 (12.0-16.0) gm/dL Hct 38.6 (33.0-51.0) % MCV 95 (80-100) fL MCH 32 (26-34) pg MCHC 33 (32-36) gm/dL RDW Coeff of Mindy 12.3 (11.5-15.5) % Plt Count 379 (140-440) K/uL Neut % (Auto) 87.9 H (42.0-72.0) % Lymph % (Auto) 5.0 L (20-44) % [place] % (Auto) 6.8 (0.0-11.0) % Eos % (Auto) 0.0 (0.0-7.0) % Baso % (Auto) 0.0 (0.0-3.0) % Neut # (Auto) 5.30 (1.7-7.0) K/uL Lymph # (Auto) 0.30 L (0.90-2.90) K/uL [place] # (Auto) 0.40 (0.00-0.90) K/UL Eos # (Auto) 0.00 (0.00-0.50) K/uL Baso # (Auto) 0.00 (0.00-0.30) K/uL Abs Immat Gran (auto) 0.02 (0.00-0.30) K/uL Imm/Tot Granulo (auto) 0.3 % Sodium 139 (135-149) mmol/L Potassium 3.8 (3.6-5.1) mmol/L Chloride 103 (96-114) mmol/L Carbon Dioxide 22 (20-32) mmol/L Anion Gap 14 (7-15) mEq/L BUN 22 (7-30) mg/dL Creatinine 0.7 (0.5-1.5) mg/dL Estimated Creat Clear 46.90 Estimated GFR 91 ml/min Glucose 153 H (60-115) mg/dL Lactate 2.0 H (0.5-1.9) mmol/L Calcium 9.6 (8.4-10.6) mg/dL Total Bilirubin 0.7 (0.1-1.5) mg/dL AST 30 (12-35) U/L ALT 37 H (4-35) U/L Alkaline Phosphatase 50 (40-150) U/L Troponin I < 0.01 L (0.01-0.04) ng/mL Total Protein 7.6 (6.0-8.3) g/dL Albumin 4.6 (3.3-5.0) g/dL Lipase 128 (23-300) U/L SARS-CoV-2 (PCR) Negative SARS-CoV-2 (Negative) Influenza Type A (PCR) Negative PCR FLU A (Negative) Influenza Type B (PCR) Negative PCR FLU B (Negative) RSV (PCR) Negative PCR RSV (Negative) POC Creatinine 0.8 (0.6-1.3) mg/dl Imaging Data CTA chest: Attestation: I have reviewed the pertinent imaging results. Radiologist's impression: 1. No pulmonary emboli. 2. Bilateral diffuse centrilobular nodular opacities likely infectious/inflammatory could represent bronchopneumonia. Please note that all CT scans at this facility use dose modulation, iterative reconstruction, and/or weight-based dosing when appropriate to reduce radiation dose to as low as reasonably achievable. Dictated by Thuy Jin MD @ 10/08/2024 11:47:[address] scan abdomen pelvis: Attestation: I have reviewed the pertinent imaging results. Radiologist's impression: 1. Rectum is markedly distended with stool this could be related to fecal impaction. The sigmoid colon is not distended however there may be some wall thickening which may represent very mild colitis. 2. Basilar trace effusions and bibasilar nodular opacities with atelectasis/consolidation. Finding likely reflecting infectious inflammatory process. Please note that all CT scans at this facility use dose modulation, iterative reconstruction, and/or weight-based dosing when appropriate to reduce radiation dose to as low as reasonably achievable. Dictated by Thuy Jin MD @ 10/08/2024 11:40:58 AM ECG Data Attestation: I personally reviewed and interpreted this ECG as follows: Prior ECG tracings: available for review Interpretation: Initial EKG at 10:13 Robin normal sinus rhythm with rate 123 beats per minute, normal intervals, normal axis, no ST or T-wave abnormalities. There are some abnormal. Spikes in insert to leads but I do not believe it looks like a flutter. Unsure exactly what these are. Repeat EKG after fluids a 11:55. Normal sinus rhythm with rate 97 beats per minute, normal intervals, normal axis, no ST or T-wave abnormalities. Those abnormal spikes are no longer seen on this EKG Discharge Plan Discharge Clinical Impression: Pneumonia Qualifiers: Pneumonia type: due to unspecified organism Laterality: bilateral Lung location: unspecified part of lung Qualified Code(s): J18.9 - Pneumonia, unspecified organism Patient Disposition: Admitted As Observation Condition: Stable Prescriptions: No Action multivitamin [Multiple Vitamins] Tablet 1 tab PO DAILY calcium carbonate-vitamin D3 [Calcium 500 + D] 500 mg-10 mcg (400 unit) tablet 1 tab PO DAILY cholecalciferol (vitamin D3) 50 mcg (2,000 unit) capsule 5,000 mcg PO DAILY aspirin 81 mg Tablet,Delayed Release (Dr/Ec) 81 mg PO DAILY Qty: 30 0RF fluoxetine 40 mg capsule 40 mg PO DAILY bupropion HCl 300 mg tablet extended release 24 hr 300 mg PO DAILY lurasidone 60 mg tablet 60 mg PO QPM acetaminophen 325 mg Tablet 650 mg PO Q6H PRNQty: 90 0RF hydrocodone-acetaminophen 5-325 mg Tablet 1 tab PO HS PRNQty: 30 0RF ciprofloxacin HCl 250 mg Tablet 250 mg PO BID Qty: 6 0RF levothyroxine [Synthroid] 88 mcg Tablet 88 mcg PO DAILY@0700 Qty: 30 0RF omeprazole 40 mg capsule,delayed release(DR/EC) 40 mg PO DAILY trazodone 100 mg tablet 50 mg PO HS Follow Up/Referrals: Karla Rivera MD [Primary Care Provider] -
[2024-10-08 10:53] LABS: Albumin* 4.6 g/dL (3.3-5.0); Chloride* 103 mmol/L (96-114)
[2024-10-08] MEDS: ACETAMINOPHEN 325 MG TABLET 650 MG PO (10:53)
[2024-10-08 10:54] LABS: Potassium* 3.8 mmol/L (3.6-5.1); Sodium* 139 mmol/L (135-149)
[2024-10-08] MEDS: 0.9 % SODIUM CHLORIDE 1000 ml 1,000 ML IV (10:55)
[2024-10-08 10:56] LABS: Alkaline Phosphatase* 50 U/L (40-150); Anion Gap 14 mEq/L (7-15); Aspartate Amino Transferase* 30 U/L (12-35); Bilirubin Total* 0.7 mg/dL (0.1-1.5); Blood Urea Nitrogen* 22 mg/dL (7-30); Carbon Dioxide* 22 mmol/L (20-32); Creatinine* 0.7 mg/dL (0.5-1.5); Estimated Glomerular Filt Rate 91 ml/min; Lipase* 128 U/L (23-300); Total Protein* 7.6 g/dL (6.0-8.3)
[2024-10-08 10:57] LABS: Alanine Aminotransferase* 37 U/L (4-35); Calcium* 9.6 mg/dL (8.4-10.6); Glucose* 153 mg/dL (60-115)
[2024-10-08 11:00] LABS: PCR FLU A Negative PCR FLU A (Negative); PCR FLU B Negative PCR FLU B (Negative); PCR RSV Negative PCR RSV (Negative); SARS PCR* Negative SARS-CoV-2 (Negative)
[2024-10-08 12:08] LABS: Troponin I* < 0.01 ng/mL (0.01-0.04)
[2024-10-08] MEDS: AZITHROMYCIN 250 MG TABLET 500 MG PO (12:22)
[2024-10-08] MEDS: cefTRIAXone 1 GM in 0.9 % SODIUM CHLORIDE Mini-bag 100 ML IVPB (12:24)
[2024-10-08 12:56] LABS: C Reactive Protein* < 0.5 mg/dL (0.5-1.0)
--- NOTE | 2024-10-08 13:03 | ED.NURSE ---
Pt report given to mary SHARMA. Pt to room 255.
[2024-10-08 13:05] LABS: Procalcitonin* 1.73 ng/mL (<0.50)
[2024-10-08] MEDS: ACETAMINOPHEN 500 MG TABLET 1000 MG PO (17:50)
--- NOTE | 2024-10-08 18:17 | P.IMHP_ITS ---
Hospitalist- H&P: HPI History of Present Illness Date Seen: 10/08/24 Chief complaint: Nausea and Vomiting Narrative: Chrissy Box is a 74 year old female resident of [facility] with significant neurologic disability due to multi-system failure, bipolar disorder, history of alcohol-induced cerebellar degeneration is admitted to the hospital after an episode last night of recurrent vomiting and now cough, fever, dyspnea, congestion, rhinorrhea, weakness, fatigue, malaise and loss of appetite. She was in her usual state of health yesterday when she went to bed. About 3:00 a.m. she awoke with recurrent episodes of vomiting. She does not recall having abdominal pain. She says her emesis were dark but not bloody. She had at least 5 episodes of emesis. After this she came to the emergency room for evaluation. In the emergency department she was diagnosed with pneumonia and hypoxia. CT chest, CT abdomen and pelvis notable for small bilateral effusions and basilar opacities likely infectious or inflammatory. Also large stool in the rectum without other acute abdominal findings. She has had no further emesis sensed during the night. She has also had basically nothing to eat for the last several hours. She reports having no ap petite. She has fatigue and malaise. She just had a large, otherwise normal stool. Review of Systems Narrative: She reports that she has been at her usual state of health until during the night last night. No other recent symptoms of illness. 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 - Alcohol dependence, uncomplicated (ICD-10) ?G31.2 - Degeneration of nervous system due to alcohol (ICD-10) CKD (chronic kidney disease), stage II ?N18.2 - Chronic kidney disease, stage 2 (mild) (ICD-10) RIYA (acute kidney injury) ?N17.9 - Acute kidney failure, unspecified (ICD-10) RLL pneumonia ?J18.9 - Pneumonia, unspecified organism (ICD-10) Normal echocardiogram Tobacco dependence ?F17.200 - Nicotine dependence, unspecified, uncomplicated (ICD-10) Chronic pain ?G89.29 - Other chronic pain (ICD-10) Chronic narcotic dependence ?F11.20 - Opioid dependence, uncomplicated (ICD-10) Osteoporosis ?M81.0 - Age-related osteoporosis without current pathological fracture (ICD- 10) Poor dentition ?K08.9 - Disorder of teeth and supporting structures, unspecified (ICD-10) Frequent falls ?R29.6 - Repeated falls (ICD-10) Bipolar 2 disorder ?F31.81 - Bipolar II disorder (ICD-10) Rhabdomyolysis ?M62.82 - Rhabdomyolysis (ICD-10) Chronic hyponatremia ?E87.1 - Hypo-osmolality and hyponatremia (ICD-10) Anemia ?D64.9 - Anemia, unspecified (ICD-10) Non-ST elevated myocardial infarction (non-STEMI) ?I21.4 - Non-ST elevation (NSTEMI) myocardial infarction (ICD-10) Closed head injury ?S09.90XA - Unspecified injury of head, initial encounter (ICD-10) Senile osteoporosis ?M81.0 - Age-related osteoporosis without current pathological fracture (ICD- 10) Arthritis ?M19.90 - Unspecified osteoarthritis, unspecified site (ICD-10) Graves disease ?E05.00 - Thyrotoxicosis with diffuse goiter without thyrotoxic crisis or storm (ICD-10) Pure hypercholesterolemia ?E78.00 - Pure hypercholesterolemia, unspecified (ICD-10) Hyperplastic colon polyp ?K63.5 - Polyp of colon (ICD-10) Tachycardia ?R00.0 - Tachycardia, unspecified (ICD-10) Tremor ?R25.1 - Tremor, unspecified (ICD-10) Facial fracture due to fall ?S02.92XA - Unspecified fracture of facial bones, initial encounter for closed fracture (ICD-10) ?W19.XXXA - Unspecified fall, initial encounter (ICD-10) Surgical History History of appendectomy ?Z90.49 - Acquired absence of other specified parts of digestive tract (ICD- 10) Hx of breast biopsy ?Z98.890 - Other specified postprocedural states (ICD-10) History of hysterectomy ?Z90.710 - Acquired absence of both cervix and uterus (ICD-10) H/O breast augmentation ?Z98.82 - Breast implant status (ICD-10) History of repair of hip fracture ?Z98.890 - Other specified postprocedural states (ICD-10) Family History (Updated 10/08/24 @ 18:34 by Yury Tang MD) Father Heart disease Mother High blood pressure Social History (Updated 10/08/24 @ 18:36 by Yury Tang MD) Narrative: Current laying a longstanding resident of [facility]. Now requires a Indu lift for bed to chair transfers. Daughter Sera and Lukas are healthcare power of sports attorney. Code status is full. She has a history of alcohol abuse and quit drinking in 2002. She is a smoker. What is your current living situation?: I presently have a place to live Problems where you live: no known problems Problems where you live details: n/a In the past 12 months, utilities in danger of being shut off: no In past 12 months, lack of transportation kept you from medical appts, meetings, work, or getting things needed for daily living: no In the past 12 mos, have been you worried that your food would run out before you had money to buy more?: never true In the past 12 mos, the food you bought just didn't last and you didn't have money to buy more?: never true Smoking Status: Current every day smoker What tobacco products do you use: cigarettes Smoking packs per day: 0.5 Smoking cigarettes per day: 10.0 Do you use any of these nicotine containing products: None Second hand tobacco smoke exposure: No How often do you have a drink containing alcohol: never How often do you have six or more drinks on one occasion: Never AUDIT-C Alcohol total score: 0 Non-prescribed substance use: denies use Caffeine: No How often does anyone, including family, friends and others, physically hurt you : never How often does anyone, including family, friends and others, insult or talk down to you: never How often does anyone, including family, friends and others, threaten you with harm: never How often does anyone, including family, friends and others, scream or curse at you: never Meds Home Medications and Allergies Home Medications ?Medication ?Instructions ?Recorded ?Confirmed ?Type omeprazole 40 mg capsule,delayed 40 mg PO DAILY 06/12/22 10/08/24 History release trazodone 100 mg tablet 50 mg PO HS 06/12/22 10/08/24 History multivitamin (Multiple Vitamins 1 tab PO DAILY 06/24/22 10/08/24 History tablet) bupropion HCl 300 mg 24 hr tablet, 300 mg PO DAILY 11/19/23 10/08/24 History extended release fluoxetine 40 mg capsule 40 mg PO DAILY 11/19/23 10/08/24 History lurasidone 60 mg tablet 60 mg PO QPM 11/19/23 10/08/24 History acetaminophen 500 mg tablet 1,000 mg PO Q8H 10/08/24 10/08/24 History calcium 500 mg (as carbonate)-vit 1 tab PO DAILY 10/08/24 10/08/24 History D3 10 mcg (400 unit) chewable tablet (Calcium 500 + D) cariprazine 3 mg capsule (Vraylar) 3 mg PO DAILY 10/08/24 10/08/24 History cholecalciferol (vitamin D3) 50 2,000 unit PO DAILY 10/08/24 10/08/24 History mcg (2,000 unit) tablet cyanocobalamin (vitamin B-12) 1,000 mcg PO DAILY 10/08/24 10/08/24 History 1,000 mcg tablet gabapentin 100 mg capsule 100 mg PO 3XD PRN 10/08/24 10/08/24 History oxycodone 5 mg tablet mg 10/08/24 History primidone 50 mg tablet 100 mg PO .am 10/08/24 10/08/24 History primidone 50 mg tablet (Mysoline) 50 mg PO QHS 10/08/24 10/08/24 History sennosides 8.6 mg tablet (senna) 25.8 mg PO BID 10/08/24 10/08/24 History trazodone 50 mg tablet 50 mg PO HS 10/08/24 10/08/24 History Allergies Allergy/AdvReac Type Severity Reaction Status Date / Time ampicillin Allergy Mild Rash Verified 10/08/24 11:15 Exam Narrative: Exam Narrative: She is alert and appears in no distress. She gives her own history. Speech is fluent. She is oriented to her circumstances. Head is without trauma. No facial asymmetry. Eyes are normal. Extraocular movements are full. Oropharynx with small airway and dry mucosa. Edentulous. Neck is supple without mass or adenopathy. Respirations with few basilar crackles bilaterally. No wheezing. Fair air exchange in all lung gee. Cardiovascular: S1, S2, regular rate and rhythm. No murmur gallop or rub. Abdomen: Bowel sounds active. Abdomen is soft without tenderness or mass. External genitalia normal. She has minimal strength and movement in her lower extremities. She can wiggle her toes. She has intact sensation. Intact pedal pulses. No edema. No rash Const: Vital Signs, click to edit/add: Vital Signs - 24 hr 10/08/24 10:07 10/08/24 10:08 10/08/24 10:13 Temperature 99.1 F Pulse Rate 122 H 122 H Pulse Rate [Pulse Oximeter] 126 H Respiratory Rate 17 Blood Pressure 128/78 Blood Pressure [Le ft Arm] Blood Pressure [Ri ght Upper Arm] 128/78 Pulse Oximetry 90 91 89 Oxygen Delivery Me thod Room Air Oxygen Flow Rate 10/08/24 10:15 10/08/24 10:17 10/08/24 10:30 Temperature Pulse Rate 126 H 124 H Pulse Rate [Pulse Oximeter] Respiratory Rate 16 18 Blood Pressure Blood Pressure [Le ft Arm] Blood Pressure [Ri ght Upper Arm] Pulse Oximetry 93 92 94 Oxygen Delivery Me thod Nasal Cannula Oxygen Flow Rate 2 10/08/24 10:45 10/08/24 11:00 10/08/24 11:02 Temperature Pulse Rate 124 H 119 H 115 H Pulse Rate [Pulse Oximeter] Respiratory Rate 20 20 17 Blood Pressure 120/80 Blood Pressure [Le ft Arm] Blood Pressure [Ri ght Upper Arm] Pulse Oximetry 92 92 92 Oxygen Delivery Me thod Nasal Cannula Nasal Cannula Nasal Cannula Oxygen Flow Rate 1 1 1 10/08/24 11:30 10/08/24 11:32 10/08/24 11:45 Temperature Pulse Rate 99 98 97 Pulse Rate [Pulse Oximeter] Respiratory Rate 21 16 27 H Blood Pressure 121/81 Blood Pressure [Le ft Arm] Blood Pressure [Ri ght Upper Arm] Pulse Oximetry 92 96 95 Oxygen Delivery Me thod Nasal Cannula Nasal Cannula Nasal Cannula Oxygen Flow Rate 1 1 1 02/23/25 12:00 10/08/24 12:01 10/08/24 12:15 Temperature Pulse Rate 98 95 96 Pulse Rate [Pulse Oximeter] Respiratory Rate 17 19 21 Blood Pressure 126/81 Blood Pressure [Le ft Arm] Blood Pressure [Ri ght Upper Arm] Pulse Oximetry 95 94 95 Oxygen Delivery Me thod Nasal Cannula Nasal Cannula Nasal Cannula Oxygen Flow Rate 1 1 1 10/08/24 12:30 10/08/24 12:32 10/08/24 12:33 Temperature Pulse Rate 93 92 92 Pulse Rate [Pulse Oximeter] Respiratory Rate 15 17 17 Blood Pressure 122/77 Blood Pressure [Le ft Arm] Blood Pressure [Ri ght Upper Arm] Pulse Oximetry 95 95 95 Oxygen Delivery Me thod Nasal Cannula Nasal Cannula Oxygen Flow Rate 1 1 10/08/24 15:01 10/08/24 15:13 Temperature 97.4 F L Pulse Rate Pulse Rate [Pulse Oximeter] 96 Respiratory Rate 18 18 Blood Pressure Blood Pressure [Le ft Arm] 109/71 Blood Pressure [Ri ght Upper Arm] Pulse Oximetry 92 92 Oxygen Delivery Me thod Room Air Room Air Oxygen Flow Rate Documenting provider has reviewed patient's vital signs: yes Hospitalist - H&P: Result Labs Labs: Short CBC 10/08/24 Range/Units 10:30 WBC 6.05 (4.50-11.00) K/uL Hgb 12.8 (12.0-16.0) gm/dL Hct 38.6 (33.0-51.0) % Plt Count 379 (140-440) K/uL BMP 10/08/24 10:30 Sodium 139 Potassium 3.8 Chloride 103 Carbon Dioxide 22 BUN 22 Creatinine 0.7 Glucose 153 H Calcium 9.6 Cardiac Enzymes 10/08/24 Range/Units 10:30 Troponin I < 0.01 L (0.01-0.04) ng/mL Liver Function 10/08/24 Range/Units 10:30 Total Bilirubin 0.7 (0.1-1.5) mg/dL AST 30 (12-35) U/L ALT 37 H (4-35) U/L Alkaline Phosphatase 50 (40-150) U/L Albumin 4.6 (3.3-5.0) g/dL Imaging CT scan - chest: Radiologist's impression: INDICATION: Hypoxia tachycardia TECHNIQUE: CT chest with 95 mL Isovue 370 contrast. COMPARISON: None. FINDINGS: Lungs and pleura: Bilateral diffuse centrilobular nodular opacities basilar atelectasis findings likely infectious/inflammatory findings could represent bronchopneumonia possible trace effusions. Heart and vasculature: Heart size is normal. Thoracic aorta and pulmonary artery are normal in caliber. No pulmonary emboli. Lymph nodes/mediastinum: No mediastinal, hilar, or axillary adenopathy. Chest wall: No masses. Bilateral breast implants. Bones: Unremarkable for age. IMPRESSION: 1. No pulmonary emboli. 2. Bilateral diffuse centrilobular nodular opacities likely infectious/inflammatory could represent bronchopneumonia. CT scan - abdomen: Radiologist's impression: INDICATION: Nausea vomiting TECHNIQUE: CT abdomen and pelvis 95 mL Isovue contrast. COMPARISON: None. FINDINGS: Lower chest: Small effusions bilaterally. There is basilar nodular centrilobular opacities in basilar atelectasis/consolidation. Findings probably infectious/inflammatory. Liver: Small cysts in the liver. Gallbladder and bile ducts: No stones or inflammation. No biliary dilatation. Pancreas: Unremarkable. No mass or inflammation. Spleen: Normal in size. No masses. Adrenal glands: Normal in size. No nodules. Kidneys: Left renal cyst additional too small to characterize low-attenuation lesions in both kidneys. GI tract: The rectum is significantly distended with stool the proximal sigmoid colon is not distended however there may be some wall thickening which may represent mild colitis Vasculature: Abdominal aorta is normal in caliber. Lymph nodes: No lymphadenopathy. Peritoneum/Abdominal Wall: Unremarkable. No sign of mass or infiltration. No free air or significant free fluid. Pelvis: Unremarkable. No pelvic masses. Bones: Right hip arthroplasty causing streak artifact. No suspicious bony lesions. IMPRESSION: 1. Rectum is markedly distended with stool this could be related to fecal impaction. The sigmoid colon is not distended however there may be some wall thickening which may represent very mild colitis. 2. Basilar trace effusions and bibasilar nodular opacities with atelectasis/consolidation. Finding likely reflecting infectious inflammatory process. Assessment and Plan Assessment and plan (1) Pneumonia: Problem comment: Bibasilar infiltrates. Influenza, COVID, RSV negative. Treat as community- acquired pneumonia. With her vomiting being the onset of this illness this may well be an aspiration pneumonia event. Status: Acute (2) Hypoxia: Problem comment: Likely due to pneumonia. she was hypoxic to 89% on the day of admission. Oxygen saturations have improved on 1 L per nasal cannula to low to mid 90s. Wean as tolerated. Status: Acute (3) Alcoholic cerebellar degeneration syndrome: Problem comment: - Diagnosed November 2017 - sober for a few years now - this neuro degenerative process is continuing to evolve and progress. She is a fall risk and needs 24/7 support. Has continued progression of her neurologic disability despite being sober for many years Status: Acute (4) Impaired mobility: Problem comment: Over the past year she went to from living independently to [address] [place] [address] being able to stand, pivot and transfer bed to chair to being unable to stand and transfer at all requiring a Indu lift for all transfers. Status: Acute (5) Bipolar 2 disorder: Problem comment: - follows with Dr. Villanueva at [facility] in [place] Status: Acute Plan 74-year-old female admitted to the hospital for development of cough, hypoxia and constitutional symptoms of illness since having an episode of vomiting during the night. Suspect aspiration. Initiate treatment for community- acquired pneumonia, monitor for recurrent vomiting or aspiration. Prior to discharge would like to see her be able to eat and wean off oxygen. Total Time Spent Total Time Spent: Total time spent today is 75 minutes in reviewing outside records, discussing with patient, daughter, other providers ongoing evaluation and management of pneumonia of various types and evaluation of her constitutional symptoms of illness.
[2024-10-08 18:25] LABS: Appearance Urine Clear (Clear); Bilirubin Urine Negative (Negative); Blood Urine Trace-intact (Negative); Color Urine Yellow (Yellow); Glucose Urine Negative (Negative); Ketones Urine Negative (Negative); Leukocyte Esterase Urine 3+ (Negative); Nitrite Urine Positive (Negative); Protein Urine Trace (Negative); Specific Gravity Urine 1.015 (1.000-1.030); Urobilinogen Urine 0.2 (0.2-1.0); pH Urine 6.5 (5.0-8.5)
[2024-10-08 18:32] LABS: Bacteria Urine Many; RBC Urine 0-2 (0-2); WBC Urine 0-2 (0-5)
[2024-10-08 18:45] LABS: Legionella pneumo Ag Urine L. pneumo Negative (Negative); S pneumo Ag Urine S. pneumo Negative (Negative)
--- NOTE | 2024-10-08 19:50 | PC.NURSE ---
End of shift [id number] - Pt arrived from ED at approximately 1250. Alert, oriented, cooperative. Up to bedside commode with ceiling lift, continent of bowel and incontinent of bladder during shift. Tolerating RA, regular diet/fluids. Denies n/v, SOB, dizziness. Afebrile and VSS. Reported pain in back asa 8/10, given medication per MAR to improve pt comfort. Pt appears to be resting comfortably at end of shift with call light within reach.
--- NOTE | 2024-10-08 19:53 | PC.NURSE ---
Additional Note - RN placed mepilex on R buttock to cover broken skin noted on examination.
[2024-10-08] MEDS: HYDROCODONE-ACETAMIN 5-325 MG 1 TAB PO (20:57)
[2024-10-08] MEDS: ENOXAPARIN 40 MG/0.4 ML INJ SUBCUT (20:57)
[2024-10-08] MEDS: SENNOSIDES 1 TAB TABLET 3 TAB PO (20:57)
[2024-10-08] MEDS: TRAZODONE HCL 50 MG TABLET PO (21:00)
[2024-10-08] MEDS: SODIUM CHLORIDE 0.9 % (FLUSH) 10 ML SYRINGE 5 ML IVF (22:48)
[2024-10-08] MEDS: PRIMIDONE 50 MG TABLET PO (22:53)
[2024-10-09] VITALS (10 sets, daily range): BP systolic 105–127; BP diastolic 62–83; PULSE 87–100; RESP 16–18; TEMP 36.7–37.6; O2SAT 90–93
[2024-10-09] MEDS: ACETAMINOPHEN 500 MG TABLET 1000 MG PO ×3 (02:23→19:43)
[2024-10-09 06:24] LABS: Lactate* 0.7 mmol/L (0.5-1.9)
[2024-10-09] MEDS: LEVOTHYROXINE 88 MCG TABLET PO (06:25)
[2024-10-09 06:30] LABS: Basophils Absolute Auto 0.02 K/uL (0.00-0.30); Basophils Percent Auto 0.2 % (0.0-3.0); Eosinophils Absolute Auto 0.02 K/uL (0.00-0.50); Eosinophils Percent Auto 0.2 % (0.0-7.0); Hematocrit 31.7 % (33.0-51.0); Hemoglobin* 10.6 gm/dL (12.0-16.0); Immature Granulocytes Abs Auto 0.02 K/uL (0.00-0.30); Immature Granulocytes Pct Auto 0.2 %; Mean Corpuscular HGB Conc 33 gm/dL (32-36); Mean Corpuscular Hemoglobin 32 pg (26-34); Mean Corpuscular Volume 95 fL (80-100); Neutrophils Percent Auto 85.4 % (42.0-72.0); Platelet Count* 309 K/uL (140-440); RDW Coefficient of Variation % 12.3 % (11.5-15.5); Red Blood Count 3.35 m/uL (4.00-5.20); White Blood Count* 9.67 K/uL (4.50-11.00)
[2024-10-09 06:34] LABS: Fecal Occult Blood* Positive (Negative)
[2024-10-09 06:35] LABS: Slide Review Reflex No
[2024-10-09 06:59] LABS: Chloride* 99 mmol/L (96-114); Potassium* 3.4 mmol/L (3.6-5.1); Sodium* 131 mmol/L (135-149)
[2024-10-09 07:02] LABS: Anion Gap 10 mEq/L (7-15); Blood Urea Nitrogen* 18 mg/dL (7-30); Carbon Dioxide* 22 mmol/L (20-32); Creatinine* 0.7 mg/dL (0.5-1.5); Est. Creatinine Clearance* 46.75; Estimated Glomerular Filt Rate 91 ml/min
[2024-10-09 07:03] LABS: Calcium* 8.9 mg/dL (8.4-10.6); Glucose* 95 mg/dL (60-115)
--- NOTE | 2024-10-09 07:50 | PC.NURSE ---
Shift note ([id number]): Patient pleasant, alert and oriented. Remained in bed.?Turned and repositioned. Incontinent of bladder. Given PRN Bazine and scheduled Tylenol for low back pain rated 4-9/10.?
[2024-10-09] MEDS: cefTRIAXone 1 GM in 0.9 % SODIUM CHLORIDE Mini-bag 100 ML IVPB (07:59)
[2024-10-09] MEDS: ASPIRIN 81 MG TABLET EC PO (08:43)
[2024-10-09] MEDS: FLUOXETINE HCL 20 MG CAPSULE 40 MG PO (08:44)
[2024-10-09] MEDS: OMEPRAZOLE 20 MG CAPSULE DR 40 MG PO (08:44)
[2024-10-09] MEDS: DOXYCYCLINE HYCLATE 100 MG PO ×2 (08:44→20:25)
[2024-10-09] MEDS: SENNOSIDES 1 TAB TABLET 3 TAB PO (08:45)
[2024-10-09] MEDS: buPROPion XL 150 MG TABLET 300 MG PO (08:45)
[2024-10-09] MEDS: SODIUM CHLORIDE 0.9 % (FLUSH) 10 ML SYRINGE 5 ML IVF ×2 (08:48→20:24)
[2024-10-09] MEDS: PRIMIDONE 50 MG TABLET 100 MG PO (08:49)
--- NOTE | 2024-10-09 09:16 | NUTR.NU ---
RDN with nutrition screen related to positive skin risk. patient admitted with pneumonia, hypoxia, and nausea and vomiting x1 day prior to arrival. Past medical history significant for neurologic disability due to multi-system failure, bipolar disorder, history of alcohol-induced cerebellar degeneration. She lives at [facility]. Current weight 130lb 4.8oz; height 5ft 7in; BMI 20.4 kg/m2. Weight history shows usual body weight in the 130s. Weight has been stable recently. Current diet is Regular. One meal intake since admit of 25% with good tolerance. Per MD during IDT, patient's nausea and vomiting has resolved. No nutrition intervention at this time with stable weight and tolerance of PO. RDN will continue to monitor and follow-up prn.
--- NOTE | 2024-10-09 10:05 | PM.IMPN1 ---
Progress Note: A&P Assessment and plan (1) Pneumonia: Problem details: Bibasilar infiltrates. Influenza, COVID, RSV negative. Treat as community-acquired pneumonia: ceftriaxone IV and doxycycline po. With her vomiting being the onset of this illness this may well be an aspiration pneumonia event. - May simply have an aspiration pneumonitis, however will continue to treat for aspiration pneumonia for now. Status: Acute (2) Hypoxia: Problem details: Likely due to pneumonia. EMS report RA SaO2 mid 80's when they first assessed her and she was hypoxic to 89% in the ED on the day of admission. Oxygen saturations have improved on 1 L per nasal cannula to low to mid 90s, and has since been weaned off of O2. 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 She is a fall risk and needs 24/7 support. - Has continued progression of her neurologic disability despite being sober for many years - in-hospital will have PT and OT consult Status: Acute (4) Impaired mobility: Problem details: Over the past year she went to from living independently to [address] [place] [address] being able to stand, pivot and transfer bed to chair to being unable to stand and transfer at all requiring a Indu lift for all transfers. -PT and OT consult in hospital Status: Acute (5) Bipolar 2 disorder: Problem details: - follows with Dr. Villanueva at [facility] in [place] Status: Acute (6) UTI symptoms: Problem details: - abnl UA with nitrites and leukocyte esterase and UC is pending - 1 year ago urine culture grew out citrobacter freundii sensitive to ceftriaxone, which she is being treated with at this time Status: Acute Plan 1. Reviewed impression and plan with patient 2. Answered patient's questions to her satisfaction 3. Patient agreeable with above stated plans and recommendations Time Spent With Patient Total time spent: 50 minutes Subjective Date Seen: 10/09/24 Interval history: Admission history of present illness: ?74 year old female resident of [facility] with significant neurologic disability due to multi-system failure, bipolar disorder, history of alcohol-induced cerebellar degeneration is admitted to the hospital after an episode last night of recurrent vomiting and now cough, fever, dyspnea, congestion, rhinorrhea, weakness, fatigue, malaise and loss of appetite. She was in her usual state of health yesterday when she went to bed. About 3:00 a.m. she awoke with recurrent episodes of vomiting. She does not recall having abdominal pain. She says her emesis were dark but not bloody. She had at least 5 episodes of emesis. After this she came to the emergency room for evaluation. In the emergency department she was diagnosed with pneumonia and hypoxia. CT chest, CT abdomen and pelvis notable for small bilateral effusions and basilar opacities likely infectious or inflammatory. Also large stool in the rectum without other acute abdominal findings. She has had no further emesis sensed during the night. She has also had basically nothing to eat for the last several hours. She reports having no appetite. She has fatigue and malaise. She just had a large, otherwise normal stool.? 10/09/2024: Hospital day 2. Generally feels improved. Denies any further nausea or vomiting. No longer requiring oxygen support to maintain room air resting oxygen saturation levels greater than 88%. Denies dyspnea at rest. Denies cough at rest. Denies chest heaviness, pressure, tightness, or pain. Denies syncope or near-syncope. Denies orthostasis. Tolerating breakfast. Not coughing or sputtering while eating or drinking. Denies abdominal or pelvic pain. No overt blood loss of any sort. Less weak. Exam Narrative: Exam Narrative: Exam the patient in her hospital room. Appears comfortable and in no acute distress. Friendly and cooperative. Somewhat slow to respond to questions however is alert and oriented x3. Sitting upright she has no JVD or hepatojugular reflux. Fine end inspiratory crackles both bases. No wheezing or rhonchi. Chest wall excursions are full. No CVA tenderness. Heart tones with regular rhythm, normal S1-S2, without murmur, gallop, rub. Abdomen with active bowel sounds, soft, nontender. No focal motor neurologic deficits while sitting. Eating and drinking without difficulties. Maximum heart rate yesterday at rest 127 beats per minute. This morning it is 98 beats per minute at rest. Maximum respiratory rate yesterday at rest was 27 breaths per minute, this morning it is 18 breaths per minute. Resting room air oxygen saturations 90-91%. T-max 99.7? F. Current temperature 99.5? F. Admission weight 59.3 kg, this morning her weight is 59.1 kg. I review all labs and imaging studies. Of note she does have stool positive for occult blood. Hemoglobin this morning 10.6 with hematocrit of 32%. Const: Vital Signs, click to edit/add: Vital Signs - 24 hr 10/08/24 10:07 10/08/24 10:08 10/08/24 10:13 Temperature 99.1 F Pulse Rate 122 H 122 H Pulse Rate [Pulse Oximeter] 126 H Respiratory Rate 17 Blood Pressure 128/78 Blood Pressure [Le ft Arm] Blood Pressure [Ri ght Arm] Blood Pressure [Ri ght Upper Arm] 128/78 Pulse Oximetry 90 91 89 Oxygen Delivery Me thod Room Air Oxygen Flow Rate 10/08/24 10:15 10/08/24 10:17 10/08/24 10:30 Temperature Pulse Rate 126 H 124 H Pulse Rate [Pulse Oximeter] Respiratory Rate 16 18 Blood Pressure Blood Pressure [Le ft Arm] Blood Pressure [Ri ght Arm] Blood Pressure [Ri ght Upper Arm] Pulse Oximetry 93 92 94 Oxygen Delivery Me thod Nasal Cannula Oxygen Flow Rate 2 10/08/24 10:45 10/08/24 11:00 10/08/24 11:02 Temperature Pulse Rate 124 H 119 H 115 H Pulse Rate [Pulse Oximeter] Respiratory Rate 20 20 17 Blood Pressure 120/80 Blood Pressure [Le ft Arm] Blood Pressure [Ri ght Arm] Blood Pressure [Ri ght Upper Arm] Pulse Oximetry 92 92 92 Oxygen Delivery Me thod Nasal Cannula Nasal Cannula Nasal Cannula Oxygen Flow Rate 1 1 1 10/08/24 11:30 10/08/24 11:32 10/08/24 11:45 Temperature Pulse Rate 99 98 97 Pulse Rate [Pulse Oximeter] Respiratory Rate 21 16 27 H Blood Pressure 121/81 Blood Pressure [Le ft Arm] Blood Pressure [Ri ght Arm] Blood Pressure [Ri ght Upper Arm] Pulse Oximetry 92 96 95 Oxygen Delivery Me thod Nasal Cannula Nasal Cannula Nasal Cannula Oxygen Flow Rate 1 1 1 10/08/24 12:00 10/08/24 12:01 10/08/24 12:15 Temperature Pulse Rate 98 95 96 Pulse Rate [Pulse Oximeter] Respiratory Rate 17 19 21 Blood Pressure 126/81 Blood Pressure [Le ft Arm] Blood Pressure [Ri ght Arm] Blood Pressure [Ri ght Upper Arm] Pulse Oximetry 95 94 95 Oxygen Delivery Me thod Nasal Cannula Nasal Cannula Nasal Cannula Oxygen Flow Rate 1 1 1 10/08/24 12:30 10/08/24 12:32 10/08/24 12:33 Temperature Pulse Rate 93 92 92 Pulse Rate [Pulse Oximeter] Respiratory Rate 15 17 17 Blood Pressure 122/77 Blood Pressure [Le ft Arm] Blood Pressure [Ri ght Arm] Blood Pressure [Ri ght Upper Arm] Pulse Oximetry 95 95 95 Oxygen Delivery Me thod Nasal Cannula Nasal Cannula Oxygen Flow Rate 1 1 10/08/24 15:01 10/08/24 15:13 10/08/24 18:29 Temperature 97.4 F L 97.9 F Pulse Rate Pulse Rate [Pulse Oximeter] 96 104 H Respiratory Rate 18 18 18 Blood Pressure Blood Pressure [Le ft Arm] 109/71 117/82 Blood Pressure [Ri ght Arm] Blood Pressure [Ri ght Upper Arm] Pulse Oximetry 92 92 90 Oxygen Delivery Me thod Room Air Room Air Room Air Oxygen Flow Rate 10/08/24 18:55 10/08/24 19:00 10/08/24 22:55 Temperature 97.6 F 97.7 F Pulse Rate 111 H Pulse Rate [Pulse Oximeter] 94 89 Respiratory Rate 20 20 Blood Pressure Blood Pressure [Le ft Arm] 100/79 Blood Pressure [Ri ght Arm] 112/77 Blood Pressure [Ri ght Upper Arm] Pulse Oximetry 91 91 Oxygen Delivery Me thod Room Air Room Air Oxygen Flow Rate 10/09/24 02:26 10/09/24 03:00 10/09/24 07:00 Temperature 99.7 F H 99.5 F Pulse Rate 91 Pulse Rate [Pulse Oximeter] 98 94 Respiratory Rate 18 18 Blood Pressure Blood Pressure [Le ft Arm] 105/62 105/67 Blood Pressure [Ri ght Arm] Blood Pressure [Ri ght Upper Arm] Pulse Oximetry 91 90 Oxygen Delivery Me thod Room Air Room Air Oxygen Flow Rate Labs Labs: Laboratory Results - last 24 hr 10/08/24 10/08/24 10/08/24 10:15 10:25 10:30 WBC 6.05 RBC 4.05 Hgb 12.8 Hct 38.6 MCV 95 MCH 32 MCHC 33 RDW Coeff of Mindy 12.3 Plt Count 379 Neut % (Auto) 87.9 H Lymph % (Auto) 5.0 L [place] % (Auto) 6.8 Eos % (Auto) 0.0 Baso % (Auto) 0.0 Neut # (Auto) 5.30 Lymph # (Auto) 0.30 L [place] # (Auto) 0.40 Eos # (Auto) 0.00 Baso # (Auto) 0.00 Abs Immat Gran (auto) 0.02 Imm/Tot Granulo (auto) 0.3 Sodium 139 Potassium 3.8 Chloride 103 Carbon Dioxide 22 Anion Gap 14 BUN 22 Creatinine 0.7 Estimated Creat Clear 46.90 Estimated GFR 91 Glucose 153 H Lactate 2.0 H Calcium 9.6 Total Bilirubin 0.7 AST 30 ALT 37 H Alkaline Phosphatase 50 Troponin I < 0.01 L C-Reactive Protein < 0.5 L Total Protein 7.6 Albumin 4.6 Lipase 128 Procalcitonin 1.73 H Urine Color Urine Appearance Urine pH Ur Specific [place] Urine Protein Urine Glucose (UA) Urine Ketones Urine Blood Urine Nitrite Urine Bilirubin Urine Urobilinogen Ur Leukocyte Esterase Urine RBC Urine WBC Ur Squamous Epith Cells Urine Bacteria Urine L. pneumophilia Ag Urine Strep pneumoniae Ag Stool Occult Blood SARS-CoV-2 (PCR) Negative SARS-CoV-2 Influenza Type A (PCR) Negative PCR FLU A Influenza Type B (PCR) Negative PCR FLU B RSV (PCR) Negative PCR RSV Lab Acknowledgement POC Creatinine 0.8 10/08/24 10/08/24 10/09/24 12:33 18:10 06:09 WBC 9.67 RBC 3.35 L Hgb 10.6 L Hct 31.7 L MCV 95 MCH 32 MCHC 33 RDW Coeff of Mindy 12.3 Plt Count 309 Neut % (Auto) 85.4 H Lymph % (Auto) 9.0 L [place] % (Auto) 5.0 Eos % (Auto) 0.2 Baso % (Auto) 0.2 Neut # (Auto) 8.30 H Lymph # (Auto) 0.90 [place] # (Auto) 0.50 Eos # (Auto) 0.02 Baso # (Auto) 0.02 Abs Immat Gran (auto) 0.02 Imm/Tot Granulo (auto) 0.2 Sodium 131 L Potassium 3.4 L Chloride 99 Carbon Dioxide 22 Anion Gap 10 BUN 18 Creatinine 0.7 Estimated Creat Clear 46.75 Estimated GFR 91 Glucose 95 Lactate 0.7 Calcium 8.9 Total Bilirubin AST ALT Alkaline Phosphatase Troponin I C-Reactive Protein Total Protein Albumin Lipase Procalcitonin Urine Color Yellow Urine Appearance Clear Urine pH 6.5 Ur Specific [place] 1.015 Urine Protein Trace A Urine Glucose (UA) Negative Urine Ketones Negative Urine Blood Trace-intact A Urine Nitrite Positive A Urine Bilirubin Negative Urine Urobilinogen 0.2 Ur Leukocyte Esterase 3+ A Urine RBC 0-2 Urine WBC 0-2 Ur Squamous Epith Cells None Urine Bacteria Many A Urine L. pneumophilia Ag L. pneumo Negative Urine Strep pneumoniae Ag S. pneumo Negative Stool Occult Blood SARS-CoV-2 (PCR) Influenza Type A (PCR) Influenza Type B (PCR) RSV (PCR) Lab Acknowledgement Test Added POC Creatinine 10/09/24 06:18 WBC RBC Hgb Hct MCV MCH MCHC RDW Coeff of Mindy Plt Count Neut % (Auto) Lymph % (Auto) [place] % (Auto) Eos % (Auto) Baso % (Auto) Neut # (Auto) Lymph # (Auto) [place] # (Auto) Eos # (Auto) Baso # (Auto) Abs Immat Gran (auto) Imm/Tot Granulo (auto) Sodium Potassium Chloride Carbon Dioxide Anion Gap BUN Creatinine Estimated Creat Clear Estimated GFR Glucose Lactate Calcium Total Bilirubin AST ALT Alkaline Phosphatase Troponin I C-Reactive Protein Total Protein Albumin Lipase Procalcitonin Urine Color Urine Appearance Urine pH Ur Specific [place] Urine Protein Urine Glucose (UA) Urine Ketones Urine Blood Urine Nitrite Urine Bilirubin Urine Urobilinogen Ur Leukocyte Esterase Urine RBC Urine WBC Ur Squamous Epith Cells Urine Bacteria Urine L. pneumophilia Ag Urine Strep pneumoniae Ag Stool Occult Blood Positive A SARS-CoV-2 (PCR) Influenza Type A (PCR) Influenza Type B (PCR) RSV (PCR) Lab Acknowledgement POC Creatinine
--- NOTE | 2024-10-09 10:31 | REH.PT ---
PT Eval and treat orders received, Chart Reviewed. Pt is w/c bound and use a EZ stand at baseline with transfers at [address] [place] [address]. Today pt was able to tolerate EZ stand transfers bed<>recliner with assist of one person. At baseline with baseline transfer ability. No further PT warranted. D/C PT. No Charge.
--- NOTE | 2024-10-09 12:14 | PC.SOCIAL ---
Discharge planning: marquetry worker met with pt who states that she lives in the [facility] care at [facility]. Pt states that she plans to return to [facility] after her hospital stay. Pt did say that she has placed her bed at [facility] on a hold while she is in the hospital. Social work to assist with pt's transition back to [facility] after this hospital stay. Social work to follow-up as needed.
[2024-10-09] MEDS: OXYCODONE 5 MG TABLET 2.5 MG PO (16:33)
--- NOTE | 2024-10-09 19:20 | PC.NURSE ---
End of shift note [id number]: Pt AxOx4, cooperative, and pleasant to cares. EZ stand for transfers. Incontinent of bladder and bowels. Pt reported chronic lower back pain, managed with heat, reposition, and PRN medication. Tolerating reg diet/fluids well, able to eat independently. Swallows pills whole with water. Uses call light appropriately. Pt appears resting watching television with call light in reach.
[2024-10-09] MEDS: ENOXAPARIN 40 MG/0.4 ML INJ SUBCUT (20:24)
[2024-10-09] MEDS: PRIMIDONE 50 MG TABLET PO (20:25)
[2024-10-09] MEDS: TRAZODONE HCL 50 MG TABLET PO (20:25)
[2024-10-10 00:52] VITALS: TEMP 36.7
[2024-10-10] MEDS: ACETAMINOPHEN 500 MG TABLET 1000 MG PO ×2 (00:52→08:46)
[2024-10-10 02:39] VITALS: BP 100/66; PULSE 88; RESP 16; TEMP 37.3; O2SAT 92
--- NOTE | 2024-10-10 03:38 | PC.NURSE ---
Pt rested well this night. She states she is feeling back to her normal. Pt is an easy stand to and from chair. Incontinent of urine. Oriented x3. Afebrile.
[2024-10-10] MEDS: LEVOTHYROXINE 88 MCG TABLET PO (06:13)
[2024-10-10] MEDS: cefTRIAXone 1 GM in 0.9 % SODIUM CHLORIDE Mini-bag 100 ML IVPB (07:42)
[2024-10-10] MEDS: SODIUM CHLORIDE 0.9 % (FLUSH) 10 ML SYRINGE 5 ML IVF (07:43)
[2024-10-10] MEDS: ASPIRIN 81 MG TABLET EC PO (08:46)
[2024-10-10] MEDS: buPROPion XL 150 MG TABLET 300 MG PO (08:46)
[2024-10-10] MEDS: DOXYCYCLINE HYCLATE 100 MG PO (08:47)
[2024-10-10] MEDS: OMEPRAZOLE 20 MG CAPSULE DR 40 MG PO (08:47)
[2024-10-10] MEDS: FLUOXETINE HCL 20 MG CAPSULE 40 MG PO (08:47)
[2024-10-10] MEDS: PRIMIDONE 50 MG TABLET 100 MG PO (08:47)
[2024-10-10] MEDS: SENNOSIDES 1 TAB TABLET 3 TAB PO (08:52)
[2024-10-10] MEDS: OXYCODONE 5 MG TABLET 2.5 MG PO (08:53)
[2024-10-10 10:56] VITALS: BP 118/72; PULSE 77; PULSE 81; RESP 18; TEMP 36.7; O2SAT 91
--- NOTE | 2024-10-10 12:04 | PC.SOCIAL ---
Discharge planning: Pt will discharge back to her room/bed at [facility] today. Discharge orders were secure emailed to Debbie at [facility]. Pt is wheelchair bound at baseline and will qualify for insurance payment with non-emergent EMS transport. Non-emergent EMS transport is scheduled for 1:15pm-2:00pm pick-up time. clinical social worker notified Debbie at [facility] of the transport time. Social work to follow-up as needed.
--- NOTE | 2024-10-10 14:54 | PC.NURSE ---
Discharge - Pt alert, oriented to self/place/situation, needed reorientation to time from RN. Pt not up from bed for majority of shift. Up with x2 assist and easy stand for BM on bedside commode PRN. Incontinent of bladder during shift. Tolerating RA and regular diet/fluids. Pt reported pain in back as 02/22. Given medication per MAR with pt reporting improved comfort. IV removed with catheter intact, d/c education given to pt with verbalized understanding. Pt d/c'd to [address] [place] [address] via non-emergent EMS at approximately 1440.
--- NOTE | 2024-11-08 14:20 | P.DS_ITS ---
DS: Providers Provider Date Seen: 10/10/24 Date of admission: 10/08/24 14:01 Primary care physician: Karla Rivera MD Admitting Clinician: Renetta Dale MD Consults: 10/08/24 14:01 Consult to Physical Therapy [CONS] Routine Comment: Reason(s) for PT Consult:: Evaluate and Treat Any Restrictions?:: No Restrictions Consult to Operations Support Manager [CONS] Routine Comment: Reason for Consult:: Social Service Consult Attending Physician on discharge: Víctor Gresham MD Date of Discharge: 10/10/24 DS: Diagnosis Discharge Diagnosis (1) Hypoxia: Status: Acute Problem details: Likely due to pneumonia. EMS report RA SaO2 mid 80's when they first assessed her and she was hypoxic to 89% in the ED on the day of admission. Oxygen saturations have improved on 1 L per nasal cannula to low to mid 90s, and has since been weaned off of O2. (2) Pneumonia: Status: Acute Problem details: Bibasilar infiltrates. Influenza, COVID, RSV negative. Treat as community- acquired pneumonia: ceftriaxone IV and doxycycline po. With her vomiting being the onset of this illness this may well be an aspiration pneumonia event. - May simply have an aspiration pneumonitis, however will continue to treat for aspiration pneumonia for now. (3) UTI symptoms: Status: Acute Problem details: - abnl UA with nitrites and leukocyte esterase and UC is pending - 1 year ago urine culture grew out citrobacter freundii sensitive to ceftriaxone, which she is being treated with at this time - eventually urine culture grew out pansensitive e. coli. treated with ceftriaxone IV in hospital plus oral doxycycline and symptoms resolved. (4) Impaired mobility: Status: Acute Problem details: Over the past year she went to from living independently to [address] [place] [address] being able to stand, pivot and transfer bed to chair to being unable to stand and transfer at all requiring a Indu lift for all transfers. -PT and OT consult in hospital -on-going support at [address] [place] [address] (5) Bipolar 2 disorder: Status: Acute Problem details: - follows with Dr. Villanueva at [facility] in [place] (6) Patient's noncompliance with other medical treatment and regimen due to unspecified reason: Status: Acute (7) Cognitive impairment: Status: Acute Problem details: - 28/30 on MMSE on 10/20/2023 (8) Alcoholic cerebellar degeneration syndrome: Status: Acute Problem details: - Diagnosed November 2017 and is wheelchair dependent for locomotion - sober for a few years now - this neuro degenerative process is continuing to evolve and progress. She is a fall risk and needs 24/7 support. - Has continued progression of her neurologic disability despite being sober for many years - in-hospital will have PT and OT consult (9) Generalized weakness: Status: Acute Problem details: - gradual, progressive - suspect multifactorial from long-term disuse muscle atrophy from cerebellar degeneration + vitamin B12 deficiency, non-adherence to recommendation for vitamin B12 replacement, active hypothyroidism from insufficient levothyroxine supplementation due to non-adherence to recommendations - therapies ordered, social work referral placed; will require higher level of care living upon discharge DS: Summary Hospital Course Hospital Course: Admission history of present illness: ?74 year old female resident of [facility] with significant neurologic disability due to multi-system failure, bipolar disorder, history of alcohol-induced cerebellar degeneration is admitted to the hospital after an episode last night of recurrent vomiting and now cough, fever, dyspnea, congestion, rhinorrhea, weakness, fatigue, malaise and loss of appetite. She was in her usual state of health yesterday when she went to bed. About 3:00 a.m. she awoke with recurrent episodes of vomiting. She does not recall having abdominal pain. She says her emesis were dark but not bloody. She had at least 5 episodes of emesis. After this she came to the emergency room for evaluation. In the emergency department she was diagnosed with pneumonia and hypoxia. CT chest, CT abdomen and pelvis notable for small bilateral effusions and basilar opacities likely infectious or inflammatory. Also large stool in the rectum without other acute abdominal findings. She has had no further emesis sensed during the night. She has also had bas ically nothing to eat for the last several hours. She reports having no appetite. She has fatigue and malaise. She just had a large, otherwise normal stool.? Her condition improved with our treatment efforts as specified above and she was discharged back to [facility]. Status at Discharge Functional status at discharge: wheelchair bound Overall status at discharge: patient is progressing back to baseline Time Spent with Patient Time attestation: Total time spent providing and/or coordinating discharge services: Time spent: Less than 30 minutes Exam Narrative: Exam Narrative: Exam the patient in her hospital room. Appears comfortable and in no acute distress. Friendly and cooperative. Somewhat slow to respond to questions however is alert and oriented x3. Sitting upright she has no JVD or hepatojugular reflux. Fine end inspiratory crackles both bases. No wheezing or rhonchi. Chest wall e xcursions are full. No CVA tenderness. Heart tones with regular rhythm, normal S1-S2, without murmur, gallop, rub. Abdomen with active bowel sounds, soft, nontender. No focal motor neurologic deficits while sitting. Eating and drinking without difficulties. Maximum heart rate yesterday at rest 127 beats per minute. This morning it is 98 beats per minute at rest. Maximum respiratory rate yesterday at rest was 27 breaths per minute, this morning it is 18 breaths per minute. Resting room air oxygen saturations 90- 91%. Afebrile for greater than 24 hours. Admission weight 59.3 kg, this morning her weight is 59.1 kg. I review all labs and imaging studies. Of note she does have stool positive for occult blood. Hemoglobin this morning 10.6 with hematocrit of 32%. DS: Data Data Completed and Pending Completed studies during hospitalization: Procedures Introduction of Other Gas into Respiratory Tract, Via Natural or Artificial Opening (10/08/24) Imaging CT angiogram: Radiologist's impression: IMPRESSION: 1. No pulmonary emboli. 2. Bilateral diffuse centrilobular nodular opacities likely infectious/inflammatory could represent bronchopneumonia. CT scan of abdomen and pelvis: Radiologist's impression: IMPRESSION: 1. Rectum is markedly distended with stool this could be related to fecal impaction. The sigmoid colon is not distended however there may be some wall thickening which may represent very mild colitis. 2. Basilar trace effusions and bibasilar nodular opacities with atelectasis/consolidation. Finding likely reflecting infectious inflammatory process. Discharge Plan Discharge Disposition: [facility] Date of Admission: 10/08/24 14:01 Attending Provider on Discharge: Víctor Gresham Consulting Providers: Yury Tang; Víctor Gresham Primary Care Provider: Karla Rivera Condition: Improved Anticipated Discharge Date/Time: 10/10/24 12:30 Discharge Medications: New hydrocodone-acetaminophen 5-325 mg Tablet 1 tab PO HS PRN15 Days Qty: 15 0RF doxycycline hyclate 100 mg Tablet 100 mg PO BID 5 Days Qty: 10 0RF oxycodone 5 mg Tablet 2.5 mg PO Q6H PRN15 Days Qty: 10 0RF cefdinir 300 mg capsule 300 mg PO BID 5 Days Qty: 10 0RF Continued multivitamin [Multiple Vitamins] Tablet 1 tab PO DAILY aspirin 81 mg Tablet,Delayed Release (Dr/Ec) 81 mg PO DAILY Qty: 30 0RF fluoxetine 40 mg capsule 40 mg PO DAILY bupropion HCl 300 mg tablet extended release 24 hr 300 mg PO DAILY lurasidone 60 mg tablet 60 mg PO QPM levothyroxine [Synthroid] 88 mcg Tablet 88 mcg PO DAILY@0700 Qty: 30 0RF omeprazole 40 mg capsule,delayed release(DR/EC) 40 mg PO DAILY trazodone 50 mg tablet 50 mg PO HS primidone 50 mg tablet 100 mg PO .am cyanocobalamin (vitamin B-12) 1,000 mcg tablet 1,000 mcg PO DAILY cholecalciferol (vitamin D3) 50 mcg (2,000 unit) tablet 2,000 unit PO DAILY Vraylar 3 mg capsule 3 mg PO DAILY calcium carbonate-vitamin D3 [Calcium 500 + D] 500 mg-10 mcg (400 unit) tablet,chewable 1 tab PO DAILY Patient Comments: [NO ORIGINAL SIG] acetaminophen 500 mg tablet 1,000 mg PO Q8H Patient Comments: [NO ORIGINAL SIG] primidone [Mysoline] 50 mg tablet 50 mg PO QHS gabapentin 100 mg capsule 100 mg PO 3XD PRN sennosides [senna] 8.6 mg tablet 25.8 mg PO BID Patient Comments: [NO ORIGINAL SIG] Rx Instructions: and twice daily as needed for constipation Discontinued acetaminophen 325 mg Tablet 650 mg PO Q6H PRNQty: 90 0RF trazodone 100 mg tablet 50 mg PO HS oxycodone 5 mg tablet Patient Comments: [NO ORIGINAL SIG] Discharge Orders: Discharge Order (Routine); Ordered 10/10/24 Ordered By: Víctor Gresham Additional Instructions: 1. Follow up with primary care physician in 5-10 days with pre-visit hemoglobin for anemia and sodium for chronic hyponatremia Activity Level: Other Activity Detail: Wheel chair for locomotion; needs assist with transfers still Discharge Diet: Regular Follow Up Appointments: Karla Rivera MD [Primary Care Provider] - Forms: [employer] Info Instructions Admit to: SNF Discharge Potential: Poor Length of Stay: >90 days Can use facility standing orders?: Yes Code Status: DNR/DNI Oxygen: No Urinary Catheter: No Orders are good >30 days: Yes Signature: Víctor Gresham
== END 2024-10-10 14:40 | DRG 178 ==
LOC: ED 12:40 → MEDSURG 12:49
PROVIDERS: Family Medicine; Admitting Provider Family Medicine; Emergency Provider Student in an Organized Health Care Education/Training Program; PCP Family Medicine; Visit Provider Family Medicine
DX: J69.0 Pneumonitis due to inhalation of food and vomit (principal); F31.81 Bipolar II disorder; N39.0 Urinary tract infection, site not specified; R09.02 Hypoxemia; J18.9 Pneumonia, unspecified organism; F10.21 Alcohol dependence, in remission; G31.2 Degeneration of nervous system due to alcohol; R11.2 Nausea with vomiting, unspecified; N18.2 Chronic kidney disease, stage 2 (mild); E05.00 Thyrotoxicosis with diffuse goiter without thyrotoxic crisis or storm; E03.9 Hypothyroidism, unspecified; F17.210 Nicotine dependence, cigarettes, uncomplicated; I25.2 Old myocardial infarction; B96.20 Unspecified Escherichia coli [E. coli] as the cause of diseases classified elsewhere
CPT/HCPCS: 36415; 71275; 74177; 80048; 80053; 81001; 81003; 82270; 82565; 83605; 83690; 84145; 84484; 85025; 86140; 87040; 87081; 87086; 87186; 87449; 87631; 87899; 99284; 99285; A9270; J0696; J1650; J7030; Q9967

== ENCOUNTER 2024-10-10 14:26 | Outpatient (CLI) | payer MEDICARE, OTHER, BC, SELFPAY | END 2024-10-10 14:27 | disposition home or self-care (01) | LOC: AMB 10-11 11:54 | PROVIDERS: PCP Family Medicine; Visit Provider Emergency Medicine | DX: J18.9 Pneumonia, unspecified organism (principal) | CPT/HCPCS: A0425; A0428 ==